=== PATIENT | female | born 1940 | race Caucasian/White ===

== ENCOUNTER → 2017-09-08 05:00 | Outpatient (REF) | payer MEDICARE, SELFPAY ==
[2017-09-08 08:27] LABS: Hematocrit 33.8 % (37-47); Hemoglobin 10.9 g/dl (12.0-15.0); Mean Corp Hgb Conc 32.2 g/gl (32-36); Mean Corpuscular Hgb 29.9 pg (27.0-32.0); Mean Corpuscular Volume 92.6 fL (81-99); Mean Platelet Vol. 10.9 fl (6.2-12.0); Platelet Count 288 K/mm3 (150-450); RBC Distribution Width CV 15.2 % (11.6-14.6); RBC Distribution Width SD 49.4 fl (35.1-43.9); Red Blood Count 3.65 M/mm3 (4.2-5.4); White Blood Count 8.4 K/mm3 (4.4-11.0)
[2017-09-08 08:28] LABS: Scan Indicated on CBC? Y/N NO
[2017-09-08 08:43] LABS: Anion Gap 9 (5-15); BUN 17 mg/dL (7-18); BUN/Creat Ratio 23.3 RATIO (10-20); Calcium,Total 8.6 mg/dL (8.5-10.1); Chloride 108 mmol/L (98-107); Creatinine, Serum 0.73 mg/dL (0.55-1.02); EST Glomerular Filtration Rate 83 mL/min (>60); Est Glom Filt Rate - Afr Amer 100 mL/min (>60); Glucose 94 mg/dL (70-110); Sodium Level 144 mmol/L (136-145)
== END ==
LOC: OLS.WCC 05:00
PROVIDERS: Visit Provider Family Medicine
DX: E78.5 Hyperlipidemia, unspecified (principal); E03.9 Hypothyroidism, unspecified
CPT/HCPCS: 36415; 80048; 85027

== ENCOUNTER → 2017-09-22 05:00 | Outpatient (REF) | payer MEDICARE, OTHER, SELFPAY ==
[2017-09-22 09:37] LABS: Hematocrit 35.7 % (37-47); Hemoglobin 11.2 g/dl (12.0-15.0); Mean Corp Hgb Conc 31.4 g/gl (32-36); Mean Corpuscular Volume 92.5 fL (81-99); Mean Platelet Vol. 10.8 fl (6.2-12.0); Platelet Count 230 K/mm3 (150-450); RBC Distribution Width CV 14.7 % (11.6-14.6); RBC Distribution Width SD 49.8 fl (35.1-43.9); Red Blood Count 3.86 M/mm3 (4.2-5.4); White Blood Count 7.7 K/mm3 (4.4-11.0)
[2017-09-22 09:38] LABS: Scan Indicated on CBC? Y/N NO
[2017-09-22 09:40] LABS: Anion Gap 7 (5-15); BUN 25 mg/dL (7-18); BUN/Creat Ratio 33.8 RATIO (10-20); Calcium,Total 8.6 mg/dL (8.5-10.1); Chloride 109 mmol/L (98-107); Creatinine, Serum 0.74 mg/dL (0.55-1.02); EST Glomerular Filtration Rate 81 mL/min (>60); Est Glom Filt Rate - Afr Amer 98 mL/min (>60); Glucose 91 mg/dL (70-110); Potassium 4.4 mmol/L (3.5-5.1); Sodium Level 142 mmol/L (136-145)
== END ==
LOC: OLS.WCC 05:00
PROVIDERS: Visit Provider Family Medicine
DX: E78.5 Hyperlipidemia, unspecified (principal); E30.9 Disorder of puberty, unspecified
CPT/HCPCS: 36415; 80048; 85027

== ENCOUNTER → 2017-09-28 05:00 | Outpatient (REF) | payer MEDICARE, SELFPAY ==
[2017-09-28 09:32] LABS: Hematocrit 34.6 % (37-47); Hemoglobin 10.7 g/dl (12.0-15.0); Mean Corp Hgb Conc 30.9 g/gl (32-36); Mean Corpuscular Hgb 28.6 pg (27.0-32.0); Mean Corpuscular Volume 92.5 fL (81-99); Mean Platelet Vol. 10.6 fl (6.2-12.0); Platelet Count 220 K/mm3 (150-450); RBC Distribution Width CV 14.5 % (11.6-14.6); RBC Distribution Width SD 49.1 fl (35.1-43.9); Red Blood Count 3.74 M/mm3 (4.2-5.4); Scan Indicated on CBC? Y/N NO; White Blood Count 7.1 K/mm3 (4.4-11.0)
[2017-09-28 09:38] LABS: Anion Gap 7 (5-15); BUN 16 mg/dL (7-18); BUN/Creat Ratio 22.1 RATIO (10-20); Calcium,Total 8.7 mg/dL (8.5-10.1); Chloride 105 mmol/L (98-107); Creatinine, Serum 0.72 mg/dL (0.55-1.02); EST Glomerular Filtration Rate 83 mL/min (>60); Est Glom Filt Rate - Afr Amer 101 mL/min (>60); Glucose 81 mg/dL (70-110); Potassium 4.2 mmol/L (3.5-5.1); Sodium Level 141 mmol/L (136-145)
== END ==
LOC: OLS.WCC 05:00
PROVIDERS: Visit Provider Family Medicine
DX: D64.9 Anemia, unspecified (principal); E03.9 Hypothyroidism, unspecified
CPT/HCPCS: 36415; 80048; 85027

== ENCOUNTER → 2017-11-01 05:00 | Outpatient (REF) | payer MEDICARE, SELFPAY ==
[2017-11-01 08:47] LABS: Hematocrit 36.8 % (37-47); Hemoglobin 11.6 g/dl (12.0-15.0); Mean Corp Hgb Conc 31.5 g/gl (32-36); Mean Corpuscular Hgb 28.4 pg (27.0-32.0); Mean Platelet Vol. 10.5 fl (6.2-12.0); Platelet Count 225 K/mm3 (150-450); RBC Distribution Width CV 14.3 % (11.6-14.6); RBC Distribution Width SD 47.2 fl (35.1-43.9); Red Blood Count 4.09 M/mm3 (4.2-5.4); White Blood Count 8.2 K/mm3 (4.4-11.0)
[2017-11-01 08:48] LABS: Anion Gap 9 (5-15); BUN 17 mg/dL (7-18); BUN/Creat Ratio 22.5 RATIO (10-20); Calcium,Total 8.5 mg/dL (8.5-10.1); Chloride 105 mmol/L (98-107); Creatinine, Serum 0.75 mg/dL (0.55-1.02); EST Glomerular Filtration Rate 80 mL/min (>60); Est Glom Filt Rate - Afr Amer 96 mL/min (>60); Glucose 97 mg/dL (74-106); Potassium 3.9 mmol/L (3.5-5.1); Sodium Level 142 mmol/L (136-145)
[2017-11-01 08:56] LABS: Scan Indicated on CBC? Y/N NO
== END ==
LOC: OLS.WCC 05:00
PROVIDERS: Visit Provider Family Medicine
DX: E78.5 Hyperlipidemia, unspecified (principal); E03.9 Hypothyroidism, unspecified; Z79.899 Other long term (current) drug therapy
CPT/HCPCS: 36415; 80048; 85027

== ENCOUNTER → 2017-11-29 04:00 | Outpatient (REF) | payer MEDICARE, SELFPAY ==
[2017-11-29 08:25] LABS: Hematocrit 38.6 % (37-47); Hemoglobin 12.1 g/dl (12.0-15.0); Mean Corp Hgb Conc 31.3 g/gl (32-36); Mean Corpuscular Hgb 27.6 pg (27.0-32.0); Mean Corpuscular Volume 87.9 fL (81-99); Mean Platelet Vol. 10.4 fl (6.2-12.0); Platelet Count 202 K/mm3 (150-450); RBC Distribution Width CV 14.6 % (11.6-14.6); RBC Distribution Width SD 47.2 fl (35.1-43.9); Red Blood Count 4.39 M/mm3 (4.2-5.4); White Blood Count 6.7 K/mm3 (4.4-11.0)
[2017-11-29 08:27] LABS: Scan Indicated on CBC? Y/N NO
[2017-11-29 08:56] LABS: Anion Gap 7 (5-15); BUN 16 mg/dL (7-18); BUN/Creat Ratio 23.6 RATIO (10-20); Calcium,Total 8.4 mg/dL (8.5-10.1); Chloride 106 mmol/L (98-107); Cholesterol 262 mg/dL (200); Creatinine, Serum 0.68 mg/dL (0.55-1.02); EST Glomerular Filtration Rate 90 mL/min (>60); Est Glom Filt Rate - Afr Amer 109 mL/min (>60); Glucose 114 mg/dL (74-106); High Density Lipoprotein 46 mg/dL; Potassium 3.9 mmol/L (3.5-5.1); Sodium Level 142 mmol/L (136-145); Thyroid Stim Hormone (TSH) 0.07 uIU/mL (0.358-3.74); Triglycerides 246 mg/dL; Very Low Density Lipoprotein 49 mg/dL (5-40)
== END ==
LOC: OLS.WCC 04:00
PROVIDERS: Visit Provider Family Medicine
DX: E78.5 Hyperlipidemia, unspecified (principal); E03.9 Hypothyroidism, unspecified; Z79.899 Other long term (current) drug therapy; Z79.01 Long term (current) use of anticoagulants
CPT/HCPCS: 36415; 80048; 80061; 84443; 85027

== ENCOUNTER → 2017-12-27 05:00 | Outpatient (REF) | payer MEDICARE, SELFPAY ==
[2017-12-27 09:54] LABS: Hematocrit 38.5 % (37-47); Hemoglobin 12.2 g/dl (12.0-15.0); Mean Corp Hgb Conc 31.7 g/gl (32-36); Mean Corpuscular Hgb 27.3 pg (27.0-32.0); Mean Corpuscular Volume 86.1 fL (81-99); Mean Platelet Vol. 10.5 fl (6.2-12.0); Platelet Count 223 K/mm3 (150-450); RBC Distribution Width CV 14.9 % (11.6-14.6); RBC Distribution Width SD 46.4 fl (35.1-43.9); Red Blood Count 4.47 M/mm3 (4.2-5.4)
[2017-12-27 10:04] LABS: Scan Indicated on CBC? Y/N NO
[2017-12-27 10:14] LABS: Anion Gap 7 (5-15); BUN 17 mg/dL (7-18); BUN/Creat Ratio 20.9 RATIO (10-20); Calcium,Total 8.5 mg/dL (8.5-10.1); Chloride 106 mmol/L (98-107); Creatinine, Serum 0.81 mg/dL (0.55-1.02); EST Glomerular Filtration Rate 73 mL/min (>60); Est Glom Filt Rate - Afr Amer 88 mL/min (>60); Glucose 89 mg/dL (74-106); Potassium 3.8 mmol/L (3.5-5.1); Sodium Level 141 mmol/L (136-145)
== END ==
LOC: OLS.WCC 05:00
PROVIDERS: Visit Provider Family Medicine
DX: E78.5 Hyperlipidemia, unspecified (principal); E03.9 Hypothyroidism, unspecified
CPT/HCPCS: 36415; 80048; 85027

== ENCOUNTER → 2018-01-24 05:00 | Outpatient (REF) | payer MEDICARE, SELFPAY ==
[2018-01-24 07:51] LABS: Prothrombin Time Fingerstick 24.7 SEC (11.9-14.4)
== END ==
LOC: OLS.WCC 05:00
PROVIDERS: Visit Provider Family Medicine
DX: E11.9 Type 2 diabetes mellitus without complications (principal); Z79.899 Other long term (current) drug therapy; Z79.01 Long term (current) use of anticoagulants
CPT/HCPCS: 36416; 85610

== ENCOUNTER → 2018-02-23 04:00 | Outpatient (REF) | payer MEDICARE, SELFPAY ==
[2018-02-23 07:16] LABS: Hematocrit 38.5 % (37-47); Hemoglobin 12.3 g/dl (12.0-15.0); Mean Corp Hgb Conc 31.9 g/gl (32-36); Mean Corpuscular Hgb 27.4 pg (27.0-32.0); Mean Corpuscular Volume 85.7 fL (81-99); Platelet Count 210 K/mm3 (150-450); RBC Distribution Width CV 16.2 % (11.6-14.6); RBC Distribution Width SD 51.3 fl (35.1-43.9); Red Blood Count 4.49 M/mm3 (4.2-5.4); White Blood Count 6.2 K/mm3 (4.4-11.0)
[2018-02-23 07:23] LABS: Scan Indicated on CBC? Y/N NO
[2018-02-23 07:32] LABS: International Normalized Ratio 2.4; Prothrombin Time (Protime)PT. 26.6 SECONDS (11.7-14.9)
[2018-02-23 07:35] LABS: Anion Gap 8 (5-15); BUN 18 mg/dL (7-18); BUN/Creat Ratio 23.7 RATIO (10-20); Chloride 109 mmol/L (98-107); Creatinine, Serum 0.76 mg/dL (0.55-1.02); EST Glomerular Filtration Rate 79 mL/min (>60); Est Glom Filt Rate - Afr Amer 95 mL/min (>60); Glucose 93 mg/dL (74-106); Potassium 3.7 mmol/L (3.5-5.1); Sodium Level 143 mmol/L (136-145)
== END ==
LOC: OLS.WCC 04:00
PROVIDERS: Visit Provider Family Medicine
DX: D64.9 Anemia, unspecified (principal); Z79.899 Other long term (current) drug therapy; Z79.01 Long term (current) use of anticoagulants; Z87.19 Personal history of other diseases of the digestive system
CPT/HCPCS: 36415; 80048; 85027; 85610

== ENCOUNTER → 2018-04-22 05:00 | Outpatient (REF) | payer MEDICARE, SELFPAY ==
[2018-04-22 07:41] LABS: Hematocrit 41.1 % (37-47); Mean Corp Hgb Conc 31.6 g/gl (32-36); Mean Corpuscular Hgb 28.4 pg (27.0-32.0); Mean Corpuscular Volume 89.7 fL (81-99); Mean Platelet Vol. 10.3 fl (6.2-12.0); Platelet Count 210 K/mm3 (150-450); RBC Distribution Width CV 15.1 % (11.6-14.6); RBC Distribution Width SD 49.6 fl (35.1-43.9); Red Blood Count 4.58 M/mm3 (4.2-5.4); White Blood Count 7.7 K/mm3 (4.4-11.0)
[2018-04-22 07:42] LABS: Scan Indicated on CBC? Y/N NO
[2018-04-22 07:45] LABS: International Normalized Ratio 1.8; Prothrombin Time (Protime)PT. 21.1 SECONDS (11.7-14.9)
[2018-04-22 08:00] LABS: Anion Gap 7 (5-15); BUN 16 mg/dL (7-18); BUN/Creat Ratio 19.5 RATIO (10-20); Calcium,Total 8.5 mg/dL (8.5-10.1); Chloride 106 mmol/L (98-107); Creatinine, Serum 0.82 mg/dL (0.55-1.02); EST Glomerular Filtration Rate 72 mL/min (>60); Est Glom Filt Rate - Afr Amer 87 mL/min (>60); Glucose 113 mg/dL (74-106); Potassium 3.7 mmol/L (3.5-5.1); Sodium Level 144 mmol/L (136-145); Thyroid Stim Hormone (TSH) 0.28 uIU/mL (0.358-3.74)
== END ==
LOC: OLS.WCC 05:00
PROVIDERS: Visit Provider Family Medicine
DX: E03.9 Hypothyroidism, unspecified (principal); Z79.899 Other long term (current) drug therapy; Z79.01 Long term (current) use of anticoagulants
CPT/HCPCS: 36415; 80048; 84443; 85027; 85610

== ENCOUNTER → 2018-05-24 05:00 | Outpatient (REF) | payer MEDICARE, SELFPAY ==
[2018-05-24 10:02] LABS: Anion Gap 9 (5-15); BUN 17 mg/dL (7-18); BUN/Creat Ratio 19.5 RATIO (10-20); Calcium,Total 8.7 mg/dL (8.5-10.1); Chloride 106 mmol/L (98-107); Creatinine, Serum 0.87 mg/dL (0.55-1.02); EST Glomerular Filtration Rate 67 mL/min (>60); Est Glom Filt Rate - Afr Amer 81 mL/min (>60); Glucose 131 mg/dL (74-106); Potassium 3.5 mmol/L (3.5-5.1); Sodium Level 143 mmol/L (136-145)
[2018-05-24 10:03] LABS: International Normalized Ratio 1.8; Prothrombin Time (Protime)PT. 21.1 SECONDS (11.7-14.9)
[2018-05-24 10:05] LABS: Hematocrit 41.2 % (37-47); Mean Corp Hgb Conc 31.6 g/gl (32-36); Mean Corpuscular Hgb 28.4 pg (27.0-32.0); Mean Corpuscular Volume 90.2 fL (81-99); Mean Platelet Vol. 10.7 fl (6.2-12.0); Platelet Count 195 K/mm3 (150-450); RBC Distribution Width CV 14.7 % (11.6-14.6); RBC Distribution Width SD 48.5 fl (35.1-43.9); Red Blood Count 4.57 M/mm3 (4.2-5.4); White Blood Count 8.3 K/mm3 (4.4-11.0)
[2018-05-24 10:07] LABS: Scan Indicated on CBC? Y/N NO
== END ==
LOC: OLS.WCC 05:00
PROVIDERS: Visit Provider Family Medicine
DX: Z79.899 Other long term (current) drug therapy (principal); Z79.01 Long term (current) use of anticoagulants
CPT/HCPCS: 36415; 80048; 85027; 85610

== ENCOUNTER → 2018-06-23 05:00 | Outpatient (REF) | payer MEDICARE, SELFPAY ==
[2018-06-23 08:52] LABS: Hemoglobin 13.5 g/dl (12.0-15.0); Mean Corp Hgb Conc 32.1 g/gl (32-36); Mean Corpuscular Hgb 28.7 pg (27.0-32.0); Mean Corpuscular Volume 89.2 fL (81-99); Platelet Count 202 K/mm3 (150-450); RBC Distribution Width CV 14.4 % (11.6-14.6); RBC Distribution Width SD 47.2 fl (35.1-43.9); Red Blood Count 4.71 M/mm3 (4.2-5.4)
[2018-06-23 08:54] LABS: Scan Indicated on CBC? Y/N NO
[2018-06-23 09:02] LABS: Prothrombin Time (Protime)PT. 22.9 SECONDS (11.7-14.9)
[2018-06-23 09:14] LABS: Anion Gap 6 (5-15); BUN 16 mg/dL (7-18); BUN/Creat Ratio 18.5 RATIO (10-20); Calcium,Total 8.7 mg/dL (8.5-10.1); Chloride 107 mmol/L (98-107); Cholesterol 317 mg/dL (200); Creatinine, Serum 0.86 mg/dL (0.55-1.02); EST Glomerular Filtration Rate 68 mL/min (>60); Est Glom Filt Rate - Afr Amer 82 mL/min (>60); Glucose 106 mg/dL (74-106); High Density Lipoprotein 41 mg/dL; Sodium Level 142 mmol/L (136-145); Thyroid Stim Hormone (TSH) 0.24 uIU/mL (0.358-3.74); Triglycerides 257 mg/dL; Very Low Density Lipoprotein 51 mg/dL (5-40)
== END ==
LOC: OLS.WCC 05:00
PROVIDERS: Visit Provider Family Medicine
DX: E78.5 Hyperlipidemia, unspecified (principal); E03.9 Hypothyroidism, unspecified; Z79.899 Other long term (current) drug therapy; Z79.01 Long term (current) use of anticoagulants
CPT/HCPCS: 36415; 80048; 80061; 84443; 85027; 85610

== ENCOUNTER → 2018-07-21 05:00 | Outpatient (REF) | payer MEDICARE, SELFPAY ==
[2018-07-21 08:46] LABS: Hemoglobin 13.1 g/dl (12.0-15.0); Mean Corp Hgb Conc 32.8 g/gl (32-36); Mean Corpuscular Hgb 29.2 pg (27.0-32.0); Mean Corpuscular Volume 89.3 fL (81-99); Mean Platelet Vol. 10.6 fl (6.2-12.0); Platelet Count 194 K/mm3 (150-450); RBC Distribution Width CV 14.5 % (11.6-14.6); RBC Distribution Width SD 47.1 fl (35.1-43.9); Red Blood Count 4.48 M/mm3 (4.2-5.4); Scan Indicated on CBC? Y/N NO; White Blood Count 6.2 K/mm3 (4.4-11.0)
[2018-07-21 08:54] LABS: Prothrombin Time (Protime)PT. 22.3 SECONDS (11.7-14.9)
[2018-07-21 08:58] LABS: Anion Gap 6 (5-15); BUN 18 mg/dL (7-18); BUN/Creat Ratio 20.2 RATIO (10-20); Calcium,Total 8.3 mg/dL (8.5-10.1); Chloride 106 mmol/L (98-107); Creatinine, Serum 0.89 mg/dL (0.55-1.02); EST Glomerular Filtration Rate 65 mL/min (>60); Est Glom Filt Rate - Afr Amer 79 mL/min (>60); Glucose 103 mg/dL (74-106); Potassium 3.5 mmol/L (3.5-5.1); Sodium Level 140 mmol/L (136-145)
== END ==
LOC: OLS.WCC 05:00
PROVIDERS: Visit Provider Family Medicine
DX: Z79.899 Other long term (current) drug therapy (principal); Z79.01 Long term (current) use of anticoagulants
CPT/HCPCS: 36415; 80048; 85027; 85610

== ENCOUNTER → 2018-08-23 04:00 | Outpatient (REF) | payer MEDICARE, SELFPAY ==
[2018-08-23 09:12] LABS: Hematocrit 40.8 % (37-47); Hemoglobin 13.1 g/dl (12.0-15.0); Mean Corp Hgb Conc 32.1 g/gl (32-36); Mean Corpuscular Volume 90.3 fL (81-99); Mean Platelet Vol. 11.3 fl (6.2-12.0); Platelet Count 203 K/mm3 (150-450); RBC Distribution Width CV 14.7 % (11.6-14.6); RBC Distribution Width SD 48.2 fl (35.1-43.9); Red Blood Count 4.52 M/mm3 (4.2-5.4); White Blood Count 6.9 K/mm3 (4.4-11.0)
[2018-08-23 09:19] LABS: Scan Indicated on CBC? Y/N NO
[2018-08-23 09:25] LABS: International Normalized Ratio 2.2; Prothrombin Time (Protime)PT. 24.2 SECONDS (11.7-14.9)
[2018-08-23 09:30] LABS: Anion Gap 8 (5-15); BUN 23 mg/dL (7-18); BUN/Creat Ratio 23.5 RATIO (10-20); Calcium,Total 8.5 mg/dL (8.5-10.1); Chloride 108 mmol/L (98-107); Creatinine, Serum 0.98 mg/dL (0.55-1.02); EST Glomerular Filtration Rate 59 mL/min (>60); Est Glom Filt Rate - Afr Amer 71 mL/min (>60); Glucose 119 mg/dL (74-106); Potassium 4.1 mmol/L (3.5-5.1); Sodium Level 144 mmol/L (136-145); Thyroid Stim Hormone (TSH) 0.09 uIU/mL (0.358-3.74)
== END ==
LOC: OLS.WCC 04:00
PROVIDERS: Visit Provider Family Medicine
DX: E03.9 Hypothyroidism, unspecified (principal); Z79.01 Long term (current) use of anticoagulants; Z79.899 Other long term (current) drug therapy
CPT/HCPCS: 36415; 80048; 84443; 85027; 85610

== ENCOUNTER → 2018-09-22 05:00 | Outpatient (REF) | payer MEDICARE, SELFPAY ==
[2018-09-22 08:46] LABS: Anion Gap 8 (5-15); BUN 21 mg/dL (7-18); BUN/Creat Ratio 25.3 RATIO (10-20); Calcium,Total 8.4 mg/dL (8.5-10.1); Chloride 109 mmol/L (98-107); Creatinine, Serum 0.83 mg/dL (0.55-1.02); EST Glomerular Filtration Rate 71 mL/min (>60); Est Glom Filt Rate - Afr Amer 86 mL/min (>60); Glucose 114 mg/dL (74-106); Potassium 3.7 mmol/L (3.5-5.1); Sodium Level 145 mmol/L (136-145)
[2018-09-22 08:47] LABS: Hematocrit 39.9 % (37-47); Hemoglobin 12.8 g/dl (12.0-15.0); Mean Corp Hgb Conc 32.1 g/gl (32-36); Mean Corpuscular Volume 90.3 fL (81-99); Mean Platelet Vol. 10.7 fl (6.2-12.0); Platelet Count 208 K/mm3 (150-450); RBC Distribution Width CV 15.1 % (11.6-14.6); RBC Distribution Width SD 49.3 fl (35.1-43.9); Red Blood Count 4.42 M/mm3 (4.2-5.4); White Blood Count 7.3 K/mm3 (4.4-11.0)
[2018-09-22 08:53] LABS: Scan Indicated on CBC? Y/N NO
[2018-09-22 09:22] LABS: International Normalized Ratio 2.2; Prothrombin Time (Protime)PT. 24.3 SECONDS (11.7-14.9)
== END ==
LOC: OLS.WCC 05:00
PROVIDERS: Visit Provider Family Medicine
DX: E87.5 Hyperkalemia (principal); E03.9 Hypothyroidism, unspecified; Z79.899 Other long term (current) drug therapy; Z79.01 Long term (current) use of anticoagulants
CPT/HCPCS: 36415; 80048; 85027; 85610

== ENCOUNTER → 2018-10-24 04:00 | Outpatient (REF) | payer MEDICARE, SELFPAY ==
[2018-10-24 09:07] LABS: Hematocrit 40.2 % (37-47); Hemoglobin 13.1 g/dl (12.0-15.0); Mean Corp Hgb Conc 32.6 g/gl (32-36); Mean Corpuscular Hgb 29.4 pg (27.0-32.0); Mean Corpuscular Volume 90.3 fL (81-99); Mean Platelet Vol. 11.1 fl (6.2-12.0); Platelet Count 202 K/mm3 (150-450); RBC Distribution Width CV 14.9 % (11.6-14.6); RBC Distribution Width SD 48.7 fl (35.1-43.9); Red Blood Count 4.45 M/mm3 (4.2-5.4); White Blood Count 6.5 K/mm3 (4.4-11.0)
[2018-10-24 09:08] LABS: Scan Indicated on CBC? Y/N NO
[2018-10-24 09:17] LABS: International Normalized Ratio 1.7; Prothrombin Time (Protime)PT. 20.3 SECONDS (11.7-14.9)
[2018-10-24 09:26] LABS: Anion Gap 7 (5-15); BUN 18 mg/dL (7-18); BUN/Creat Ratio 22.9 RATIO (10-20); Calcium,Total 8.6 mg/dL (8.5-10.1); Chloride 110 mmol/L (98-107); Creatinine, Serum 0.79 mg/dL (0.55-1.02); EST Glomerular Filtration Rate 76 mL/min (>60); Est Glom Filt Rate - Afr Amer 91 mL/min (>60); Glucose 125 mg/dL (74-106); Potassium 3.4 mmol/L (3.5-5.1); Sodium Level 142 mmol/L (136-145)
== END ==
LOC: OLS.WCC 04:00
PROVIDERS: Visit Provider Family Medicine
DX: E78.5 Hyperlipidemia, unspecified (principal); E03.9 Hypothyroidism, unspecified; Z79.01 Long term (current) use of anticoagulants; Z79.899 Other long term (current) drug therapy; Z87.19 Personal history of other diseases of the digestive system
CPT/HCPCS: 36415; 80048; 85027; 85610

== ENCOUNTER → 2018-11-21 04:00 | Outpatient (REF) | payer MEDICARE, SELFPAY ==
[2018-11-21 08:15] LABS: Hematocrit 42.9 % (37-47); Mean Corp Hgb Conc 32.6 g/gl (32-36); Mean Corpuscular Hgb 29.5 pg (27.0-32.0); Mean Corpuscular Volume 90.3 fL (81-99); Platelet Count 213 K/mm3 (150-450); RBC Distribution Width CV 14.9 % (11.6-14.6); RBC Distribution Width SD 48.3 fl (35.1-43.9); Red Blood Count 4.75 M/mm3 (4.2-5.4); White Blood Count 7.3 K/mm3 (4.4-11.0)
[2018-11-21 08:24] LABS: Anion Gap 10 (5-15); BUN 19 mg/dL (7-18); BUN/Creat Ratio 22.8 RATIO (10-20); Calcium,Total 8.5 mg/dL (8.5-10.1); Chloride 107 mmol/L (98-107); Creatinine, Serum 0.83 mg/dL (0.55-1.02); EST Glomerular Filtration Rate 71 mL/min (>60); Est Glom Filt Rate - Afr Amer 86 mL/min (>60); Glucose 103 mg/dL (74-106); Potassium 3.8 mmol/L (3.5-5.1); Sodium Level 143 mmol/L (136-145)
[2018-11-21 08:30] LABS: Prothrombin Time (Protime)PT. 22.8 SECONDS (11.7-14.9)
[2018-11-21 08:32] LABS: Scan Indicated on CBC? Y/N NO
== END ==
LOC: OLS.WCC 04:00
PROVIDERS: Visit Provider Family Medicine
DX: Z79.899 Other long term (current) drug therapy (principal); Z79.01 Long term (current) use of anticoagulants
CPT/HCPCS: 36415; 80048; 85027; 85610

== ENCOUNTER → 2018-12-19 04:00 | Outpatient (REF) | payer MEDICARE, SELFPAY ==
[2018-12-19 07:17] LABS: International Normalized Ratio 1.8; Prothrombin Time (Protime)PT. 20.5 SECONDS (11.7-14.9)
[2018-12-19 07:18] LABS: Hematocrit 43.4 % (37-47); Hemoglobin 13.7 g/dl (12.0-15.0); Mean Corp Hgb Conc 31.6 g/gl (32-36); Mean Corpuscular Hgb 28.2 pg (27.0-32.0); Mean Corpuscular Volume 89.3 fL (81-99); Mean Platelet Vol. 10.9 fl (6.2-12.0); Platelet Count 221 K/mm3 (150-450); RBC Distribution Width CV 14.7 % (11.6-14.6); RBC Distribution Width SD 47.8 fl (35.1-43.9); Red Blood Count 4.86 M/mm3 (4.2-5.4); White Blood Count 7.4 K/mm3 (4.4-11.0)
[2018-12-19 07:32] LABS: Anion Gap 6 (5-15); BUN 14 mg/dL (7-18); Calcium,Total 8.8 mg/dL (8.5-10.1); Chloride 109 mmol/L (98-107); Cholesterol 296 mg/dL (200); Creatinine, Serum 0.87 mg/dL (0.55-1.02); EST Glomerular Filtration Rate 67 mL/min (>60); Est Glom Filt Rate - Afr Amer 81 mL/min (>60); Glucose 124 mg/dL (74-106); High Density Lipoprotein 43 mg/dL; Scan Indicated on CBC? Y/N NO; Sodium Level 143 mmol/L (136-145); Thyroid Stim Hormone (TSH) 0.26 uIU/mL (0.358-3.74); Triglycerides 286 mg/dL; Very Low Density Lipoprotein 57 mg/dL (5-40)
== END ==
LOC: OLS.WCC 04:00
PROVIDERS: Visit Provider Family Medicine
DX: E03.9 Hypothyroidism, unspecified (principal); Z79.899 Other long term (current) drug therapy; Z79.01 Long term (current) use of anticoagulants
CPT/HCPCS: 36415; 80048; 80061; 84443; 85027; 85610

== ENCOUNTER → 2019-01-19 05:00 | Outpatient (REF) | payer MEDICARE, SELFPAY ==
[2019-01-19 08:05] LABS: Hematocrit 42.2 % (37-47); Hemoglobin 13.9 g/dl (12.0-15.0); Mean Corp Hgb Conc 32.9 g/gl (32-36); Mean Corpuscular Hgb 28.8 pg (27.0-32.0); Mean Corpuscular Volume 87.6 fL (81-99); Mean Platelet Vol. 10.5 fl (6.2-12.0); Platelet Count 200 K/mm3 (150-450); RBC Distribution Width CV 14.7 % (11.6-14.6); RBC Distribution Width SD 46.3 fl (35.1-43.9); Red Blood Count 4.82 M/mm3 (4.2-5.4); Scan Indicated on CBC? Y/N NO; White Blood Count 7.4 K/mm3 (4.4-11.0)
[2019-01-19 08:11] LABS: Prothrombin Time (Protime)PT. 22.5 SECONDS (11.7-14.9)
[2019-01-19 08:13] LABS: Anion Gap 5 (5-15); BUN 16 mg/dL (7-18); BUN/Creat Ratio 17.3 RATIO (10-20); Calcium,Total 8.6 mg/dL (8.5-10.1); Chloride 108 mmol/L (98-107); Creatinine, Serum 0.92 mg/dL (0.55-1.02); EST Glomerular Filtration Rate 63 mL/min (>60); Est Glom Filt Rate - Afr Amer 76 mL/min (>60); Glucose 123 mg/dL (74-106); Potassium 4.1 mmol/L (3.5-5.1); Sodium Level 142 mmol/L (136-145)
== END ==
LOC: OLS.WCC 05:00
PROVIDERS: Visit Provider Family Medicine
DX: Z79.899 Other long term (current) drug therapy (principal); Z79.01 Long term (current) use of anticoagulants
CPT/HCPCS: 36415; 80048; 85027; 85610

== ENCOUNTER → 2019-02-17 | Outpatient (REF) | payer MEDICARE, SELFPAY ==
[2019-02-17 08:11] LABS: Hematocrit 39.4 % (37-47); Hemoglobin 12.7 g/dl (12.0-15.0); Mean Corp Hgb Conc 32.2 g/gl (32-36); Mean Corpuscular Hgb 28.3 pg (27.0-32.0); Mean Corpuscular Volume 87.9 fL (81-99); Mean Platelet Vol. 10.3 fl (6.2-12.0); Platelet Count 202 K/mm3 (150-450); RBC Distribution Width CV 14.5 % (11.6-14.6); RBC Distribution Width SD 46.8 fl (35.1-43.9); Red Blood Count 4.48 M/mm3 (4.2-5.4); White Blood Count 8.4 K/mm3 (4.4-11.0)
[2019-02-17 08:15] LABS: Scan Indicated on CBC? Y/N NO
[2019-02-17 08:31] LABS: Anion Gap 5 (5-15); BUN 19 mg/dL (7-18); BUN/Creat Ratio 21.5 RATIO (10-20); Calcium,Total 8.6 mg/dL (8.5-10.1); Chloride 109 mmol/L (98-107); Creatinine, Serum 0.88 mg/dL (0.55-1.02); EST Glomerular Filtration Rate 66 mL/min (>60); Est Glom Filt Rate - Afr Amer 80 mL/min (>60); Glucose 105 mg/dL (74-106); Sodium Level 144 mmol/L (136-145)
[2019-02-17 08:33] LABS: International Normalized Ratio 1.8; Prothrombin Time (Protime)PT. 20.6 SECONDS (11.7-14.9)
== END | disposition home or self-care (01) ==
LOC: OLS.WCC 05:00
PROVIDERS: Visit Provider Family Medicine
DX: Z79.899 Other long term (current) drug therapy (principal); Z79.01 Long term (current) use of anticoagulants
CPT/HCPCS: 36415; 80048; 85027; 85610

== ENCOUNTER → 2019-03-20 | Outpatient (REF) | payer MEDICARE, SELFPAY ==
[2019-03-20 06:52] LABS: Hemoglobin 13.3 g/dl (12.0-15.0); Mean Corp Hgb Conc 32.4 g/gl (32-36); Mean Corpuscular Hgb 28.5 pg (27.0-32.0); Mean Platelet Vol. 10.3 fl (6.2-12.0); Platelet Count 187 K/mm3 (150-450); RBC Distribution Width CV 14.8 % (11.6-14.6); RBC Distribution Width SD 47.1 fl (35.1-43.9); Red Blood Count 4.66 M/mm3 (4.2-5.4); White Blood Count 6.3 K/mm3 (4.4-11.0)
[2019-03-20 06:55] LABS: International Normalized Ratio 1.8; Prothrombin Time (Protime)PT. 20.7 SECONDS (11.7-14.9)
[2019-03-20 06:56] LABS: Scan Indicated on CBC? Y/N NO
[2019-03-20 07:11] LABS: Anion Gap 7 (5-15); BUN 18 mg/dL (7-18); BUN/Creat Ratio 17.6 RATIO (10-20); Calcium,Total 8.3 mg/dL (8.5-10.1); Chloride 107 mmol/L (98-107); Creatinine, Serum 1.02 mg/dL (0.55-1.02); EST Glomerular Filtration Rate 56 mL/min (>60); Est Glom Filt Rate - Afr Amer 68 mL/min (>60); Glucose 214 mg/dL (74-106); Potassium 3.7 mmol/L (3.5-5.1); Sodium Level 140 mmol/L (136-145)
== END | disposition home or self-care (01) ==
LOC: OLS.WCC 05:00
PROVIDERS: Visit Provider Family Medicine
DX: I10 Essential (primary) hypertension (principal); Z79.01 Long term (current) use of anticoagulants; Z79.899 Other long term (current) drug therapy
CPT/HCPCS: 36415; 80048; 85027; 85610

== ENCOUNTER → 2019-04-17 | Outpatient (REF) | payer MEDICARE, SELFPAY ==
[2019-04-17 07:35] LABS: Hematocrit 38.4 % (37-47); Hemoglobin 12.3 g/dL (12.0-15.0); Mean Corpuscular Hgb 28.7 pg (27.0-32.0); Mean Corpuscular Volume 89.5 fL (81-99); Mean Platelet Vol. 11.1 fl (6.2-12.0); Platelet Count 203 K/mm3 (150-450); RBC Distribution Width CV 14.5 % (11.6-14.6); RBC Distribution Width SD 46.5 fl (35.1-43.9); Red Blood Count 4.29 M/mm3 (4.2-5.4); White Blood Count 8.3 K/mm3 (4.4-11.0)
[2019-04-17 07:52] LABS: International Normalized Ratio 1.9; Prothrombin Time (Protime)PT. 21.8 SECONDS (11.7-14.9)
[2019-04-17 07:59] LABS: Anion Gap 8 (5-15); BUN 19 mg/dL (7-18); BUN/Creat Ratio 21.9 RATIO (10-20); Calcium,Total 8.7 mg/dL (8.5-10.1); Chloride 108 mmol/L (98-107); Creatinine, Serum 0.87 mg/dL (0.55-1.02); EST Glomerular Filtration Rate 67 mL/min (>60); Est Glom Filt Rate - Afr Amer 81 mL/min (>60); Glucose 103 mg/dL (74-106); Potassium 3.7 mmol/L (3.5-5.1); Sodium Level 144 mmol/L (136-145)
== END | disposition home or self-care (01) ==
LOC: OLS.WCC 04:15
PROVIDERS: Visit Provider Family Medicine
DX: Z79.899 Other long term (current) drug therapy (principal); Z79.01 Long term (current) use of anticoagulants
CPT/HCPCS: 36415; 80048; 85027; 85610

== ENCOUNTER → 2019-05-16 05:40 | Outpatient (REF) | payer MEDICARE, SELFPAY ==
[2019-05-16 08:43] LABS: Hematocrit 40.2 % (37-47); Hemoglobin 12.8 g/dL (12.0-15.0); Mean Corp Hgb Conc 31.8 g/dL (32-36); Mean Corpuscular Hgb 28.1 pg (27.0-32.0); Mean Corpuscular Volume 88.4 fL (81-99); Platelet Count 234 K/mm3 (150-450); RBC Distribution Width CV 14.3 % (11.6-14.6); RBC Distribution Width SD 46.3 fl (35.1-43.9); Red Blood Count 4.55 M/mm3 (4.2-5.4); White Blood Count 8.6 K/mm3 (4.4-11.0)
[2019-05-16 08:51] LABS: International Normalized Ratio 1.9; Prothrombin Time (Protime)PT. 21.3 SECONDS (11.7-14.9)
[2019-05-16 08:56] LABS: Anion Gap 2 (5-15); BUN 16 mg/dL (7-18); BUN/Creat Ratio 19.4 RATIO (10-20); Calcium,Total 8.1 mg/dL (8.5-10.1); Chloride 110 mmol/L (98-107); Creatinine, Serum 0.82 mg/dL (0.55-1.02); EST Glomerular Filtration Rate 72 mL/min (>60); Est Glom Filt Rate - Afr Amer 87 mL/min (>60); Glucose 98 mg/dL (74-106); Potassium 3.7 mmol/L (3.5-5.1); Sodium Level 142 mmol/L (136-145)
== END ==
LOC: OLS.WCC 05:40
PROVIDERS: Visit Provider Family Medicine
DX: Z79.899 Other long term (current) drug therapy (principal); Z79.01 Long term (current) use of anticoagulants
CPT/HCPCS: 36415; 80048; 85027; 85610

== ENCOUNTER → 2019-06-16 05:00 | Outpatient (REF) | payer MEDICARE, SELFPAY ==
[2019-06-16 07:59] LABS: Hematocrit 39.3 % (37-47); Hemoglobin 12.4 g/dL (12.0-15.0); Mean Corp Hgb Conc 31.6 g/dL (32-36); Mean Corpuscular Hgb 27.8 pg (27.0-32.0); Mean Corpuscular Volume 88.1 fL (81-99); Mean Platelet Vol. 10.5 fl (6.2-12.0); Platelet Count 206 K/mm3 (150-450); RBC Distribution Width CV 14.6 % (11.6-14.6); RBC Distribution Width SD 47.5 fl (35.1-43.9); Red Blood Count 4.46 M/mm3 (4.2-5.4); White Blood Count 8.4 K/mm3 (4.4-11.0)
[2019-06-16 08:07] LABS: International Normalized Ratio 2.1; Prothrombin Time (Protime)PT. 23.9 SECONDS (11.7-14.9)
[2019-06-16 08:20] LABS: Anion Gap 8 (5-15); BUN 23 mg/dL (7-18); BUN/Creat Ratio 23.6 RATIO (10-20); Calcium,Total 8.9 mg/dL (8.5-10.1); Chloride 110 mmol/L (98-107); Cholesterol 176 mg/dL (200); Creatinine, Serum 0.97 mg/dL (0.55-1.02); EST Glomerular Filtration Rate 59 mL/min (>60); Est Glom Filt Rate - Afr Amer 71 mL/min (>60); Glucose 158 mg/dL (74-106); High Density Lipoprotein 43 mg/dL; Potassium 4.1 mmol/L (3.5-5.1); Sodium Level 145 mmol/L (136-145); Thyroid Stim Hormone (TSH) 0.11 uIU/mL (0.358-3.74); Triglycerides 191 mg/dL; Very Low Density Lipoprotein 38 mg/dL (5-40)
== END ==
LOC: OLS.WCC 05:00
PROVIDERS: Visit Provider Family Medicine
DX: E78.5 Hyperlipidemia, unspecified (principal); E03.9 Hypothyroidism, unspecified; R06.02 Shortness of breath; Z79.01 Long term (current) use of anticoagulants; Z79.899 Other long term (current) drug therapy
CPT/HCPCS: 36415; 80048; 80061; 84443; 85027; 85610

== ENCOUNTER → 2019-07-12 05:00 | Outpatient (REF) | payer MEDICARE, SELFPAY ==
[2019-07-12 07:54] LABS: Hematocrit 40.4 % (37-47); Hemoglobin 12.6 g/dL (12.0-15.0); Mean Corp Hgb Conc 31.2 g/dL (32-36); Mean Corpuscular Hgb 27.4 pg (27.0-32.0); Mean Corpuscular Volume 87.8 fL (81-99); Mean Platelet Vol. 10.3 fl (6.2-12.0); Platelet Count 233 K/mm3 (150-450); RBC Distribution Width CV 14.6 % (11.6-14.6); RBC Distribution Width SD 46.9 fl (35.1-43.9)
[2019-07-12 08:09] LABS: ALB/GLOB Ratio 0.8 RATIO (0.9-2.4); AST(SGOT) 10 U/L (15-37); Alanine Aminotransfer ALT/SGPT 14 U/L (13-56); Alkaline Phosphatase 60 U/L (45-117); Anion Gap 5 (5-15); BUN 18 mg/dL (7-18); BUN/Creat Ratio 20.4 RATIO (10-20); Calcium,Total 9.2 mg/dL (8.5-10.1); Chloride 110 mmol/L (98-107); Creatinine, Serum 0.88 mg/dL (0.55-1.02); EST Glomerular Filtration Rate 66 mL/min (>60); Est Glom Filt Rate - Afr Amer 80 mL/min (>60); Globulin 3.6 g/dL (2.2-4.2); Glucose 138 mg/dL (74-106); Protein, Total 6.6 g/dL (6.4-8.2); Sodium Level 143 mmol/L (136-145)
[2019-07-12 08:47] LABS: International Normalized Ratio 2.4; Prothrombin Time (Protime)PT. 25.8 SECONDS (11.7-14.9)
== END ==
LOC: OLS.WCC 05:00
PROVIDERS: Visit Provider Family Medicine
DX: D64.9 Anemia, unspecified (principal); E78.5 Hyperlipidemia, unspecified; E03.9 Hypothyroidism, unspecified; Z79.01 Long term (current) use of anticoagulants; Z79.899 Other long term (current) drug therapy
CPT/HCPCS: 36415; 80053; 85027; 85610

== ENCOUNTER → 2019-07-17 05:00 | Outpatient (REF) | payer MEDICARE, SELFPAY ==
[2019-07-17 08:34] LABS: Prothrombin Time Fingerstick 27.1 SEC (11.9-14.4)
== END ==
LOC: OLS.WCC 05:00
PROVIDERS: Visit Provider Family Medicine
DX: Z79.01 Long term (current) use of anticoagulants (principal)
CPT/HCPCS: 36416; 85610

== ENCOUNTER → 2019-07-20 05:00 | Outpatient (REF) | payer MEDICARE, SELFPAY | LOC: OLS.WCC 05:00 | PROVIDERS: Visit Provider Family Medicine | DX: Z79.01 Long term (current) use of anticoagulants (principal) | CPT/HCPCS: 36416; 85610 ==

== ENCOUNTER → 2019-07-24 09:30 | Outpatient (REF) | payer MEDICARE, SELFPAY ==
[2019-07-24 10:14] LABS: Prothrombin Time Fingerstick 28.8 SEC (11.9-14.4)
== END ==
LOC: OLS.WCC 09:30
PROVIDERS: Visit Provider Family Medicine
DX: Z79.01 Long term (current) use of anticoagulants (principal)
CPT/HCPCS: 36416; 85610

== ENCOUNTER → 2019-07-28 05:00 | Outpatient (REF) | payer MEDICARE, SELFPAY ==
[2019-07-28 08:52] LABS: Hematocrit 40.3 % (37-47); Hemoglobin 12.9 g/dL (12.0-15.0); Mean Corpuscular Hgb 27.9 pg (27.0-32.0); Mean Corpuscular Volume 87.2 fL (81-99); Mean Platelet Vol. 10.7 fl (6.2-12.0); Platelet Count 229 K/mm3 (150-450); RBC Distribution Width CV 14.7 % (11.6-14.6); RBC Distribution Width SD 46.9 fl (35.1-43.9); Red Blood Count 4.62 M/mm3 (4.2-5.4); White Blood Count 9.2 K/mm3 (4.4-11.0)
[2019-07-28 09:23] LABS: Anion Gap 6 (5-15); BUN 15 mg/dL (7-18); BUN/Creat Ratio 17.9 RATIO (10-20); Calcium,Total 8.9 mg/dL (8.5-10.1); Chloride 108 mmol/L (98-107); Creatinine, Serum 0.84 mg/dL (0.55-1.02); EST Glomerular Filtration Rate 70 mL/min (>60); Est Glom Filt Rate - Afr Amer 85 mL/min (>60); Glucose 125 mg/dL (74-106); Sodium Level 142 mmol/L (136-145)
== END ==
LOC: OLS.WCC 05:00
PROVIDERS: Visit Provider Family Medicine
DX: E78.5 Hyperlipidemia, unspecified (principal); E03.9 Hypothyroidism, unspecified; Z79.899 Other long term (current) drug therapy; Z79.01 Long term (current) use of anticoagulants
CPT/HCPCS: 36415; 80048; 84443; 85027; 85610

== ENCOUNTER → 2019-08-28 05:00 | Outpatient (REF) | payer MEDICARE, SELFPAY ==
[2019-08-28 09:21] LABS: Hematocrit 38.1 % (37-47); Mean Corp Hgb Conc 31.5 g/dL (32-36); Mean Corpuscular Hgb 27.5 pg (27.0-32.0); Mean Corpuscular Volume 87.4 fL (81-99); Mean Platelet Vol. 10.8 fl (6.2-12.0); Platelet Count 213 K/mm3 (150-450); RBC Distribution Width CV 14.7 % (11.6-14.6); RBC Distribution Width SD 47.3 fl (35.1-43.9); Red Blood Count 4.36 M/mm3 (4.2-5.4); White Blood Count 7.8 K/mm3 (4.4-11.0)
[2019-08-28 09:31] LABS: International Normalized Ratio 2.2; Prothrombin Time (Protime)PT. 24.4 SECONDS (11.7-14.9)
[2019-08-28 09:32] LABS: Anion Gap 5 (5-15); BUN 17 mg/dL (7-18); BUN/Creat Ratio 18.7 RATIO (10-20); Calcium,Total 8.6 mg/dL (8.5-10.1); Chloride 107 mmol/L (98-107); Creatinine, Serum 0.91 mg/dL (0.55-1.02); EST Glomerular Filtration Rate 64 mL/min (>60); Est Glom Filt Rate - Afr Amer 77 mL/min (>60); Glucose 108 mg/dL (74-106); Potassium 4.3 mmol/L (3.5-5.1); Sodium Level 141 mmol/L (136-145)
== END ==
LOC: OLS.WCC 05:00
PROVIDERS: Visit Provider Family Medicine
DX: Z79.899 Other long term (current) drug therapy (principal); Z79.01 Long term (current) use of anticoagulants
CPT/HCPCS: 36415; 80048; 85027; 85610

== ENCOUNTER → 2019-09-11 15:42 | Outpatient (CLI) | payer MEDICARE, SELFPAY ==
--- NOTE | 2019-09-11 15:44 | CT_ITS ---
STUDY: CT CHEST WITHOUT CONTRAST REASON FOR EXAM: Female, 79 years old. Follow-up of abnormal chest radiograph. RADIATION DOSAGE (If Supplied By Facility): CTDIvol = ( 17.19 ) mGy, DLP = ( 514.81 ) mGycm TECHNIQUE: Transaxial imaging was performed without the administration of intravenous contrast material. Multiplanar coronal and sagittal images were reformatted. Individualized dose optimization techniques were used for this CT. COMPARISON: Chest radiograph dated August 18, 2017. FINDINGS: The lungs are expanded. There is a large left upper lobe pulmonary mass measuring approximately 3.8 x 2.8 x 2.9 cm. This mass is moderately spiculated and may extend to the left lateral chest wall. A There is subtle interstitial thickening visible in the left lower lobe that may represent pulmonary fibrosis. The right lung is generally clear. There is no demonstrated pleural abnormality. Normal heart and pericardium. There are calcifications of the coronary arteries. There are multiple small lymph nodes within the mediastinum, which are normal in size and morphology. Normal hilar regions. Normal unenhanced pulmonary arteries. There is atherosclerotic calcification of the aortic arch with tortuosity and elongation of the aortic arch and descending thoracic aorta. Maximum transverse dimension of the ascending thoracic aorta measures approximately 3.8 cm. The bones appear osteopenic. There is a compression fracture of T9. There is a calcified gallstone. CT/Chest without Contrast IMPRESSION: 1. Large left upper lobe pulmonary mass likely representing a bronchogenic carcinoma. 2. Cholelithiasis. 3. Sequela of coronary artery and aortic atherosclerotic disease. Electronically Signed: Carol Fields MD at 6:34 EST , Service support ,
== END ==
PROVIDERS: Family Provider Family Medicine; PCP Family Medicine; Referring Provider Family Medicine; Visit Provider Family Medicine
DX: R91.8 Other nonspecific abnormal finding of lung field (principal)
CPT/HCPCS: 71250

== ENCOUNTER → 2019-09-28 05:00 | Outpatient (REF) | payer MEDICARE, SELFPAY ==
[2019-09-21 10:28] VITALS: BMI 35.4
[2019-09-28 06:59] LABS: Absolute Neutrophil Count 4.1 X10^3/uL (2.0-7.7); Basophil# 0.03 X10^3/uL; Basophil% 0.5 % (0-1); Eosinophil# 0.26 X10^3/uL; Eosinophils% 4.3 % (0-5); Hematocrit 38.6 % (37-47); Hemoglobin 12.1 g/dL (12.0-15.0); Lymphocyte % 21.5 % (19-41); Mean Corp Hgb Conc 31.3 g/dL (32-36); Mean Corpuscular Hgb 27.1 pg (27.0-32.0); Mean Corpuscular Volume 86.4 fL (81-99); Mean Platelet Vol. 10.2 fl (6.2-12.0); Monocyte% 6.6 % (0-10); NRBC Flagged by Analyzer 0 % (0-5); Neutrophil # 4.05 X10^3/uL (2.7-7.7); Neutrophil % 66.8 % (47-70); Platelet Count 216 K/mm3 (150-450); RBC Distribution Width CV 14.6 % (11.6-14.6); RBC Distribution Width SD 46.8 fl (35.1-43.9); Red Blood Count 4.47 M/mm3 (4.2-5.4); White Blood Count 6.1 K/mm3 (4.4-11.0)
[2019-09-28 07:06] LABS: International Normalized Ratio 1.2; Prothrombin Time (Protime)PT. 14.6 SECONDS (11.7-14.9)
[2019-09-28 07:36] LABS: Anion Gap 5 (5-15); BUN 19 mg/dL (7-18); BUN/Creat Ratio 18.1 RATIO (10-20); Calcium,Total 8.3 mg/dL (8.5-10.1); Chloride 107 mmol/L (98-107); Creatinine, Serum 1.05 mg/dL (0.55-1.02); EST Glomerular Filtration Rate 54 mL/min (>60); Est Glom Filt Rate - Afr Amer 65 mL/min (>60); Glucose 204 mg/dL (74-106); Potassium 3.3 mmol/L (3.5-5.1); Sodium Level 141 mmol/L (136-145); Thyroid Stim Hormone (TSH) 0.02 uIU/mL (0.358-3.74)
== END ==
LOC: OLS.WCC 05:00
PROVIDERS: Family Provider Family Medicine; PCP Family Medicine; Visit Provider Family Medicine
DX: E03.9 Hypothyroidism, unspecified (principal); R06.02 Shortness of breath; Z79.899 Other long term (current) drug therapy; Z79.01 Long term (current) use of anticoagulants
CPT/HCPCS: 36415; 80048; 84443; 85025; 85610

== ENCOUNTER → 2019-09-29 07:47 | Outpatient (CLI) | payer MEDICARE, SELFPAY ==
[2019-09-21 10:28] VITALS: BMI 35.4
[2019-09-29] VITALS (12 sets, daily range): BP systolic 136–199; BP diastolic 44–100; PULSE 67–84; RESP 16–20; TEMP 36.4; O2SAT 91–99; BMI 35.4
--- NOTE | 2019-09-29 | ASPIGT_PTH ---
PATIENT: AWA PALOMARES LOC: CT U#:[id number] AGE/SX: 85/F ROOM: RE09/29/[address]: Dr. Gregory Watson MD : 1940 BED: DIS: SPEC #: [id number] RECD: 09/29/19 12:36 STATUS: SANDRA REMarcus #: [id number] TA: 09/29/19 00:[address]: Gregory Watson DEPT: SURGICAL PATHOLOGY RECD BY: Gonzales Marcello Addis ENTERED: 09/29/19 12:37 SP TYPE: ASP RAD OTHR DR: Dr. Conrad Fields MD Tissues: Lung, NOS Procedures: FNA Specimen Adequacy Special Stain Group II Surgery Specimen Level IV Imprint (control) HEADER OPERATION: CT-guided left lung biopsy PRE-OP DIAGNOSIS: CATINA lung mass TISSUE SUBMITTED: Left lung biopsy 20 gauge core x3 MICROSCOPIC DIAGNOSIS Left lung mass, CT-guided core biopsy: Non-small cell carcinoma, favor squamous cell carcinoma See comment. SJ:rg 1/6/20 COMMENT The specimen is evaluated at the time of biopsy by Dr. Jane. Immediate Evaluation = Atypical cells noted suspicious for malignancy with focal necrosis. Immunohistochemistry ([id number]) supports the above diagnosis. The specimen shows only minute areas of tumor and shows lung parenchymal tissue with fibrosis and associated inflammation consistent with organizing pneumonia. Case has been reviewed in consultation with Dr. Steel who concurs with the above diagnosis. IDC:AM MICROSCOPIC DESCRIPTION Slides are reviewed. GROSS DESCRIPTION Received in fixative is one container labeled with the patient's name and designated lung biopsy. The specimen consists of multiple irregular fragments of segura soft tissue that in aggregate measure 0.5 x 0.1 x <0.1 cm. The specimen is totally submitted in one cassette. Two touch imprints are prepared at the time of core biopsy. / SJ:kanwal 09/29/19 TC:0 CPT: 34717, 81311
--- NOTE | 2019-09-29 | IMM_PTH ---
PATIENT: AWA PALOMARES LOC: CT U#:[id number] AGE/SX: 85/F ROOM: RE09/29/[address]: Dr. Gregory Watson MD : 1940 BED: DIS: SPEC #: [id number] RECD: 10/02/19 10:43 STATUS: SANDRA REQ #: [id number] TA: 09/29/19 00:[address]: Gregory Watson DEPT: IMMUNOHISTOCHEMISTRY RECD BY: Virginia Bhatt ENTERED: 10/02/19 10:45 SP TYPE: IMMUNO OTHR DR: Dr. Conrad Fields MD Tissues: Lung, NOS Procedures: CK5-6 (add) CK7 (add) CK8 (add) UT (add) TTF1 (add) P40 (add) ER (initial) PHYSICIAN & INSTITUTION [place] [id number] SPECIMEN INFORMATION: Tissue Source: Left lung, CT-guided biopsy Clinical Info: CATINA lung mass Specimen Number: [id number] CPT code: 07711, 41028 x6 METHODOLOGY: Deparaffinized sections of prefer/formalin-fixed tissue or PAP/DQ stained slides are incubated with monoclonal/polyclonal antibodies/oligonucleotide probes. Localization is made via biotin free immunoperoxidase method. Appropriate controls are performed and reacted as expected. Results on target cell population are indicated in the following table: RESULTS: ANTIBODY / CLONE RESULT ER (6F11) negative UT (1E2) negative CK7 (OV-TL12/30) positive CK8 (31kogqH01) positive, focal, weak TTF-1 (8G7G3/1) negative CK5-6 (D5 & 1684) positive P40 (BC28) positive These tests were developed and their performance characteristics determined by [facility]. They may not have been cleared or approved by the U.[place]. Food and Drug Administration. The FDA has determined that such clearance or approval is not necessary. The above immunohistochemical/dualISH markers are ordered and reviewed by the Pathologist. INTERPRETATION: Left lung, CT-guided biopsy: Non-small cell carcinoma, favor squamous cell carcinoma. SJ:kanwal 10/02/19 Case has been reviewed in consultation with Dr. Steel who concurs with the above diagnosis. IDC:BAIRON
--- NOTE | 2019-09-29 08:01 | CT_ITS ---
PROCEDURE: CT-guided left upper lobe lung biopsy under conscious sedation. CLINICAL HISTORY: Female, 79 years old. LEFT LUNG MASS BX CONSENT: The entire procedure, risks, benefits and alternatives (including doing nothing) were discussed with the patient preprocedure. Risks presented included (but were not limited to) infection/abscess, bleeding, pain, reaction to medications, potential need for rebiopsy, and collapsed lungs/pneumothorax with possible need for chest tube placement.. All patient questions were answered satisfactorily. Written consent was obtained, witnessed and placed on the patient''s chart. Time-Out Called: Yes Consent form signed: YES PT-PTT Levels Checked: Yes SEDATION: Conscious sedation. TECHNIQUE: The patient was taken into the CT scanner suite and placed in the prone headfirst position. A short time was observed. Limited and directed, noncontrast CT was performed through the upper chest, the left upper lobe large aggressive appearing mass was redemonstrated and an intended percutaneous site was identified and marked. The dorsal soft tissues were then thoroughly prepped and draped in the usual sterile manner. Local superficial anesthesia was obtained with approximately 1.0 cc of 2% lidocaine without epinephrine. A tiny dermatotomy was made. Under fluoroscopic CT guidance, during patient breath hold, the introducer was advanced through the dorsal soft tissues and parked at the margin of the large suspicious left upper lobe mass. From this positioning, 3, 20-gauge core biopsies were obtained and passed off to the pathologist in attendance. All devices were removed, the soft tissues cleansed and a sterile occlusive dressing applied. Immediate post procedure whole lung, noncontrast CT was performed through the chest. CT/Biopsy/Inj or Needle Placement IMPRESSION: Successful, fluoroscopically CT-guided, core biopsy of left upper lobe lung mass under conscious sedation. Conscious sedation agents: 0.5 mg IV Versed; 50 mcg IV fentanyl. Complication: The patient tolerated the procedure well. An approximately 15% apical left pneumothorax occurred during procedure. Postprocedure and 2 hour delayed chest imaging will be performed. Electronically Signed: Nasir Gusman MD at 11:17 EST , Service support ,
[2019-09-29 08:13] LABS: International Normalized Ratio 1.2; Partial Thromboplast Time 24.6 Seconds (24.1-36.2); Prothrombin Time (Protime)PT. 14.6 SECONDS (11.7-14.9)
[2019-09-29] MEDS: Midazolam 2 MG/2 ML Syringe IV (09:34)
[2019-09-29] MEDS: fentaNYL 100 MCG/2 ML Ampul IV (09:34)
--- NOTE | 2019-09-29 09:40 | RAD_ITS ---
STUDY: X-RAY CHEST REASON FOR EXAM: Female, 79 years old. POST LUNG BX TECHNIQUE: Frontal inspiratory and extra charge views of the chest. COMPARISON: CTs from lung biopsy earlier today. FINDINGS: Again seen is an approximately 4.1 cm inferior left upper lobe mass. The approximately 15% left apical pneumothorax identified on postbiopsy chest procedure earlier today is not definitely identified on this plain film exam. There is no shift of central cardiomediastinal structures. No pleural effusion. Normal size heart. Normal mediastinum and marcelo. Normal visualized pulmonary arteries. Normal visualized aortic arch and descending thoracic aorta. No evident acute osseous abnormality. There is no demonstrated abnormality of the visualized soft tissue structures of the upper abdomen. RAD/Chest Insp/Exp 2 View IMPRESSION: The approximately 15% left apical pneumothorax identified on postbiopsy chest procedure earlier today is not definitely identified on this plain film exam. There is no shift of central cardiomediastinal structures. Comment: Repeat chest x-ray will be obtained prior to patient released from the hospital. I have seen the patient in the department recovery area multiple times and the patient remains asymptomatic. Electronically Signed: Nasir Gusman MD at 11:39 EST , Service support ,
--- NOTE | 2019-09-29 12:10 | RAD_ITS ---
STUDY: X-RAY CHEST REASON FOR EXAM: Female, 79 years old. 2 HR POST LEFT LUNG BIOPSY TECHNIQUE: Frontal inspiratory and expiratory views of the chest COMPARISON: Earlier today at 10:12 AM. FINDINGS: There is an approximately 15-20% left apical pneumothorax. Again seen is a large mass within the inferior left upper lobe. Normal size heart. Normal mediastinum and marcelo. Normal visualized pulmonary arteries. Normal visualized aortic arch and descending thoracic aorta. No evident acute osseous abnormality. There is no demonstrated abnormality of the visualized soft tissue structures of the upper abdomen. RAD/Chest Insp/Exp 2 View IMPRESSION: Asymptomatic, left apical pneumothorax status post CT-guided left upper lobe mass core biopsy today. The patient was admitted for overnight observation. Electronically Signed: Nasir Gusman MD at 16:18 EST , Service support ,
--- NOTE | 2019-09-29 13:00 | NURSING ---
PER DR MCFARLANE, TAKE PT TO ER FOR ADMISSION FOR LT PNEUMOTHORAX. TALKING WITH DR. DOYLE RN CALLED AND SPOKE WITH DAUGHTER IN LAW ALTAGRACIA PALOMARES IN OUTPT PHARMACY, PER DAUGHTER'S REQUEST. ER CHARGE NURSE AND PHARMACEUTICAL SALES REPRESENTATIVE MADE AWARE. AWAITING ER BED.
--- NOTE | 2019-09-29 13:40 | NURSING ---
PT TO ER. VITALS OBTAINED FOR TRIAGE. REPORT TO JOSH LEWIS RN AND ABILIO WOLFE. DAUGHTER AT BEDSIDE.
--- NOTE | 2019-09-29 14:00 | NURSING ---
[facility] CALLED TO UPDATE ON PATIENT ADMISSION. ALSO REQUESTED MED LIST TO BE FAXED. SPOKE WITH ADA, NURSE.
== END ==
PROVIDERS: Nurse Practitioner Acute Care; Family Provider Family Medicine; PCP Family Medicine; Referring Provider Internal Medicine Critical Care Medicine; Visit Provider Internal Medicine Critical Care Medicine
DX: C34.12 Malignant neoplasm of upper lobe, left bronchus or lung (principal); J95.811 Postprocedural pneumothorax; R06.09 Other forms of dyspnea; I48.91 Unspecified atrial fibrillation; I50.9 Heart failure, unspecified; E66.9 Obesity, unspecified; Z68.35 Body mass index [BMI] 35.0-35.9, adult; Z79.01 Long term (current) use of anticoagulants; Z79.899 Other long term (current) drug therapy; Z87.891 Personal history of nicotine dependence
CPT/HCPCS: 32405; 77012; 36415; 71046; 85610; 85730; 88172; 88305; 88313; 99157; J7040; A4216

== ENCOUNTER 2019-09-29 13:19 | Inpatient (IN) | payer MEDICARE, SELFPAY ==
[2019-09-29 08:40] VITALS: BMI 35.4
[2019-09-29 13:21] VITALS: BP 137/71; PULSE 81; RESP 18; TEMP 36.8; O2SAT 94; BMI 35.6
[2019-09-29 13:31] VITALS: O2SAT 94
--- NOTE | 2019-09-29 14:00 | ED.VIS.GEN ---
History of Present Illness Chief Complaint: Shortness of Breath Detail of Chief Complaint: pneumothorax Informant: Patient Narrative: Patient was diagnosed with a lung mass in the left side several weeks ago and had a lung biopsy today. In interventional radiology, pneumothorax was caused by this. She denies having any shortness of breath, chest discomfort, or discomfort with deep inspiration. She denies having any new symptoms as a result. She was sent to the ER for further evaluation. She is on warfarin. She has been off of it for 1 week in preparation for this biopsy. - Past Medical History (1) PAD (peripheral artery disease) Status: Chronic Past Medical History - Allergies and Home Meds Allergies/Adverse Reactions: Allergies No Known Allergies Allergy (Verified 09/29/19 08:37) Primary Care Physician: Conrad Fields MD [Primary Care Provider] - Lives: Alone Smoking Status: Former smoker - Family History Maternal Family History: Reports: No pertinent history Review of Systems General: Denies: Chills, Fever, Sweats Eyes: Denies: Visual changes - bilaterally, Diplopia ENT: Denies: Rhinorrhea, Sore throat Cardiovascular: Denies: Chest pain, Palpitations Respiratory: Denies: Dyspnea, Orthopnea Gastrointestinal: Denies: Abdominal pain, Nausea, Vomiting, Diarrhea, Melena, Hematochezia Musculoskeletal: Denies: Neck pain, Back pain, Extremity Pain Skin: Denies: Rash, Wounds Neurological: Denies: Headache, Weakness, Numbness Hematologic: Reports: Easy bruising, Easy bleeding Physical Exam Vital Signs/Narrative: Vital Signs Temp Pulse Resp BP Pulse Ox 09/29/19 13:21 98.2 F 81 18 137/71 H 94 Inital Vital Signs reviewed: Yes General: Well nourished, Well developed, Obese, No Acute Distress Head: Normocephalic, Atraumatic Eyes: Perrl, EOMI ENT: Moist mucous membranes, No rhinorrhea Neck: Supple, Nontender, No lymphadenopathy, No JVD, - - trachea midline Cardiovascular: Regular rate, Regular rhythm, No murmurs. Negative for: Tachycardia Respiratory: No distress, CTA bilaterally, Chest nontender, Diminished - left apex Abdomen: Soft, Nontender, Nondistended, Normal bowel sounds Extremities: Nontender. Negative for: Calf Tenderness Skin: Normal color, No rash Neurological: Alert, Oriented x3, Cranial nerves II-XII grossly intact, Normal Strength, Normal Sensation Psychological: Normal affect, Normal Mood Diagnostic/Tx/Re-eval - Medical Decision Making Discussed with Dr. Gomez covering for Dr. Watson. Given the scenario and the patient is asymptomatic, he advises admission to the hospital on oxygen and no thoracostomy at this time. Discussed with the patient, she understands that this may become necessary if she gets worse. ED Disposition - Plan for ED Patient: Disposition: Acute Care Hospital [facility] Diagnosis: Iatrogenic pneumothorax, Mass of left lung Referrals: Conrad Fields MD [Primary Care Provider] -
--- NOTE | 2019-09-29 14:41 | NURSING ---
F FACILITY CALLED AGAIN FOR MED LIST TO BE FAXED. ADA, NURSE, STS MED LIST FAXED ALREADY. AWAITING ARRIVAL.
[2019-09-29 14:49] LABS: Absolute Lymphocyte Count 1.72 X10^3/uL (0.83-4.51); Absolute Neutrophil Count 5.4 X10^3/uL (2.0-7.7); Basophil# 0.03 X10^3/uL; Basophil% 0.4 % (0-1); Eosinophil# 0.29 X10^3/uL; Eosinophils% 3.5 % (0-5); Hematocrit 42.2 % (37-47); Hemoglobin 13.4 g/dL (12.0-15.0); Lymphocyte # 1.72 X10^3/ul (4.0); Lymphocyte % 20.8 % (19-41); Mean Corp Hgb Conc 31.8 g/dL (32-36); Mean Corpuscular Hgb 27.5 pg (27.0-32.0); Mean Corpuscular Volume 86.5 fL (81-99); Mean Platelet Vol. 9.5 fl (6.2-12.0); Monocyte# 0.79 X10^3/uL; Monocyte% 9.5 % (0-10); NRBC Flagged by Analyzer 0 % (0-5); Neutrophil # 5.42 X10^3/uL (2.7-7.7); Neutrophil % 65.4 % (47-70); Platelet Count 221 K/mm3 (150-450); RBC Distribution Width CV 14.3 % (11.6-14.6); RBC Distribution Width SD 45.4 fl (35.1-43.9); Red Blood Count 4.88 M/mm3 (4.2-5.4); White Blood Count 8.3 K/mm3 (4.4-11.0)
--- NOTE | 2019-09-29 14:49 | HP.PCM_ITS ---
Problem List (1) PAD (peripheral artery disease) Status: Chronic (2) Iatrogenic pneumothorax Status: Acute (3) Mass of left lung Status: Acute (4) Dyspnea Status: Acute Qualifiers: Dyspnea type: dyspnea on exertion Qualified Code(s): R06.09 - Other forms of dyspnea (5) Lung mass Status: Acute (6) History of appendectomy Status: Chronic (7) H/O biuop-rrtwg-vlmbsry bypass Status: Chronic (8) UGIB (upper gastrointestinal bleed) Status: Resolved (9) Syncope Status: Resolved History of Present Illness Date of Admission: 09/29/19 Chief Complaint: Shortness of breath following lung biopsy. The patient is a 79 year old F with a 60-year smoking history who was recently f ound to have a lung nodule and subsequently underwent CT-guided biopsy of left upper lobe lung earlier today. Patient developed shortness of breath following procedure and was found to have pneumothorax. She currently denies pain or increased shortness of breath. Patient's other past medical history includes hypothyroidism with history of Graves' disease, abdominal aortic aneurysm status post repair, hyperlipidemia, history of GI bleed. Past Medical History Past Medical History (Chronic Problems): Chronic Problems (Last Updated 09/21/19 @ 10:40 by Carole Smith) PAD (peripheral artery disease) (Chronic) History of appendectomy (Chronic) H/O fndmx-dhzcc-ugxbetw bypass (Chronic) Medical History: Medical History (Last Reviewed 09/21/19 @ 10:29 by Carole Smith) UGIB (upper gastrointestinal bleed) (Acute) K92.2 Syncope (Acute) R55 Allergies No Known Allergies Allergy (Verified 09/29/19 08:37) Home Medications: Ambulatory Orders Medication Instructions Recorded Levothyroxine [Synthroid] 137 mcg PO DAILY 09/20/13 Simvastatin [Zocor] 20 mg PO QHS 09/20/13 Calcium Carb/Vitamin D [Os-Shekhar 1 tab PO BIDCM tab 08/25/17 500MG + D] Ensure Enlive 120 ml PO 4X/DAY 08/25/17 Oxycodone [Oxyir] 5 mg PO Q4H PRN PRN #10 tab 08/25/17 Pantoprazole Sodium [Protonix] 40 mg PO BID tab 08/25/17 Sertraline HCl [Zoloft] 50 mg PO DAILY tab 08/25/17 Lactobacillus acidophilus 10 mg PO DAILY 09/19/19 acetaminophen 500 mg capsule 500 mg PO Q4H PRN 09/19/19 baclofen 10 mg tablet 10 mg PO Q8H PRN tab 09/19/19 furosemide 20 mg tablet 20 mg PO DAILY 09/19/19 loperamide 2 mg capsule 2 mg PO Q1-4H PRN 09/19/19 Warfarin [Coumadin ([facility])] 2.5 mg PO SUTUWETHSA 09/29/19 Warfarin [Coumadin ([facility])] 5 mg PO MOFR 09/29/19 Surgical History: Surgical History (Last Updated 09/21/19 @ 10:40 by Carole Smith) History of appendectomy (Acute) Z90.49 H/O lfpzt-qlmai-kdtknde bypass (Acute) Z95.828 Surgical History: appendectomy, hysterectomy, - - Aorta iliac femoral bypass, left rotator cuff surgery Psychiatric History: No pertinent psych hx [employer] 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 pertinent [employer] SYSTEMS ADMINISTRATOR history Lives: - - Assisted living facility Smoking Status: Former smoker - 60-year smoking history Alcohol: None Drugs: None - *Family History Maternal History Items: - - secondary to [place] Paternal History Items: - - Patient states I do not know anything about him Review of Systems Constitutional: Denies: Chills, Fever, Weight Change HEENT: Denies: Head Aches, Sinus Congestion, Sinus Drainage Cardiovascular: Denies: Chest Pain, Palpitations Respiratory: Reports: Shortness of Breath Gastrointestinal: Denies: Abdominal Pain, Nausea, Vomiting Genitourinary: Denies: Dysuria Musculoskeletal: Denies: Joint Pain, Joint Tenderness Skin: Denies: Rash, Wounds Neurological: Denies: Numbness, Tingling, Focal weakness Psychiatric: Denies: Anxiety, Depression, Homicidal Ideations, Suicidal Ideations Hematologic/ Lymphatic: Denies: Easy Bruising, Easy Bleeding VTE Information - Inpt Only VTE Present on Admission: No VTE Mechan Device Prophylaxis: None VTE Pharm Prophylaxis ordered?: Yes Patient Problems: Active and Suspected Problems (Last Reviewed 09/21/19 @ 10:29 by Carole Smith) Iatrogenic pneumothorax (Acute) Mass of left lung (Acute) - Physical Exam Vitals/I&O's: Vital Signs Temp Pulse Resp BP Pulse Ox 98.2 F 81 18 137/71 H 94 09/29/19 13:21 09/29/19 13:21 09/29/19 13:21 09/29/19 13:21 09/29/19 13:21 Oxygen Flow Rate (L/min) 2 Oxygen Delivery Method Nasal Cannula Weight: 211 lb 3.245 oz Body Mass Index (BMI) 35.6 General: Alert, Oriented x3, Cooperative HEENT: Atraumatic, PERRLA, EOMI, Normocephalic Neck: Supple, No JVD, Negative Carotid Bruits Lungs: Clear to auscultation, Diminished Cardiovascular: Regular rate, Regular Rhythm, Normal S1, Normal S2, No murmurs Abdomen: Bowel Sounds Present, Soft, Non Tender, Non-Distended, Obese Extremities: No clubbing, No cyanosis, No edema, Capillary Refill Less than 3 Seconds Skin: No rashes, No breakdown Musculoskeletal: No Tenderness to Palpation of Joints or Extremities Neurological: Cranial nerves II-XII grossly intact, Neuro grossly intact Psych/Mental Status: Normal Affect, Appropriate Laboratory Results 09/29/19 14:40: WBC Pending, RBC Pending, Hgb Pending, Hct Pending, MCV Pending, MCH Pending, MCHC Pending, RDW Std Deviation Pending, RDW Coeff of Heriberto Pending, Plt Count Pending, Neut % (Auto) Pending, Absolute Neuts (auto) Pending 09/29/19 14:40: Sodium Pending, Potassium Pending, Chloride Pending, Carbon Dioxide Pending, Anion Gap Pending, BUN Pending, Creatinine Pending, Est GFR (MDRD) Af Amer Pending, Est GFR (MDRD) Non-Af Pending, BUN/Creatinine Ratio Pending, Glucose Pending, Calcium Pending 09/29/19 14:40: PT Pending, INR Pending Assessment/Plan All Active Problems (Last Reviewed 09/21/19 @ 10:29 by Carole Smith) Iatrogenic pneumothorax (Acute) Mass of left lung (Acute) Dyspnea (Acute) Lung mass (Acute) Syncope (Resolved) UGIB (upper gastrointestinal bleed) (Resolved) 1. Left pneumothorax status post CT-guided biopsy-patient underwent CT-guided biopsy of left upper lobe lung mass today, pathology pending. Patient currently stable. Pulmonary medicine following- notified from ER. Repeat CXR in a.m. Continue supplemental oxygen to maintain O2 at or above 90%. 2. Recent diagnosis large left upper lobe lung mass-following with Dr. Watson. Biopsy as noted above. 3. Hypothyroidism with history of Graves' disease-continue Synthroid regimen. 4. Abdominal aortic aneurysm status post repair-on chronic anticoagulation with Coumadin, on hold secondary to biopsy. 5. Hyperlipidemia- continue statin. 6. History of GI bleed-continue PPI. 7. History of long-term tobacco use-encouraged continued cessation. DVT prophylaxis- SCDs This patient was seen by ANGELIA Bustillos under the supervision of Dr. Hall.
--- NOTE | 2019-09-29 14:55 | NURSING ---
318 WHITE IATROGENIC LEFT PNEUMOTHORAX, LUNG MASS
[2019-09-29 14:56] VITALS: BP 133/79; PULSE 75; RESP 18; O2SAT 96
[2019-09-29 15:01] LABS: International Normalized Ratio 1.1; Prothrombin Time (Protime)PT. 14.3 SECONDS (11.7-14.9)
[2019-09-29 15:04] LABS: Anion Gap 4 (5-15); BUN 15 mg/dL (7-18); BUN/Creat Ratio 16.9 RATIO (10-20); Calcium,Total 8.6 mg/dL (8.5-10.1); Chloride 111 mmol/L (98-107); Creatinine, Serum 0.89 mg/dL (0.55-1.02); EST Glomerular Filtration Rate 66 mL/min (>60); Est Glom Filt Rate - Afr Amer 79 mL/min (>60); Estimated Creatinine Clearance 45.71 ml/min; Glucose 102 mg/dL (74-106); Potassium 3.5 mmol/L (3.5-5.1); Sodium Level 143 mmol/L (136-145)
[2019-09-29 15:23] VITALS: BMI 34.9
[2019-09-29 15:28] VITALS: BMI 35.0
[2019-09-29 17:45] VITALS: O2SAT 94
[2019-09-29 19:51] VITALS: BP 129/66; PULSE 78; RESP 16; TEMP 37.1; O2SAT 97
[2019-09-29 19:57] VITALS: PULSE 76; RESP 16; O2SAT 97
[2019-09-29] MEDS: Atorvastatin Calcium 10 MG Tablet PO (23:28)
[2019-09-30] VITALS (10 sets, daily range): BP systolic 128–173; BP diastolic 47–118; PULSE 73–85; RESP 16–20; TEMP 36.6–37; O2SAT 94–99
[2019-09-30] MEDS: Levothyroxine 150 MCG Tablet PO (05:38)
--- NOTE | 2019-09-30 05:45 | RAD_ITS ---
ACR Level 3 findings have been noted. An addendum which confirms receipt of the report will follow. HISTORY: SOB, Lung Bx w/ L PTX ADDITIONAL HISTORY: None provided. COMPARISON: 09/29/2019 TECHNIQUE: Frontal and lateral chest radiographs. Number of images including paperwork: 2 FINDINGS: LUNGS AND PLEURA: Left pneumothorax is now moderate in size with air-fluid level at the right base indicating development of a small pleural effusion. Left lung mass appears grossly similar. Right lung appears clear. CARDIAC SILHOUETTE: Stable. MEDIASTINUM AND WOODY: Aortic calcification appears similar. UPPER ABDOMEN: Unremarkable. SKELETON AND SOFT TISSUES: No acute findings. OTHER DEVICES AND HARDWARE: Screw noted in the left proximal humerus. RAD/Chest PA and Lateral IMPRESSION: Increasing left pneumothorax with development of a small left pleural effusion. at 0806 Reported and signed by: Barbara Dela Cruz MD Electronically Signed: Barbara Dela Cruz MD at 8:06 EST Tel , Service support ,
--- NOTE | 2019-09-30 07:39 | PCM.CONS.PUL ---
Reason for Consult Date of Consultation: 09/30/19 Reason for Consultation: Iatrogenic pneumothorax History of Present Illness: The patient is a 79-year-old female, with a history as outlined below, who presented to the emergency department from radiology for evaluation following CT-guided lung biopsy, during which time she sustained a pneumothorax. The patient is currently followed by Dr. Watson in the pulmonary medicine clinic. She does have an extensive smoking history, which is currently in remission. The patient was previously identified as having a large left upper lobe lung mass, which required definitive diagnosis with tissue biopsy. On presentation to the emergency department, the patient was noted to be afebrile and hemodynamically stable. She was maintaining appropriate oxygen saturations on room air. CBC and chemistry profile were largely unremarkable. Coagulation profile was within normal limits. Given the small size of the patient's pneumothorax, approximately 15%, conservative management was employed overnight. She was maintained on supplemental O2 in hopes that this would aid in pneumothorax resolution. Repeat plain film chest x-ray was obtained this morning and personally reviewed. The patient's pneumothorax appears to have enlarged in size and is now moderate. Therefore, I did reach out to on-call surgery and placed a consultation for tube thoracotomy. Past Medical History Past Medical History (Chronic Problems): Chronic Problems (Last Updated 09/21/19 @ 10:40 by Carole Smith) PAD (peripheral artery disease) (Chronic) History of appendectomy (Chronic) H/O bhwgk-sqlhr-hxsndia bypass (Chronic) Medical History: Medical History (Last Reviewed 09/21/19 @ 10:29 by Carole Smith) Syncope (Resolved) R55 UGIB (upper gastrointestinal bleed) (Resolved) K92.2 Allergies No Known Allergies Allergy (Verified 09/29/19 08:37) Home Medications: Ambulatory Orders Medication Instructions Recorded Sertraline HCl [Zoloft] 50 mg PO DAILY tab 08/25/17 acetaminophen 500 mg capsule 500 mg PO DAILY 09/19/19 loperamide 2 mg capsule 2 mg PO BID 09/19/19 Atorvastatin Calcium 10 mg PO QHS 09/29/19 Furosemide [Lasix] 40 mg PO DAILY 09/29/19 Ibandronate Sodium 150 mg PO QMONTH 09/29/19 Lactobacillus Acidophilus 1 cap PO DAILY 09/29/19 [Acidophilus] Levothyroxine Sodium 150 mcg PO DAILY 01/03/20 Pantoprazole Sodium [Protonix] 40 mg PO DAILY 09/29/19 Warfarin [Coumadin ([facility])] 2.5 mg PO SUTUWETHSA 09/29/19 Warfarin [Coumadin ([facility])] 5 mg PO MOFR 09/29/19 Surgical History: Surgical History (Last Updated 09/21/19 @ 10:40 by Carole Smith) History of appendectomy (Chronic) Z90.49 H/O vcxfn-bsgbt-tsefhzv bypass (Chronic) Z95.828 Surgical History: appendectomy, hysterectomy, - - Aorta iliac femoral bypass, left rotator cuff surgery Psychiatric History: No pertinent psych hx 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 Lives: - - Assisted living facility Smoking Status: Former smoker - 60-year smoking history Tobacco Use: Cigarettes Alcohol: None Drugs: None - *Family History Maternal History Items: - - secondary to [place] Paternal History Items: - - Patient states I do not know anything about him Review of Systems Constitutional: Denies: Chills, Fever, Weight Change HEENT: Denies: Head Aches, Sinus Congestion, Sinus Drainage Cardiovascular: Denies: Chest Pain, Palpitations Respiratory: Reports: Shortness of Breath Gastrointestinal: Denies: Abdominal Pain, Nausea, Vomiting Genitourinary: Denies: Dysuria Musculoskeletal: Denies: Joint Pain, Joint Tenderness Skin: Denies: Rash, Wounds Neurological: Denies: Numbness, Tingling, Focal weakness Psychiatric: Denies: Anxiety, Depression, Homicidal Ideations, Suicidal Ideations Hematologic/ Lymphatic: Denies: Easy Bruising, Easy Bleeding Patient Problems: Active and Suspected Problems (Last Reviewed 09/21/19 @ 10:29 by Carole Smith) Iatrogenic pneumothorax (Acute) Mass of left lung (Acute) Objective: The patient's most recent lab work, culture data and imaging studies have all been personally reviewed. - Physical Exam Vitals/I&O's: Vital Signs Temp Pulse Resp BP Pulse Ox 98.1 F 75 16 143/47 H 99 09/30/19 02:00 09/30/19 02:00 09/30/19 02:12 09/30/19 02:00 09/30/19 02:12 Oxygen Flow Rate (L/min) 2 Oxygen Delivery Method Nasal Cannula Weight: 207 lb 0.225 oz Body Mass Index (BMI) 34.9 Intake and Output for Last 24 Hours 09/28/19 09/29/19 09/30/19 23:59 23:59 23:59 Output Total 350 / 350 Balance -350 / -350 General: Alert, Oriented x3, Cooperative, No apparent distress HEENT: Atraumatic, PERRLA, Normocephalic Oral: No Gingival or Mucosal Lesions/ Ulcerations Neck: Supple, No Nodes, Trachea Midline Lungs: No rhonchi, No wheeze, No rales, Diminished Cardiovascular: Regular rate, Regular Rhythm, Normal S1, Normal S2 Abdomen: Bowel Sounds Present, Soft, Non Tender, Obese Extremities: No clubbing, No cyanosis, No edema Skin: No breakdown Musculoskeletal: No Tenderness to Palpation of Joints or Extremities Lymphatic: No Cervical, Supraclavicular, or Inguinal Adenopathy Neurological: Cranial nerves II-XII grossly intact, Neuro grossly intact Psych/Mental Status: Normal Affect, Appropriate Labs (Last 48 Hours) 09/29/19 09/29/19 09/29/19 14:40 14:40 14:40 WBC 8.3 RBC 4.88 Hgb 13.4 Hct 42.2 MCV 86.5 MCH 27.5 MCHC 31.8 L RDW Std Deviation 45.4 H RDW Coeff of Heriberto 14.3 Plt Count 221 MPV 9.5 Immature Gran % (Auto) 0.400 Neut % (Auto) 65.4 Lymph % (Auto) 20.8 [place] % (Auto) 9.5 Eos % (Auto) 3.5 Baso % (Auto) 0.4 Absolute Neuts (auto) 5.4 Absolute Lymphs (auto) 1.72 Nucleated RBC % 0 PT 14.3 INR 1.1 Sodium 143 Potassium 3.5 Chloride 111 H Carbon Dioxide 28.0 Anion Gap 4 L BUN 15 Creatinine 0.89 Estim Creat Clear Calc 45.71 Est GFR (MDRD) Af Amer 79 Est GFR (MDRD) Non-Af 66 BUN/Creatinine Ratio 16.9 Glucose 102 Calcium 8.6 Clinical Impression(s) from Imaging Studies Chest X-Ray 09/30/19 05:45 IMPRESSION: Increasing left pneumothorax with development of a small left pleural effusion. at 0806 Reported and signed by: Barbara Dela Cruz MD Electronically Signed: Barbara Dela Cruz MD at 8:06 EST Tel , Service support , ADDENDUM: 09/30/19 0827 IMPRESSION: Increasing left pneumothorax with development of a small left pleural effusion. at 0806 Reported and signed by: Barbara Dela Cruz MD N.B. : César Nails;[phone], RN, confirmed on 09/30/2019 08:20:59 (ET) that the referring physician received the radiology report. Electronically Signed: Barbara Dela Cruz MD at 8:06 EST Tel , Service support , Current Medications Acetaminophen (Tylenol) 650 mg PO Q6H PRN PRN PRN Reason: Non-cardiac pain (-07/06) Al Hydroxide/Mg Hydroxide (Mylanta Ii) 15 - 30 ml PO Q4H PRN PRN PRN Reason: INDIGESTION Albuterol Sulfate (Ventolin Aerosols) 2.5 mg INHALATION Q2H PRN PRN PRN Reason: dyspnea, wheezing Atorvastatin Calcium (Lipitor) 10 mg PO QHS [facility] Last Admin: 09/29/19 23:28 Dose: 10 mg Documented by: Baclofen (Lioresal) 10 mg PO Q8H PRN PRN PRN Reason: muscle spasms Dextrose (D50w Syringe) 0 gm IV X1 PRN; Protocol PRN Reason: Hypoglycemia Furosemide (Lasix) 40 mg PO DAILY [facility] Glucagon () 1 mg IM .X1 PRN PRN Reason: Hypoglycemia Guaifenesin (Robitussin) 20 ml PO Q4H PRN PRN PRN Reason: COUGH Hydralazine HCl (Apresoline Iv) 10 mg IV Q4H PRN PRN PRN Reason: SBP > 160 Lactobacillus Acidophilus (Acidophilus) 1 tablet PO DAILY [facility] Levothyroxine Sodium (Synthroid) 150 mcg PO DAILY@0600 [facility] Last Admin: 09/30/19 05:38 Dose: 150 mcg Documented by: Loperamide HCl (Imodium) 2 mg PO Q1H PRN PRN PRN Reason: Diarrhea Magnesium Hydroxide (Milk Of Magnesia) 30 ml PO DAILY PRN PRN Reason: Constipation Melatonin (Melatonin) 3 mg PO QHS PRN PRN PRN Reason: INSOMNIA Morphine Sulfate () 1 - 2 mg IV Q4H PRN PRN PRN Reason: Pain Score 1-10/10 Ondansetron HCl (Zofran) 4 mg IV Q8H PRN PRN PRN Reason: NAUSEA/VOMITING Oxycodone HCl (Oxyir) 5 mg PO Q4H PRN PRN PRN Reason: Pain Score 6-10/10 Pantoprazole Sodium (Protonix) 40 mg PO DAILY [facility] Psyllium Hydrophilic Mucilloid (Metamucil) 1 packet PO DAILY PRN PRN PRN Reason: Constipation Senna/Docusate Sodium (Senokot-S, Priya-Colace) 2 tablet PO BID PRN PRN PRN Reason: Constipation Sertraline HCl (Zoloft) 50 mg PO DAILY [facility] Sodium Chloride () 10 - 40 ml IV UD PRN PRN Reason: SALINE FLUSH Throat Lozenges (Cepacol Sore Throat Lozenge) 1 lozenge MUCOUS MEM Q2H PRN PRN PRN Reason: Sore throat or cough Assessment/Plan All Active Problems (Last Reviewed 09/21/19 @ 10:29 by Carole Smith) Iatrogenic pneumothorax (Acute) Mass of left lung (Acute) Dyspnea (Acute) Lung mass (Acute) Syncope (Resolved) UGIB (upper gastrointestinal bleed) (Resolved) RECOMMENDATIONS: 1. Consultation placed to surgery for chest tube placement. 2. Once chest tube is placed, maintain patient on wall suction overnight. IMPRESSIONS: 1. Iatrogenic pneumothorax following CT-guided lung biopsy The patient presented to the hospital with a small iatrogenic pneumothorax following CT-guided lung biopsy. That pneumothorax unfortunately enlarged in size overnight, despite conservative management with supplemental oxygen. Therefore, consultation was placed to surgery for chest tube placement. Once placed, recommend continuing to wall suction overnight. Repeat chest imaging will be obtained in the morning. This note was generated with [employer] dictation software. It may contain incorrect words, spelling, and punctuation that were not noted in checking the note before signing. Code Visit Inpatient E&M: 83503 Init Hosp L3
[2019-09-30] MEDS: Pantoprazole Sodium 40 MG Tablet PO (08:45)
[2019-09-30] MEDS: Sertraline 50 MG Tablet PO (08:45)
[2019-09-30 08:47] LABS: Absolute Neutrophil Count 4.6 X10^3/uL (2.0-7.7); Basophil# 0.03 X10^3/uL; Basophil% 0.4 % (0-1); Eosinophil# 0.23 X10^3/uL; Eosinophils% 3.3 % (0-5); Hemoglobin 12.7 g/dL (12.0-15.0); Lymphocyte % 22.7 % (19-41); Mean Corp Hgb Conc 31.8 g/dL (32-36); Mean Corpuscular Hgb 27.5 pg (27.0-32.0); Mean Corpuscular Volume 86.8 fL (81-99); Mean Platelet Vol. 9.9 fl (6.2-12.0); Monocyte# 0.54 X10^3/uL; Monocyte% 7.7 % (0-10); NRBC Flagged by Analyzer 0 % (0-5); Neutrophil # 4.62 X10^3/uL (2.7-7.7); Neutrophil % 65.6 % (47-70); Platelet Count 215 K/mm3 (150-450); RBC Distribution Width CV 14.3 % (11.6-14.6); RBC Distribution Width SD 45.2 fl (35.1-43.9); Red Blood Count 4.61 M/mm3 (4.2-5.4)
[2019-09-30] MEDS: Furosemide 40 MG Tablet PO (08:47)
[2019-09-30 08:58] LABS: International Normalized Ratio 1.1; Prothrombin Time (Protime)PT. 14.3 SECONDS (11.7-14.9)
--- NOTE | 2019-09-30 09:06 | CON.PCM_ITS ---
Reason for Consult Date of Consultation: 09/30/19 Reason for Consultation: Left pneumothorax History of Present Illness: The patient is a 79 year old F admitted due to L PTX after L lung mass bx yesterday, today the PTX is larger. Pt states she normally has SOB with movement, currently denies as of breath at rest. Patient is currently on nasal cannula 2 L. Patient has no other complaints at this time. Past Medical History Past Medical History (Chronic Problems): Chronic Problems (Last Updated 09/21/19 @ 10:40 by Carole Smith) PAD (peripheral artery disease) (Chronic) History of appendectomy (Chronic) H/O yzzms-mdpmo-loazvyy bypass (Chronic) Medical History: Medical History (Last Reviewed 09/21/19 @ 10:29 by Carole Smith) Syncope (Resolved) R55 UGIB (upper gastrointestinal bleed) (Resolved) K92.2 Allergies No Known Allergies Allergy (Verified 09/29/19 08:37) Home Medications: Ambulatory Orders Medication Instructions Recorded Sertraline HCl [Zoloft] 50 mg PO DAILY tab 08/25/17 acetaminophen 500 mg capsule 500 mg PO DAILY 09/19/19 loperamide 2 mg capsule 2 mg PO BID 09/19/19 Atorvastatin Calcium 10 mg PO QHS 09/29/19 Furosemide [Lasix] 40 mg PO DAILY 09/29/19 Ibandronate Sodium 150 mg PO QMONTH 09/29/19 Lactobacillus Acidophilus 1 cap PO DAILY 09/29/19 [Acidophilus] Levothyroxine Sodium 150 mcg PO DAILY 09/29/19 Pantoprazole Sodium [Protonix] 40 mg PO DAILY 09/29/19 Warfarin [Coumadin] 2.5 mg PO SUTUWETHSA 09/29/19 Warfarin [Coumadin] 5 mg PO MOFR 09/29/19 Surgical History: Surgical History (Last Updated 09/21/19 @ 10:40 by Carole Smith) History of appendectomy (Chronic) Z90.49 H/O htecp-fhpfl-pwcpdlj bypass (Chronic) Z95.828 Surgical History: appendectomy, hysterectomy, - - Aorta iliac femoral bypass, left rotator cuff surgery Psychiatric History: No pertinent psych hx MANAGER RECRUITING History: No pertinent MANAGER RECRUITING history Lives: - - Assisted living facility Smoking Status: Former smoker - 60-year smoking history Tobacco Use: Cigarettes Alcohol: None Drugs: None - *Family History Maternal History Items: - - secondary to [place] Paternal History Items: - - Patient states I do not know anything about him Review of Systems Constitutional: Denies: Anorexia, Fever Eyes: Denies: Blurred vision HEENT: Reports: Difficulty Hearing. Denies: Difficulty Swallowing Respiratory: Reports: Shortness of Breath. Denies: Shortness of breath at rest Gastrointestinal: Denies: Abdominal Pain Genitourinary: Denies: Dysuria Psychiatric: Denies: Anxiety - Physical Exam Vitals/I&O's: Vital Signs Temp Pulse Resp BP Pulse Ox 97.8 F 74 20 H 140/72 H 97 09/30/19 08:39 09/30/19 08:39 09/30/19 08:39 09/30/19 08:39 09/30/19 08:39 Oxygen Flow Rate (L/min) 1.5 Oxygen Delivery Method Nasal Cannula Weight: 207 lb 0.225 oz Body Mass Index (BMI) 34.9 Intake and Output for Last 24 Hours 09/28/19 09/29/19 09/30/19 23:59 23:59 23:59 Output Total 350 / 350 Balance -350 / -350 General: Alert, Oriented x3, Cooperative, No apparent distress HEENT: Atraumatic Lungs: Diminished - Bilaterally difficult to appreciate on exam Cardiovascular: Regular rate Abdomen: Soft, Non Tender, Non-Distended Neurological: Cranial nerves II-XII grossly intact Psych/Mental Status: Normal Affect Laboratory Results 09/29/19 14:40: WBC 8.3, RBC 4.88, Hgb 13.4, Hct 42.2, MCV 86.5, MCH 27.5, MCHC 31.8 L, RDW Std Deviation 45.4 H, RDW Coeff of Heriberto 14.3, Plt Count 221, MPV 9.5, Immature Gran % (Auto) 0.400, Neut % (Auto) 65.4, Lymph % (Auto) 20.8, [place] % (Auto) 9.5, Eos % (Auto) 3.5, Baso % (Auto) 0.4, Absolute Neuts (auto) 5.4, Absolute Lymphs (auto) 1.72, Nucleated RBC % 0 09/29/19 14:40: Sodium 143, Potassium 3.5, Chloride 111 H, Carbon Dioxide 28.0, Anion Gap 4 L, BUN 15, Creatinine 0.89, Estim Creat Clear Calc 45.71, Est GFR (MDRD) Af Amer 79, Est GFR (MDRD) Non-Af 66, BUN/Creatinine Ratio 16.9, Glucose 102, Calcium 8.6 09/29/19 14:40: PT 14.3, INR 1.1 09/30/19 08:10: WBC 7.0, RBC 4.61, Hgb 12.7, Hct 40.0, MCV 86.8, MCH 27.5, MCHC 31.8 L, RDW Std Deviation 45.2 H, RDW Coeff of Heriberto 14.3, Plt Count 215, MPV 9.9, Immature Gran % (Auto) 0.300, Neut % (Auto) 65.6, Lymph % (Auto) 22.7, [place] % (Auto) 7.7, Eos % (Auto) 3.3, Baso % (Auto) 0.4, Absolute Neuts (auto) 4.6, Absolute Lymphs (auto) 1.60, Nucleated RBC % 0 09/30/19 08:10: Sodium Pending, Potassium Pending, Chloride Pending, Carbon Dioxide Pending, Anion Gap Pending, BUN Pending, Creatinine Pending, Est GFR (MDRD) Af Amer Pending, Est GFR (MDRD) Non-Af Pending, BUN/Creatinine Ratio Pending, Glucose Pending, Calcium Pending 09/30/19 08:10: PT 14.3, INR 1.1 Current Medications Acetaminophen (Tylenol) 650 mg PO Q6H PRN PRN PRN Reason: Non-cardiac pain (-07/06) Al Hydroxide/Mg Hydroxide (Mylanta Ii) 15 - 30 ml PO Q4H PRN PRN PRN Reason: INDIGESTION Albuterol Sulfate (Ventolin Aerosols) 2.5 mg INHALATION Q2H PRN PRN PRN Reason: dyspnea, wheezing Atorvastatin Calcium (Lipitor) 10 mg PO QHS [facility] Last Admin: 09/29/19 23:28 Dose: 10 mg Documented by: Baclofen (Lioresal) 10 mg PO Q8H PRN PRN PRN Reason: muscle spasms Dextrose (D50w Syringe) 0 gm IV X1 PRN; Protocol PRN Reason: Hypoglycemia Furosemide (Lasix) 40 mg PO DAILY [facility] Last Admin: 09/30/19 08:47 Dose: 40 mg Documented by: Glucagon () 1 mg IM .X1 PRN PRN Reason: Hypoglycemia Guaifenesin (Robitussin) 20 ml PO Q4H PRN PRN PRN Reason: COUGH Hydralazine HCl (Apresoline Iv) 10 mg IV Q4H PRN PRN PRN Reason: SBP > 160 Lactobacillus Acidophilus (Acidophilus) 1 tablet PO DAILY [facility] Last Admin: 09/30/19 08:45 Dose: 1 tablet Documented by: Levothyroxine Sodium (Synthroid) 150 mcg PO DAILY@0600 [facility] Last Admin: 09/30/19 05:38 Dose: 150 mcg Documented by: Loperamide HCl (Imodium) 2 mg PO Q1H PRN PRN PRN Reason: Diarrhea Magnesium Hydroxide (Milk Of Magnesia) 30 ml PO DAILY PRN PRN Reason: Constipation Melatonin (Melatonin) 3 mg PO QHS PRN PRN PRN Reason: INSOMNIA Morphine Sulfate () 1 - 2 mg IV Q4H PRN PRN PRN Reason: Pain Score 1-10/10 Ondansetron HCl (Zofran) 4 mg IV Q8H PRN PRN PRN Reason: NAUSEA/VOMITING Oxycodone HCl (Oxyir) 5 mg PO Q4H PRN PRN PRN Reason: Pain Score 6-10/10 Pantoprazole Sodium (Protonix) 40 mg PO DAILY [facility] Last Admin: 09/30/19 08:45 Dose: 40 mg Documented by: Psyllium Hydrophilic Mucilloid (Metamucil) 1 packet PO DAILY PRN PRN PRN Reason: Constipation Senna/Docusate Sodium (Senokot-S, Priya-Colace) 2 tablet PO BID PRN PRN PRN Reason: Constipation Sertraline HCl (Zoloft) 50 mg PO DAILY [facility] Last Admin: 09/30/19 08:45 Dose: 50 mg Documented by: Sodium Chloride () 10 - 40 ml IV UD PRN PRN Reason: SALINE FLUSH Throat Lozenges (Cepacol Sore Throat Lozenge) 1 lozenge MUCOUS MEM Q2H PRN PRN PRN Reason: Sore throat or cough Assessment/Plan All Active Problems (Last Reviewed 09/21/19 @ 10:29 by Carole Smith) Iatrogenic pneumothorax (Acute) Mass of left lung (Acute) Dyspnea (Acute) Lung mass (Acute) Syncope (Resolved) UGIB (upper gastrointestinal bleed) (Resolved) 79 y/o F with L PTX s/p left lung mass bx 1. Review CXR increased L PTX will plan to place a pleurvac catheter 8 Fr to suction discussed the procedure with her and her daughter in-law, Edgar. Risk includes but no limited to bleeding, infection, need for a large CT, continued air leak requiring transfer to tertiary care facility. Pt and Edgar had no further questions. Will check CXR after procedure and in AM. 2. continue to hold coumadin. Rhea Heaton M.D. Pager: [phone] [facility] [address] [place] [address], Outpatient [facility]ilion, [address] [place] [address] Office: [phone] Code Visit Inpatient E&M: 94847 Init Hosp L2
[2019-09-30 09:10] LABS: Anion Gap 4 (5-15); BUN 13 mg/dL (7-18); BUN/Creat Ratio 17.2 RATIO (10-20); Calcium,Total 8.3 mg/dL (8.5-10.1); Chloride 108 mmol/L (98-107); Creatinine, Serum 0.76 mg/dL (0.55-1.02); EST Glomerular Filtration Rate 79 mL/min (>60); Est Glom Filt Rate - Afr Amer 95 mL/min (>60); Estimated Creatinine Clearance 40.68 ml/min; Glucose 118 mg/dL (74-106); Sodium Level 141 mmol/L (136-145)
[2019-09-30] MEDS: Morphine 2 MG/ML Syringe IV (09:41)
[2019-09-30] MEDS: 0.9% Saline Lock 10 ML Syringe IV (09:41)
--- NOTE | 2019-09-30 09:46 | RAD_ITS ---
STUDY: X-RAY CHEST REASON FOR EXAM: Female, 79 years old. Chest tube placement TECHNIQUE: Frontal view of the chest COMPARISON: X-Ray Chest September 30, 2019 FINDINGS: Again seen is a left upper lung zone nodular opacity. Stable left pleural effusion is present. There has been interval placement of a left-sided chest tube with near resolution of the left pneumothorax. The right lung is clear. There is no pneumothorax. The heart is normal in size. The visualized osseous structures are within normal limits. RAD/Chest 1 View (Portable) IMPRESSION: Interval placement of left-sided chest tube with near resolution of left-sided pneumothorax. Otherwise, no significant interval changes. Electronically Signed: Ryan Leary, at 11:25 EST Tel , Service support ,
--- NOTE | 2019-09-30 09:50 | PCM.OPRPT ---
Report of Operation Date of Procedure: 09/30/19 Pre-Operative Diagnosis: Left pneumothorax status post left lung mass biopsy Post-Operative Diagnosis: Same Surgery/Procedure Performed:: 8 Indonesian left chest catheter placement Type of Anesthesia:: Local Special Medications: None Specimen's removed: None Estimated Blood Loss (mL): Minimal Description of Procedure: Informed consent was obtained. Patient was supine with her left arm elevated the inframammary crease was marked. The area was prepped draped in usual sterile fashion with chlorhexidine. Local anesthesia of 1% lidocaine total of 15 cc was used to numb the subcutaneous tissue. The needle and catheter were was introduced and placed over the rib, air was aspirated the catheter was advanced over the needle directed superiorly. Irrigant was aspirated from the catheter. The catheter was hooked up to the Pleur-evac at -20 which did have a floyd of air bubbles. Patient also had a slow leak present. Catheter was secured and sutured with 3-0 silk sutures. Patient tolerated procedure well. Will order chest x-ray. - Complications None - Admit VTE Documentation VTE Present on Admission: Yes VTE Mechan Device Prophylaxis: SCD's
--- NOTE | 2019-09-30 10:43 | PN_ITS ---
<Carole Lujan - Last Filed: 09/30/19 11:04> Patient Problems: Active and Suspected Problems (Last Reviewed 09/21/19 @ 10:29 by Carole Smith) Iatrogenic pneumothorax (Acute) Mass of left lung (Acute) Subjective: Patient seen and examined. Repeat chest x-ray this morning worsened from prior and patient underwent left chest tube placement. She denies increased shortness of breath. Reports tenderness related to insertion site. - Physical Exam Vitals/I&O's: Vital Signs Temp Pulse Resp BP Pulse Ox 97.8 F 73 18 138/62 H 96 09/30/19 08:39 09/30/19 09:56 09/30/19 09:56 09/30/19 09:56 09/30/19 09:56 Oxygen Flow Rate (L/min) 2 Oxygen Delivery Method Nasal Cannula Weight: 207 lb 0.225 oz Body Mass Index (BMI) 34.9 Intake and Output for Last 24 Hours 09/28/19 09/29/19 09/30/19 23:59 23:59 23:59 Output Total 350 / 350 Balance -350 / -350 General: Alert, Oriented x3, Cooperative HEENT: Atraumatic, PERRLA, EOMI, Normocephalic Neck: Supple, No JVD, Negative Carotid Bruits Lungs: Clear to auscultation, Diminished Cardiovascular: Regular rate, No murmurs Abdomen: Bowel Sounds Present, Soft, Non Tender, Non-Distended, Obese Extremities: No clubbing, No cyanosis, No edema, Capillary Refill Less than 3 Seconds Skin: No rashes, No breakdown Musculoskeletal: No Tenderness to Palpation of Joints or Extremities Neurological: Cranial nerves II-XII grossly intact, Neuro grossly intact Psych/Mental Status: Normal Affect, Appropriate Laboratory Results 09/29/19 14:40: WBC 8.3, RBC 4.88, Hgb 13.4, Hct 42.2, MCV 86.5, MCH 27.5, MCHC 31.8 L, RDW Std Deviation 45.4 H, RDW Coeff of Heriberto 14.3, Plt Count 221, MPV 9.5, Immature Gran % (Auto) 0.400, Neut % (Auto) 65.4, Lymph % (Auto) 20.8, [place] % (Auto) 9.5, Eos % (Auto) 3.5, Baso % (Auto) 0.4, Absolute Neuts (auto) 5.4, Absolute Lymphs (auto) 1.72, Nucleated RBC % 0 09/29/19 14:40: Sodium 143, Potassium 3.5, Chloride 111 H, Carbon Dioxide 28.0, Anion Gap 4 L, BUN 15, Creatinine 0.89, Estim Creat Clear Calc 45.71, Est GFR (MDRD) Af Amer 79, Est GFR (MDRD) Non-Af 66, BUN/Creatinine Ratio 16.9, Glucose 102, Calcium 8.6 09/29/19 14:40: PT 14.3, INR 1.1 09/30/19 08:10: WBC 7.0, RBC 4.61, Hgb 12.7, Hct 40.0, MCV 86.8, MCH 27.5, MCHC 31.8 L, RDW Std Deviation 45.2 H, RDW Coeff of Heriberto 14.3, Plt Count 215, MPV 9.9, Immature Gran % (Auto) 0.300, Neut % (Auto) 65.6, Lymph % (Auto) 22.7, [place] % (Auto) 7.7, Eos % (Auto) 3.3, Baso % (Auto) 0.4, Absolute Neuts (auto) 4.6, Absolute Lymphs (auto) 1.60, Nucleated RBC % 0 09/30/19 08:10: Sodium 141, Potassium 4.0, Chloride 108 H, Carbon Dioxide 29.0, Anion Gap 4 L, BUN 13, Creatinine 0.76, Estim Creat Clear Calc 40.68, Est GFR (MDRD) Af Amer 95, Est GFR (MDRD) Non-Af 79, BUN/Creatinine Ratio 17.2, Glucose 118 H, Calcium 8.3 L 09/30/19 08:10: PT 14.3, INR 1.1 Current Medications Acetaminophen (Tylenol) 650 mg PO Q6H PRN PRN PRN Reason: Non-cardiac pain (-07/06) Al Hydroxide/Mg Hydroxide (Mylanta Ii) 15 - 30 ml PO Q4H PRN PRN PRN Reason: INDIGESTION Albuterol Sulfate (Ventolin Aerosols) 2.5 mg INHALATION Q2H PRN PRN PRN Reason: dyspnea, wheezing Atorvastatin Calcium (Lipitor) 10 mg PO QHS [facility] Last Admin: 09/29/19 23:28 Dose: 10 mg Documented by: Baclofen (Lioresal) 10 mg PO Q8H PRN PRN PRN Reason: muscle spasms Dextrose (D50w Syringe) 0 gm IV X1 PRN; Protocol PRN Reason: Hypoglycemia Furosemide (Lasix) 40 mg PO DAILY [facility] Last Admin: 09/30/19 08:47 Dose: 40 mg Documented by: Glucagon () 1 mg IM .X1 PRN PRN Reason: Hypoglycemia Guaifenesin (Robitussin) 20 ml PO Q4H PRN PRN PRN Reason: COUGH Hydralazine HCl (Apresoline Iv) 10 mg IV Q4H PRN PRN PRN Reason: SBP > 160 Lactobacillus Acidophilus (Acidophilus) 1 tablet PO DAILY [facility] Last Admin: 09/30/19 08:45 Dose: 1 tablet Documented by: Levothyroxine Sodium (Synthroid) 150 mcg PO DAILY@0600 [facility] Last Admin: 09/30/19 05:38 Dose: 150 mcg Documented by: Loperamide HCl (Imodium) 2 mg PO Q1H PRN PRN PRN Reason: Diarrhea Magnesium Hydroxide (Milk Of Magnesia) 30 ml PO DAILY PRN PRN Reason: Constipation Melatonin (Melatonin) 3 mg PO QHS PRN PRN PRN Reason: INSOMNIA Morphine Sulfate () 1 - 2 mg IV Q4H PRN PRN PRN Reason: Pain Score 1-10/10 Last Admin: 09/30/19 09:41 Dose: 2 mg Documented by: Ondansetron HCl (Zofran) 4 mg IV Q8H PRN PRN PRN Reason: NAUSEA/VOMITING Oxycodone HCl (Oxyir) 5 mg PO Q4H PRN PRN PRN Reason: Pain Score 6-10/10 Pantoprazole Sodium (Protonix) 40 mg PO DAILY [facility] Last Admin: 09/30/19 08:45 Dose: 40 mg Documented by: Psyllium Hydrophilic Mucilloid (Metamucil) 1 packet PO DAILY PRN PRN PRN Reason: Constipation Senna/Docusate Sodium (Senokot-S, Priya-Colace) 2 tablet PO BID PRN PRN PRN Reason: Constipation Sertraline HCl (Zoloft) 50 mg PO DAILY [facility] Last Admin: 09/30/19 08:45 Dose: 50 mg Documented by: Sodium Chloride () 10 - 40 ml IV UD PRN PRN Reason: SALINE FLUSH Last Admin: 09/30/19 09:41 Dose: 10 ml Documented by: Throat Lozenges (Cepacol Sore Throat Lozenge) 1 lozenge MUCOUS MEM Q2H PRN PRN PRN Reason: Sore throat or cough Medical Necessity - Tobacco Use Smoking Status: Former smoker - 60-year smoking history Tobacco Use: Cigarettes Assessment/Plan All Active Problems (Last Reviewed 09/21/19 @ 10:29 by Carole Smith) Iatrogenic pneumothorax (Acute) Mass of left lung (Acute) Dyspnea (Acute) Lung mass (Acute) Syncope (Resolved) UGIB (upper gastrointestinal bleed) (Resolved) 1. Left pneumothorax status post CT-guided biopsy-patient underwent CT-guided biopsy of left upper lobe lung mass 09/29/18. Repeat chest x-ray this morning showed increased pneumothorax. Chest tube placed by general surgery, Dr. Heaton. Continue supplement oxygen. Continue wall suction overnight. Repeat chest x-ray in a.m. 2. Recent diagnosis large left upper lobe lung mass-following with Dr. Watson. Biopsy as noted above. 3. Hypothyroidism with history of Graves' disease-continue Synthroid regimen. 4. 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 5. Hyperlipidemia- continue statin. 6. History of GI bleed-continue PPI. 7. History of long-term tobacco use-encouraged continued cessation. DVT prophylaxis- SCDs This patient was seen by ANGELIA Bustillos under the supervision of Dr. Palomo. <Hermann Palomo - Last Filed: 09/30/19 14:58> Subjective: Seen and examined. Patient denies any chest pain, shortness of breath. She has chronic dry cough states even before the pneumothorax and biopsy. - Physical Exam Vitals/I&O's: Vital Signs Temp Pulse Resp BP Pulse Ox 97.8 F 73 18 138/62 H 96 09/30/19 08:39 09/30/19 09:56 09/30/19 09:56 09/30/19 09:56 09/30/19 09:56 Oxygen Flow Rate (L/min) 2 Oxygen Delivery Method Nasal Cannula Weight: 207 lb 0.225 oz Body Mass Index (BMI) 34.9 Intake and Output for Last 24 Hours 09/28/19 09/29/19 09/30/19 23:59 23:59 23:59 Output Total 350 / 350 Balance -350 / -350 General: Alert, Oriented x3, Cooperative HEENT: Atraumatic, PERRLA, EOMI, Normocephalic Neck: Supple, No JVD, Negative Carotid Bruits Lungs: Clear to auscultation, No rhonchi, No wheeze, No rales, Diminished Cardiovascular: Regular rate, Regular Rhythm, Normal S1, Normal S2, No murmurs Abdomen: Bowel Sounds Present, Soft, Non Tender, Non-Distended, Obese Extremities: No edema, Capillary Refill Less than 3 Seconds Skin: No rashes, No breakdown Musculoskeletal: No Tenderness to Palpation of Joints or Extremities, Arthritic Changes Neurological: Cranial nerves II-XII grossly intact, Deep Tendon Reflexes 2+/4 and Symmetrical, Neuro grossly intact Psych/Mental Status: Normal Affect, Appropriate Laboratory Results 09/29/19 14:40: Sodium 143, Potassium 3.5, Chloride 111 H, Carbon Dioxide 28.0, Anion Gap 4 L, BUN 15, Creatinine 0.89, Estim Creat Clear Calc 45.71, Est GFR (MDRD) Af Amer 79, Est GFR (MDRD) Non-Af 66, BUN/Creatinine Ratio 16.9, Glucose 102, Calcium 8.6 09/29/19 14:40: PT 14.3, INR 1.1 09/30/19 08:10: WBC 7.0, RBC 4.61, Hgb 12.7, Hct 40.0, MCV 86.8, MCH 27.5, MCHC 31.8 L, RDW Std Deviation 45.2 H, RDW Coeff of Heriberto 14.3, Plt Count 215, MPV 9.9, Immature Gran % (Auto) 0.300, Neut % (Auto) 65.6, Lymph % (Auto) 22.7, [place] % (Auto) 7.7, Eos % (Auto) 3.3, Baso % (Auto) 0.4, Absolute Neuts (auto) 4.6, Absolute Lymphs (auto) 1.60, Nucleated RBC % 0 09/30/19 08:10: Sodium 141, Potassium 4.0, Chloride 108 H, Carbon Dioxide 29.0, Anion Gap 4 L, BUN 13, Creatinine 0.76, Estim Creat Clear Calc 40.68, Est GFR (MDRD) Af Amer 95, Est GFR (MDRD) Non-Af 79, BUN/Creatinine Ratio 17.2, Glucose 118 H, Calcium 8.3 L 09/30/19 08:10: PT 14.3, INR 1.1 Current Medications Acetaminophen (Tylenol) 650 mg PO Q6H PRN PRN PRN Reason: Non-cardiac pain (-07/06) Al Hydroxide/Mg Hydroxide (Mylanta Ii) 15 - 30 ml PO Q4H PRN PRN PRN Reason: INDIGESTION Albuterol Sulfate (Ventolin Aerosols) 2.5 mg INHALATION Q2H PRN PRN PRN Reason: dyspnea, wheezing Atorvastatin Calcium (Lipitor) 10 mg PO QHS [facility] Last Admin: 09/29/19 23:28 Dose: 10 mg Documented by: Baclofen (Lioresal) 10 mg PO Q8H PRN PRN PRN Reason: muscle spasms Dextrose (D50w Syringe) 0 gm IV X1 PRN; Protocol PRN Reason: Hypoglycemia Furosemide (Lasix) 40 mg PO DAILY [facility] Last Admin: 09/30/19 08:47 Dose: 40 mg Documented by: Glucagon () 1 mg IM .X1 PRN PRN Reason: Hypoglycemia Guaifenesin (Robitussin) 20 ml PO Q4H PRN PRN PRN Reason: COUGH Hydralazine HCl (Apresoline Iv) 10 mg IV Q4H PRN PRN PRN Reason: SBP > 160 Lactobacillus Acidophilus (Acidophilus) 1 tablet PO DAILY [facility] Last Admin: 09/30/19 08:45 Dose: 1 tablet Documented by: Levothyroxine Sodium (Synthroid) 150 mcg PO DAILY@0600 [facility] Last Admin: 09/30/19 05:38 Dose: 150 mcg Documented by: Loperamide HCl (Imodium) 2 mg PO Q1H PRN PRN PRN Reason: Diarrhea Magnesium Hydroxide (Milk Of Magnesia) 30 ml PO DAILY PRN PRN Reason: Constipation Melatonin (Melatonin) 3 mg PO QHS PRN PRN PRN Reason: INSOMNIA Morphine Sulfate () 1 - 2 mg IV Q4H PRN PRN PRN Reason: Pain Score 1-10/10 Last Admin: 01/04/20 09:41 Dose: 2 mg Documented by: Ondansetron HCl (Zofran) 4 mg IV Q8H PRN PRN PRN Reason: NAUSEA/VOMITING Oxycodone HCl (Oxyir) 5 mg PO Q4H PRN PRN PRN Reason: Pain Score 6-10/10 Last Admin: 09/30/19 11:44 Dose: 5 mg Documented by: Pantoprazole Sodium (Protonix) 40 mg PO DAILY [facility] Last Admin: 09/30/19 08:45 Dose: 40 mg Documented by: Psyllium Hydrophilic Mucilloid (Metamucil) 1 packet PO DAILY PRN PRN PRN Reason: Constipation Senna/Docusate Sodium (Senokot-S, Priya-Colace) 2 tablet PO BID PRN PRN PRN Reason: Constipation Sertraline HCl (Zoloft) 50 mg PO DAILY [facility] Last Admin: 09/30/19 08:45 Dose: 50 mg Documented by: Sodium Chloride () 10 - 40 ml IV UD PRN PRN Reason: SALINE FLUSH Last Admin: 09/30/19 09:41 Dose: 10 ml Documented by: Throat Lozenges (Cepacol Sore Throat Lozenge) 1 lozenge MUCOUS MEM Q2H PRN PRN PRN Reason: Sore throat or cough Assessment/Plan This patient was seen in conjunction with Carole CORTES. I have independently interviewed and examined the patient and reviewed pertinent history, examination findings, laboratory and plan of management. I have reviewed the note and agree with the documented findings with the few additional points. In brief, patient with history of left upper lobe mass suspicious of malignancy is admitted for left pneumothorax after CT-guided biopsy on 09/29/2018. Repeat chest x-ray in the morning shows increased left pneumothorax and and then had interval placement of left-sided chest tube. Repeat chest x-ray showed resolution of left-sided pneumothorax. Left upper lobe mass suspicious of malignancy: Patient follows Dr. Watson. Rest of the comorbidities as mentioned above. Plan of care discussed with the patient and patient daughter near the bedside. I have discussed my assessment with Carole CORTES and orders have been reviewed. Clinical Impression(s) from Imaging Studies Chest X-Ray 09/30/19 05:45 IMPRESSION: Increasing left pneumothorax with development of a small left pleural effusion. Chest X-Ray 09/30/19 09:46 IMPRESSION: Interval placement of left-sided chest tube with near resolution of left-sided pneumothorax. Otherwise, no significant interval changes. Code Visit Inpatient E&M: 52304 Subs Hosp L2
[2019-09-30] MEDS: oxyCODONE 5 MG Tablet PO ×3 (11:44→23:31)
[2019-09-30] MEDS: Acetaminophen 325 MG Tablet 650 MG PO (20:30)
[2019-09-30] MEDS: Atorvastatin Calcium 10 MG Tablet PO (20:31)
[2019-10-01 02:28] VITALS: BP 141/53; PULSE 62; RESP 18; TEMP 36.6; O2SAT 94
[2019-10-01] MEDS: Levothyroxine 150 MCG Tablet PO (05:18)
[2019-10-01] MEDS: oxyCODONE 5 MG Tablet PO ×4 (05:19→17:15)
--- NOTE | 2019-10-01 06:30 | RAD_ITS ---
HISTORY: LEFT PTX, LEFT CHEST TUBE, SOB ADDITIONAL HISTORY: None provided. COMPARISON: 09/30/2018 TECHNIQUE: Frontal and lateral chest radiographs. Number of images including paperwork: 2 FINDINGS: LUNGS AND PLEURA: Left lung mass and left chest tube again seen. No significant residual pneumothorax or pleural effusion.. Minimal right basilar subsegmental atelectasis. CARDIAC SILHOUETTE: Stable. MEDIASTINUM AND WOODY: Stable. UPPER ABDOMEN: Unremarkable. SKELETON AND SOFT TISSUES: No acute findings. OTHER DEVICES AND HARDWARE: Left humeral head screw. RAD/Chest PA and Lateral IMPRESSION: No significant pneumothorax is radiographically apparent status post left chest tube placement. Left lung mass appears similar. at 0728 Reported and signed by: Barbara Dela Cruz MD Electronically Signed: Barbara Dela Cruz MD at 7:27 EST Tel , Service support ,
--- NOTE | 2019-10-01 06:49 | PCM.PN.PUL ---
Patient Problems: Active and Suspected Problems (Last Reviewed 09/21/19 @ 10:29 by Carole Smith) Iatrogenic pneumothorax (Acute) Mass of left lung (Acute) Subjective: The patient was seen and examined at the bedside this morning. Events from the last 24 hours have been reviewed. The patient is currently afebrile, hemodynamically stable and maintaining appropriate oxygen saturations on 2 L/min via nasal cannula. The patient did undergo successful placement of a chest tube yesterday due to enlarging iatrogenic pneumothorax. There was resolution of the patient's pneumothorax upon chest tube placement. The patient has been maintained on wall suction overnight. The patient is currently resting comfortably without complaints of shortness of breath. She does report some residual discomfort at the chest tube insertion site. The patient's repeat plain film chest x-ray from this morning was personally reviewed. It is of rather poor quality but does not demonstrate any evidence of discernible pneumothorax from my read. Objective: The patient's most recent lab work, culture data and imaging studies have all been personally reviewed. - Physical Exam Vitals/I&O's: Vital Signs Temp Pulse Resp BP Pulse Ox 97.8 F 62 18 141/53 H 94 10/01/19 02:28 10/01/19 02:28 10/01/19 02:28 10/01/19 02:28 10/01/19 02:28 Oxygen Flow Rate (L/min) 2 Oxygen Delivery Method Nasal Cannula Weight: 207 lb 0.225 oz Body Mass Index (BMI) 34.9 Intake and Output for Last 24 Hours 09/29/19 09/30/19 10/01/19 23:59 23:59 23:59 Intake Total 120 / 120 120 / 120 Output Total 450 / 450 100 / 100 Balance -330 / -330 General: Alert, Oriented x3, Cooperative, No apparent distress HEENT: Atraumatic, PERRLA, Normocephalic Oral: No Gingival or Mucosal Lesions/ Ulcerations Neck: Supple, No Nodes, Trachea Midline Lungs: No rhonchi, No rales, Diminished, Wheezes, - - Chest tube site is intact. There is no air leak noted. Abdomen: Bowel Sounds Present, Soft, Non Tender, Obese Extremities: No clubbing, No cyanosis, No edema Skin: No breakdown Musculoskeletal: No Muscle Wasting Lymphatic: No Cervical, Supraclavicular, or Inguinal Adenopathy Neurological: Cranial nerves II-XII grossly intact, Neuro grossly intact Psych/Mental Status: Alert and oriented to time, place, person, mood and affect Labs (Last 48 Hours) 09/29/19 09/29/19 09/29/19 14:40 14:40 14:40 WBC 8.3 RBC 4.88 Hgb 13.4 Hct 42.2 MCV 86.5 MCH 27.5 MCHC 31.8 L RDW Std Deviation 45.4 H RDW Coeff of Heriberto 14.3 Plt Count 221 MPV 9.5 Immature Gran % (Auto) 0.400 Neut % (Auto) 65.4 Lymph % (Auto) 20.8 [place] % (Auto) 9.5 Eos % (Auto) 3.5 Baso % (Auto) 0.4 Absolute Neuts (auto) 5.4 Absolute Lymphs (auto) 1.72 Nucleated RBC % 0 PT 14.3 INR 1.1 Sodium 143 Potassium 3.5 Chloride 111 H Carbon Dioxide 28.0 Anion Gap 4 L BUN 15 Creatinine 0.89 Estim Creat Clear Calc 45.71 Est GFR (MDRD) Af Amer 79 Est GFR (MDRD) Non-Af 66 BUN/Creatinine Ratio 16.9 Glucose 102 Calcium 8.6 09/30/19 09/30/19 09/30/19 08:10 08:10 08:10 WBC 7.0 RBC 4.61 Hgb 12.7 Hct 40.0 MCV 86.8 MCH 27.5 MCHC 31.8 L RDW Std Deviation 45.2 H RDW Coeff of Heriberto 14.3 Plt Count 215 MPV 9.9 Immature Gran % (Auto) 0.300 Neut % (Auto) 65.6 Lymph % (Auto) 22.7 [place] % (Auto) 7.7 Eos % (Auto) 3.3 Baso % (Auto) 0.4 Absolute Neuts (auto) 4.6 Absolute Lymphs (auto) 1.60 Nucleated RBC % 0 PT 14.3 INR 1.1 Sodium 141 Potassium 4.0 Chloride 108 H Carbon Dioxide 29.0 Anion Gap 4 L BUN 13 Creatinine 0.76 Estim Creat Clear Calc 40.68 Est GFR (MDRD) Af Amer 95 Est GFR (MDRD) Non-Af 79 BUN/Creatinine Ratio 17.2 Glucose 118 H Calcium 8.3 L Clinical Impression(s) from Imaging Studies Chest X-Ray 09/30/19 05:45 IMPRESSION: Increasing left pneumothorax with development of a small left pleural effusion. at 0806 Reported and signed by: Barbara Dela Crzu MD Electronically Signed: Barbara Dela Cruz MD at 8:06 EST Tel , Service support , ADDENDUM: 09/30/19 0827 IMPRESSION: Increasing left pneumothorax with development of a small left pleural effusion. at 0806 Reported and signed by: Barbara Dela Cruz MD N.B. : César Nails;[phone], RN, confirmed on 09/30/2019 08:20:59 (ET) that the referring physician received the radiology report. Electronically Signed: Barbara Dela Cruz MD at 8:06 EST Tel , Service support , Chest X-Ray 09/30/19 09:46 IMPRESSION: Interval placement of left-sided chest tube with near resolution of left-sided pneumothorax. Otherwise, no significant interval changes. Electronically Signed: Ryan Leary, at 11:25 EST Tel , Service support , Current Medications Acetaminophen (Tylenol) 650 mg PO Q6H PRN PRN PRN Reason: Non-cardiac pain (4-10/10) Last Admin: 09/30/19 20:30 Dose: 650 mg Documented by: Al Hydroxide/Mg Hydroxide (Mylanta Ii) 15 - 30 ml PO Q4H PRN PRN PRN Reason: INDIGESTION Albuterol Sulfate (Ventolin Aerosols) 2.5 mg INHALATION Q2H PRN PRN PRN Reason: dyspnea, wheezing Atorvastatin Calcium (Lipitor) 10 mg PO QHS [facility] Last Admin: 09/30/19 20:31 Dose: 10 mg Documented by: Baclofen (Lioresal) 10 mg PO Q8H PRN PRN PRN Reason: muscle spasms Dextrose (D50w Syringe) 0 gm IV X1 PRN; Protocol PRN Reason: Hypoglycemia Furosemide (Lasix) 40 mg PO DAILY [facility] Last Admin: 09/30/19 08:47 Dose: 40 mg Documented by: Glucagon () 1 mg IM .X1 PRN PRN Reason: Hypoglycemia Guaifenesin (Robitussin) 20 ml PO Q4H PRN PRN PRN Reason: COUGH Hydralazine HCl (Apresoline Iv) 10 mg IV Q4H PRN PRN PRN Reason: SBP > 160 Lactobacillus Acidophilus (Acidophilus) 1 tablet PO DAILY [facility] Last Admin: 09/30/19 08:45 Dose: 1 tablet Documented by: Levothyroxine Sodium (Synthroid) 150 mcg PO DAILY@0600 [facility] Last Admin: 10/01/19 05:18 Dose: 150 mcg Documented by: Loperamide HCl (Imodium) 2 mg PO Q1H PRN PRN PRN Reason: Diarrhea Magnesium Hydroxide (Milk Of Magnesia) 30 ml PO DAILY PRN PRN Reason: Constipation Melatonin (Melatonin) 3 mg PO QHS PRN PRN PRN Reason: INSOMNIA Morphine Sulfate () 1 - 2 mg IV Q4H PRN PRN PRN Reason: Pain Score 1-10/10 Last Admin: 09/30/19 09:41 Dose: 2 mg Documented by: Ondansetron HCl (Zofran) 4 mg IV Q8H PRN PRN PRN Reason: NAUSEA/VOMITING Oxycodone HCl (Oxyir) 5 mg PO Q4H PRN PRN PRN Reason: Pain Score 6-10/10 Last Admin: 10/01/19 05:19 Dose: 5 mg Documented by: Pantoprazole Sodium (Protonix) 40 mg PO DAILY [facility] Last Admin: 09/30/19 08:45 Dose: 40 mg Documented by: Psyllium Hydrophilic Mucilloid (Metamucil) 1 packet PO DAILY PRN PRN PRN Reason: Constipation Senna/Docusate Sodium (Senokot-S, Priya-Colace) 2 tablet PO BID PRN PRN PRN Reason: Constipation Sertraline HCl (Zoloft) 50 mg PO DAILY [facility] Last Admin: 09/30/19 08:45 Dose: 50 mg Documented by: Sodium Chloride () 10 - 40 ml IV UD PRN PRN Reason: SALINE FLUSH Last Admin: 09/30/19 09:41 Dose: 10 ml Documented by: Throat Lozenges (Cepacol Sore Throat Lozenge) 1 lozenge MUCOUS MEM Q2H PRN PRN PRN Reason: Sore throat or cough Medical Necessity - Tobacco Use Smoking Status: Former smoker - 60-year smoking history Tobacco Use: Cigarettes Assessment/Plan All Active Problems (Last Reviewed 09/21/19 @ 10:29 by Carole Smith) Iatrogenic pneumothorax (Acute) Mass of left lung (Acute) Dyspnea (Acute) Lung mass (Acute) Syncope (Resolved) UGIB (upper gastrointestinal bleed) (Resolved) RECOMMENDATIONS: 1. May wish to be conservative with regards to chest tube management and continue the patient on wall suction yet today. 2. Repeat x-ray tomorrow morning. 3. Continue supplemental oxygen. 4. Continue bronchodilators. 5. Encourage incentive spirometer use while in bed and mobilize patient as tolerated. 6. Outpatient pulmonary follow-up to review results of CT-guided lung biopsy. IMPRESSIONS: 1. Iatrogenic pneumothorax following CT-guided lung biopsy The patient presented to the hospital with a small iatrogenic pneumothorax following CT-guided lung biopsy. That pneumothorax unfortunately enlarged in size from the time of her admission and did require eventual chest tube placement. There appears to be resolution of the patient's pneumothorax status post chest tube insertion. I would recommend conservative management of the patient's chest tube and continue her on wall suction yet today. She can be transitioned to water seal tomorrow morning if her repeat x-ray shows continued resolution of her pneumothorax. General surgery is following as well. Continue supplemental oxygen along with bronchodilators. Outpatient follow-up in the pulmonary medicine clinic to review the results of CT-guided lung biopsy is warranted. This note was generated with [employer] dictation software. It may contain incorrect words, spelling, and punctuation that were not noted in checking the note before signing. Code Visit Inpatient E&M: 73149 Subs Hosp L3
[2019-10-01 07:43] VITALS: O2SAT 94
[2019-10-01 07:55] VITALS: BP 157/75; PULSE 67; RESP 18; TEMP 36.7; O2SAT 95
--- NOTE | 2019-10-01 07:55 | PCM.PN.SRG ---
Patient Problems: Active and Suspected Problems (Last Reviewed 09/21/19 @ 10:29 by Carole Smith) Iatrogenic pneumothorax (Acute) Mass of left lung (Acute) Subjective: Chest x-ray does not show any obvious pneumo, no airleak seen on suction. - Physical Exam Vitals/I&O's: Vital Signs Temp Pulse Resp BP Pulse Ox 97.8 F 62 18 141/53 H 94 10/01/19 02:28 10/01/19 02:28 10/01/19 02:28 10/01/19 02:28 10/01/19 07:43 Oxygen Flow Rate (L/min) 2 Oxygen Delivery Method Nasal Cannula Weight: 207 lb 0.225 oz Body Mass Index (BMI) 34.9 Intake and Output for Last 24 Hours 09/29/19 09/30/19 10/01/19 23:59 23:59 23:59 Intake Total 120 / 120 120 / 120 Output Total 450 / 450 100 / 100 Balance -330 / -330 General: Alert, Oriented x3, Cooperative, No apparent distress Skin: - - Left chest tube catheter dressed Laboratory Results 09/30/19 08:10: WBC 7.0, RBC 4.61, Hgb 12.7, Hct 40.0, MCV 86.8, MCH 27.5, MCHC 31.8 L, RDW Std Deviation 45.2 H, RDW Coeff of Heriberto 14.3, Plt Count 215, MPV 9.9, Immature Gran % (Auto) 0.300, Neut % (Auto) 65.6, Lymph % (Auto) 22.7, Baldwin % (Auto) 7.7, Eos % (Auto) 3.3, Baso % (Auto) 0.4, Absolute Neuts (auto) 4.6, Absolute Lymphs (auto) 1.60, Nucleated RBC % 0 09/30/19 08:10: Sodium 141, Potassium 4.0, Chloride 108 H, Carbon Dioxide 29.0, Anion Gap 4 L, BUN 13, Creatinine 0.76, Estim Creat Clear Calc 40.68, Est GFR (MDRD) Af Amer 95, Est GFR (MDRD) Non-Af 79, BUN/Creatinine Ratio 17.2, Glucose 118 H, Calcium 8.3 L 09/30/19 08:10: PT 14.3, INR 1.1 Current Medications Acetaminophen (Tylenol) 650 mg PO Q6H PRN PRN PRN Reason: Non-cardiac pain (4-10/10) Last Admin: 09/30/19 20:30 Dose: 650 mg Documented by: Al Hydroxide/Mg Hydroxide (Mylanta Ii) 15 - 30 ml PO Q4H PRN PRN PRN Reason: INDIGESTION Albuterol Sulfate (Ventolin Aerosols) 2.5 mg INHALATION Q2H PRN PRN PRN Reason: dyspnea, wheezing Atorvastatin Calcium (Lipitor) 10 mg PO QHS [facility] Last Admin: 09/30/19 20:31 Dose: 10 mg Documented by: Baclofen (Lioresal) 10 mg PO Q8H PRN PRN PRN Reason: muscle spasms Dextrose (D50w Syringe) 0 gm IV X1 PRN; Protocol PRN Reason: Hypoglycemia Furosemide (Lasix) 40 mg PO DAILY [facility] Last Admin: 09/30/19 08:47 Dose: 40 mg Documented by: Glucagon () 1 mg IM .X1 PRN PRN Reason: Hypoglycemia Guaifenesin (Robitussin) 20 ml PO Q4H PRN PRN PRN Reason: COUGH Hydralazine HCl (Apresoline Iv) 10 mg IV Q4H PRN PRN PRN Reason: SBP > 160 Lactobacillus Acidophilus (Acidophilus) 1 tablet PO DAILY [facility] Last Admin: 09/30/19 08:45 Dose: 1 tablet Documented by: Levothyroxine Sodium (Synthroid) 150 mcg PO DAILY@0600 [facility] Last Admin: 10/01/19 05:18 Dose: 150 mcg Documented by: Loperamide HCl (Imodium) 2 mg PO Q1H PRN PRN PRN Reason: Diarrhea Magnesium Hydroxide (Milk Of Magnesia) 30 ml PO DAILY PRN PRN Reason: Constipation Melatonin (Melatonin) 3 mg PO QHS PRN PRN PRN Reason: INSOMNIA Morphine Sulfate () 1 - 2 mg IV Q4H PRN PRN PRN Reason: Pain Score 1-10/10 Last Admin: 09/30/19 09:41 Dose: 2 mg Documented by: Ondansetron HCl (Zofran) 4 mg IV Q8H PRN PRN PRN Reason: NAUSEA/VOMITING Oxycodone HCl (Oxyir) 5 mg PO Q4H PRN PRN PRN Reason: Pain Score 6-10/10 Last Admin: 10/01/19 05:19 Dose: 5 mg Documented by: Pantoprazole Sodium (Protonix) 40 mg PO DAILY [facility] Last Admin: 09/30/19 08:45 Dose: 40 mg Documented by: Psyllium Hydrophilic Mucilloid (Metamucil) 1 packet PO DAILY PRN PRN PRN Reason: Constipation Senna/Docusate Sodium (Senokot-S, Priya-Colace) 2 tablet PO BID PRN PRN PRN Reason: Constipation Sertraline HCl (Zoloft) 50 mg PO DAILY [facility] Last Admin: 09/30/19 08:45 Dose: 50 mg Documented by: Sodium Chloride () 10 - 40 ml IV UD PRN PRN Reason: SALINE FLUSH Last Admin: 09/30/19 09:41 Dose: 10 ml Documented by: Throat Lozenges (Cepacol Sore Throat Lozenge) 1 lozenge MUCOUS MEM Q2H PRN PRN PRN Reason: Sore throat or cough Medical Necessity - Tobacco Use Smoking Status: Former smoker - 60-year smoking history Tobacco Use: Cigarettes Assessment/Plan All Active Problems (Last Reviewed 09/21/19 @ 10:29 by Carole Smith) Iatrogenic pneumothorax (Acute) Mass of left lung (Acute) Dyspnea (Acute) Lung mass (Acute) Syncope (Resolved) UGIB (upper gastrointestinal bleed) (Resolved) 79 y/o F with L PTX s/p left lung mass bx 1. Chest x-ray appears to be expanded with no pneumothorax this AM--no airleak, continue to suction--likely change to waterseal later today or tomorrow morning 2. continue to hold coumadin. Rhea Heaton M.D. Pager: [phone] [facility] [address] [place] [address], [facility], [address] [place] [address] Office: [phone]
[2019-10-01] MEDS: Pantoprazole Sodium 40 MG Tablet PO (08:00)
[2019-10-01] MEDS: Sertraline 50 MG Tablet PO (08:00)
[2019-10-01] MEDS: Furosemide 40 MG Tablet PO (08:04)
--- NOTE | 2019-10-01 09:51 | PN_ITS ---
Patient Problems: Active and Suspected Problems (Last Reviewed 09/21/19 @ 10:29 by Carole Smith) Iatrogenic pneumothorax (Acute) Mass of left lung (Acute) Subjective: Patient seen and examined. Requesting to get up to chair for breakfast. Denies shortness of breath. Denies pain. - Physical Exam Vitals/I&O's: Vital Signs Temp Pulse Resp BP Pulse Ox 98.1 F 67 18 157/75 H 95 10/01/19 07:55 10/01/19 07:55 10/01/19 07:55 10/01/19 07:55 10/01/19 07:55 Oxygen Flow Rate (L/min) 3 Oxygen Delivery Method Nasal Cannula Weight: 207 lb 0.225 oz Body Mass Index (BMI) 34.9 Intake and Output for Last 24 Hours 09/29/19 09/30/19 10/01/19 23:59 23:59 23:59 Intake Total 120 / 120 120 / 120 Output Total 450 / 450 100 / 100 Balance -330 / -330 General: Alert, Oriented x3, Cooperative HEENT: Atraumatic, PERRLA, EOMI, Normocephalic Neck: Supple, No JVD, Negative Carotid Bruits Lungs: Clear to auscultation, Normal air movement, - - Left chest tube in place Cardiovascular: Regular rate, Regular Rhythm, Normal S1, Normal S2, No murmurs Abdomen: Bowel Sounds Present, Soft, Non Tender, Non-Distended, Obese Extremities: No clubbing, No cyanosis, No edema, Capillary Refill Less than 3 Seconds Skin: No rashes, No breakdown Musculoskeletal: No Tenderness to Palpation of Joints or Extremities Neurological: Cranial nerves II-XII grossly intact, Neuro grossly intact Psych/Mental Status: Normal Affect, Appropriate Current Medications Acetaminophen (Tylenol) 650 mg PO Q6H PRN PRN PRN Reason: Non-cardiac pain (-07/06) Last Admin: 09/30/19 20:30 Dose: 650 mg Documented by: Al Hydroxide/Mg Hydroxide (Mylanta Ii) 15 - 30 ml PO Q4H PRN PRN PRN Reason: INDIGESTION Albuterol Sulfate (Ventolin Aerosols) 2.5 mg INHALATION Q2H PRN PRN PRN Reason: dyspnea, wheezing Atorvastatin Calcium (Lipitor) 10 mg PO QHS [facility] Last Admin: 09/30/19 20:31 Dose: 10 mg Documented by: Baclofen (Lioresal) 10 mg PO Q8H PRN PRN PRN Reason: muscle spasms Dextrose (D50w Syringe) 0 gm IV X1 PRN; Protocol PRN Reason: Hypoglycemia Furosemide (Lasix) 40 mg PO DAILY [facility] Last Admin: 10/01/19 08:04 Dose: 40 mg Documented by: Glucagon () 1 mg IM .X1 PRN PRN Reason: Hypoglycemia Guaifenesin (Robitussin) 20 ml PO Q4H PRN PRN PRN Reason: COUGH Hydralazine HCl (Apresoline Iv) 10 mg IV Q4H PRN PRN PRN Reason: SBP > 160 Lactobacillus Acidophilus (Acidophilus) 1 tablet PO DAILY [facility] Last Admin: 10/01/19 08:01 Dose: 1 tablet Documented by: Levothyroxine Sodium (Synthroid) 150 mcg PO DAILY@0600 [facility] Last Admin: 10/01/19 05:18 Dose: 150 mcg Documented by: Loperamide HCl (Imodium) 2 mg PO Q1H PRN PRN PRN Reason: Diarrhea Magnesium Hydroxide (Milk Of Magnesia) 30 ml PO DAILY PRN PRN Reason: Constipation Melatonin (Melatonin) 3 mg PO QHS PRN PRN PRN Reason: INSOMNIA Morphine Sulfate () 1 - 2 mg IV Q4H PRN PRN PRN Reason: Pain Score 1-10/10 Last Admin: 09/30/19 09:41 Dose: 2 mg Documented by: Ondansetron HCl (Zofran) 4 mg IV Q8H PRN PRN PRN Reason: NAUSEA/VOMITING Oxycodone HCl (Oxyir) 5 mg PO Q4H PRN PRN PRN Reason: Pain Score 6-10/10 Last Admin: 10/01/19 05:19 Dose: 5 mg Documented by: Pantoprazole Sodium (Protonix) 40 mg PO DAILY [facility] Last Admin: 10/01/19 08:00 Dose: 40 mg Documented by: Psyllium Hydrophilic Mucilloid (Metamucil) 1 packet PO DAILY PRN PRN PRN Reason: Constipation Senna/Docusate Sodium (Senokot-S, Priya-Colace) 2 tablet PO BID PRN PRN PRN Reason: Constipation Sertraline HCl (Zoloft) 50 mg PO DAILY [facility] Last Admin: 10/01/19 08:00 Dose: 50 mg Documented by: Sodium Chloride () 10 - 40 ml IV UD PRN PRN Reason: SALINE FLUSH Last Admin: 09/30/19 09:41 Dose: 10 ml Documented by: Throat Lozenges (Cepacol Sore Throat Lozenge) 1 lozenge MUCOUS MEM Q2H PRN PRN PRN Reason: Sore throat or cough Medical Necessity - Tobacco Use Smoking Status: Former smoker - 60-year smoking history Tobacco Use: Cigarettes Assessment/Plan All Active Problems (Last Reviewed 09/21/19 @ 10:29 by Carole Smith) Iatrogenic pneumothorax (Acute) Mass of left lung (Acute) Dyspnea (Acute) Lung mass (Acute) Syncope (Resolved) UGIB (upper gastrointestinal bleed) (Resolved) 1. Left pneumothorax status post CT-guided biopsy-patient underwent CT-guided biopsy of left upper lobe lung mass 09/29/19. Chest tube placed by general surgery, Dr. Heaton 09/30/19 due to pneumothorax increased in size on repeat imaging. Chest x-ray this morning shows no significant pneumothorax. Stable left chest tube placement. Plan to continue suction today and change to waterseal tomorrow morning. Pulmonary medicine and surgery following. 2. Recent diagnosis large left upper lobe lung mass-following with Dr. Watson. Biopsy as noted above. 3. Hypothyroidism with history of Graves' disease-continue Synthroid regimen. 4. 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 5. Hyperlipidemia- continue statin. 6. History of GI bleed-continue PPI. 7. History of long-term tobacco use-encouraged continued cessation. DVT prophylaxis- SCDs This patient was seen by ANGELIA Bustillos under the supervision of Dr. Argueta.
[2019-10-01 13:31] VITALS: BP 125/54; PULSE 75; RESP 20; TEMP 36.3; O2SAT 95
[2019-10-01] MEDS: Magnesium Hydroxide 30 ML UDC PO (17:15)
--- NOTE | 2019-10-01 18:36 | NURSING ---
family to desk requesting now that dressing to biopsy site stay on as place for opportunity for infection. primary RN updated.
[2019-10-01 20:26] VITALS: BP 141/62; PULSE 76; RESP 18; TEMP 37; O2SAT 94
[2019-10-01] MEDS: Atorvastatin Calcium 10 MG Tablet PO (20:42)
[2019-10-02 02:25] VITALS: BP 153/57; PULSE 71; RESP 20; TEMP 37.1; O2SAT 94
[2019-10-02] MEDS: Levothyroxine 150 MCG Tablet PO (05:50)
--- NOTE | 2019-10-02 05:55 | RAD_ITS ---
STUDY: X-RAY CHEST REASON FOR EXAM: Female, 79 years old. LT PNEUMOTHORAX TECHNIQUE: PA and lateral views of the chest. COMPARISON: Comparison is made with prior study dated October 01, 2019. FINDINGS: Small caliber left-sided chest tube is once again seen overlying the lateral midportion of the left hemithorax. Small residual left apical pneumothorax. Stable appearance of the left upper lobe lung mass. Normal size heart. Normal mediastinum and marcelo. Normal visualized pulmonary arteries. There is atherosclerotic calcification of the aortic arch with tortuosity. There is demineralization of the osseous structures. Stable left humeral head screw. There is no demonstrated abnormality of the visualized soft tissue structures of the upper abdomen. RAD/Chest PA and Lateral IMPRESSION: Small residual left apical pneumothorax. Electronically Signed: Tab Marks, at 9:00 EST , Service support ,
[2019-10-02 07:00] VITALS: O2SAT 98
--- NOTE | 2019-10-02 07:00 | CPS ---
RN called for PRN aerosol treatment, patient stated she is feeling great and does not need an aerosol at this time. Patient agreeable to call if an aerosol is needed.
[2019-10-02 07:32] VITALS: BP 150/61; PULSE 71; RESP 20; TEMP 36.6; O2SAT 97
[2019-10-02] MEDS: Furosemide 40 MG Tablet PO (07:36)
[2019-10-02] MEDS: Pantoprazole Sodium 40 MG Tablet PO (07:36)
[2019-10-02] MEDS: Sertraline 50 MG Tablet PO (07:36)
--- NOTE | 2019-10-02 08:17 | PN.SURG_ITS ---
Patient Problems: Active and Suspected Problems (Last Reviewed 09/21/19 @ 10:29 by Carole Smith) Iatrogenic pneumothorax (Acute) Mass of left lung (Acute) Subjective: Patient has no complaints still on 1 L nasal cannula, morning chest x-ray unable to see any pneumo - Physical Exam Vitals/I&O's: Vital Signs Temp Pulse Resp BP Pulse Ox 97.8 F 71 20 H 150/61 H 97 10/02/19 07:32 10/02/19 07:32 10/02/19 07:32 10/02/19 07:32 10/02/19 07:32 Oxygen Flow Rate (L/min) 2 Oxygen Delivery Method Nasal Cannula Weight: 207 lb 0.225 oz Body Mass Index (BMI) 34.9 Intake and Output for Last 24 Hours 09/30/19 10/01/19 10/02/19 23:59 23:59 23:59 Intake Total 120 / 120 520 / 520 300 / 300 Output Total 450 / 450 110 / 110 610 / 610 Balance -330 / -330 410 / 410 -310 / -310 General: Alert, Oriented x3, Cooperative, No apparent distress Lungs: Normal air movement Cardiovascular: Regular rate Current Medications Acetaminophen (Tylenol) 650 mg PO Q6H PRN PRN PRN Reason: Non-cardiac pain (-07/06) Last Admin: 09/30/19 20:30 Dose: 650 mg Documented by: Al Hydroxide/Mg Hydroxide (Mylanta Ii) 15 - 30 ml PO Q4H PRN PRN PRN Reason: INDIGESTION Albuterol Sulfate (Ventolin Aerosols) 2.5 mg INHALATION Q2H PRN PRN PRN Reason: dyspnea, wheezing Atorvastatin Calcium (Lipitor) 10 mg PO QHS [facility] Last Admin: 10/01/19 20:42 Dose: 10 mg Documented by: Baclofen (Lioresal) 10 mg PO Q8H PRN PRN PRN Reason: muscle spasms Dextrose (D50w Syringe) 0 gm IV X1 PRN; Protocol PRN Reason: Hypoglycemia Furosemide (Lasix) 40 mg PO DAILY [facility] Last Admin: 10/02/19 07:36 Dose: 40 mg Documented by: Glucagon () 1 mg IM .X1 PRN PRN Reason: Hypoglycemia Guaifenesin (Robitussin) 20 ml PO Q4H PRN PRN PRN Reason: COUGH Hydralazine HCl (Apresoline Iv) 10 mg IV Q4H PRN PRN PRN Reason: SBP > 160 Lactobacillus Acidophilus (Acidophilus) 1 tablet PO DAILY [facility] Last Admin: 10/02/19 07:35 Dose: 1 tablet Documented by: Levothyroxine Sodium (Synthroid) 150 mcg PO DAILY@0600 [facility] Last Admin: 10/02/19 05:50 Dose: 150 mcg Documented by: Loperamide HCl (Imodium) 2 mg PO Q1H PRN PRN PRN Reason: Diarrhea Magnesium Hydroxide (Milk Of Magnesia) 30 ml PO DAILY PRN PRN Reason: Constipation Last Admin: 10/01/19 17:15 Dose: 30 ml Documented by: Melatonin (Melatonin) 3 mg PO QHS PRN PRN PRN Reason: INSOMNIA Morphine Sulfate () 1 - 2 mg IV Q4H PRN PRN PRN Reason: Pain Score 1-10/10 Last Admin: 09/30/19 09:41 Dose: 2 mg Documented by: Ondansetron HCl (Zofran) 4 mg IV Q8H PRN PRN PRN Reason: NAUSEA/VOMITING Oxycodone HCl (Oxyir) 5 mg PO Q4H PRN PRN PRN Reason: Pain Score 6-10/10 Last Admin: 10/01/19 17:15 Dose: 5 mg Documented by: Pantoprazole Sodium (Protonix) 40 mg PO DAILY [facility] Last Admin: 10/02/19 07:36 Dose: 40 mg Documented by: Psyllium Hydrophilic Mucilloid (Metamucil) 1 packet PO DAILY PRN PRN PRN Reason: Constipation Senna/Docusate Sodium (Senokot-S, Priya-Colace) 2 tablet PO BID PRN PRN PRN Reason: Constipation Sertraline HCl (Zoloft) 50 mg PO DAILY [facility] Last Admin: 10/02/19 07:36 Dose: 50 mg Documented by: Sodium Chloride () 10 - 40 ml IV UD PRN PRN Reason: SALINE FLUSH Last Admin: 09/30/19 09:41 Dose: 10 ml Documented by: Throat Lozenges (Cepacol Sore Throat Lozenge) 1 lozenge MUCOUS MEM Q2H PRN PRN PRN Reason: Sore throat or cough Medical Necessity - Tobacco Use Smoking Status: Former smoker - 60-year smoking history Tobacco Use: Cigarettes Assessment/Plan All Active Problems (Last Reviewed 09/21/19 @ 10:29 by Carole Smith) Iatrogenic pneumothorax (Acute) Mass of left lung (Acute) Dyspnea (Acute) Lung mass (Acute) Syncope (Resolved) UGIB (upper gastrointestinal bleed) (Resolved) 79 y/o F with L PTX s/p left lung mass bx 1. Chest x-ray appears to be expanded with no pneumothorax this AM--no airleak, NG to waterseal plan to chest x-ray at 2 PM, if still looks good we will plan to pull the tube and recheck another chest x-ray prior to DC 2. continue to hold coumadin. Rhea Heaton M.D. Pager: [phone] [facility] [address] [place] [address], [facility], [address] [place] [address] Office: [phone]
--- NOTE | 2019-10-02 09:18 | PCM.PN.PUL ---
Patient Problems: Active and Suspected Problems (Last Reviewed 09/21/19 @ 10:29 by Carole Smith) Iatrogenic pneumothorax (Acute) Mass of left lung (Acute) Subjective: Patient states that she is doing well this morning. Patient has no complaints. Patient is hopeful to leave later today. Patient has required 2 L nasal cannula to maintain appropriate saturations. Did discuss with surgery. Patient currently is on waterseal with plans of a repeat chest x-ray after lunch. If doing well, potential discharge later today. - Physical Exam Vitals/I&O's: Vital Signs Temp Pulse Resp BP Pulse Ox 36.6 C 71 20 H 150/61 H 97 10/02/19 07:32 10/02/19 07:32 10/02/19 07:32 10/02/19 07:32 10/02/19 07:32 Oxygen Flow Rate (L/min) 2 Oxygen Delivery Method Nasal Cannula Weight: 93.9 kg Body Mass Index (BMI) 34.9 Intake and Output for Last 24 Hours 09/30/19 10/01/19 10/02/19 23:59 23:59 23:59 Intake Total 120 / 120 520 / 520 300 / 300 Output Total 450 / 450 110 / 110 610 / 610 Balance -330 / -330 410 / 410 -310 / -310 General: Alert, Oriented x3, Cooperative, No apparent distress, - - Obese. Element of proptosis noted. HEENT: Atraumatic, PERRLA, EOMI, Normocephalic, - - No scleral icterus Oral: Moist Mucosa, No Gingival or Mucosal Lesions/ Ulcerations Neck: Supple, No JVD, No Nodes, Trachea Midline Lungs: No rhonchi, No wheeze, No rales, Diminished, - - Chest tube is clean, dry and intact. No air leak is appreciated. Cardiovascular: Normal S1, Normal S2, No murmurs, Irregular Rate, No rub noted, No Gallop Abdomen: Bowel Sounds Present, Soft, Non Tender, Non-Distended, Obese Extremities: No clubbing, No cyanosis, No edema, Capillary Refill Less than 3 Seconds Skin: No rashes, No breakdown Musculoskeletal: No Tenderness to Palpation of Joints or Extremities Lymphatic: No Cervical, Supraclavicular, or Inguinal Adenopathy Neurological: Cranial nerves II-XII grossly intact, Neuro grossly intact, Motor Exam 5/5 strength throughout Psych/Mental Status: Alert and oriented to time, place, person, mood and affect Current Medications Acetaminophen (Tylenol) 650 mg PO Q6H PRN PRN PRN Reason: Non-cardiac pain (4-1010) Last Admin: 09/30/19 20:30 Dose: 650 mg Documented by: Al Hydroxide/Mg Hydroxide (Mylanta Ii) 15 - 30 ml PO Q4H PRN PRN PRN Reason: INDIGESTION Albuterol Sulfate (Ventolin Aerosols) 2.5 mg INHALATION Q2H PRN PRN PRN Reason: dyspnea, wheezing Atorvastatin Calcium (Lipitor) 10 mg PO QHS [facility] Last Admin: 10/01/19 20:42 Dose: 10 mg Documented by: Baclofen (Lioresal) 10 mg PO Q8H PRN PRN PRN Reason: muscle spasms Dextrose (D50w Syringe) 0 gm IV X1 PRN; Protocol PRN Reason: Hypoglycemia Furosemide (Lasix) 40 mg PO DAILY [facility] Last Admin: 10/02/19 07:36 Dose: 40 mg Documented by: Glucagon () 1 mg IM .X1 PRN PRN Reason: Hypoglycemia Guaifenesin (Robitussin) 20 ml PO Q4H PRN PRN PRN Reason: COUGH Hydralazine HCl (Apresoline Iv) 10 mg IV Q4H PRN PRN PRN Reason: SBP > 160 Lactobacillus Acidophilus (Acidophilus) 1 tablet PO DAILY [facility] Last Admin: 10/02/19 07:35 Dose: 1 tablet Documented by: Levothyroxine Sodium (Synthroid) 150 mcg PO DAILY@0600 [facility] Last Admin: 10/02/19 05:50 Dose: 150 mcg Documented by: Loperamide HCl (Imodium) 2 mg PO Q1H PRN PRN PRN Reason: Diarrhea Magnesium Hydroxide (Milk Of Magnesia) 30 ml PO DAILY PRN PRN Reason: Constipation Last Admin: 10/01/19 17:15 Dose: 30 ml Documented by: Melatonin (Melatonin) 3 mg PO QHS PRN PRN PRN Reason: INSOMNIA Morphine Sulfate () 1 - 2 mg IV Q4H PRN PRN PRN Reason: Pain Score 1-1010 Last Admin: 09/30/19 09:41 Dose: 2 mg Documented by: Ondansetron HCl (Zofran) 4 mg IV Q8H PRN PRN PRN Reason: NAUSEA/VOMITING Oxycodone HCl (Oxyir) 5 mg PO Q4H PRN PRN PRN Reason: Pain Score 6-10/10 Last Admin: 10/01/19 17:15 Dose: 5 mg Documented by: Pantoprazole Sodium (Protonix) 40 mg PO DAILY [facility] Last Admin: 10/02/19 07:36 Dose: 40 mg Documented by: Psyllium Hydrophilic Mucilloid (Metamucil) 1 packet PO DAILY PRN PRN PRN Reason: Constipation Senna/Docusate Sodium (Senokot-S, Priya-Colace) 2 tablet PO BID PRN PRN PRN Reason: Constipation Sertraline HCl (Zoloft) 50 mg PO DAILY [facility] Last Admin: 10/02/19 07:36 Dose: 50 mg Documented by: Sodium Chloride () 10 - 40 ml IV UD PRN PRN Reason: SALINE FLUSH Last Admin: 09/30/19 09:41 Dose: 10 ml Documented by: Throat Lozenges (Cepacol Sore Throat Lozenge) 1 lozenge MUCOUS MEM Q2H PRN PRN PRN Reason: Sore throat or cough Clinical Impression(s) from Imaging Studies Chest X-Ray 10/02/19 05:55 IMPRESSION: Small residual left apical pneumothorax. Electronically Signed: Tab Marks, at 9:00 EST , Service support , Medical Necessity - Tobacco Use Smoking Status: Former smoker - 60-year smoking history Tobacco Use: Cigarettes Assessment/Plan All Active Problems (Last Reviewed 09/21/19 @ 10:29 by Carole Smith) Iatrogenic pneumothorax (Acute) Mass of left lung (Acute) Dyspnea (Acute) Lung mass (Acute) Syncope (Resolved) UGIB (upper gastrointestinal bleed) (Resolved) RECOMMENDATIONS: 1. Await repeat chest x-[facility] on [facility] 2. Increase activity as tolerated 3. Potential walking oximetry prior to discharge 4. Continue bronchodilators. 5. Encourage incentive spirometer use while in bed and mobilize patient as tolerated. 6. Potential outpatient pulmonary follow-up to review results of CT-guided lung biopsy. IMPRESSIONS: 1. Iatrogenic pneumothorax following CT-guided lung biopsy/acute hypoxic respiratory insufficiency Patient appears to be responding to therapy appropriately. Will await repeat chest x-ray following waterseal trial. If doing well, patient may be able to be discharged later today. Patient should have a walking oximetry prior to discharge given need for supplemental oxygen this morning. Biopsy results are not currently available, so if these are not resulted prior to patient's discharge, she can follow-up as an outpatient to review the results. Code Visit Inpatient E&M: 93353 Subs Hosp L2
--- NOTE | 2019-10-02 10:09 | CASEMGMT ---
Addendum entered by Ashley Gonzalez 10/02/19 13:58: BALAJI received message from Cecy at [facility] stating ROLO reviewed clinicals and if DON had concerns with pt coming back to [facility] with chest tube and the open wound if the chest tube is pulled. BALAJI discussed with RN. RN states pt is having chest x-ray completed at 2:00pm and if that comes back ok chest tube will be discontinued. RN states the wound will be tiny and they will likely stick a bandage over the wound. RN states pt will be fine to return to [facility]. RN also states pt will not need Oxygen at discharge. BALAJI reviewed handoff, pt is contact guard assist with ambulation. [facility] and was placed on speaker phone with DON. BALAJI updated ROLO on above information. ROLO states that as long as chest tube is being taken out, pt doesn't need oxygen and is walking well pt is able to discharge back to [facility] today. ROLO states her RN on [facility] leaves at 8:30pm so she would prefer for pt to discharge before 8:30pm. BALAJI updated DON that pt states her family will be transporting her and it should be before 8:30pm. DON state understanding. Original Note: Social Work Note Pt is listed as being from [facility]. BALAJI spoke with Cecy at [facility]. Cecy states that pt is from [facility] and is able to return whenever medically cleared. Per physician pt is getting chest x-ray done at 2:00pm later today and could discharge after chest x-ray. BALAJI faxed updated clinicals to [facility]. BALAJI met with pt and introduced self and role at [facility]. Pt is alert and orientated x3. Pt confirms that she from [facility] and then plan is to return when medically cleared. Pt is currently on Oxygen, states she doesn't normally wear Oxygen and doesn't want to go with Oxygen. BALAJI informed pt that staff at [facility] will have to see if they can wean off of oxygen but if not she may have to be set up with oxygen. Pt states understanding but again states she prefers to not have oxygen. Pt states that her family will transport her back to [facility]. Plan: Return to [facility] once medically cleared, monitor for oxygen at discharge. Ashley Gonzalez TECHNICAL ACCOUNT EXECUTIVE, FISHERMAN HELPER
[2019-10-02 12:55] VITALS: BP 143/67; PULSE 77; RESP 18; TEMP 36.5; O2SAT 94
--- NOTE | 2019-10-02 13:37 | DCINST_ITS ---
- Discharge Diagnoses Current Active Problems: Current Active and Chronic Problems (Last Reviewed 09/21/19 @ 10:29 by Carole Smith) Iatrogenic pneumothorax (Acute) Mass of left lung (Acute) You will use the following diet at home:: No restrictions Discharge Activity: Return to Normal Activity Call your doctor if you observe: Shortness of breath, Dizziness, Fainting spells, Chest pain Additional Instructions: Continue to hold Coumadin at discharge until further advised to resume by pulmonary medicine at outpatient follow-up. Allergies/Adverse Reactions: Allergies No Known Allergies Allergy (Verified 09/29/19 08:37) Medications to take at Discharge Sertraline HCl [Zoloft] 50 mg PO DAILY tab 08/25/17 acetaminophen 500 mg capsule 500 mg PO DAILY 09/19/19 loperamide 2 mg capsule 2 mg PO BID 09/19/19 Atorvastatin Calcium 10 mg PO QHS 09/29/19 Furosemide [Lasix] 40 mg PO DAILY 09/29/19 Ibandronate Sodium 150 mg PO QMONTH 09/29/19 Lactobacillus Acidophilus [Acidophilus] 1 cap PO DAILY 09/29/19 Levothyroxine Sodium 150 mcg PO DAILY 09/29/19 Pantoprazole Sodium [Protonix] 40 mg PO DAILY 09/29/19 Warfarin [Coumadin] 2.5 mg PO SUTUWETHSA 09/29/19 Warfarin [Coumadin] 5 mg PO MOFR 09/29/19 Primary Care Physician: Conrad Fields MD [Primary Care Provider] - Please follow up with your Primary Care Physician in: 1 Week Test Results: Test results from this visit will be discussed in further detail at your follow- up appointment, if applicable. Please Follow Up With: Gregory Watson MD When: 3-5 Days, may see ULTRASOUND TECHNICIAN Proposed Discharge Date: 10/02/19
--- NOTE | 2019-10-02 13:40 | PCM.DC.SUM ---
<Carole Lujan - Last Filed: 10/02/19 15:51> Discharge Date and Diagnosis Date of Admission: 09/29/19 Date of Discharge: 10/02/19 - Primary Discharge Diagnosis Active and Suspected Problems (Last Reviewed 09/21/19 @ 10:29 by Carole Smith) 1. Left pneumothorax status post CT-guided biopsy 2. Recent diagnosis large left upper lobe lung mass 3. Hypothyroidism with history of Graves' disease 4. 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 Hyperlipidemia 6. History of GI bleed 7. History of long-term tobacco use - Secondary Discharge Diagnosis Chronic Problems (Last Updated 09/21/19 @ 10:40 by Carole Smith) PAD (peripheral artery disease) (Chronic) History of appendectomy (Chronic) H/O lamud-pbyag-bisodhe bypass (Chronic) Hospital Course and Treatment Imaging Results: Diagnostic Data Chest X-Ray 10/02/19 05:55 IMPRESSION: Small residual left apical pneumothorax. Electronically Signed: Tab Marks, at 9:00 EST , Service support , Dr. Heaton- General surgery Dr. Gomez/Dr. Watson- Pulmonary medicine Operations: None Procedures: - - Chest tube placement Summary of Care Provided: The patient is a 79 year old F admitted 09/29/2019 due to shortness of breath following lung biopsy. 1. Left pneumothorax status post CT-guided biopsy-patient underwent CT-guided biopsy of left upper lobe lung mass 09/29/19. Chest tube placed by general surgery, Dr. Heaton 09/30/19 due to pneumothorax increased in size on repeat imaging. Serial chest x-rays following demonstrated no further pneumothorax.chest tube removed 10/02/2019. Pulmonary medicine and surgery consulted during admission. Patient will have repeat chest x-ray 3 hours following removal of chest tube. If chest x-ray remains stable, plan to discharge home with further outpatient follow-up with PCP and pulmonary medicine. 2. Recent diagnosis large left upper lobe lung mass-following with Dr. Watson. Biopsy as noted above. 3. Hypothyroidism with history of Graves' disease-continue Synthroid regimen. 4. 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 5. Hyperlipidemia- continue statin. 6. History of GI bleed-continue PPI. 7. History of long-term tobacco use-encouraged continued cessation. General: Alert, Oriented x3, Cooperative HEENT: Atraumatic, PERRLA, EOMI, Normocephalic Neck: Supple, No JVD, Negative Carotid Bruits Lungs: Clear to auscultation, Normal air movement, - - Left chest tube in place Cardiovascular: Regular rate, Regular Rhythm, Normal S1, Normal S2, No murmurs Abdomen: Bowel Sounds Present, Soft, Non Tender, Non-Distended, Obese Extremities: No clubbing, No cyanosis, No edema, Capillary Refill Less than 3 Seconds Skin: No rashes, No breakdown Musculoskeletal: No Tenderness to Palpation of Joints or Extremities Neurological: Cranial nerves II-XII grossly intact, Neuro grossly intact Psych/Mental Status: Normal Affect, Appropriate Patient seen and examined prior to discharge. Physical assessment as noted above. Patient is stable for discharge with follow up recommendations as noted above. This patient was seen by ANGELIA Bustillos under the supervision of Dr. Claros. - Physical Exam Vitals/I&O's: Vital Signs Temp Pulse Resp BP Pulse Ox 97.8 F 71 20 H 150/61 H 97 10/02/19 07:32 10/02/19 07:32 10/02/19 07:32 10/02/19 07:32 10/02/19 07:32 Oxygen Flow Rate (L/min) 2 Oxygen Delivery Method Nasal Cannula Weight: 207 lb 0.225 oz Body Mass Index (BMI) 34.9 Intake and Output for Last 24 Hours 09/30/19 10/01/19 10/02/19 23:59 23:59 23:59 Intake Total 120 / 120 520 / 520 300 / 300 Output Total 450 / 450 110 / 110 610 / 610 Balance -330 / -330 410 / 410 -310 / -310 Current Medications Acetaminophen (Tylenol) 650 mg PO Q6H PRN PRN PRN Reason: Non-cardiac pain (4-07/06) Last Admin: 09/30/19 20:30 Dose: 650 mg Documented by: Al Hydroxide/Mg Hydroxide (Mylanta Ii) 15 - 30 ml PO Q4H PRN PRN PRN Reason: INDIGESTION Albuterol Sulfate (Ventolin Aerosols) 2.5 mg INHALATION Q2H PRN PRN PRN Reason: dyspnea, wheezing Atorvastatin Calcium (Lipitor) 10 mg PO QHS [facility] Last Admin: 10/01/19 20:42 Dose: 10 mg Documented by: Baclofen (Lioresal) 10 mg PO Q8H PRN PRN PRN Reason: muscle spasms Dextrose (D50w Syringe) 0 gm IV X1 PRN; Protocol PRN Reason: Hypoglycemia Furosemide (Lasix) 40 mg PO DAILY [facility] Last Admin: 10/02/19 07:36 Dose: 40 mg Documented by: Glucagon () 1 mg IM .X1 PRN PRN Reason: Hypoglycemia Guaifenesin (Robitussin) 20 ml PO Q4H PRN PRN PRN Reason: COUGH Hydralazine HCl (Apresoline Iv) 10 mg IV Q4H PRN PRN PRN Reason: SBP > 160 Lactobacillus Acidophilus (Acidophilus) 1 tablet PO DAILY [facility] Last Admin: 10/02/19 07:35 Dose: 1 tablet Documented by: Levothyroxine Sodium (Synthroid) 150 mcg PO DAILY@0600 [facility] Last Admin: 10/02/19 05:50 Dose: 150 mcg Documented by: Loperamide HCl (Imodium) 2 mg PO Q1H PRN PRN PRN Reason: Diarrhea Magnesium Hydroxide (Milk Of Magnesia) 30 ml PO DAILY PRN PRN Reason: Constipation Last Admin: 10/01/19 17:15 Dose: 30 ml Documented by: Melatonin (Melatonin) 3 mg PO QHS PRN PRN PRN Reason: INSOMNIA Morphine Sulfate () 1 - 2 mg IV Q4H PRN PRN PRN Reason: Pain Score 1-10/10 Last Admin: 09/30/19 09:41 Dose: 2 mg Documented by: Ondansetron HCl (Zofran) 4 mg IV Q8H PRN PRN PRN Reason: NAUSEA/VOMITING Oxycodone HCl (Oxyir) 5 mg PO Q4H PRN PRN PRN Reason: Pain Score 6-10/10 Last Admin: 10/01/19 17:15 Dose: 5 mg Documented by: Pantoprazole Sodium (Protonix) 40 mg PO DAILY [facility] Last Admin: 10/02/19 07:36 Dose: 40 mg Documented by: Psyllium Hydrophilic Mucilloid (Metamucil) 1 packet PO DAILY PRN PRN PRN Reason: Constipation Senna/Docusate Sodium (Senokot-S, Priya-Colace) 2 tablet PO BID PRN PRN PRN Reason: Constipation Sertraline HCl (Zoloft) 50 mg PO DAILY [facility] Last Admin: 10/02/19 07:36 Dose: 50 mg Documented by: Sodium Chloride () 10 - 40 ml IV UD PRN PRN Reason: SALINE FLUSH Last Admin: 09/30/19 09:41 Dose: 10 ml Documented by: Throat Lozenges (Cepacol Sore Throat Lozenge) 1 lozenge MUCOUS MEM Q2H PRN PRN PRN Reason: Sore throat or cough Discharge Diet: No Restrictions Discharge Activity: Return to Normal Activity Call your doctor if you observe: Shortness of breath, Dizziness, Fainting spells, Chest pain Home Medications: Medications to take at Discharge Sertraline HCl [Zoloft] 50 mg PO DAILY tab 08/25/17 acetaminophen 500 mg capsule 500 mg PO DAILY 09/19/19 loperamide 2 mg capsule 2 mg PO BID 09/19/19 Atorvastatin Calcium 10 mg PO QHS 09/29/19 Furosemide [Lasix] 40 mg PO DAILY 09/29/19 Ibandronate Sodium 150 mg PO QMONTH 09/29/19 Lactobacillus Acidophilus [Acidophilus] 1 cap PO DAILY 09/29/19 Levothyroxine Sodium 150 mcg PO DAILY 09/29/19 Pantoprazole Sodium [Protonix] 40 mg PO DAILY 09/29/19 Warfarin [Coumadin] 2.5 mg PO SUTUWETHSA 09/29/19 Warfarin [Coumadin] 5 mg PO MOFR 09/29/19 Primary Care Physician: Conrad Fields MD [Primary Care Provider] - Please follow up with your Primary Care Physician in: 1 Week Please Follow Up With: Gregory Watson MD When: 3-5 Days, may see SHAREBROKER Disposition: Asstd Living/Non-Skill NH Minutes spent on discharge:: 35 Patient Condition:: Stable Medical Necessity - Tobacco Use Smoking Status: Former smoker - 60-year smoking history Tobacco Use: Cigarettes Meaningful Use Info Meaningful Use Diagnoses (Choose all that apply): None applicable <Ravi Claros - Last Filed: 10/02/19 17:26> Discharge Date and Diagnosis - Secondary Discharge Diagnosis Chronic Problems (Last Updated 09/21/19 @ 10:40 by Carole Smith) PAD (peripheral artery disease) (Chronic) History of appendectomy (Chronic) H/O dpzsl-nblhe-qsdyqth bypass (Chronic) Hospital Course and Treatment Imaging Results: 10/02/19 14:00 CXR [Chest 1 View] [RAD] Routine 10/02/19 17:15 CXR [Chest PA and Lateral] [RAD] Urgent Summary of Care Provided: The patient is a 79 year old F [] - Physical Exam Vitals/I&O's: Vital Signs Temp Pulse Resp BP Pulse Ox 97.7 F L 77 18 143/67 H 94 10/02/19 12:55 10/02/19 12:55 10/02/19 12:55 10/02/19 12:55 10/02/19 15:30 Oxygen Flow Rate (L/min) 2 Oxygen Delivery Method Room Air Weight: 207 lb 0.225 oz Body Mass Index (BMI) 34.9 Intake and Output for Last 24 Hours 09/30/19 10/01/19 10/02/19 23:59 23:59 23:59 Intake Total 120 / 120 520 / 520 500 / 500 Output Total 450 / 450 110 / 110 610 / 610 Balance -330 / -330 410 / 410 -110 / -110 Current Medications Acetaminophen (Tylenol) 650 mg PO Q6H PRN PRN PRN Reason: Non-cardiac pain (4-10/10) Last Admin: 09/30/19 20:30 Dose: 650 mg Documented by: Al Hydroxide/Mg Hydroxide (Mylanta Ii) 15 - 30 ml PO Q4H PRN PRN PRN Reason: INDIGESTION Albuterol Sulfate (Ventolin Aerosols) 2.5 mg INHALATION Q2H PRN PRN PRN Reason: dyspnea, wheezing Atorvastatin Calcium (Lipitor) 10 mg PO QHS [facility] Last Admin: 10/01/19 20:42 Dose: 10 mg Documented by: Baclofen (Lioresal) 10 mg PO Q8H PRN PRN PRN Reason: muscle spasms Dextrose (D50w Syringe) 0 gm IV X1 PRN; Protocol PRN Reason: Hypoglycemia Furosemide (Lasix) 40 mg PO DAILY [facility] Last Admin: 10/02/19 07:36 Dose: 40 mg Documented by: Glucagon () 1 mg IM .X1 PRN PRN Reason: Hypoglycemia Guaifenesin (Robitussin) 20 ml PO Q4H PRN PRN PRN Reason: COUGH Hydralazine HCl (Apresoline Iv) 10 mg IV Q4H PRN PRN PRN Reason: SBP > 160 Lactobacillus Acidophilus (Acidophilus) 1 tablet PO DAILY [facility] Last Admin: 10/02/19 07:35 Dose: 1 tablet Documented by: Levothyroxine Sodium (Synthroid) 150 mcg PO DAILY@0600 [facility] Last Admin: 10/02/19 05:50 Dose: 150 mcg Documented by: Loperamide HCl (Imodium) 2 mg PO Q1H PRN PRN PRN Reason: Diarrhea Magnesium Hydroxide (Milk Of Magnesia) 30 ml PO DAILY PRN PRN Reason: Constipation Last Admin: 10/01/19 17:15 Dose: 30 ml Documented by: Melatonin (Melatonin) 3 mg PO QHS PRN PRN PRN Reason: INSOMNIA Morphine Sulfate () 1 - 2 mg IV Q4H PRN PRN PRN Reason: Pain Score 1-10/10 Last Admin: 09/30/19 09:41 Dose: 2 mg Documented by: Ondansetron HCl (Zofran) 4 mg IV Q8H PRN PRN PRN Reason: NAUSEA/VOMITING Oxycodone HCl (Oxyir) 5 mg PO Q4H PRN PRN PRN Reason: Pain Score 6-10/10 Last Admin: 10/01/19 17:15 Dose: 5 mg Documented by: Pantoprazole Sodium (Protonix) 40 mg PO DAILY [facility] Last Admin: 10/02/19 07:36 Dose: 40 mg Documented by: Psyllium Hydrophilic Mucilloid (Metamucil) 1 packet PO DAILY PRN PRN PRN Reason: Constipation Senna/Docusate Sodium (Senokot-S, Priya-Colace) 2 tablet PO BID PRN PRN PRN Reason: Constipation Sertraline HCl (Zoloft) 50 mg PO DAILY [facility] Last Admin: 10/02/19 07:36 Dose: 50 mg Documented by: Sodium Chloride () 10 - 40 ml IV UD PRN PRN Reason: SALINE FLUSH Last Admin: 09/30/19 09:41 Dose: 10 ml Documented by: Throat Lozenges (Cepacol Sore Throat Lozenge) 1 lozenge MUCOUS MEM Q2H PRN PRN PRN Reason: Sore throat or cough Code Visit Addendum 79-year-old female with a 66-acup-diqd smoking history presented to the ER after she had a CT-guided lung biopsy of her newly identified left upper lobe lung mass. She developed shortness of breath after the procedure and was found to have a pneumothorax. A chest tube was inserted. Initially the chest tube was hooked to suction and then today it was hooked to waterseal. Initial chest x-ray after she was converted to waterseal showed no residual pneumothorax, therefore the chest tube was pulled at around 2 PM and at 5 PM she had another chest x-ray which appears on my read to be grossly similar to her previous chest x-rays this morning and this afternoon. She is good for discharge pending final radiology read. She will need to follow-up with both pulmonology as well as likely oncology for pathology results. Inpatient E&M: [id number] Disch Hosp
--- NOTE | 2019-10-02 14:00 | RAD_ITS ---
STUDY: X-RAY CHEST REASON FOR EXAM: Female, 79 years old. CHEST TUBE FOLLOW UP TECHNIQUE: Single AP portable view of the chest. COMPARISON: October 02, 2019 at 6:38 AM FINDINGS: There is a persistent large mass in the left upper lobe that measures 3.4 x 3.7 cm. There is a subtle suggestion of a left apical pneumothorax unchanged since prior study. There is subtle groundglass opacity in the right greater than left lower lobe. There is no demonstrated pleural abnormality. Normal size heart. Normal mediastinum and marcelo. Normal visualized pulmonary arteries. Normal visualized aortic arch and descending thoracic aorta. Normal visualized thoracic spine. Normal visualized ribs, clavicles, and shoulders. There is no demonstrated abnormality of the visualized soft tissue structures of the upper abdomen. RAD/Chest 1 View IMPRESSION: Trace left apical pneumothorax. Persistent mass left upper lobe. Right lower lobe atelectasis. Electronically Signed: Diana Ho MD at 15:22 EST Tel , Service support ,
--- NOTE | 2019-10-02 14:18 | PCM.PN.BLA ---
Progress Note Discussed with Dr. Marks the radiologist patient may have little bit of scarring in the apical left lung. Repeat chest x-ray at 2 PM does not appear to have a pneumothorax. We will plan to remove the chest tube and redo chest x-ray in 3 hours if okay patient may be DC'd home.
--- NOTE | 2019-10-02 14:50 | CASEMGMT ---
Addendum entered by Ashley Gonzalez 10/02/19 15:15: SW updated Brittainy at [facility] that pt is having repeat chest x-ray at 5:00pm and then likely discharge after chest x-ray. Original Note: Social Work Note Pt is getting repeat chest x-ray done at 5:00pm and then will likely discharge to [facility]. SW placed green sheet on pt's chart. SW in to speak with pt. Pt confirms that she has called her family and either her son or daughter will be transporting her later today. RN updated. Plan: Return to [facility] once medically cleared Ashley Gonzalez WELT STITCH CLEANER, ANTENNA DESIGN ENGINEER
[2019-10-02 15:30] VITALS: O2SAT 94
--- NOTE | 2019-10-02 17:15 | RAD_ITS ---
STUDY: X-RAY CHEST REASON FOR EXAM: Female, 79 years old. POST CHEST TUBE REMOVAL -- LEFT SIDED APICAL PNEUMO PREVIOUSLY TECHNIQUE: PA and lateral views of the chest. COMPARISON: AP portable upright chest x-ray 1359 hours. FINDINGS: Rounded masslike density in the posterolateral upper left lung again noted. No new infiltrate. There is no demonstrated pleural abnormality. Normal size heart. Normal mediastinum and marcelo. Normal visualized pulmonary arteries. There is atherosclerotic calcification of the aortic arch. Normal visualized thoracic spine. 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 A metal screw is again seen in the left humeral head There is no demonstrated abnormality of the visualized soft tissue structures of the upper abdomen. RAD/Chest PA and Lateral IMPRESSION: Stable masslike density in the posterolateral upper left chest. No acute pulmonary infiltrate or CHF. No demonstrated pneumothorax. Electronically Signed: Dony Sharp MD at 17:42 EST , Service support ,
== END 2019-10-02 18:24 | disposition home or self-care (01) | DRG 201 ==
LOC: ED 14:24 → MS3 15:27
PROVIDERS: Admitting Provider Family Medicine; Emergency Provider Emergency Medicine; Family Provider Family Medicine; PCP Family Medicine; Referring Provider Family Medicine; Visit Provider Family Medicine
DX: J95.811 Postprocedural pneumothorax (principal); R91.8 Other nonspecific abnormal finding of lung field; E03.9 Hypothyroidism, unspecified; E78.5 Hyperlipidemia, unspecified; I73.9 Peripheral vascular disease, unspecified; Z90.49 Acquired absence of other specified parts of digestive tract; Z86.79 Personal history of other diseases of the circulatory system; Z86.39 Personal history of other endocrine, nutritional and metabolic disease; Z79.890 Hormone replacement therapy; Z79.01 Long term (current) use of anticoagulants; Z87.891 Personal history of nicotine dependence; I48.91 Unspecified atrial fibrillation; I50.9 Heart failure, unspecified; E66.9 Obesity, unspecified; Z68.35 Body mass index [BMI] 35.0-35.9, adult; Z79.899 Other long term (current) drug therapy
CPT/HCPCS: 36415; 71045; 71046; 77012; 80048; 84443; 85025; 85610; 85730; 88172; 88305; 88313; 88341; 88342; 99156; 99157; 99251; 99283; J7040; A4216; G0463

== ENCOUNTER → 2019-10-06 12:18 | Outpatient (CLI) | payer MEDICARE, SELFPAY ==
[2019-09-21 10:28] VITALS: BMI 35.4
[2019-09-29 15:23] VITALS: BMI 34.9
[2019-10-06 12:51] VITALS: PULSE 70; PULSE 74; PULSE 83; PULSE 84; PULSE 89; PULSE 91; PULSE 92; O2SAT 89; O2SAT 90; O2SAT 91; O2SAT 94
--- NOTE | 2019-10-06 12:56 | CPS ---
PATIENT AMBULATED WITH WHEELED WALKER FOR DURATION OF TESTING. SHE TOOK 1 REST BREAK AT 3MINUTE [place] FOR COMPLAINT OF FEELING TIRED, OTHERWISE ASYMPTOMATIC AND SHE CONTINUED TO WALK FOR REMAINDER OF 6MIN.
--- NOTE | 2019-10-06 16:41 | PCM.PSN.6M ---
PSN 6 Minute Walk Test - 6 Minute Walk Test 6 Minute Walk Test: 6 Minute Walk Test PSN:6-Minute Walk Test Start: 10/06/19 12:51 Freq: Status: Active Protocol: RESP.6MINW Document 10/06/19 12:51 [facility] (Rec: 10/06/19 12:58 [facility] [id number]) 6 Minute Walk Test Date Performed 10/06/19 Time Performed 12:30 Height 5 ft 4.5 in Weight: 93.894 kg Weight in Pounds 207.[address]: Gregory Watson Assistive device used: Walker Pre-test Oxygen Delivery Method Room Air Pulse Ox (%) 94 Pulse Rate (60-100 beats/min) 70 Dyspnea Wong Scale (0-10) 0 1st minute Oxygen Delivery Method Room Air Pulse Ox (%) 89 Pulse Rate (60-100 beats/min) 83 Dyspnea Wong Scale (0-10) 0 Number of Rests Taken 0 2nd minute Oxygen Delivery Method Room Air Pulse Ox (%) 89 Pulse Rate (60-100 beats/min) 84 Dyspnea Wong Scale (0-10) 0 Number of Rests Taken 0 3rd minute Oxygen Delivery Method Room Air Pulse Ox (%) 89 Pulse Rate (60-100 beats/min) 91 Dyspnea Wong Scale (0-10) 1 Number of Rests Taken 1 4th minute Oxygen Delivery Method Room Air Pulse Ox (%) 90 Pulse Rate (60-100 beats/min) 92 Dyspnea Wong Scale (0-10) 1 Number of Rests Taken 0 5th minute Oxygen Delivery Method Room Air Pulse Ox (%) 91 Pulse Rate (60-100 beats/min) 89 Dyspnea Wong Scale (0-10) 1 Number of Rests Taken 0 6th minute Oxygen Delivery Method Room Air Pulse Ox (%) 89 Pulse Rate (60-100 beats/min) 91 Dyspnea Wong Scale (0-10) 1 Number of Rests Taken 0 Post-test Oxygen Delivery Method Room Air Pulse Ox (%) 94 Pulse Rate (60-100 beats/min) 74 Dyspnea Wong Scale (0-10) 0 Full Laps Walked 6 Partial Lap, Number of Tiles Walked 42 Total Distance Walked (ft) 396 10/06/19 12:56 Cardiopulmonary Services by Claire Sheriff PATIENT AMBULATED WITH WHEELED WALKER FOR DURATION OF TESTING. SHE TOOK 1 REST BREAK AT 3MINUTE [place] FOR COMPLAINT OF FEELING TIRED, OTHERWISE ASYMPTOMATIC AND SHE CONTINUED TO WALK FOR REMAINDER OF 6MIN. Initialized on 10/06/19 12:56 - END OF NOTE - Interpretation Interpretation: The patient was able to ambulate only 396 feet over the course of 6 minutes with the assistance of a walker and one break. The patient did experience significant desaturation from a baseline of 94% to as low as 89%. No significant tachycardia was noted. These findings are consistent with a respiratory limitation exercise tolerance. - Recommendations Recommendations: No supplemental oxygen is indicated at this time. However, patient will need to be followed closely given level of desaturation.
== END ==
PROVIDERS: Family Provider Family Medicine; PCP Family Medicine; Referring Provider Internal Medicine Critical Care Medicine; Visit Provider Internal Medicine Critical Care Medicine
DX: R06.00 Dyspnea, unspecified (principal)
CPT/HCPCS: 94618

== ENCOUNTER → 2019-10-12 07:39 | Outpatient (CLI) | payer MEDICARE, SELFPAY ==
[2019-09-21 10:28] VITALS: BMI 35.4
[2019-09-29 15:23] VITALS: BMI 34.9
--- NOTE | 2019-10-13 11:01 | PFT ---
INTRODUCTION: The patient is a 79-year-old female that presents for pulmonary function studies secondary to a diagnosis of dyspnea. Respiratory therapy reports good patient effort. Bronchodilators were used during testing. INTERPRETATION: Forced expiration spirometry demonstrates the presence of a mild large airways obstructive ventilatory defect, based upon a postbronchodilator FEV1 to FVC ratio of 65%. There was no significant response to aerosolized bronchodilators. Spirograms are of fair quality and do not plateau indicating slow emptying of the lungs. Body plethysmography was performed and reveals lung volumes to be within normal limits. Diffusing capacity by single breath CO is severely reduced at 40% of predicted. IMPRESSION: Irreversible mild large airways obstructive ventilatory defect with preserved lung volumes and disproportionate reduction in diffusing capacity.
== END ==
PROVIDERS: Family Provider Family Medicine; PCP Family Medicine; Referring Provider Internal Medicine Critical Care Medicine; Visit Provider Internal Medicine Critical Care Medicine
DX: R06.00 Dyspnea, unspecified (principal)
CPT/HCPCS: 94060; 94726; 94729

== ENCOUNTER → 2019-10-19 12:58 | Outpatient (CLI) | payer MEDICARE, SELFPAY ==
[2019-10-16 10:56] VITALS: BMI 36.6
--- NOTE | 2019-10-19 12:59 | MRI_ITS ---
STUDY: MRI BRAIN WITH AND WITHOUT CONTRAST REASON FOR EXAM: Female, 79 years old. cancer staging TECHNIQUE: Standardized multiplanar fat and water weighted pulse sequences were obtained. IV 20 Dotarem was administered for the contrast portion of the examination. COMPARISON: 20 September 2013 FINDINGS: There is no acute infarct. There are no intracranial metastases. There is remote small left lentiform nucleus infarct and mild periventricular chronic ischemic white matter change. MRI/Brain W/WO Contrast IMPRESSION: 1. No intracranial metastases. 2. Remote left lentiform nucleus infarct. Electronically Signed: Alisha Mahajan, at 17:04 EST Tel , Service support ,
== END ==
PROVIDERS: PCP Family Medicine; Referring Provider Internal Medicine Hematology & Oncology; Visit Provider Internal Medicine Hematology & Oncology
DX: C34.12 Malignant neoplasm of upper lobe, left bronchus or lung (principal)
CPT/HCPCS: 70553; A9575

== ENCOUNTER → 2019-10-26 05:00 | Outpatient (REF) | payer MEDICARE, SELFPAY ==
[2019-10-16 10:56] VITALS: BMI 36.6
[2019-10-26 07:56] LABS: Hematocrit 41.1 % (37-47); Hemoglobin 12.8 g/dL (12.0-15.0); Mean Corp Hgb Conc 31.1 g/dL (32-36); Mean Corpuscular Hgb 26.7 pg (27.0-32.0); Mean Corpuscular Volume 85.6 fL (81-99); Mean Platelet Vol. 10.7 fl (6.2-12.0); Platelet Count 228 K/mm3 (150-450); RBC Distribution Width CV 14.6 % (11.6-14.6); RBC Distribution Width SD 45.6 fl (35.1-43.9); White Blood Count 9.1 K/mm3 (4.4-11.0)
[2019-10-26 08:08] LABS: International Normalized Ratio 1.5; Prothrombin Time (Protime)PT. 18.4 SECONDS (11.7-14.9)
[2019-10-26 08:20] LABS: Anion Gap 3 (5-15); BUN 18 mg/dL (7-18); BUN/Creat Ratio 19.7 RATIO (10-20); Chloride 109 mmol/L (98-107); Creatinine, Serum 0.91 mg/dL (0.55-1.02); EST Glomerular Filtration Rate 63 mL/min (>60); Est Glom Filt Rate - Afr Amer 77 mL/min (>60); Glucose 102 mg/dL (74-106); Potassium 3.8 mmol/L (3.5-5.1); Sodium Level 141 mmol/L (136-145)
== END ==
LOC: OLS.WCC 05:00
PROVIDERS: PCP Family Medicine; Visit Provider Family Medicine
DX: Z79.899 Other long term (current) drug therapy (principal); Z79.01 Long term (current) use of anticoagulants
CPT/HCPCS: 36415; 80048; 85027; 85610

== ENCOUNTER → 2019-11-03 05:00 | Outpatient (REF) | payer MEDICARE, SELFPAY ==
[2019-10-26 12:50] VITALS: BMI 36.6
[2019-11-03 08:05] LABS: Prothrombin Time Fingerstick 32.5 SEC (11.9-14.4)
== END ==
LOC: OLS.WCC 05:00
PROVIDERS: PCP Family Medicine; Visit Provider Family Medicine
DX: Z79.01 Long term (current) use of anticoagulants (principal)
CPT/HCPCS: 36416; 85610

== ENCOUNTER → 2019-11-28 05:00 | Outpatient (REF) | payer MEDICARE, SELFPAY ==
[2019-10-26 12:50] VITALS: BMI 36.6
[2019-11-28 10:06] LABS: Hematocrit 41.1 % (37-47); Hemoglobin 12.5 g/dL (12.0-15.0); Mean Corp Hgb Conc 30.4 g/dL (32-36); Mean Corpuscular Volume 85.4 fL (81-99); Platelet Count 225 K/mm3 (150-450); Red Blood Count 4.81 M/mm3 (4.2-5.4); White Blood Count 8.9 K/mm3 (4.4-11.0)
[2019-11-28 10:13] LABS: International Normalized Ratio 1.4; Prothrombin Time (Protime)PT. 17.3 SECONDS (11.7-14.9)
[2019-11-28 10:22] LABS: Anion Gap 5 (5-15); BUN 17 mg/dL (7-18); Calcium,Total 8.8 mg/dL (8.5-10.1); Chloride 107 mmol/L (98-107); Cholesterol 199 mg/dL (200); EST Glomerular Filtration Rate 57 mL/min (>60); Est Glom Filt Rate - Afr Amer 69 mL/min (>60); Glucose 105 mg/dL (74-106); High Density Lipoprotein 44 mg/dL; Potassium 4.2 mmol/L (3.5-5.1); Sodium Level 141 mmol/L (136-145); Triglycerides 193 mg/dL; Very Low Density Lipoprotein 39 mg/dL (5-40)
== END ==
LOC: OLS.WCC 05:00
PROVIDERS: PCP Family Medicine; Visit Provider Family Medicine
DX: E78.5 Hyperlipidemia, unspecified (principal); Z79.899 Other long term (current) drug therapy; Z79.01 Long term (current) use of anticoagulants
CPT/HCPCS: 36415; 80048; 80061; 85027; 85610

== ENCOUNTER → 2019-12-05 05:00 | Outpatient (REF) | payer MEDICARE, SELFPAY ==
[2019-10-26 12:50] VITALS: BMI 36.6
[2019-12-05 08:00] LABS: Prothrombin Time Fingerstick 27.3 SEC (11.9-14.4)
== END ==
LOC: OLS.WCC 05:00
PROVIDERS: PCP Family Medicine; Visit Provider Family Medicine
DX: Z79.01 Long term (current) use of anticoagulants (principal)
CPT/HCPCS: 36416; 85610

== ENCOUNTER → 2019-12-22 05:00 | Outpatient (REF) | payer MEDICARE, SELFPAY ==
[2019-10-26 12:50] VITALS: BMI 36.6
[2019-12-22 09:56] LABS: Thyroid Stim Hormone (TSH) 0.79 uIU/mL (0.358-3.74)
== END ==
LOC: OLS.WCC 05:00
PROVIDERS: PCP Family Medicine; Visit Provider Family Medicine
DX: E03.9 Hypothyroidism, unspecified (principal)
CPT/HCPCS: 36415; 84443

== ENCOUNTER → 2019-12-29 05:00 | Outpatient (REF) | payer MEDICARE, SELFPAY ==
[2019-10-26 12:50] VITALS: BMI 36.6
[2019-12-29 08:24] LABS: Hematocrit 41.1 % (37-47); Hemoglobin 12.8 g/dL (12.0-15.0); Mean Corp Hgb Conc 31.1 g/dL (32-36); Mean Corpuscular Hgb 26.8 pg (27.0-32.0); Mean Platelet Vol. 9.9 fl (6.2-12.0); Platelet Count 260 K/mm3 (150-450); RBC Distribution Width CV 15.5 % (11.6-14.6); RBC Distribution Width SD 47.8 fl (35.1-43.9); Red Blood Count 4.78 M/mm3 (4.2-5.4); White Blood Count 8.4 K/mm3 (4.4-11.0)
[2019-12-29 08:26] LABS: Prothrombin Time (Protime)PT. 31.4 SECONDS (11.7-14.9)
[2019-12-29 08:45] LABS: Anion Gap 6 (5-15); BUN 12 mg/dL (7-18); BUN/Creat Ratio 13.2 RATIO (10-20); Calcium,Total 8.9 mg/dL (8.5-10.1); Chloride 104 mmol/L (98-107); Creatinine, Serum 0.91 mg/dL (0.55-1.02); EST Glomerular Filtration Rate 64 mL/min (>60); Est Glom Filt Rate - Afr Amer 77 mL/min (>60); Glucose 123 mg/dL (74-106); Sodium Level 140 mmol/L (136-145)
== END ==
LOC: OLS.WCC 05:00
PROVIDERS: PCP Family Medicine; Visit Provider Family Medicine
DX: Z79.899 Other long term (current) drug therapy (principal); Z79.01 Long term (current) use of anticoagulants
CPT/HCPCS: 36415; 80048; 85027; 85610

== ENCOUNTER → 2020-02-07 05:00 | Outpatient (REF) | payer MEDICARE, SELFPAY ==
[2019-10-26 12:50] VITALS: BMI 36.6
[2020-02-07 08:20] LABS: Hematocrit 38.8 % (37-47); Hemoglobin 12.2 g/dL (12.0-15.0); Mean Corp Hgb Conc 31.4 g/dL (32-36); Mean Corpuscular Volume 85.8 fL (81-99); Mean Platelet Vol. 10.2 fl (6.2-12.0); Platelet Count 188 K/mm3 (150-450); RBC Distribution Width CV 16.7 % (11.6-14.6); RBC Distribution Width SD 52.1 fl (35.1-43.9); Red Blood Count 4.52 M/mm3 (4.2-5.4)
[2020-02-07 08:35] LABS: Anion Gap 4 (5-15); BUN 16 mg/dL (7-18); BUN/Creat Ratio 15.2 RATIO (10-20); Calcium,Total 8.5 mg/dL (8.5-10.1); Chloride 104 mmol/L (98-107); Creatinine, Serum 1.05 mg/dL (0.55-1.02); EST Glomerular Filtration Rate 54 mL/min (>60); Est Glom Filt Rate - Afr Amer 65 mL/min (>60); Glucose 115 mg/dL (74-106); Potassium 3.7 mmol/L (3.5-5.1); Sodium Level 138 mmol/L (136-145)
[2020-02-07 09:34] LABS: Prothrombin Time (Protime)PT. 30.8 SECONDS (11.7-14.9)
== END ==
LOC: OLS.WCC 05:00
PROVIDERS: PCP Family Medicine; Visit Provider Family Medicine
DX: Z79.899 Other long term (current) drug therapy (principal); Z79.01 Long term (current) use of anticoagulants
CPT/HCPCS: 36415; 80048; 85027; 85610

== ENCOUNTER → 2020-03-11 05:00 | Outpatient (REF) | payer MEDICARE, SELFPAY ==
[2019-10-26 12:50] VITALS: BMI 36.6
[2020-03-11 08:13] LABS: Color, Urine Yellow (Yellow); Glucose, Dipstick Normal (Normal); Ketone-Dipstick Negative (Negative); Leukocyte Esterase-Dipstick 500 /ul (Negative); Nitrite-Dipstick Positive (Negative); Occult Blood-Urine 10 /ul (Negative); Protein-Dipstick 30 mg/dl (Negative); Urine Bilirubin Dipstick Negative (Negative); Urine Clarity Sl. Cloudy (Clear); Urine Urobilinogen Normal (Normal)
[2020-03-11 08:15] LABS: Hematocrit 37.5 % (37-47); Hemoglobin 11.6 g/dL (12.0-15.0); Mean Corp Hgb Conc 30.9 g/dL (32-36); Mean Corpuscular Hgb 27.4 pg (27.0-32.0); Mean Corpuscular Volume 88.7 fL (81-99); Mean Platelet Vol. 10.9 fl (6.2-12.0); Platelet Count 231 K/mm3 (150-450); RBC Distribution Width CV 17.6 % (11.6-14.6); RBC Distribution Width SD 57.1 fl (35.1-43.9); Red Blood Count 4.23 M/mm3 (4.2-5.4); White Blood Count 7.8 K/mm3 (4.4-11.0)
[2020-03-11 08:25] LABS: Anion Gap 5 (5-15); BUN 18 mg/dL (7-18); BUN/Creat Ratio 20.2 RATIO (10-20); Calcium,Total 8.5 mg/dL (8.5-10.1); Chloride 105 mmol/L (98-107); Creatinine, Serum 0.89 mg/dL (0.55-1.02); EST Glomerular Filtration Rate 65 mL/min (>60); Est Glom Filt Rate - Afr Amer 79 mL/min (>60); Glucose 116 mg/dL (74-106); Sodium Level 139 mmol/L (136-145)
[2020-03-11 08:33] LABS: International Normalized Ratio 1.7; Prothrombin Time (Protime)PT. 19.4 SECONDS (11.7-14.9)
== END ==
LOC: OLS.WCC 05:00
PROVIDERS: PCP Family Medicine; Visit Provider Family Medicine
DX: Z79.899 Other long term (current) drug therapy (principal); Z79.01 Long term (current) use of anticoagulants; Z86.718 Personal history of other venous thrombosis and embolism
CPT/HCPCS: 36415; 80048; 81002; 85027; 85610; 87086; 87088; 87186

== ENCOUNTER → 2020-03-18 04:00 | Outpatient (REF) | payer MEDICARE, SELFPAY ==
[2019-10-26 12:50] VITALS: BMI 36.6
[2020-03-18 08:46] LABS: Prothrombin Time Fingerstick 21.1 SEC (11.9-14.4)
== END ==
LOC: OLS.WCC 04:00
PROVIDERS: PCP Family Medicine; Referring Provider Family Medicine; Visit Provider Family Medicine
DX: Z79.01 Long term (current) use of anticoagulants (principal)
CPT/HCPCS: 36416; 85610

== ENCOUNTER → 2020-04-08 05:00 | Outpatient (REF) | payer MEDICARE, SELFPAY ==
[2019-10-26 12:50] VITALS: BMI 36.6
[2020-04-08 08:11] LABS: Hematocrit 38.8 % (37-47); Hemoglobin 12.3 g/dL (12.0-15.0); Mean Corp Hgb Conc 31.7 g/dL (32-36); Mean Corpuscular Volume 88.2 fL (81-99); Mean Platelet Vol. 10.7 fl (6.2-12.0); Platelet Count 262 K/mm3 (150-450); RBC Distribution Width CV 16.4 % (11.6-14.6); RBC Distribution Width SD 53.5 fl (35.1-43.9); White Blood Count 8.4 K/mm3 (4.4-11.0)
[2020-04-08 08:17] LABS: International Normalized Ratio 1.8; Prothrombin Time (Protime)PT. 20.3 SECONDS (11.7-14.9)
[2020-04-08 08:21] LABS: Anion Gap 4 (5-15); BUN 24 mg/dL (7-18); BUN/Creat Ratio 26.5 RATIO (10-20); Calcium,Total 8.7 mg/dL (8.5-10.1); Chloride 109 mmol/L (98-107); Creatinine, Serum 0.91 mg/dL (0.55-1.02); EST Glomerular Filtration Rate 64 mL/min (>60); Est Glom Filt Rate - Afr Amer 77 mL/min (>60); Glucose 109 mg/dL (74-106); Potassium 3.7 mmol/L (3.5-5.1); Sodium Level 142 mmol/L (136-145)
== END ==
LOC: OLS.WCC 05:00
PROVIDERS: PCP Family Medicine; Visit Provider Family Medicine
DX: Z79.899 Other long term (current) drug therapy (principal); Z79.01 Long term (current) use of anticoagulants
CPT/HCPCS: 36415; 80048; 85027; 85610

== ENCOUNTER → 2020-08-19 17:54 | Outpatient (CLI) | payer MEDICARE, MEDICAID, SELFPAY ==
[2019-10-26 12:50] VITALS: BMI 36.6
--- NOTE | 2020-08-19 18:04 | US_ITS ---
HISTORY: UTIs ADDITIONAL HISTORY: None provided. COMPARISON: CTA 08/17/2017 TECHNIQUE: Ultrasound of the kidneys and bladder performed with grayscale and color Doppler imaging. FINDINGS: RIGHT KIDNEY: 11.2 x 4.8 x 5.0 cm. Parenchymal thinning noted. LEFT KIDNEY: 12.3 x 4.6 x 3.3 cm. Parenchymal thinning noted. ECHOGENICITY: Unremarkable. HYDRONEPHROSIS: None. CALCULI: Nonobstructing right renal calculi, largest measuring about 6 mm. Left renal calculi, largest approximately 13 mm in the left lower pole. RENAL LESIONS: 2 cm simple appearing right renal cyst. Left renal cyst, largest measuring 2 cm. BLADDER: Predominantly decompressed, grossly unremarkable. URETERAL JETS: Not visualized. US/Kidney and Bladder IMPRESSION: No acute renal abnormality is sonographically apparent. Nonobstructing bilateral renal calculi. Bilateral renal cysts. No follow-up warranted per consensus guidelines. at 0546 Reported and signed by: Barbara Dela Cruz MD Electronically Signed: Barbara Dela Cruz MD at 5:46 EST Tel , Service support ,
== END ==
PROVIDERS: Referring Provider Urology; Visit Provider Urology
DX: N39.0 Urinary tract infection, site not specified (principal); N28.1 Cyst of kidney, acquired; N20.0 Calculus of kidney
CPT/HCPCS: 76770

== ENCOUNTER → 2020-09-24 15:52 | Outpatient (CLI) | payer MEDICARE, MEDICAID, SELFPAY ==
[2019-10-26 12:50] VITALS: BMI 36.6
[2020-09-24 16:46] LABS: International Normalized Ratio 1.7; Prothrombin Time (Protime)PT. 19.6 SECONDS (11.7-14.9)
[2020-09-24 17:22] LABS: AST(SGOT) 10 U/L (15-37); Alanine Aminotransfer ALT/SGPT 17 U/L (13-56); Albumin, Serum 3.1 g/dL (3.2-5.0); Alkaline Phosphatase 57 U/L (45-117); Bilirubin, Direct 0.08 mg/dL (0.00-0.30); Globulin 3.6 g/dL (2.2-4.2); Protein, Total 6.7 g/dL (6.4-8.2)
== END ==
PROVIDERS: PCP Family Medicine; Visit Provider Family Medicine
DX: Z51.81 Encounter for therapeutic drug level monitoring (principal); Z79.01 Long term (current) use of anticoagulants
CPT/HCPCS: 36415; 80076; 85610

== ENCOUNTER → 2020-10-24 11:05 | Outpatient (CLI) | payer MEDICARE, MEDICAID, SELFPAY ==
[2019-10-26 12:50] VITALS: BMI 36.6
[2020-10-24 13:00] LABS: AST(SGOT) 12 U/L (15-37); Alanine Aminotransfer ALT/SGPT 15 U/L (13-56); Albumin, Serum 3.2 g/dL (3.2-5.0); Alkaline Phosphatase 53 U/L (45-117); Bilirubin, Direct 0.08 mg/dL (0.00-0.30); Globulin 3.7 g/dL (2.2-4.2); Protein, Total 6.9 g/dL (6.4-8.2)
== END ==
PROVIDERS: PCP Family Medicine; Visit Provider Family Medicine
DX: Z51.81 Encounter for therapeutic drug level monitoring (principal)
CPT/HCPCS: 36415; 80076

== ENCOUNTER → 2020-12-09 11:06 | Outpatient (CLI) | payer MEDICARE, MEDICAID, SELFPAY ==
[2019-10-26 12:50] VITALS: BMI 36.6
[2020-12-09 15:54] LABS: AST(SGOT) 11 U/L (15-37); Alanine Aminotransfer ALT/SGPT 18 U/L (13-56); Alkaline Phosphatase 50 U/L (45-117); Bilirubin, Direct 0.07 mg/dL (0.00-0.30); Globulin 3.8 g/dL (2.2-4.2); Protein, Total 6.8 g/dL (6.4-8.2); Thyroid Stim Hormone (TSH) 0.56 uIU/mL (0.358-3.74)
== END ==
PROVIDERS: PCP Family Medicine; Visit Provider Family Medicine
DX: E03.9 Hypothyroidism, unspecified (principal); Z51.81 Encounter for therapeutic drug level monitoring
CPT/HCPCS: 36415; 80076; 84443

== ENCOUNTER 2021-08-19 14:50 | Emergency (ER) | payer MEDICARE, MEDICAID, SELFPAY ==
[2021-08-19 14:51] VITALS: BP 148/67; PULSE 81; RESP 18; TEMP 36.2; O2SAT 93; BMI 32.5
[2021-08-19 14:53] VITALS: BP 148/67; PULSE 81; RESP 18; TEMP 36.2; O2SAT 93
--- NOTE | 2021-08-19 15:14 | EKG12_ITS ---
Test Reason : Blood Pressure : / mmHG Vent. Rate : 078 BPM Atrial Rate : 078 BPM P-R Int : 164 ms QRS Dur : 100 ms QT Int : 376 ms P-R-T Axes : 043 -03 176 degrees QTc Int : 428 ms Normal sinus rhythm ST & T wave abnormality, consider anterolateral ischemia Abnormal ECG When compared with ECG of 20-AUG-2017 05:38, Inverted T waves have replaced nonspecific T wave abnormality in Anterolateral leads Confirmed by MARK ALEXANDER, MATI ([id number]), editorial cartoonist AMANDO DEE ([id number]) on 08/22/2021 11:53:44 AM Referred By: ALYSE Confirmed By:MATI FLORES MD
--- NOTE | 2021-08-19 15:15 | EDS_ITS ---
HPI History of Present Illness Chief Complaint: General Illness Detail of Chief Complaint: Syncopal episode, exposure to COVID-19 Informant: patient Onset/Context/Timing Onset: Yesterday Context: Gradual Onset Timing: Continuous Quality: Weakness Location: Generalized Worsened by: Nothing Relieved by: Nothing Narrative Narrative: Patient presents with a syncopal episode that occurred last night. Patient states that she has been feeling weak. Patient states it is generalized. Patient states that she was in her bathroom last night when she passed out for a couple minutes. Patient denies any injuries. Patient denies any shortness of breath or cough. Patient states she has been exposed to someone who was recently diagnosed with COVID-19. Patient states she has been vaccinated against COVID-19. Patient states her primary care physician told her to come to the emergency department to get her oxygen checked. [facility] Medical History COPD (chronic obstructive pulmonary disease) Exophthalmos Graves disease PAD (peripheral artery disease) ROTARY CUFF SURGERY Syncope UGIB (upper gastrointestinal bleed) Home Medications sertraline 50 mg PO DAILY tab 08/25/17 [Rx Last Taken 09/28/19] acetaminophen 500 mg capsule 500 mg PO DAILY 09/19/19 [History Last Taken 09/29/19] loperamide 2 mg capsule 2 mg PO BID 09/19/19 [History Last Taken 09/29/19] Lactobacillus acidophilus 1 cap PO DAILY 09/29/19 [History Last Taken 09/29/19] atorvastatin 10 mg PO QHS 09/29/19 [History Last Taken 09/28/19] furosemide 40 mg PO DAILY 09/29/19 [History Last Taken 09/29/19] ibandronate 150 mg PO QMONTH 09/29/19 [History Last Taken Unknown] levothyroxine 150 mcg PO DAILY 09/29/19 [History Last Taken 09/29/19] pantoprazole 40 mg PO DAILY 09/29/19 [History Last Taken 09/29/19] warfarin 2.5 mg PO SUTUWETHSA 09/29/19 [History Last Taken 09/23/19] warfarin 5 mg PO MOFR 09/29/19 [History Last Taken 09/22/19] Allergy/AdvReac Type Severity Reaction Status Date / Time No Known Allergies Allergy Verified 08/19/21 14:53 Family History Other No pertinent family history Surgical History H/O [id number] bypass History of appendectomy Social History Smoking Status: Former smoker Tobacco: How many years used: 60 how long ago did patient quit smokin second hand exposure: Yes ROS ROS ED Constitutional Constitutional ED: Denies chills or fever(s) Eyes Eyes: Denies blurry vision or change in vision ENT ENT ED: Denies rhinorrhea or sore throat Cardiovascular Cardiovascular: Denies chest pain or palpitations Respiratory/Chest Respiratory/Chest: Denies cough or dyspnea Gastrointestinal Gastrointestinal: Denies nausea or vomiting Genitourinary Genitourinary ED: Denies dysuria or hematuria Musculoskeletal Musculoskeletal: Denies back pain or neck pain Integumentary Denies abscess or rash Neurologic Neurologic: Reports weakness; Denies headache(s) Allergic/Immunologic Allergic/Immunologic ED: Denies mouth swelling or urticaria EXAM Physical Exam Const Vital Signs: 08/19/21 14:51 08/19/21 14:53 08/19/21 15:46 Temperature 97.1 F L 97.1 F L 97.1 F L Temperature Source Temporal Temporal Temporal Pulse Rate 81 81 78 Pulse Rate [Lying] Pulse Rate [Sitting] Pulse Rate [Standing] Respiratory Rate 18 18 19 H Blood Pressure 148/67 H 148/67 H 146/65 H Blood Pressure [Lying] Blood Pressure [Sitting] Blood Pressure [Standing] Blood Pressure Mean 94 94 92 Blood Pressure Mean [Lying] Blood Pressure Mean [Sitting] Blood Pressure Mean [Standing] Pulse Ox 93 93 95 Oxygen Delivery Method Room Air Room Air Room Air 08/19/21 15:49 08/19/21 16:04 Temperature Temperature Source Pulse Rate 80 Pulse Rate [Lying] 77 Pulse Rate [Sitting] 81 Pulse Rate [Standing] 83 Respiratory Rate 18 Blood Pressure 146/65 H Blood Pressure [Lying] 136/56 H Blood Pressure [Sitting] 139/59 H Blood Pressure [Standing] 121/59 H Blood Pressure Mean 92 Blood Pressure Mean [Lying] 82 Blood Pressure Mean [Sitting] 85 Blood Pressure Mean [Standing] 79 Pulse Ox 95 Oxygen Delivery Method Room Air Positive well nourished and well developed General Appearance ED: well developed HEENT Reports moist mucous membranes Neck supple and no JVD Resp normal respiratory effort and clear to auscultation bilaterally Cardio regular rate and regular rhythm GI normal to inspection, nondistended, normoactive bowel sounds and non-tender Palpation: soft Neuro oriented x3, CN's II-XII intact bilaterally and no sensory deficits noted Sensorium / Orientation: alert Motor Exam: strength 5/5 throughout Psych mental status grossly normal Skin no rashes or lesions noted MDM MDM MDM Narrative Medical decision making narrative: COVID-19 rapid antigen was obtained and was positive. CBC was within normal limits. Comprehensive metabolic profile was essentially within normal limits. Lactate was normal. Portable 1 view chest x- ray was obtained. On my interpretation, lung moore are clear. There is normal cardiac silhouette. Bony thorax is normal. There is no acute process noted. Radiologist also interpreted the x-ray and agrees. Radiologist also noted a 3.4 cm masslike density in the left upper lobe which has been unchanged since 10/02/2019. EKG was obtained. On my interpretation, it showed a normal sinus rhythm with a rate of 78. WI interval, QRS interval, and QTc intervals were all normal. [place] was normal. There are nonspecific ST-T wave changes. This was unchanged compared to previous EKG dated 08/18/2017. Patient was advised of her findings. Patient was instructed to quarantine herself. Patient was instructed to monitor her oxygen level. Patient was instructed return if worsening shortness of breath. Patient was instructed to follow-up with her primary care physician in 5 to 7 days. Patient understood and was agreeable with the plan. All questions were answered. Lab Data Attestation: I reviewed the patient's lab results. Labs: Laboratory Results - last 24 hr 08/19/21 08/19/21 08/19/21 15:42 15:42 15:42 WBC 4.8 RBC 4.44 Hgb 12.4 Hct 38.6 MCV 86.9 MCH 27.9 MCHC 32.1 RDW Std Deviation 47.1 H RDW Coeff of Heriberto 14.6 Plt Count 178 MPV 9.9 Immature Gran % (Auto) 0.200 Neut % (Auto) 62.4 Lymph % (Auto) 18.3 L Garvin % (Auto) 18.7 H Eos % (Auto) 0.0 Baso % (Auto) 0.4 Absolute Neuts (auto) 3.0 Absolute Lymphs (auto) 0.87 Nucleated RBC % 0 Sodium 139 Potassium 3.4 L Chloride 108 H Carbon Dioxide 25.0 Anion Gap 6 BUN 22 H Creatinine 1.11 H Estim Creat Clear Calc 35.49 Est GFR (MDRD) Af Amer 61 Est GFR (MDRD) Non-Af 50 L BUN/Creatinine Ratio 19.8 Glucose 106 Lactic Acid 1.0 Calcium 8.8 Total Bilirubin 0.50 AST 18 ALT 15 Alkaline Phosphatase 56 Total Protein 7.1 Albumin 3.0 L Globulin 4.1 Albumin/Globulin Ratio 0.7 L Radiography Chest X-Ray - ED: 1 View, Read by ED Physician, Read by Radiologist and Normal Diagnostic Testing: Clinical Impression(s) from Imaging Studies Chest X-Ray 08/19/21 15:57 IMPRESSION: 1. No acute cardiopulmonary process. 2. 3.4 cm masslike density in the left upper lobe, stable since 10/02/2019. Electronically Signed: Maximiliano Arredondo MD at 16:30 EST Tel , Service support , EKG Initial EKG: Attestation: I personally reviewed and interpreted this EKG as follows: Interpretation: Sinus Rhythm (78) and Non-Specific ST Changes Prior EKG tracings: available for review Prior: Unchanged (08/18/2017) Discharge Plan Triage Chief Complaint: General Illness ED Provider: Ron Agosto Dx/Rx/DC Orders Clinical Impression: COVID-19 Instructions: Coronavirus Disease 2019 (COVID-19): Caring for Yourself or Others Prescriptions: No Action acetaminophen 500 mg capsule 500 mg PO DAILY RF: 0 loperamide [Anti-Diarrheal (loperamide)] 2 mg capsule 2 mg PO BID RF: 0 sertraline 50 MG tablet 50 mg PO DAILY RF: 0 warfarin 2.5 MG tablet 2.5 mg PO SUTUWETHSA RF: 0 warfarin 5 MG tablet 5 mg PO MOFR RF: 0 furosemide 40 MG tablet 40 mg PO DAILY RF: 0 atorvastatin 10 MG tablet 10 mg PO QHS RF: 0 levothyroxine 150 MCG tablet 150 mcg PO DAILY RF: 0 Lactobacillus acidophilus 1 EACH capsule 1 cap PO DAILY RF: 0 ibandronate 150 MG tablet 150 mg PO QMONTH RF: 0 pantoprazole 40 MG tablet 40 mg PO DAILY RF: 0 Primary Care Provider: Dina Armendariz Referrals: Dina Armendariz MD [Primary Care Provider] - 3-5 Days Disposition Disposition: Home, Self Care
[2021-08-19 15:46] VITALS: BP 146/65; PULSE 78; RESP 19; TEMP 36.2; O2SAT 95
[2021-08-19 15:49] VITALS: BP 146/65; PULSE 80; RESP 18; O2SAT 95
[2021-08-19 15:51] LABS: Absolute Lymphocyte Count 0.87 X10^3/uL (0.83-4.51); Basophil# 0.02 X10^3/uL; Basophil% 0.4 % (0-1); Hematocrit 38.6 % (37-47); Hemoglobin 12.4 g/dL (12.0-15.0); Lymphocyte # 0.87 X10^3/ul (0.83-4.51); Lymphocyte % 18.3 % (19-41); Mean Corp Hgb Conc 32.1 g/dL (32-36); Mean Corpuscular Hgb 27.9 pg (27.0-32.0); Mean Corpuscular Volume 86.9 fL (81-99); Mean Platelet Vol. 9.9 fl (6.2-12.0); Monocyte# 0.89 X10^3/uL; Monocyte% 18.7 % (0-10); NRBC Flagged by Analyzer 0 % (0-5); Neutrophil # 2.97 X10^3/uL (2.7-7.7); Neutrophil % 62.4 % (47-70); Platelet Count 178 K/mm3 (150-450); RBC Distribution Width CV 14.6 % (11.6-14.6); RBC Distribution Width SD 47.1 fl (35.1-43.9); Red Blood Count 4.44 M/mm3 (4.2-5.4); White Blood Count 4.8 K/mm3 (4.4-11.0)
--- NOTE | 2021-08-19 15:57 | RAD_ITS ---
INDICATION: cough EXAMINATION/TECHNIQUE: X-RAY - XR Chest 1 View COMPARISON: Chest radiograph from 10/02/2019. FINDINGS: LINES/DEVICES: None. The cardiomediastinal silhouette is within normal limits. No focal consolidations, effusions, or sizable pneumothorax. 3.4 cm masslike density in the left upper lobe, less conspicuous than previous studies, but overall grossly stable since 10/02/2019. No acute osseous findings. Bilateral glenohumeral joint and acromioclavicular joint degenerative changes. Stable partially visualized surgical screw in the left humeral head. RAD/Chest 1 View (Portable) IMPRESSION: 1. No acute cardiopulmonary process. 2. 3.4 cm masslike density in the left upper lobe, stable since 10/02/2019. Electronically Signed: Maximiliano Arredondo MD at 16:30 EST Tel , Service support ,
[2021-08-19 16:04] VITALS: BP 121/59; BP 136/56; BP 139/59; PULSE 77; PULSE 81; PULSE 83
[2021-08-19 16:06] LABS: ALB/GLOB Ratio 0.7 RATIO (0.9-2.4); AST(SGOT) 18 U/L (15-37); Alanine Aminotransfer ALT/SGPT 15 U/L (13-56); Alkaline Phosphatase 56 U/L (45-117); Anion Gap 6 (5-15); BUN 22 mg/dL (7-18); BUN/Creat Ratio 19.8 RATIO (10-20); Calcium,Total 8.8 mg/dL (8.5-10.1); Chloride 108 mmol/L (98-107); Creatinine, Serum 1.11 mg/dL (0.55-1.02); EST Glomerular Filtration Rate 50 mL/min (>60); Est Glom Filt Rate - Afr Amer 61 mL/min (>60); Estimated Creatinine Clearance 35.49 ml/min; Globulin 4.1 g/dL (2.2-4.2); Glucose 106 mg/dL (74-106); Potassium 3.4 mmol/L (3.5-5.1); Protein, Total 7.1 g/dL (6.4-8.2); Sodium Level 139 mmol/L (136-145)
[2021-08-19 17:25] VITALS: BP 123/62; PULSE 82; RESP 18; O2SAT 93
== END 2021-08-19 17:26 | disposition home or self-care (01) ==
PROVIDERS: Emergency Provider Emergency Medicine; PCP Family Medicine
DX: U07.1 COVID-19 (principal); J44.9 Chronic obstructive pulmonary disease, unspecified; I73.9 Peripheral vascular disease, unspecified; E05.00 Thyrotoxicosis with diffuse goiter without thyrotoxic crisis or storm; Z79.01 Long term (current) use of anticoagulants; Z79.899 Other long term (current) drug therapy; Z87.891 Personal history of nicotine dependence
CPT/HCPCS: 71045; 80053; 83605; 85025; 87426; 93005; 99285; A4216

== ENCOUNTER 2021-10-18 20:21 | Observation (INO) | payer MEDICARE, MEDICAID, SELFPAY ==
[2021-10-18] VITALS (9 sets, daily range): BP systolic 126–175; BP diastolic 53–80; PULSE 75–83; RESP 15–20; TEMP 36.2–36.6; O2SAT 92–99; BMI 32.7
--- NOTE | 2021-10-18 20:51 | CT_ITS ---
STUDY: CTA HEAD AND NECK WITH CONTRAST REASON FOR EXAM: Female, 81 years old. Neuro deficit, acute, stroke suspected RADIATION DOSAGE (If Supplied By Facility): CTDIvol = ( 17.95 ) mGy, DLP = ( 684.86 ) mGycm TECHNIQUE: CT angiography was performed with a multi-detector CT scanner. Data acquisition was obtained from the skull base through the vertex following intravenous administration of IV 100mL Isovue-[id number]. MIP images were reconstructed from the axial data set. Post-processing of the angiographic images was performed, with multiplanar reformation and 3D reconstruction. Degree of stenosis (when present) measured utilizing NASCET criteria. Individualized dose optimization techniques were used for this CT. COMPARISON: No relevant priors. FINDINGS: Normal bilateral petrous carotid arteries. Normal right cavernous carotid artery with a normal supraclinoid bifurcation. Normal left cavernous carotid artery with a normal supraclinoid bifurcation. Normal right A1 segments of the anterior cerebral artery. Normal left A1 segments of the anterior cerebral artery. Normal intact anterior communicating artery (ACOM). Normal bilateral A2 segments of the anterior cerebral arteries. Normal right M1 and M2 segments of the middle cerebral arteries, with a normal M1 bifurcation. Normal left M1 and M2 segments of the middle cerebral arteries, with a normal M1 bifurcation. Normal right posterior communicating artery (PCOM). Normal left posterior communicating artery (PCOM). Normal bilateral vertebral arteries. Normal basilar artery with a normal basilar bifurcation. The visualized bilateral superior cerebellar (SCA) arteries are normal. Normal bilateral P1, P2 and visualized P3 segments of the posterior cerebral arteries. There is no demonstrated aneurysm of the [place]. There is no demonstrated abnormality of the visualized brain. AORTIC ARCH: There is atherosclerotic calcific plaque formation of the aortic arch and great vessels arising from the aortic arch, without a hemodynamically significant stenosis. There is a bovine origin of the great vessels with a common origin of the brachiocephalic and left common carotid artery. Normal origin of the left subclavian artery. Atherosclerosis of the origins of the brachiocephalic, left common carotid, and left subclavian arteries but no hemodynamically significant stenosis. RIGHT CAROTID ARTERIES: There is atherosclerotic plaque formation of the common carotid artery, but without a hemodynamically significant stenosis (measures approximately 45%). There is mild atherosclerotic plaque formation with minimal narrowing of the right carotid bulb. There is mild atherosclerotic plaque formation of the origin of the right internal carotid artery with 20% stenosis. There is atherosclerotic tortuous elongation of the cervical portion of the right internal carotid artery. Normal origin of the right external carotid artery (ECA). LEFT CAROTID ARTERIES: There is tortuosity atherosclerotic plaque formation of the common carotid artery, but without a hemodynamically significant stenosis. There is mild atherosclerotic plaque formation with minimal narrowing of the left carotid bulb. There is moderate atherosclerotic plaque formation of the origin of the left internal carotid artery with an estimated stenosis of 55-60% stenosis. There is atherosclerotic tortuous elongation of the cervical portion of the left internal carotid artery. Normal origin of the left external carotid artery (ECA). VERTEBRAL ARTERIES: There is enhancement within the bilateral vertebral arteries with a small left vertebral artery, and a dominant right vertebral artery. CT/STROKE CTA Head AND Neck W/Con IMPRESSION: 1. No intracranial aneurysm or large vessel occlusion. 2. Left worse than right carotid atherosclerosis. Moderate stenosis of the proximal left ICA. 3. Consolidation of the left upper lobe correlates to masslike opacity evident on chest x-ray. Only partially visualized on this exam. N.B. : The above Results were Read Back by Zachary Gonzalez MD (Brooks) to Ryan Darden and understanding confirmed on 10/18/2021 21:36:26 (ET). Electronically Signed: Zachary Gonzalez MD (Brooks) at 21:40 EST , Service support ,
--- NOTE | 2021-10-18 20:51 | CT_ITS ---
STUDY: CT HEAD STROKE PROTOCOL W/O CONTRAST INJECTION REASON FOR EXAM: Female, 81 years old. Neuro deficit, acute, stroke suspected RADIATION DOSAGE (If Supplied By Facility): CTDIvol = ( 44.99 ) mGy, DLP = ( 796.11 ) mGycm TECHNIQUE: Transaxial CT imaging of the brain was performed without administration of intravenous contrast material. Individualized dose optimization techniques were used for this CT. COMPARISON: No relevant priors. FINDINGS: Normal soft tissue structures. Normal calvarium. There is mild cerebral atrophy with widening of the extra-axial spaces and ventricular dilatation. There are areas of decreased attenuation within the white matter tracts of the supratentorial brain, consistent with microvascular disease changes. 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 Normal brainstem. Low density in the superior left cerebellar hemisphere on image 14 of series 2 measures 8 x 15 mm compatible lacunar infarction, favoring subacute or chronic. There is no intracranial hemorrhage. There are no findings of an acute ischemic infarction. Normal visualized paranasal sinuses. ASPECT score: 10 CT/STROKE Brain/Head without Cont IMPRESSION: No acute intracranial hemorrhage or mass effect. N.B. : The above Results were Read Back by Zachary Gonzalez MD (Brooks) to Ryan Darden and understanding confirmed on 10/18/2021 21:24:02 (ET). Electronically Signed: Zachary Gonzalez MD (Brooks) at 21:25 EST , Service support ,
--- NOTE | 2021-10-18 20:51 | EKG12_ITS ---
Test Reason : NEURO Blood Pressure : / mmHG Vent. Rate : 082 BPM Atrial Rate : 082 BPM P-R Int : 170 ms QRS Dur : 098 ms QT Int : 394 ms P-R-T Axes : 045 -12 259 degrees QTc Int : 460 ms Sinus rhythm with occasional Premature ventricular complexes and Fusion complexes Low voltage QRS ST & T wave abnormality, consider lateral ischemia Abnormal ECG Confirmed by MARK ALEXANDER, MATI ([id number]), food expeditor AMANDO DEE ([id number]) on 10/20/2021 9:38:26 AM Referred By: LO Confirmed By:MATI FLORES MD
--- NOTE | 2021-10-18 20:52 | EDS_ITS ---
HPI History of Present Illness Chief Complaint: Neuro S/Sx Informant: patient and family Onset/Context/Timing Onset: Yesterday Context: Sudden Onset Timing: Continuous Quality and Location: Positive for Expressive Aphasia Current Severity: Mild Maximum Severity: Mild Associated Symptoms Associated Symptoms: Negative for Headache, Nausea, Vomiting and Chest Pain Narrative Narrative: 81-year-old female history of lung cancer for which she underwent radiation therapy but no chemo or surgery. She is also a history of prior DVT and symptoms of abdominal vascular surgery. She is currently on Coumadin. Family and patient states she has had dysarthria since around 06/05/1930 last night. No falls or head trauma. No arm or leg weakness or numbness. No prior history of stroke or mini stroke. She denies any recent illness. Prior similar symptoms: No Recent Illness/Hospitalization: No PFSH PFS Medical History COPD (chronic obstructive pulmonary disease) Exophthalmos Graves disease PAD (peripheral artery disease) ROTARY CUFF SURGERY Syncope UGIB (upper gastrointestinal bleed) Home Medications acetaminophen 500 mg capsule 500 mg PO DAILY PRN 09/19/19 [History Last Taken 09/29/19] loperamide 2 mg capsule 2 mg PO QODAY 09/19/19 [History Last Taken 09/29/19] Lactobacillus acidophilus 1 cap PO DAILY 09/29/19 [History Last Taken 09/29/19] atorvastatin 10 mg PO QHS 09/29/19 [History Last Taken 09/28/19] ibandronate 150 mg PO QMONTH 09/29/19 [History Last Taken Unknown] levothyroxine 100 mcg PO DAILY 09/29/19 [History Last Taken 09/29/19] pantoprazole 40 mg PO DAILY 09/29/19 [History Last Taken 09/29/19] warfarin 2 mg PO SUTUTHSA 09/29/19 [History Last Taken 09/23/19] warfarin 5 mg PO MOWEFR 09/29/19 [History Last Taken 09/22/19] cholecalciferol (vitamin D3) [Vitamin D3] 50 mcg PO DAILY 10/18/21 [History Last Taken Unknown] gabapentin 100 mg PO DAILY PRN 10/18/21 [History Last Taken Unknown] mirabegron [Myrbetriq] 50 mg PO DAILY 10/18/21 [History Last Taken Unknown] Allergy/AdvReac Type Severity Reaction Status Date / Time No Known Allergies Allergy Verified 10/18/21 20:28 Family History Other No pertinent family history Surgical History H/O eytmf-[id number] bypass History of appendectomy Social History Smoking Status: Former smoker Tobacco: How many years used: 60 how long ago did patient quit smokin second hand exposure: Yes ROS ROS ED ROS Narrative Denies recent illness. Review of Systems ROS Unobtainable: Denies due to encephalopathy Constitutional Constitutional ED: Denies fever(s) Eyes Eyes: Denies change in vision ENT ENT ED: Denies ear pain Cardiovascular Cardiovascular: Denies chest pain Respiratory/Chest Respiratory/Chest: Denies dyspnea Gastrointestinal Gastrointestinal: Denies abdominal pain, nausea or vomiting Genitourinary Genitourinary ED: Denies dysuria Musculoskeletal Musculoskeletal: Denies myalgias Integumentary Denies rash Neurologic Neurologic: Reports headache(s); Denies paresthesias or weakness Psychiatric Psychiatric: Denies depression Endocrine Endocrinology: Denies polyuria Hematologic/Lymphatic Hematologic/Lymphatic: Denies easy bruising Allergic/Immunologic Allergic/Immunologic ED: Denies urticaria EXAM Physical Exam Narrative Exam Narrative: 81-year-old female no acute distress vital signs stable afebrile. Pulse ox 90% room air no hypoxia. HEENT exam pupils are reactive lungs rations are intact. No facial droop. Tongue midline. Neck nontender. Lungs clear to auscultation. Heart regular rhythm rate about 80 no murmur. Chest wall nontender. Abdomen soft nontender. Normal bowel sounds no p eritoneal signs. Moving all 4 extremities. Normal motor strength and sensation. Bilateral 5/5 waiter strength. Dorsi plantar flexion intact. Neurologically she is awake and alert. Currently she has very audible speech is easy to understand. She has a very mild expressive aphasia. When looking at pictures she cannot find the words to describe what she is saying. Her words are easily understood. There is no facial droop. She has equal symmetrical waiter strength. No drift. Normal motor strength in the lower extremities and no drift. Normal sensation. Currently her NIH score is 1. Const Vital Signs: 10/18/21 20:22 10/18/21 20:51 10/18/21 21:21 Temperature 97.8 F Temperature Source Temporal Pulse Rate 83 80 81 Respiratory Rate 20 H 16 20 H Blood Pressure 175/65 H 160/54 H 158/61 H Blood Pressure Mean 101 89 93 Pulse Ox 99 99 94 Oxygen Delivery Method Room Air Room Air Room Air 10/18/21 21:30 10/18/21 22:00 10/18/21 22:30 Temperature 97.2 F L Temperature Source Temporal Pulse Rate 78 75 78 Respiratory Rate 20 H 16 18 Blood Pressure 137/67 H 157/80 H 143/53 H Blood Pressure Mean 90 105 83 Pulse Ox 92 97 96 Oxygen Delivery Method Room Air Room Air Room Air 10/18/21 23:00 Temperature Temperature Source Pulse Rate 76 Respiratory Rate 15 Blood Pressure 126/79 H Blood Pressure Mean 94 Pulse Ox 97 Oxygen Delivery Method Room Air Positive well nourished, well developed and obese; Negative for cachectic, contractures or unkempt General Appearance ED: well developed and NAD; Negative for unkempt, cachectic or contractures Nutritional Appearance: obese; Negative for cachectic HEENT Reports moist mucous membranes atraumatic; Negative for trauma Eyes PERRL and EOMs intact bilaterally General Eye ED: Negative for pale conjunctiva or scleral icterus Neck no lymphadenopathy, supple and no JVD General: Negative for tenderness Chest Wall inspection of chest normal and palpation of chest normal Resp normal respiratory effort and clear to auscultation bilaterally Auscultation: Negative for rales, rhonchi or wheezes Cardio no murmurs Rate: regular rate; Negative for bradycardia or tachycardic Rhythm: regular rhythm; Negative for abnormal rhythm Heart Sounds: S1 normal and S2 normal GI normal to inspection, nondistended, normoactive bowel sounds, soft to palpation, non-tender, non-distended and no masses Inspection: Negative for abdominal distention Auscultation: normoactive bowel sounds Palpation: Negative for tender, guarding or rebound tenderness present Back/Spine no CVA tenderness General Back: Negative for CVA tenderness Cervical Spine: Negative for cervical spine tenderness Extremity normal to inspection General Extremety ED: Negative for deformity or tenderness General Extremity: Negative for deformity Neuro oriented x3 Neuro Narrative: NIH score 1. Speech appears normal. Daughter at bedside thinks her speech is back to baseline. She does have very mild expressive aphasia. Sensorium / Orientation: alert, oriented to person, oriented to place and oriented to time; Negative for orientation impaired, confused, lethargic or stuporous Speech: speech normal Motor Exam: strength 5/5 throughout Psych mental status grossly normal Appearance: Negative for unkempt Mood & Affect: Negative for depressed or tearful Skin no wounds General Skin Exam: Negative for jaundice Lesions: no lesions Rashes: no rashes and No rashes noted STROKE Vital Signs/Narrative: Vital Signs Temp Pulse Resp BP Pulse Ox 10/18/21 23:00 76 15 126/79 H 97 10/18/21 22:30 97.2 F L 78 18 143/53 H 96 10/18/21 22:00 75 16 157/80 H 97 10/18/21 21:30 78 20 H 137/67 H 92 10/18/21 21:21 81 20 H 158/61 H 94 10/18/21 20:51 80 16 160/54 H 99 10/18/21 20:22 97.8 F 83 20 H 175/65 H 99 Inital Vital Signs reviewed: Yes MDM MDM MDM Narrative Medical decision making narrative: 81-year-old female with dysphasi her history that started around 9:30 p.m. last night. No prior stroke or mini stroke history. Labs and CAT scans will be obtained. Currently her NIH score is 1. Repeat exam at 11:30 PM patient is doing well. She has no motor deficits. No sensory deficits. She still has an expressive aphasia and NIH score remains around 1. She will be admitted for further evaluation and work-up. I will speak to the [facility] stroke neurologist. CAT scan did reveal chronic ath erosclerosis of her carotids but it was less than 60%. Lab Data Attestation: I reviewed the patient's lab results. Lab results narrative: CBC unremarkable. White count is 7. H&H of 13 and 41. PT and INR are 25 and 2.4. She is on Coumadin. Her PTT is 32. Electrolytes unremarkable gap of 5. BUN 22 creatinine 1.1. Glucose 145. Troponin 3. Labs: Laboratory Results - last 24 hr 10/18/21 10/18/21 10/18/21 20:35 20:35 20:35 WBC 7.6 RBC 4.65 Hgb 13.1 Hct 41.8 MCV 89.9 MCH 28.2 MCHC 31.3 L RDW Std Deviation 50.4 H RDW Coeff of Heriberto 15.2 H Plt Count 242 MPV 10.1 Immature Gran % (Auto) 0.400 Neut % (Auto) 61.4 Lymph % (Auto) 26.6 [place] % (Auto) 8.3 Eos % (Auto) 2.8 Baso % (Auto) 0.5 Absolute Neuts (auto) 4.7 Absolute Lymphs (auto) 2.02 Nucleated RBC % 0 PT 25.4 H INR 2.4 APTT 32.1 Sodium 139 Potassium 3.6 Chloride 107 Carbon Dioxide 27.0 Anion Gap 5 BUN 22 H Creatinine 1.14 H Estim Creat Clear Calc 34.55 Est GFR (MDRD) Af Amer 59 L Est GFR (MDRD) Non-Af 49 L BUN/Creatinine Ratio 19.3 Glucose 145 H Calcium 9.0 Troponin I High Sens > 3 Radiography Diagnostic Testing: Clinical Impression(s) from Imaging Studies Brain CT 10/18/21 20:51 IMPRESSION: No acute intracranial hemorrhage or mass effect. N.B. : The above Results were Read Back by Zachary Gonzalez MD (Brooks) to Ryan Darden and understanding confirmed on 10/18/2021 21:24:02 (ET). Electronically Signed: Zachary Gonzalez MD (Brooks) at 21:25 EST , Service support , Head/Neck CTA 10/18/21 20:51 IMPRESSION: 1. No intracranial aneurysm or large vessel occlusion. 2. Left worse than right carotid atherosclerosis. Moderate stenosis of the proximal left ICA. 3. Consolidation of the left upper lobe correlates to masslike opacity evident on chest x-ray. Only partially visualized on this exam. N.B. : The above Results were Read Back by Zachary Gonzalez MD (Brooks) to Ryan Darden and understanding confirmed on 10/18/2021 21:36:26 (ET). Electronically Signed: Zachary Gonzalez MD (Brooks) at 21:40 EST , Service support , ADDENDUM: 10/18/212146 IMPRESSION: 1. No intracranial aneurysm or large vessel occlusion. 2. Left worse than right carotid atherosclerosis. Moderate stenosis of the proximal left ICA. 3. Consolidation of the left upper lobe correlates to masslike opacity evident on chest x-ray. Only partially visualized on this exam. N.B. : The above Results were Read Back by Zachary Gonzalez MD (Brooks) to Ryan Darden and understanding confirmed on 10/18/2021 21:36:26 (ET). Electronically Signed: Zachary Gonzalez MD (Brooks) at 21:40 EST , Service support , Chest X-Ray 10/18/21 21:15 IMPRESSION: 1. No acute cardiopulmonary process. 2. Stable upper lobe nodules, larger on the left than the right. Electronically Signed: Zachary Gonzalez MD (Brooks) at 21:29 EST , Service support , Rhythm Strip Rhythm Strip: Sinus Rhythm Rate: 82 Ectopy: PVC(s) EKG Initial EKG: Attestation: I personally reviewed and interpreted this EKG as follows: Interpretation: Sinus Rhythm and No Acute Injury Pattern Comments: Sinus rhythm rate of 82 no acute signs of UT or ischemia. Occasional PVCs. Prior EKG tracings: not available for review Stroke Documentation Questions Stroke Team Activated: No Reviewed Inclusion/Exclusion criteria: Yes Was Patient considered for Endovascular Intervention?: No IV Alteplase (t-PA) Administered: No No contraindications for IV Alteplase (t-PA) administration.: Yes (Patient is on Coumadin.) Alteplase (t-PA) risks, benefits, alternative discussed: No Not given: Patient refusal: No Discharge Plan Dx/Rx/DC Orders Clinical Impression: Acute stroke due to ischemia, Bilateral carotid artery disease, History of lung cancer, Anticoagulated on Coumadin Disposition Disposition: Acute Care [facility]
[2021-10-18 21:02] LABS: Glucose 145 mg/dL (74-106)
[2021-10-18 21:03] LABS: Anion Gap 5 (5-15); BUN 22 mg/dL (7-18); BUN/Creat Ratio 19.3 RATIO (10-20); Chloride 107 mmol/L (98-107); Creatinine, Serum 1.14 mg/dL (0.55-1.02); EST Glomerular Filtration Rate 49 mL/min (>60); Est Glom Filt Rate - Afr Amer 59 mL/min (>60); Estimated Creatinine Clearance 34.55 ml/min; Potassium 3.6 mmol/L (3.5-5.1); Sodium Level 139 mmol/L (136-145); Troponin-I HS > 3 pg/mL (3.0-54.0)
[2021-10-18 21:06] LABS: Absolute Lymphocyte Count 2.02 X10^3/uL (0.83-4.51); Absolute Neutrophil Count 4.7 X10^3/uL (2.0-7.7); Basophil# 0.04 X10^3/uL; Basophil% 0.5 % (0-1); Eosinophil# 0.21 X10^3/uL; Eosinophils% 2.8 % (0-5); Hematocrit 41.8 % (37-47); Hemoglobin 13.1 g/dL (12.0-15.0); Lymphocyte # 2.02 X10^3/ul (0.83-4.51); Lymphocyte % 26.6 % (19-41); Mean Corp Hgb Conc 31.3 g/dL (32-36); Mean Corpuscular Hgb 28.2 pg (27.0-32.0); Mean Corpuscular Volume 89.9 fL (81-99); Mean Platelet Vol. 10.1 fl (6.2-12.0); Monocyte# 0.63 X10^3/uL; Monocyte% 8.3 % (0-10); NRBC Flagged by Analyzer 0 % (0-5); Neutrophil # 4.65 X10^3/uL (2.7-7.7); Neutrophil % 61.4 % (47-70); Platelet Count 242 K/mm3 (150-450); RBC Distribution Width CV 15.2 % (11.6-14.6); RBC Distribution Width SD 50.4 fl (35.1-43.9); Red Blood Count 4.65 M/mm3 (4.2-5.4); White Blood Count 7.6 K/mm3 (4.4-11.0)
[2021-10-18 21:14] LABS: International Normalized Ratio 2.4; Prothrombin Time (Protime)PT. 25.4 SECONDS (11.7-14.9)
[2021-10-18 21:15] LABS: Partial Thromboplast Time 32.1 Seconds (24.1-36.2)
--- NOTE | 2021-10-18 21:15 | RAD_ITS ---
STUDY: X-RAY CHEST REASON FOR EXAM: Female, 81 years old. Neuro deficit, acute, stroke suspected TECHNIQUE: AP COMPARISON: 08/19/2021 FINDINGS: EKG leads project over the chest. 3.4 cm localized opacity of the left upper lobe is not substantially changed since the prior study. Small nodule in the right upper lobe measuring 6 mm is stable. There is no demonstrated pleural abnormality. Normal size heart. Normal mediastinum and marcelo. Normal visualized pulmonary arteries. There is atherosclerotic calcification of the aortic arch with tortuosity. There is demineralization of the osseous structures. Operative changes of the left humeral head. Old left rib fractures. There is no demonstrated abnormality of the visualized soft tissue structures of the upper abdomen. RAD/Chest 1 View IMPRESSION: 1. No acute cardiopulmonary process. 2. Stable upper lobe nodules, larger on the left than the right. Electronically Signed: Zachary Gonzalez MD (Brooks) at 21:29 EST , Service support ,
--- NOTE | 2021-10-18 23:54 | ED.RN ---
spoke with [facility] line for description of symptoms and pt history. Neurologist now talking with ED physician.
[2021-10-19] VITALS (15 sets, daily range): BP systolic 120–161; BP diastolic 58–90; PULSE 72–87; RESP 15–17; TEMP 36.5–36.9; O2SAT 94–98; BMI 30.2
--- NOTE | 2021-10-19 00:07 | HP.PCM.HOS_ITS ---
HPI - General General Date of Admission: 10/19/21 HPI Narrative AWA PALOMARES, is a 81 F with a significant history of Graves' disease; DVT on Coumadin and aortic bypass surgery; who presents to the emergency department with difficulty finding her words. Her symptoms occurred close to 24 hours before presentation. Her symptoms has been persistent. She denies any other symptoms. [facility] Medical History COPD (chronic obstructive pulmonary disease) Exophthalmos Graves disease PAD (peripheral artery disease) ROTARY CUFF SURGERY Syncope UGIB (upper gastrointestinal bleed) Home Medications acetaminophen 500 mg capsule 500 mg PO DAILY PRN 09/19/19 [History Last Taken 09/29/19] loperamide 2 mg capsule 2 mg PO QODAY 09/19/19 [History Last Taken 09/29/19] Lactobacillus acidophilus 1 cap PO DAILY 09/29/19 [History Last Taken 09/29/19] atorvastatin 10 mg PO QHS 09/29/19 [History Last Taken 09/28/19] ibandronate 150 mg PO QMONTH 09/29/19 [History Last Taken Unknown] levothyroxine 100 mcg PO DAILY 09/29/19 [History Last Taken 09/29/19] pantoprazole 40 mg PO DAILY 09/29/19 [History Last Taken 09/29/19] warfarin 2 mg PO SUTUTHSA 09/29/19 [History Last Taken 09/23/19] warfarin 5 mg PO MOWEFR 09/29/19 [History Last Taken 09/22/19] cholecalciferol (vitamin D3) [Vitamin D3] 50 mcg PO DAILY 10/18/21 [History Last Taken Unknown] gabapentin 100 mg PO DAILY PRN 10/18/21 [History Last Taken Unknown] mirabegron [Myrbetriq] 50 mg PO DAILY 10/18/21 [History Last Taken Unknown] Allergy/AdvReac Type Severity Reaction Status Date / Time No Known Allergies Allergy Verified 10/18/21 20:28 Family History Other No pertinent family history other (Denies knowledge of maternal medication history. Does not know his paternal side of the family.) Surgical History H/O ioweq-[id number]-[id number] bypass History of appendectomy Social History Smoking Status: Former smoker Tobacco: How many years used: 60 how long ago did patient quit smokin second hand exposure: Yes ROS ROS Narrative Constitutional: Denies fever, chills, fatigue, anorexia and change in weight Eyes: Denies blurry vision, change in eye color, change in vision, discharge from eye(s), double vision, erythema, eye pain, loss of vision or other HEENT: Denies abnormal hearing, dysphagia, ear pain, epistaxis, headache(s), hearing loss, nasal congestion, nasal discharge, post nasal drip, sinus pressure, sore throat or other Cardiovascular: Denies chest pain or palpitations. Denies dyspnea on exertion, orthopnea and paroxysmal nocturnal dyspnea Respiratory/Chest: Denies cough, excessive phlegm production, shortness of breath with exertion and wheezing Gastrointestinal: Denies abdominal pain, coffee ground emesis, constipation, diarrhea, dyspepsia, hematemesis, hematochezia, loose stools, melena, nausea, vo miting or other Genitourinary: Denies burning urination, difficulty urinating, dysuria, hematuria, nocturia, urinary frequency, urinary hesitancy, urinary incontinence, urinary urgency or other Musculoskeletal: Denies arthralgias, back pain, joint pain, joint stiffness, joint swelling, myalgias, neck pain or other Neurologic: Patient with abnormal speech. Denies abnormal gait, confusion, disequilibrium, dizziness, focal weakness, headache(s), numbness, paresthesias, seizure-like activity, seizures, syncope, tingling, tremor(s) or other Psychiatric: Denies anxiety, depression, homicidal ideation, suicidal ideation or other Endocrinology: Denies change in body appearance, cold intolerance, excessive sweating, heat intolerance, polydipsia, polyuria or other Hematologic/Lymphatic: Denies anemia, easy bleeding, easy bruising, lymphadenopathy or other Integumentary: Denies rashes Allergic/Immunologic: Denies rhinitis, hives, eczema, asthma or other Vital Signs Vital Signs Vital Signs: 10/18/21 20:22 10/18/21 20:51 10/18/21 21:21 Temperature 97.8 F Temperature Source Temporal Pulse Rate 83 80 81 Respiratory Rate 20 H 16 20 H Blood Pressure 175/65 H 160/54 H 158/61 H Blood Pressure Mean 101 89 93 Pulse Ox 99 99 94 Oxygen Delivery Method Room Air Room Air Room Air 10/18/21 21:30 10/18/21 22:00 10/18/21 22:30 Temperature 97.2 F L Temperature Source Temporal Pulse Rate 78 75 78 Respiratory Rate 20 H 16 18 Blood Pressure 137/67 H 157/80 H 143/53 H Blood Pressure Mean 90 105 83 Pulse Ox 92 97 96 Oxygen Delivery Method Room Air Room Air Room Air 10/18/21 23:00 10/18/21 23:30 10/18/21 23:51 Temperature 97.2 F L Temperature Source Temporal Pulse Rate 76 76 76 Respiratory Rate 15 17 17 Blood Pressure 126/79 H 142/77 H 142/77 H Blood Pressure Mean 94 98 98 Pulse Ox 97 98 98 Oxygen Delivery Method Room Air Room Air Room Air Weight Weight: 86.5 kg Body Mass Index (BMI) 32.7 Physical Exam Narrative Physical exam: General: Well-nourished, well-developed. Head: Normocephalic, atraumatic, no tenderness Eyes: Bulging bilateral eyes. PERRLA, EOMI ENT, no trauma, moist mucous membranes, no rhinorrhea Neck: Nontender, full range of motion, no spinal tenderness, deformities, step- off CVS: Regular rate and rhythm. S1-S2 present. No murmur, gallop or rub. Respiratory : clear to auscultation bilaterally, chest wall nontender, no wheezing Abdomen: Soft, nontender, nondistended, normal bowel sounds, no masses : Deferred Back: Nontender, no CVA tenderness, no midline spinal tenderness, deformities, step-offs Extremities: Nontender full range of motion, no trauma Skin: Normal color, no trauma, abrasions Neuro: Mildly aphasic. Alert, oriented, cranial nerves II through XII grossly intact except with aphasia. No dysmetria with [id number] test and [id number]-[id number] test. Deep tendon reflex not hyperreflexia throughout Psychiatry: Normal mood. Normal affect. Not depressed. Not anxious. Results Lab / Micro Data Result Diagrams: 10/18/21 20:35 10/18/21 20:35 Labs: Laboratory Results - last 24 hr 10/18/21 20:35: WBC 7.6, RBC 4.65, Hgb 13.1, Hct 41.8, MCV 89.9, MCH 28.2, MCHC 31.3 L, RDW Std Deviation 50.4 H, RDW Coeff of Heriberto 15.2 H, Plt Count 242, MPV 10.1, Immature Gran % (Auto) 0.400, Neut % (Auto) 61.4, Lymph % (Auto) 26.6, [place] % (Auto) 8.3, Eos % (Auto) 2.8, Baso % (Auto) 0.5, Absolute Neuts (auto) 4.7, Absolute Lymphs (auto) 2.02, Nucleated RBC % 0 10/18/21 20:35: PT 25.4 H, INR 2.4, APTT 32.1 10/18/21 20:35: Sodium 139, Potassium 3.6, Chloride 107, Carbon Dioxide 27.0, Anion Gap 5, BUN 22 H, Creatinine 1.14 H, Estim Creat Clear Calc 34.55, Est GFR (MDRD) Af Amer 59 L, Est GFR (MDRD) Non-Af 49 L, BUN/Creatinine Ratio 19.3, Gluc ose 145 H, Calcium 9.0, Troponin I High Sens > 3 Rhythm Strip Rhythm Strip: Sinus Rhythm Rate: 82 Ectopy: PVC(s) Radiology Impression Brain CT 10/18/21 20:51 IMPRESSION: No acute intracranial hemorrhage or mass effect. N.B. : The above Results were Read Back by Zachary Gonzalez MD (Brooks) to Ryan Darden and understanding confirmed on 10/18/2021 21:24:02 (ET). Electronically Signed: Zachary Gonzalez MD (Brooks) at 21:25 EST , Service support , Head/Neck CTA 10/18/21 20:51 IMPRESSION: 1. No intracranial aneurysm or large vessel occlusion. 2. Left worse than right carotid atherosclerosis. Moderate stenosis of the proximal left ICA. 3. Consolidation of the left upper lobe correlates to masslike opacity evident on chest x-ray. Only partially visualized on this exam. N.B. : The above Results were Read Back by Zachary Gonzalez MD (Brooks) to Ryan Darden and understanding confirmed on 10/18/2021 21:36:26 (ET). Electronically Signed: Zachary Gonzalez MD (Brooks) at 21:40 EST , Service support , ADDENDUM: 10/18/217 IMPRESSION: 1. No intracranial aneurysm or large vessel occlusion. 2. Left worse than right carotid atherosclerosis. Moderate stenosis of the proximal left ICA. 3. Consolidation of the left upper lobe correlates to masslike opacity evident on chest x-ray. Only partially visualized on this exam. N.B. : The above Results were Read Back by Zachary Gonzalez MD (Brooks) to Ryan Darden and understanding confirmed on 10/18/2021 21:36:26 (ET). Electronically Signed: Zachary Gonzalez MD (Brooks) at 21:40 EST , Service support , Chest X-Ray 10/18/21 21:15 IMPRESSION: 1. No acute cardiopulmonary process. 2. Stable upper lobe nodules, larger on the left than the right. Electronically Signed: Zachary Gonzalez MD (Brooks) at 21:29 EST , Service support , Assessment & Plan Assessment/Plan (1) Stroke-like symptoms: PLAN: Strokelike symptom Serial NINDS NIH Scale ordered Head CTA time interpretation showed no acute bleed or acute stroke. I agree radiology interpretation. Also per radiologist there is a subacute or chronic infarction. Head and neck CTA with 55 to 60% stenosis of the left internal carotid artery. Review of BMP did not show hypoglycemia. Lipid profile and A1c ordered. Physical therapy, occupational therapy and speech therapy to work with patient. N.p.o. until bedside swallow eval. Discussed with Dr. Stephen vascular surgeon who recommended aspirin and Plavix; and possible follow up in the office. From review of meds patient is already on Coumadin. We will continue Coumadin and will order Plavix. Also Emergency Department doctor discussed the case with stroke tele-neurologist who felt it was okay keeping patient at the hospital. Patient is on only Lipitor 10 mg nightly. Liver biochemistry on 08/19/2021 was normal. We will check a lipid panel. Consider further discussion with patient on increasing Lipitor based upon lipid panel and past use of statins. Permissive hypertension: Control blood pressure with labetalol for systolic blood pressure of more than 220 or diastolic blood pressure of more than 120. MRI of head ordered. Echocardiogram ordered. History of DVT INR is therapeutic at 2.4. Continue Coumadin. Trend PT/INR CKD stage IIIb Stable. Trend BMP DVT prophylaxis: On Coumadin and INR is therapeutic. Coumadin continued. Charges/Coding Visit Charges OBSV E&M: 44997 Initial observation care L2
--- NOTE | 2021-10-19 00:52 | ECHOD_ITS ---
Reason For Study: TIA/CVA Procedure This was a 2D Doppler, Color Flow transthoracic echocardiogram. Exam performed portable in patient room. Left Ventricle Normal LV size. Mild segmental systolic dysfunction (see wall motion). The estimated ejection fraction is 55 %. Stage 1 diastolic dysfunction. Mid-Inferior: Hypokinetic. Infero-Basal: Akinetic. Basal inferoseptal: Hypokinetic. Posterior-Basal: Hypokinetic. The rest of the wall segments are normal. Right Ventricle Normal RV size. Normal systolic function. Atria Normal left atrium. Normal right atrium. Bubble contrast study negative for right to left interatrial shunt. Mitral Valve Normal mitral valve. Tricuspid Valve Normal tricuspid valve. Aortic Valve Trisinus/trileaflet aortic valve. Mild focal aortic valve calcification. Pulmonic Valve Normal pulmonic valve. Great Vessels Normal aortic root. The pulmonary artery is normal size. Normal inferior vena cava. Pericardium/Pleural No pericardial effusion. Medication Performed a rapid injection of agitated mix of 9 cc saline and 1cc air to assess for atrial septal defect. MMode/2D Measurements & Calculations LVIDd: 5.3 cm IVSd: 1.3 cm Ao root diam: 3.3 cm LVIDs: 4.0 cm LVPWd: 0.92 cm RVDd: 2.9 cm FS: 24.2 % LAV(MOD-sp4): 42.2 ml LA A4 area: 16.1 cm2 LA dimension(2D): 3.7 cm RA A4 area: 14.0 cm2 Doppler Measurements & Calculations MV E max james: 55.6 cm/sec Lat Peak E' James: 5.4 cm/sec Med Peak E' James: 4.7 cm/sec MV A max james: 106.1 cm/sec E/E' lat: 10.2 E/E' med: 11.8 MV E/A: 0.52 Ao V2 max: 120.4 cm/sec LV V1 max: 92.3 cm/sec Ao max P.8 mmHg LV V1 max P.4 mmHg ECHO/Echo Complete Interpretation Summary Normal LV size. Mild segmental systolic dysfunction (see wall motion). The estimated ejection fraction is 55 %. Bubble contrast study negative for right to left interatrial shunt. Stage 1 diastolic dysfunction. Ordering Physician: Paul Tamez Referring Physician: PINO LOYOLA Performed By: Paty Gonzales, JOHANNACS, RVT
--- NOTE | 2021-10-19 01:04 | PCS.PANDOC ---
PANDEMIC DOCUMENTATION INITIATED: Date: 05/12/2021 Time: 190
[2021-10-19] MEDS: Clopidogrel Bisulfate 75 MG Tablet PO ×2 (02:35→10:21)
[2021-10-19] MEDS: Levothyroxine 100 MCG Tablet PO (06:25)
[2021-10-19 07:11] LABS: Absolute Lymphocyte Count 1.53 X10^3/uL (0.83-4.51); Absolute Neutrophil Count 4.1 X10^3/uL (2.0-7.7); Basophil# 0.04 X10^3/uL; Basophil% 0.6 % (0-1); Eosinophil# 0.16 X10^3/uL; Eosinophils% 2.5 % (0-5); Hematocrit 37.3 % (37-47); Lymphocyte # 1.53 X10^3/ul (0.83-4.51); Lymphocyte % 23.6 % (19-41); Mean Corp Hgb Conc 32.2 g/dL (32-36); Mean Corpuscular Hgb 28.4 pg (27.0-32.0); Mean Corpuscular Volume 88.2 fL (81-99); Mean Platelet Vol. 10.2 fl (6.2-12.0); Monocyte# 0.58 X10^3/uL; NRBC Flagged by Analyzer 0 % (0-5); Neutrophil # 4.14 X10^3/uL (2.7-7.7); Platelet Count 213 K/mm3 (150-450); RBC Distribution Width CV 15.2 % (11.6-14.6); RBC Distribution Width SD 49.4 fl (35.1-43.9); Red Blood Count 4.23 M/mm3 (4.2-5.4); White Blood Count 6.5 K/mm3 (4.4-11.0)
[2021-10-19 07:40] LABS: Anion Gap 8 (5-15); BUN 18 mg/dL (7-18); BUN/Creat Ratio 21.2 RATIO (10-20); Chloride 109 mmol/L (98-107); Cholesterol 185 mg/dL (200); Creatinine, Serum 0.85 mg/dL (0.55-1.02); EST Glomerular Filtration Rate 69 mL/min (>60); Est Glom Filt Rate - Afr Amer 83 mL/min (>60); Estimated Creatinine Clearance 46.34 ml/min; Glucose 91 mg/dL (74-106); High Density Lipoprotein 46 mg/dL; Potassium 3.6 mmol/L (3.5-5.1); Sodium Level 140 mmol/L (136-145); Triglycerides 148 mg/dL; Very Low Density Lipoprotein 30 mg/dL (5-40)
[2021-10-19 08:10] LABS: International Normalized Ratio 2.5; Prothrombin Time (Protime)PT. 25.9 SECONDS (11.7-14.9)
[2021-10-19 09:40] LABS: Hemoglobin A1c 6.2 % (3.8-5.6)
[2021-10-19] MEDS: Cholecalciferol (VIT D3) 25 MCG TABLET (1,000 UNITS) 50 MCG PO (10:21)
[2021-10-19] MEDS: Pantoprazole Sodium 40 MG Tablet PO (10:22)
[2021-10-19] MEDS: Mirabegron 50 MG TAB.ER.24H PO (10:22)
--- NOTE | 2021-10-19 12:10 | PCM.PN.HOSP ---
Documented by User: Conrad FRANKLIN 10/19/21 12:28 Subjective Subjective Patient is a 81-year-old female comfortably lying in bed, alert and orient x3. Patient still reports ongoing dysarthria, denies any other focal neurological deficits. Denies development of any new symptoms overnight. Does not appear in acute distress. Objective Data Objective Data Vital Signs: Vital Signs Temp Pulse Resp BP Pulse Ox 98.2 F 72 15 145/58 H 94 10/19/21 10:00 10/19/21 11:03 10/19/21 10:00 10/19/21 10:00 10/19/21 10:00 Oxygen Delivery Method Room Air Weight: 175 lb 14.862 oz Body Mass Index (BMI) 30.2 Intake & Output: Intake and Output for Last 24 Hours 10/17/21 10/18/21 10/19/21 23:59 23:59 23:59 Intake Total 480 / 480 Balance 480 / 480 Lab / Micro Data Result Diagrams: 10/19/21 05:00 10/19/21 05:00 Labs: Laboratory Results - last 24 hr 10/18/21 20:35: WBC 7.6, RBC 4.65, Hgb 13.1, Hct 41.8, MCV 89.9, MCH 28.2, MCHC 31.3 L, RDW Std Deviation 50.4 H, RDW Coeff of Heriberto 15.2 H, Plt Count 242, MPV 10.1, Immature Gran % (Auto) 0.400, Neut % (Auto) 61.4, Lymph % (Auto) 26.6, [place] % (Auto) 8.3, Eos % (Auto) 2.8, Baso % (Auto) 0.5, Absolute Neuts (auto) 4.7, Absolute Lymphs (auto) 2.02, Nucleated RBC % 0 10/18/21 20:35: PT 25.4 H, INR 2.4, APTT 32.1 10/18/21 20:35: Sodium 139, Potassium 3.6, Chloride 107, Carbon Dioxide 27.0, Anion Gap 5, BUN 22 H, Creatinine 1.14 H, Estim Creat Clear Calc 34.55, Est GFR (MDRD) Af Amer 59 L, Est GFR (MDRD) Non-Af 49 L, BUN/Creatinine Ratio 19.3, Glucose 145 H, Calcium 9.0, Troponin I High Sens > 3 10/19/21 05:00: WBC 6.5, RBC 4.23, Hgb 12.0, Hct 37.3, MCV 88.2, MCH 28.4, MCHC 32.2, RDW Std Deviation 49.4 H, RDW Coeff of Heriberto 15.2 H, Plt Count 213, MPV 10.2, Immature Gran % (Auto) 0.300, Neut % (Auto) 64.0, Lymph % (Auto) 23.6, [place] % (Auto) 9.0, Eos % (Auto) 2.5, Baso % (Auto) 0.6, Absolute Neuts (auto) 4.1, Absolute Lymphs (auto) 1.53, Nucleated RBC % 0 10/19/21 05:00: PT 25.9 H, INR 2.5 10/19/21 05:00: Sodium 140, Potassium 3.6, Chloride 109 H, Carbon Dioxide 23.0, Anion Gap 8, BUN 18, Creatinine 0.85, Estim Creat Clear Calc 46.34, Est GFR (MDRD) Af Amer 83, Est GFR (MDRD) Non-Af 69, BUN/Creatinine Ratio 21.2 H, Glucose 91, Calcium 9.0, Triglycerides 148, Cholesterol 185, LDL Cholesterol 109, VLDL Cholesterol 30, HDL Cholesterol 46 10/19/21 05:00: Hemoglobin A1c 6.2 H Radiography Diagnostic Testing: Radiology Impression Brain CT 10/18/21 20:51 IMPRESSION: No acute intracranial hemorrhage or mass effect. N.B. : The above Results were Read Back by Zachary Gonzalez MD (Brooks) to Ryan Darden and understanding confirmed on 10/18/2021 21:24:02 (ET). Electronically Signed: Zachary Gonzalez MD (Brooks) at 21:25 EST , Service support , Head/Neck CTA 10/18/21 20:51 IMPRESSION: 1. No intracranial aneurysm or large vessel occlusion. 2. Left worse than right carotid atherosclerosis. Moderate stenosis of the proximal left ICA. 3. Consolidation of the left upper lobe correlates to masslike opacity evident on chest x-ray. Only partially visualized on this exam. N.B. : The above Results were Read Back by Zachary Gonzalez MD (Brooks) to Ryan Darden and understanding confirmed on 10/18/2021 21:36:26 (ET). Electronically Signed: Zachary Gonzalez MD (Brooks) at 21:40 EST , Service support , ADDENDUM: 10/18/217 IMPRESSION: 1. No intracranial aneurysm or large vessel occlusion. 2. Left worse than right carotid atherosclerosis. Moderate stenosis of the proximal left ICA. 3. Consolidation of the left upper lobe correlates to masslike opacity evident on chest x-ray. Only partially visualized on this exam. N.B. : The above Results were Read Back by Zachary Gonzalez MD (Brooks) to Ryan Darden and understanding confirmed on 10/18/2021 21:36:26 (ET). Electronically Signed: Zachary Gonzalez MD (Brooks) at 21:40 EST , Service support , Chest X-Ray 10/18/21 21:15 IMPRESSION: 1. No acute cardiopulmonary process. 2. Stable upper lobe nodules, larger on the left than the right. Electronically Signed: Zachary Gonzalez MD (Brooks) at 21:29 EST , Service support , Rhythm Strip Rhythm Strip: Sinus Rhythm Rate: 82 Ectopy: PVC(s) Physical Exam Const alert, oriented x3 and no apparent distress HEENT head/scalp atraumatic Head and Scalp: normocephalic Eyes Eyes Narrative: Exophthalmos present bilaterally. Neck no lymphadenopathy, supple and no JVD Resp normal respiratory effort, no retractions, no use of accessory muscles and clear to auscultation bilaterally Cardio regular rate, regular rhythm and no JVD GI normal to inspection, nondistended, normoactive bowel sounds, soft to palpation and non-tender Extremity normal to inspection, full ROM and no clubbing, cyanosis or edema Skin no rashes or lesions noted, no wounds and skin turgor normal Neuro CN's II-XII intact bilaterally Psych affect normal Assessment & Plan Assessment/Plan (1) Stroke-like symptoms: (2) Dysarthria: PLAN: Day 0 Discharge planning: To be determined. 1) strokelike symptoms/dysarthria Patient still reports ongoing dysarthria, but does not demonstrate or complain of any other focal neurological deficits. Brain CT does not demonstrate any acute intracranial hemorrhage or mass-effect. CTA of the head/neck demonstrates no intracranial aneurysm or large vessel occlusion, although there is 55 to 60% stenosis in the left ICA, as well as 45% stenosis in the right ICA. Lipid panel within normal limits. Surgical intervention not indicated. Currently awaiting brain MRI and echocardiogram results which will be obtained on 10/20. We will obtain SOC consult pending MRI. Continue statin and Plavix. 2) history of DVT Patient is anticoagulated on warfarin, INR therapeutic at 2.1. We will continue to monitor. 3) GERD Continue PPI. DVT prophylaxis - chronically anticoagulated on warfarin. Patient seen by Conrad Carter PA-C, under the supervision of Dr Mora. Time spent on patient care: 9 minutes.. Documented by User: Dr. Ron Mora, 10/19/21 12:35 Subjective Subjective Still with dysarthria, slightly better. No unilateral weakness. Objective Data Lab / Micro Data Result Diagrams: 10/19/21 05:00 10/19/21 05:00 Physical Exam Const alert and no apparent distress Constitutional Narrative: word finding difficulty. Resp normal respiratory effort, no retractions, no use of accessory muscles and clear to auscultation bilaterally Cardio regular rate, regular rhythm, S1 normal heart sound and S2 normal heart sound GI normal to inspection, nondistended, normoactive bowel sounds, soft to palpation, non-tender and non-distended Assessment & Plan Assessment/Plan (1) CVA (cerebral vascular accident): PLAN: Patient seen and examined independently. Data and vitals reviewed. I agree with the above note by the physician assistant professor of radiology. 1. Suspected stroke Patient with expressive aphasia MRI to be performed on the 24th Follow-up echo Therapy evaluations pending Charges/Coding Procedures Hospitalists Procedures: Other Procedure - See Report (non billable rounding.)
[2021-10-19] MEDS: Atorvastatin Calcium 10 MG Tablet PO (20:27)
[2021-10-20] VITALS (7 sets, daily range): BP systolic 120–135; BP diastolic 51–80; PULSE 74–80; RESP 12–18; TEMP 36.4–36.9; O2SAT 94–98
[2021-10-20] MEDS: Levothyroxine 100 MCG Tablet PO (05:59)
[2021-10-20 06:30] LABS: International Normalized Ratio 2.4; Prothrombin Time (Protime)PT. 25.2 SECONDS (11.7-14.9)
--- NOTE | 2021-10-20 09:00 | MRI_ITS ---
ACR Level 3 findings have been noted. An addendum which confirms receipt of the report will follow. HISTORY: CVA. TECHNIQUE: Multiplanar and multisequence MR images of the brain were obtained without gadolinium. # of images incl. paperwork: [id number]. COMPARISON: CT 10/18/2021. FINDINGS: BRAIN PARENCHYMA: Small zone of restricted diffusion in the left cerebellum, corresponding to the CT finding. Mild zones of restricted diffusion in the left posterior parietal lobe and insular cortex. Mild chronic left periventricular and basal ganglia infarcts. Moderate T2 FLAIR hyperintense signal in the bilateral cerebral white matter. INTRACRANIAL HEMORRHAGE: No acute intracranial hemorrhage. CSF SPACES: Mild generalized volume loss with a partially empty sella configuration also noted. No midline shift or other significant mass effect. No extra-axial fluid collection. VASCULAR SYSTEM: Major intracranial flow-voids maintained. ORBITS: Bilateral lens resections. PARANASAL SINUSES AND MASTOID AIR CELLS: No significant air-fluid levels. MRI/Brain without Contrast IMPRESSION: Acute left posterior parietal, left insular cortex, and left cerebellar infarcts. Chronic small vessel ischemic gliosis. at 1010 Reported and signed by: Paige Phillips MD Electronically Signed: Paige Phillips MD at 10:09 EST Tel , Service support ,
[2021-10-20] MEDS: Loperamide 2 MG Capsule PO (10:41)
[2021-10-20] MEDS: Pantoprazole Sodium 40 MG Tablet PO (10:41)
[2021-10-20] MEDS: Mirabegron 50 MG TAB.ER.24H PO (10:41)
[2021-10-20] MEDS: Cholecalciferol (VIT D3) 25 MCG TABLET (1,000 UNITS) 50 MCG PO (10:41)
[2021-10-20] MEDS: Clopidogrel Bisulfate 75 MG Tablet PO (10:41)
--- NOTE | 2021-10-20 10:51 | CDU_ITS ---
Reason For Study: CVA Rt. Velocities/BP Lt. Velocities/BP Prox CCA 124/19 cm/sec. Prox CCA 84/14 cm/sec. Mid CCA 97/7 cm/sec. Mid CCA 89/15 cm/sec. Dist CCA 78/13 cm/sec. Dist CCA 131/19 cm/sec. Prox ICA 91/16 cm/sec. Prox ICA 99/17 cm/sec. Mid ICA 95/14 cm/sec. Mid ICA 81/20 cm/sec. Dist ICA 81/20 cm/sec. Dist ICA 94/24 cm/sec. Rt. ICA/CCA = 1.0. Lt. ICA/CCA = 1.1. Prox ECA 100/8 cm/sec. Prox ECA 103 cm/sec. Rt. Vert. 67/13 cm/sec. Lt. Vert. 14/3 cm/sec. Right Extracranial There is heterogeneous, irregular atherosclerotic plaque noted in the right common carotid artery. The right common carotid artery is tortuous. There is heterogeneous, irregular atherosclerotic plaque noted in the right internal carotid artery. There is heterogeneous, irregular atherosclerotic plaque noted in the right external carotid artery. Antegrade flow is noted in the right vertebral artery. Left Extracranial There is heterogeneous, irregular atherosclerotic plaque noted in the left common carotid artery. There is heterogeneous, irregular atherosclerotic plaque noted in the left internal carotid artery. There is heterogeneous, irregular atherosclerotic plaque noted in the left external carotid artery. Antegrade flow is noted in the left vertebral artery. Procedure Carotid Duplex 11849. This is a Carotid Duplex examination using B-mode, color flow and specral Doppler. Exam performed portable in patient room. VL/Carotid Duplex Ultrasound Interpretation Summary Irregular calcific plaque distal right common carotid and proximal right internal medicine nurse al and external carotid arteries Less than 50% stenosis right internal carotid artery Less than 50% stenosis right external carotid artery Irregular calcific plaque at the proximal left internal and external carotid ar teries Less than 50% stenosis left internal carotid artery Less than 50% stenosis left external carotid artery Patent and antegrade vertebral arteries bilaterally with diminished flow on the left Ordering Physician: Nicole Hall Referring Physician: Dina Armednariz Performed By: Rosmery Beasley, ALFREDO, RVT
--- NOTE | 2021-10-20 11:04 | TELEMED_ITS ---
[facility] Telemed has confirmed receipt of a request for visit. This document confirms receipt of the order initiating the consult. To find the results of the consultation, please view the patient's reports for the scanned Telemed Consult.
--- NOTE | 2021-10-20 11:17 | PCM.DC ---
Discharge Instructions Diet Discharge Diet: No restrictions Activity Discharge Activity: Return to Normal Activity Weight Bearing Status: Weight bearing as tolerated Dressing / Incision Call your doctor if you observe: Fever of 101 or Higher, Numbness or Tingling, Shortness of breath, Dizziness, Chest pain, Increased palpitations (irregular heartbeat) and Calf discomfort Follow Up Care Please Follow Up With: Primary care provider When: Within the next two weeks. Test Results: Test results from this visit will be discussed in further detail at your follow-up appointment, if applicable. Discharge Plan Admission Admit Date/Time: 10/18/21 23:57 Primary Reason for Your Visit: Stroke like symptoms Attending Provider: Nicole Hall Primary Care Provider: Dina Armendariz Instructions Additional Instructions / Restrictions: * Hold coumadin, resume in 3 days pending decision from your primary care provider. * Obtain PT/INR in 3 days, before resuming coumadin. * obtain Brain CT in 3 days to assess for Hemorrhage before resuming Coumadin. Discharge Orders/Prescriptions Prescriptions: New atorvastatin 40 mg Tablet 80 mg PO QHS Qty: 30 RF: 0 aspirin 81 mg tablet,chewable 81 mg PO DAILY Qty: 30 RF: 0 Continued acetaminophen 500 mg capsule 500 mg PO DAILY PRN (Reason: Pain) RF: 0 loperamide [Anti-Diarrheal (loperamide)] 2 mg capsule 2 mg PO QODAY RF: 0 levothyroxine 150 MCG tablet 100 mcg PO DAILY RF: 0 Lactobacillus acidophilus 1 EACH capsule 1 cap PO DAILY RF: 0 ibandronate 150 MG tablet 150 mg PO QMONTH RF: 0 pantoprazole 40 MG tablet 40 mg PO DAILY RF: 0 gabapentin 100 mg Tablet 100 mg PO DAILY PRN (Reason: Pain) RF: 0 cholecalciferol (vitamin D3) [Vitamin D3] 50 mcg (2,000 unit) Capsule 50 mcg PO DAILY RF: 0 Myrbetriq 50 mg Tablet Extended Release 24 Hr 50 mg PO DAILY RF: 0 Held warfarin 2.5 MG tablet 2 mg PO SUTUTHSA RF: 0 Hold Instructions: Resume on 10/24/21. warfarin 5 MG tablet 5 mg PO MOWEFR RF: 0 Hold Instructions: Resume on 10/24/21. Discontinued atorvastatin 10 MG tablet 10 mg PO QHS RF: 0 Other Ambulatory Orders: Brain/Head without Contrast (Routine) Timeframe: 3 Days Facility: [facility] - Location: [facility] Ordered By: Conrad FRANKLIN Prothrombin Time w/INR (Routine) Timeframe: 3 Days Facility: [facility] - Location: Laboratory Ordered By: Conrad FRANKLIN Referrals / Follow Up: Dina Armendariz MD [Primary Care Provider] - Within 2 Weeks Disposition Disposition (needs filled in before D/C Order can be placed): Home, Self Care
--- NOTE | 2021-10-20 12:31 | CASEMGMT ---
This RN CM to room with URIBE form, explanation done-pt voices understanding, and signs URIBE form at this time. Original to chart and copy to pt. Pt is interested in OP speech therapy at discharge and script faxed to [facility] per pt request and copy to pt. Pt voices no further questions/concerns/needs. SStaten ABILIO CM
--- NOTE | 2021-10-20 15:36 | CASEMGMT ---
SW completed a PHQ 9 with patient as she had a Stroke. Patient scored a 0 which indicates no depression. Patient declined need for counseling resources. Marissa REDDY
--- NOTE | 2021-10-20 15:45 | PCM.DC.SUM ---
Documented by User: Conrad FRANKLIN 10/20/21 15:56 Providers Date of Admission: 10/18/21 Primary Care Physician: Dr. Dina Armendariz MD Reason For Visit: STROKE LIKE SYMPTOMS Diagnosis Discharge Diagnosis (1) CVA (cerebral vascular accident): Status: Acute Code(s): I63.9 - Cerebral infarction, unspecified Medications at Discharge Home Medications acetaminophen 500 mg capsule 500 mg PO DAILY PRN 09/19/19 loperamide 2 mg capsule 2 mg PO QODAY 09/19/19 Lactobacillus acidophilus 1 cap PO DAILY 09/29/19 ibandronate 150 mg PO QMONTH 09/29/19 levothyroxine 100 mcg PO DAILY 09/29/19 pantoprazole 40 mg PO DAILY 09/29/19 warfarin 2 mg PO SUTUTHSA 09/29/19 warfarin 5 mg PO MOWEFR 09/29/19 Myrbetriq 50 mg PO DAILY 10/18/21 cholecalciferol (vitamin D3) [Vitamin D3] 50 mcg PO DAILY 10/18/21 gabapentin 100 mg PO DAILY PRN 10/18/21 aspirin 81 mg PO DAILY #30 tab 10/20/21 atorvastatin 80 mg PO QHS #30 tab 10/20/21 Hospital Course Procedures 2-D Echocardiogram and Transthoracic echo Summary of Care Provided Minutes Spent on Discharge: 20 Hospital Course: Patient is a 81-year-old female who was admitted to the hospital on 10/19/2021 for dysarthria and strokelike symptoms. Brain MRI demonstrated acute left posterior parietal, left insular cortex and left cerebellar infarcts. Echocardiogram obtained and demonstrated normal LV size, mild systolic dysfunction, an EF of 55%, negative bubble study and stage I diastolic dysfunction. Carotid duplex ultrasound was obtained and demonstrated less than 50% stenosis of the right and left internal and external carotid arteries. SOC consult obtained hold Coumadin for 3 days after admission, recheck brain CT for hemorrhage,, recheck PT/INR, initiate aspirin and statin, obtain speech therapy and follow-up with neurology upon discharge. Attempted to coordinate with patient's PCP, currently awaiting callback. Will attempt to reach out to provider in a.m. if do not hear from back from today. Referral was put in for patient to follow-up with neurology at earliest possible appointment. Patient is to follow-up with primary care provider within the next 3 days to schedule renewal of her Coumadin. Coumadin held for 3 days, all other medications were continued. Patient seen by Conrad Carter PA-C, under the supervision of Dr Hall. Physical Exam Narrative Patient is a 81-year-old female comfortably resting in bed, alert and orient x3. Patient still has mild dysarthria, but this is improved from admission. Denies development of any new focal neurological deficits. Does not appear in acute distress. Const alert, oriented x3 and no apparent distress HEENT normocephalic, head/scalp atraumatic and hearing grossly normal bilaterally Eyes PERRL, EOMs intact bilaterally and conjunctivae normal Neck no lymphadenopathy, supple and no JVD Resp normal respiratory effort, no retractions and no use of accessory muscles Cardio regular rate, regular rhythm, no murmurs and no JVD GI normal to inspection, nondistended, normoactive bowel sounds and non-tender Extremity normal to inspection, full ROM and no clubbing, cyanosis or edema Skin no rashes or lesions noted, no wounds and skin turgor normal Neuro CN's II-XII intact bilaterally Psych affect normal Weight / BMI Weight Weight: 175 lb 14.862 oz Body Mass Index (BMI) 30.2 ABG / Lab / Microbiology Data Result Diagrams: 10/19/21 05:00 10/19/21 05:00 Laboratory: Laboratory Results - last 24 hr 10/20/21 04:51: PT 25.2 H, INR 2.4 Radiography Diagnostic Testing: Radiology Impression Echocardiogram 10/19/21 00:52 Interpretation Summary Normal LV size. Mild segmental systolic dysfunction (see wall motion). The estimated ejection fraction is 55 %. Bubble contrast study negative for right to left interatrial shunt. Stage 1 diastolic dysfunction. Ordering Physician: Paul Tamez Referring Physician: DINA ARMENDARIZ Performed By: Paty Gonzales, ALFREDO, RVT Brain MRI 10/20/21 09:00 IMPRESSION: Acute left posterior parietal, left insular cortex, and left cerebellar infarcts. Chronic small vessel ischemic gliosis. at 1010 Reported and signed by: Paige Phillips MD Electronically Signed: Paige Phillips MD at 10:09 EST Tel , Service support , ADDENDUM: 10/20/21 1021 IMPRESSION: Acute left posterior parietal, left insular cortex, and left cerebellar infarcts. Chronic small vessel ischemic gliosis. at 1010 Reported and signed by: Paige Phillips MD N.B. : Anival Montoya RN, confirmed on 10/20/2021 10:14:34 (ET) that the healthcare facility has received the radiology report. Electronically Signed: Paige Phillips MD at 10:09 EST Tel , Service support , Carotid Duplex 10/20/21 10:51 Interpretation Summary Irregular calcific plaque distal right common carotid and proximal right internal and external carotid arteries Less than 50% stenosis right internal carotid artery Less than 50% stenosis right external carotid artery Irregular calcific plaque at the proximal left internal and external carotid arteries Less than 50% stenosis left internal carotid artery Less than 50% stenosis left external carotid artery Patent and antegrade vertebral arteries bilaterally with diminished flow on the left Ordering Physician: Nicole Hall Referring Physician: Dina Armendariz Performed By: Rosmery Beasley RDCS, RVT D/C Instructions Discharge Diet: No restrictions Weight Bearing Status: Weight bearing as tolerated Call your doctor if you observe: Fever of 101 or Higher, Numbness or Tingling, Shortness of breath, Dizziness, Chest pain, Increased palpitations (irregular heartbeat) and Calf discomfort Please Follow Up With: Primary care provider When: Within the next two weeks. Meaningful Use Info Meaningful Use Diagnoses (Choose all that apply): Ischemic CVA CVA Therapy Assessed for PT,OT and/or ST?: Yes Ischemic Stroke Antithrombotic order at d/c?: Yes Dx of Atrial fib/flutter?: No Statins at discharge?: Yes Primary Dx Acute Ischemic CVA?: Yes IV tPA ordered during stay?: No Reason IV t-PA not ordered: Treatment not Indicated Discharge Plan Admission Admit Date/Time: 10/18/21 23:57 Primary Reason for Your Visit: Stroke like symptoms Attending Provider: Nicole Hall Primary Care Provider: Dina Armendariz Instructions Additional Instructions / Restrictions: * Hold coumadin, resume in 3 days pending decision from your primary care provider. * Obtain PT/INR in 3 days, before resuming coumadin. * obtain Brain CT in 3 days to assess for Hemorrhage before resuming Coumadin. Discharge Orders/Prescriptions Prescriptions: New atorvastatin 40 mg Tablet 80 mg PO QHS Qty: 30 RF: 0 aspirin 81 mg tablet,chewable 81 mg PO DAILY Qty: 30 RF: 0 Continued acetaminophen 500 mg capsule 500 mg PO DAILY PRN (Reason: Pain) RF: 0 loperamide [Anti-Diarrheal (loperamide)] 2 mg capsule 2 mg PO QODAY RF: 0 levothyroxine 150 MCG tablet 100 mcg PO DAILY RF: 0 Lactobacillus acidophilus 1 EACH capsule 1 cap PO DAILY RF: 0 ibandronate 150 MG tablet 150 mg PO QMONTH RF: 0 pantoprazole 40 MG tablet 40 mg PO DAILY RF: 0 gabapentin 100 mg Tablet 100 mg PO DAILY PRN (Reason: Pain) RF: 0 cholecalciferol (vitamin D3) [Vitamin D3] 50 mcg (2,000 unit) Capsule 50 mcg PO DAILY RF: 0 Myrbetriq 50 mg Tablet Extended Release 24 Hr 50 mg PO DAILY RF: 0 Held warfarin 2.5 MG tablet 2 mg PO SUTUTHSA RF: 0 Hold Instructions: Resume on 10/24/21. warfarin 5 MG tablet 5 mg PO MOWEFR RF: 0 Hold Instructions: Resume on 10/24/21. Discontinued atorvastatin 10 MG tablet 10 mg PO QHS RF: 0 Other Ambulatory Orders: Brain/Head without Contrast (Routine) Timeframe: 3 Days Facility: [facility] - Location: [facility] Ordered By: Conrad FRANKLIN Prothrombin Time w/INR (Routine) Timeframe: 3 Days Facility: [facility] - Location: Laboratory Ordered By: Conrad FRANKLIN Referrals / Follow Up: Dina Armendariz MD [Primary Care Provider] - See Referral Note (Follow up with your primary care physician in 3 days to assess whether you can resume your Coumadin. ) Kulwinder Rizo MD [STAFF PHYSICIAN] - See Referral Note (Follow-up for your carotid stenosis at earliest possible appointment.) Nilson Roman MD [NON-STAFF] - See Referral Note (Follow up with Dr. Roman or first available provider in practice as soon as possible. ) Disposition Disposition (needs filled in before D/C Order can be placed): Home, Self Care Documented by User: Dr. Nicole Hall MD 10/20/21 18:16 Providers Date of Admission: 10/18/21 Reason For Visit: STROKE LIKE SYMPTOMS Medications at Discharge Home Medications acetaminophen 500 mg capsule 500 mg PO DAILY PRN 09/19/19 loperamide 2 mg capsule 2 mg PO QODAY 09/19/19 Lactobacillus acidophilus 1 cap PO DAILY 09/29/19 ibandronate 150 mg PO QMONTH 09/29/19 levothyroxine 100 mcg PO DAILY 09/29/19 pantoprazole 40 mg PO DAILY 09/29/19 warfarin 2 mg PO SUTUTHSA 09/29/19 warfarin 5 mg PO MOWEFR 09/29/19 Myrbetriq 50 mg PO DAILY 10/18/21 cholecalciferol (vitamin D3) [Vitamin D3] 50 mcg PO DAILY 10/18/21 gabapentin 100 mg PO DAILY PRN 10/18/21 aspirin 81 mg PO DAILY #30 tab 10/20/21 atorvastatin 80 mg PO QHS #30 tab 10/20/21 ABG / Lab / Microbiology Data Result Diagrams: 10/19/21 05:00 10/19/21 05:00 Discharge Plan Admission Admit Date/Time: 10/18/21 23:57 Primary Reason for Your Visit: Stroke like symptoms Attending Provider: Nicole Hall Primary Care Provider: Dina Armendariz Instructions Additional Instructions / Restrictions: * Hold coumadin, resume in 3 days pending decision from your primary care provider. * Obtain PT/INR in 3 days, before resuming coumadin. * obtain Brain CT in 3 days to assess for Hemorrhage before resuming Coumadin. Discharge Orders/Prescriptions Prescriptions: New atorvastatin 40 mg Tablet 80 mg PO QHS Qty: 30 RF: 0 aspirin 81 mg tablet,chewable 81 mg PO DAILY Qty: 30 RF: 0 Continued acetaminophen 500 mg capsule 500 mg PO DAILY PRN (Reason: Pain) RF: 0 loperamide [Anti-Diarrheal (loperamide)] 2 mg capsule 2 mg PO QODAY RF: 0 levothyroxine 150 MCG tablet 100 mcg PO DAILY RF: 0 Lactobacillus acidophilus 1 EACH capsule 1 cap PO DAILY RF: 0 ibandronate 150 MG tablet 150 mg PO QMONTH RF: 0 pantoprazole 40 MG tablet 40 mg PO DAILY RF: 0 gabapentin 100 mg Tablet 100 mg PO DAILY PRN (Reason: Pain) RF: 0 cholecalciferol (vitamin D3) [Vitamin D3] 50 mcg (2,000 unit) Capsule 50 mcg PO DAILY RF: 0 Myrbetriq 50 mg Tablet Extended Release 24 Hr 50 mg PO DAILY RF: 0 Held warfarin 2.5 MG tablet 2 mg PO SUTUTH RF: 0 Hold Instructions: Resume on 10/24/21. warfarin 5 MG tablet 5 mg PO MOWEFR RF: 0 Hold Instructions: Resume on 10/24/21. Discontinued atorvastatin 10 MG tablet 10 mg PO QHS RF: 0 Other Ambulatory Orders: Brain/Head without Contrast (Routine) Timeframe: 3 Days Facility: [facility] - Location: [facility] Ordered By: Conrad FRANKLIN Prothrombin Time w/INR (Routine) Timeframe: 3 Days Facility: [facility] - Location: Laboratory Ordered By: Conrad FRANKLIN Referrals / Follow Up: Dina Armendariz MD [Primary Care Provider] - See Referral Note (Follow up with your primary care physician in 3 days to assess whether you can resume your Coumadin. ) Kulwinder Rizo MD [STAFF PHYSICIAN] - See Referral Note (Follow-up for your carotid stenosis at earliest possible appointment.) Nilson Roman MD [NON-STAFF] - See Referral Note (Follow up with Dr. Roman or first available provider in practice as soon as possible. ) Disposition Disposition (needs filled in before D/C Order can be placed): Home, Self Care
[2021-10-21 07:25] LABS: Bedside Glucose 126 mg/dL (70-110)
== END 2021-10-20 11:17 | disposition home or self-care (01) ==
LOC: ED 23:38 → PCU 10-19 01:00
PROVIDERS: Admitting Provider Hospitalist; Emergency Provider Emergency Medicine; PCP Family Medicine; Visit Provider Family Medicine
DX: I63.233 Cerebral infarction due to unspecified occlusion or stenosis of bilateral carotid arteries (principal); J44.9 Chronic obstructive pulmonary disease, unspecified; I73.9 Peripheral vascular disease, unspecified; N18.32 Chronic kidney disease, stage 3b; K21.9 Gastro-esophageal reflux disease without esophagitis; R47.1 Dysarthria and anarthria; R47.01 Aphasia; E03.9 Hypothyroidism, unspecified; Z79.83 Long term (current) use of bisphosphonates; Z87.891 Personal history of nicotine dependence; Z79.890 Hormone replacement therapy; Z79.899 Other long term (current) drug therapy; Z79.01 Long term (current) use of anticoagulants; R29.701 NIHSS score 1; Z86.718 Personal history of other venous thrombosis and embolism; E05.00 Thyrotoxicosis with diffuse goiter without thyrotoxic crisis or storm; R94.31 Abnormal electrocardiogram [ECG] [EKG]
CPT/HCPCS: 36415; 70450; 70496; 70498; 70551; 71045; 80048; 80061; 82962; 83036; 84484; 85025; 85610; 85730; 92507; 92610; 93005; 93306; 93880; 94762; 97162; 97166; 99218; 99285; Q9967; A4216; G0378

== ENCOUNTER 2021-10-24 06:40 | Outpatient (CLI) | payer MEDICARE, MEDICAID, SELFPAY ==
--- NOTE | 2021-10-24 06:43 | CT_ITS ---
STUDY: CT BRAIN WITHOUT CONTRAST REASON FOR EXAM: Female, 81 years old. Assess for hemorrhagic conversion RADIATION DOSAGE (If Supplied By Facility): CTDIvol = ( 44.99 ) mGy, DLP = ( 779.24 ) mGycm TECHNIQUE: Transaxial CT imaging of the brain was performed without administration of intravenous contrast material. Individualized dose optimization techniques were used for this CT. COMPARISON: Comparison is made with prior examination dated 10/18/2021. FINDINGS: Normal soft tissue structures. Normal calvarium. There is mild cerebral atrophy with widening of the extra-axial spaces and ventricular dilatation. There are areas of decreased attenuation within the white matter tracts of the supratentorial brain, consistent with microvascular disease changes. Lacunar infarct is seen in the left basal ganglia. This is unchanged. Normal brainstem. Stable focal area of decreased attenuation in the left cerebellar hemisphere. There is no intracranial hemorrhage. There are no findings of an acute ischemic infarction. Normal visualized paranasal sinuses. CT/Brain/Head without Contrast IMPRESSION: Chronic involutional changes of the brain. Stable examination. No acute abnormality is seen. Electronically Signed: Tab Marks MD at 9:07 EST ,
== END 2021-10-24 23:59 | disposition short-term general hospital (02) ==
PROVIDERS: PCP Family Medicine; Referring Provider Physician Assistant; Visit Provider Physician Assistant
DX: I63.9 Cerebral infarction, unspecified (principal)
CPT/HCPCS: 70450

== ENCOUNTER → 2022-03-11 | Outpatient (CLI) | payer MEDICARE, MEDICAID, SELFPAY | END | disposition home or self-care (01) | PROVIDERS: PCP Family Medicine | DX: C34.80 Malignant neoplasm of overlapping sites of unspecified bronchus and lung (principal); C34.12 Malignant neoplasm of upper lobe, left bronchus or lung | CPT/HCPCS: 78815; A9595 ==

== ENCOUNTER → 2022-06-11 | Outpatient (CLI) | payer MEDICARE, MEDICAID, SELFPAY ==
[2022-06-11 16:21] LABS: Absolute Lymphocyte Count 1.61 X10^3/uL (0.83-4.51); Basophil# 0.04 X10^3/uL; Basophil% 0.5 % (0-1); Eosinophil# 0.22 X10^3/uL; Eosinophils% 2.9 % (0-5); Hemoglobin 12.9 g/dL (12.0-15.0); Lymphocyte # 1.61 X10^3/ul (0.83-4.51); Lymphocyte % 21.2 % (19-41); Mean Corp Hgb Conc 31.5 g/dL (32-36); Mean Corpuscular Hgb 27.6 pg (27.0-32.0); Mean Corpuscular Volume 87.8 fL (81-99); Mean Platelet Vol. 10.1 fl (6.2-12.0); Monocyte% 9.2 % (0-10); NRBC Flagged by Analyzer 0 % (0-5); Neutrophil # 5.01 X10^3/uL (2.7-7.7); Neutrophil % 65.9 % (47-70); Platelet Count 283 K/mm3 (150-450); RBC Distribution Width CV 15.4 % (11.6-14.6); RBC Distribution Width SD 49.7 fl (35.1-43.9); Red Blood Count 4.67 M/mm3 (4.2-5.4); White Blood Count 7.6 K/mm3 (4.4-11.0)
[2022-06-11 16:29] LABS: International Normalized Ratio 3.1; Prothrombin Time (Protime)PT. 31.3 SECONDS (11.7-14.9)
[2022-06-11 16:51] LABS: ALB/GLOB Ratio 0.9 RATIO (0.9-2.4); AST(SGOT) 17 U/L (15-37); Alanine Aminotransfer ALT/SGPT 17 U/L (13-56); Albumin, Serum 3.4 g/dL (3.2-5.0); Alkaline Phosphatase 60 U/L (45-117); Anion Gap 10 (5-15); BUN 19 mg/dL (7-18); BUN/Creat Ratio 15.4 RATIO (10-20); Calcium,Total 9.2 mg/dL (8.5-10.1); Chloride 106 mmol/L (98-107); Creatinine, Serum 1.23 mg/dL (0.55-1.02); EST Glomerular Filtration Rate 45 mL/min (>60); Est Glom Filt Rate - Afr Amer 54 mL/min (>60); Globulin 3.8 g/dL (2.2-4.2); Glucose 115 mg/dL (74-106); Potassium 3.8 mmol/L (3.5-5.1); Protein, Total 7.2 g/dL (6.4-8.2); Sodium Level 143 mmol/L (136-145); Thyroid Stim Hormone (TSH) 1.02 uIU/mL (0.358-3.74)
== END | disposition home or self-care (01) ==
LOC: LAB 15:25
PROVIDERS: PCP Family Medicine; Referring Provider Family Medicine; Visit Provider Family Medicine
DX: E03.9 Hypothyroidism, unspecified (principal); I82.409 Acute embolism and thrombosis of unspecified deep veins of unspecified lower extremity; Z79.01 Long term (current) use of anticoagulants
CPT/HCPCS: 36415; 80053; 84443; 85025; 85610

== ENCOUNTER → 2022-11-05 | Outpatient (CLI) | payer MEDICARE, MEDICAID, SELFPAY ==
--- NOTE | 2022-11-05 10:39 | CDU_ITS ---
Reason For Study: Carotid Stenosis Rt. Velocities/BP Lt. Velocities/BP Prox CCA 128.8/18.9 cm/sec. Prox CCA 72.1/12.7 cm/sec. Mid CCA 97.1/8.0 cm/sec. Mid CCA 73.2/14.9 cm/sec. Dist CCA 86.1/10.2 cm/sec. Dist CCA 106.3/20.4 cm/sec. Prox ICA 61.9/8.0 cm/sec. Prox ICA 72.0/16.7 cm/sec. Mid ICA 71.8/13.5 cm/sec. Mid ICA 50.6/11.9 cm/sec. Dist ICA 66.3/17.9 cm/sec. Dist ICA 52.4/15.7 cm/sec. Rt. ICA/CCA = 0.7. Lt. ICA/CCA = 0.9. Prox ECA 57.9/8.8 cm/sec. Prox ECA 86.4/11.7 cm/sec. Rt. Vert. 46.8/11.7 cm/sec. Lt. Vert. 23.2/4.3 cm/sec. Right Extracranial There is heterogeneous, irregular atherosclerotic plaque noted in the right common carotid artery. There is heterogeneous, irregular atherosclerotic plaque noted in the right internal carotid artery. The atherosclerotic plaque causes acoustic shadowing. There is heterogeneous, irregular atherosclerotic plaque noted in the right external carotid artery. Antegrade flow is noted in the right vertebral artery. Left Extracranial There is heterogeneous, irregular atherosclerotic plaque noted in the left common carotid artery. There is heterogeneous, irregular atherosclerotic plaque noted in the left internal carotid artery. The atherosclerotic plaque causes acoustic shadowing. There is heterogeneous, irregular atherosclerotic plaque noted in the left external carotid artery. Antegrade flow is noted in the left vertebral artery. Procedure Carotid Duplex [id number]. This is a Carotid Duplex examination using B-mode, color flow and specral Doppler. The exam was diagnostic. The study was technically difficult. Exam performed in department. VL/Carotid Duplex Ultrasound Interpretation Summary Irregular plaque at the proximal right internal carotid artery with calcific sh adowing and less than 50% stenosis Less than 50% stenosis right external carotid artery Significant calcific plaque with shadowing at the proximal left internal caroti d artery with velocities consistent with less than 50% stenosis Less than 50% stenosis left external carotid artery Patent antegrade vertebral arteries bilaterally Ordering Physician: Kulwinder Rizo Referring Physician: Kulwinder Rizo Performed By: Joe Montoya RVT
== END | disposition home or self-care (01) ==
LOC: CVS 10:35
PROVIDERS: PCP Family Medicine; Referring Provider Surgery; Visit Provider Surgery
DX: R47.1 Dysarthria and anarthria (principal); I77.9 Disorder of arteries and arterioles, unspecified
CPT/HCPCS: 93880

== ENCOUNTER 2022-11-10 15:39 | Inpatient (IN) | payer MEDICARE, MEDICAID, SELFPAY ==
[2022-11-10 15:44] VITALS: BP 149/82; PULSE 92; RESP 18; TEMP 36.7; O2SAT 94
--- NOTE | 2022-11-10 15:59 | CT_ITS ---
We are attempting to reach an attending provider to discuss findings. An addendum with communication details will be sent when the communication is complete. EXAM: CT HEAD WITHOUT INTRAVENOUS CONTRAST CLINICAL INDICATION: Neuro deficit, acute, stroke suspected TECHNIQUE: Multiple axial images were obtained of the head without intravenous contrast. This CT exam was performed using one or more of the following dose reduction techniques: automated exposure control, adjustment of the mA and/or kV according to patient size, and/or use of iterative reconstruction technique. This report was created using [employer] report [employer] technology. COMPARISON: 10/24/2021 FINDINGS: BRAIN AND EXTRA-AXIAL SPACES: There is a stable remote infarct in the left cerebellum. There is a lacunar infarct in left basal ganglia. There is enlargement of the ventricular system and cortical sulci. There is hypoattenuation in the periventricular white matter. There is mild encephalomalacia in the left parietal lobe. No intra- or extra-axial hemorrhage. No intracranial mass or mass effect. Basal cisterns are patent. BONES/JOINTS: Unremarkable. No discrete lytic or blastic abnormalities. SINUSES: There is mucosal thickening in the right maxillary sinus. MASTOID AIR CELLS: Unremarkable. Clear. ORBITS: Visualized globes, extraocular muscles, optic nerves and retrobulbar fat appear unremarkable. CT/STROKE Brain/Head without Cont IMPRESSION: 1. No acute intracranial abnormality. 2. Stable underlying senescent change with small vessel ischemia. There are remote appearing infarcts in the left cerebellum and left parietal lobe. 3. Aspects score 10. Electronically Signed: J Luis Lebron MD at 17:01 EST ,
--- NOTE | 2022-11-10 15:59 | EKG12_ITS ---
Test Reason : NEURO SYM Blood Pressure : / mmHG Vent. Rate : 094 BPM Atrial Rate : 094 BPM P-R Int : 144 ms QRS Dur : 088 ms QT Int : 390 ms P-R-T Axes : 027 -20 092 degrees QTc Int : 487 ms Normal sinus rhythm Inferior infarct , age undetermined , cannot be excluded Abnormal ECG Confirmed by NEGRITO ALEXANDER, SARAY ([id number]), continuity editor AMANDO DEE ([id number]) on 11/11/2022 1:48:02 PM Referred By: Confirmed By:SARAY MAHAN MD
--- NOTE | 2022-11-10 16:05 | EX.ED.DYSGE1 ---
HPI History of Present Illness Chief Complaint: Neuro S/Sx Informant: patient and family Narrative Narrative: Patient presents from assisted living, son is currently present. Patient reports right after lunch increasing generalized weakness reported more on the right side. She and legs with a cane or walker as needed. History of a stroke last year affecting her speech. She is on warfarin unclear for what reason. Per son has had increasing difficulties with her speech over the last 3 to 6 months more so over the last 3 months that she is unable to get her words out clearly. Reports she understands however cannot get it out. Reported this past had carotid ultrasound that was negative. Denies any headache or visual changes denies cough denies recent vomiting or diarrhea denies any urinary symptoms. Reported that patient pulled the call light in her room nursing alerted son who is currently here. After initiation of work-up, review of records apparently had history of DVT on warfarin. In September 2021 had change in speech she was therapeutic on her warfarin when she had findings of a stroke on MRI. Prior similar symptoms: Yes PFSH PFSH Medical History Acute stroke due to ischemia Bilateral carotid artery disease Chronic embolism and thrombosis of unspecified deep veins of right lower extremity COPD (chronic obstructive pulmonary disease) CVA (cerebral vascular accident) Exophthalmos Graves disease History of lung cancer Hyperlipemia Hypothyroid PAD (peripheral artery disease) Prediabetes ROTARY CUFF SURGERY Syncope UGIB (upper gastrointestinal bleed) Home Medications ibandronate 150 mg tablet 150 mg PO QMONTH BONES 09/29/19 [History Last Taken 11/01/22] pantoprazole 40 mg tablet,delayed release 40 mg PO DAILY gerd 09/29/19 [History Last Taken 11/09/22] cholecalciferol (vitamin D3) 50 mcg (2,000 unit) capsule (Vitamin D3) 50 mcg PO DAILY SUPPLEMENT 10/18/21 [History Last Taken 11/09/22] mirabegron 50 mg tablet,extended release 24 hr (Myrbetriq) 50 mg PO DAILY BLADDER 10/18/21 [History Last Taken 11/09/22] acetaminophen 500 mg tablet 1,000 mg PO Q6H PRN Pain 11/10/22 [History Last Taken Unknown] atorvastatin 80 mg tablet 80 mg PO QHS CHOLESTEROL 11/10/22 [History Last Taken 11/09/22] levothyroxine 100 mcg tablet 100 mcg PO DAILY THYROID 11/10/22 [History Last Taken 11/09/22] loperamide 2 mg tablet (Anti-Diarrheal (loperamide)) 2 mg PO DAILY PRN Loose Stool 11/10/22 [History Last Taken Unknown] paroxetine HCl 10 mg tablet 10 mg PO DAILY DEPRESSION 11/10/22 [History Last Taken 11/09/22] warfarin 5 mg tablet 5 mg PO DAILY BLOOD THINNER 11/10/22 [History Last Taken 11/09/22] Allergy/AdvReac Type Severity Reaction Status Date / Time No Known Allergies Allergy Verified 11/06/21 08:21 Family History Other No pertinent family history Surgical History H/O jxynp-mbqwl-fenegam bypass History of appendectomy Social History Smoking Status: Former smoker Tobacco: How many years used: 60 how long ago did patient quit smokin second hand exposure: Yes ROS ROS ED Constitutional Constitutional ED: Denies chills, fever(s) or sweats Eyes Eyes: Denies change in vision ENT ENT ED: Denies dysphagia or sore throat Cardiovascular Cardiovascular: Denies chest pain, leg edema, palpitations or racing heartbeat Respiratory/Chest Respiratory/Chest: Denies cough, dyspnea or dyspnea on exertion Gastrointestinal Gastrointestinal: Denies abdominal pain, diarrhea, nausea or vomiting Genitourinary Genitourinary ED: Denies dysuria, hematuria or urinary frequency Musculoskeletal Musculoskeletal: Denies back pain, extremity pain or neck pain Integumentary Denies rash or wounds Neurologic Neurologic: Reports weakness; Denies headache(s) or paresthesias EXAM Physical Exam Const Vital Signs: 11/10/22 15:44 11/10/22 15:44 11/10/22 16:20 Temperature 98.1 F Temperature Source Oral Pulse Rate 92 Respiratory Rate 18 Blood Pressure 149/82 H Blood Pressure Mean 104 Pulse Ox 94 95 Oxygen Delivery Method Room Air Room Air Room Air Positive well nourished and well developed General Appearance ED: well developed and NAD HEENT Reports moist mucous membranes normocephalic and atraumatic Eyes PERRL, EOMs intact bilaterally and conjunctivae normal General Eye ED: Yes normal appearance of both eyes Neck no lymphadenopathy and supple General: Negative for tenderness Chest Wall Chest: Negative for tenderness Resp normal respiratory effort and normal air movement Effort and Inspection: symmetric chest movement; Negative for respiratory distress Cardio regular rate, regular rhythm and no murmurs Peripheral Pulses: pulses 2+ throughout GI normal to inspection, nondistended, normoactive bowel sounds and non-tender Palpation: Negative for guarding or rebound tenderness present Back/Spine no CVA tenderness and no thoracic nor lumbar tenderness Extremity normal to inspection General Extremety ED: Negative for edema or tenderness General Extremity: Negative for edema Neuro CN's II-XII intact bilaterally and no sensory deficits noted Neuro Narrative: NIH of 2 initially stating it was January before October, also having dysphasia with trouble trying to get the words out which progressed over the last 3 months per son. Reported the year was 1982.Strength evaluation upper and lower extremities at the elbows and hands were normal and symmetric. Hip flexors plantar and dorsiflexors equal and symmetric 5 out of 5. Normal upper and lower cerebellar testing. Sensorium / Orientation: awake and alert Motor Exam: strength 5/5 throughout Skin no rashes or lesions noted and no wounds NIHSS NIHSS Initial: 1a Level of Consciousness: 0 1b LOC Questions (Score 2 if aphasic/stupor): 1 1c LOC Commands (Only score 1st attempt): 0 2 Best Gaze (If aphasic, use reflexive mvmts.): 0 3 Visual: 0 4 Facial Palsy: 0 5 Motor Arm Right (UN = amputation/fusion): 0 5 Motor Arm Left: 0 6 Motor Leg Right: 0 6 Motor Leg Left: 0 7 Limb ataxia (Only + if out of proportion): 0 8 Sensory (Aphasia/stupor=0 or 1, coma=2): 0 9 Best Language: 1 10 Dysarthria (mute, coma=2, intubated=UN): 0 11 Extinction and Inattention (only scored if +): 0 Total Score: 2 MDM MDM MDM Narrative Medical decision making narrative: Interventions / MDM: Differential diagnosis: CVA, infections, electrolyte abnormalities Diagnosis considered but do not suspect: N/A My EKG interpretation: Sinus rate of 94, no ST changes T wave inversions on the lateral leads. Imaging independently reviewed and interpreted by myself: CT brain no acute process, discussed with radiologist remote infarcts noted. Chest x-ray 1 no acute cyst. External documents reviewed: Records from September 2021 from previous stroke. Test considered but not ordered:N/A ED course: Patient currently NIH of 2 reporting off on the month initially and had dysphasia. These are new symptoms over worse over last 3 months with speech. Symptoms over 24 hours therefore not a tPA candidate. Bat B stroke was initiated CT head chronic findings. EKG sinus rhythm. INR 2.0. Concerns patient did have a stroke last year with weakness urine pain noting some bacteria, however she denies any is thumbs. Urine culture sent. Clinically stable I spoke with hospitalist Dr. Navarro for admission to PCU. Re-evaluation: stable Disposition discussed with patient/family/significant other: Patient and family Case discussed with consulting clinician: Hospitalist Lab Data Attestation: I reviewed the patient's lab results. Labs: Laboratory Results - last 24 hr 11/10/22 11/10/22 11/10/22 16:20 16:20 16:20 WBC 10.2 RBC 4.73 Hgb 12.3 Hct 40.1 MCV 84.8 MCH 26.0 L MCHC 30.7 L RDW Std Deviation 49.5 H RDW Coeff of Heriberto 15.9 H Plt Count 289 MPV 10.2 Immature Gran % (Auto) 0.300 Neut % (Auto) 73.4 H Lymph % (Auto) 16.0 L Alexander % (Auto) 7.1 Eos % (Auto) 2.7 Baso % (Auto) 0.5 Absolute Neuts (auto) 7.5 Absolute Lymphs (auto) 1.64 Nucleated RBC % 0 PT 22.5 H INR 2.0 APTT 32.0 Sodium 146 H Potassium 3.7 Chloride 112 H Carbon Dioxide 26.0 Anion Gap 8 BUN 16 Creatinine 1.03 H Estim Creat Clear Calc 39.20 Est GFR (MDRD) Af Amer 66 Est GFR (MDRD) Non-Af 55 L BUN/Creatinine Ratio 15.5 Glucose 131 H Hemoglobin A1c Calcium 9.6 Troponin I High Sens < 3 L Urine Color Urine Clarity Urine pH Ur Specific Hardin Urine Protein Urine Glucose (UA) Urine Ketones Urine Occult Blood Urine Nitrite Urine Bilirubin Urine Urobilinogen Ur Leukocyte Esterase Urine RBC Urine WBC Ur Squamous Epith Cells Urine Bacteria Urine Mucus 11/10/22 11/10/22 16:20 16:20 WBC RBC Hgb Hct MCV MCH MCHC RDW Std Deviation RDW Coeff of Heriberto Plt Count MPV Immature Gran % (Auto) Neut % (Auto) Lymph % (Auto) Alexander % (Auto) Eos % (Auto) Baso % (Auto) Absolute Neuts (auto) Absolute Lymphs (auto) Nucleated RBC % PT INR APTT Sodium Potassium Chloride Carbon Dioxide Anion Gap BUN Creatinine Estim Creat Clear Calc Est GFR (MDRD) Af Amer Est GFR (MDRD) Non-Af BUN/Creatinine Ratio Glucose Hemoglobin A1c 6.0 H Calcium Troponin I High Sens Urine Color Yellow Urine Clarity Clear Urine pH 7.0 Ur Specific Hardin 1.005 Urine Protein Negative Urine Glucose (UA) Normal Urine Ketones Negative Urine Occult Blood 10 H Urine Nitrite Negative Urine Bilirubin Negative Urine Urobilinogen Normal Ur Leukocyte Esterase 500 H Urine RBC 0 SEEN Urine WBC 5-10 SEEN Ur Squamous Epith Cells 0-5 SEEN Urine Bacteria 0 SEEN Urine Mucus 0 SEEN Radiography Diagnostic Testing: Clinical Impression(s) from Imaging Studies Brain CT 11/10/22 15:59 IMPRESSION: 1. No acute intracranial abnormality. 2. Stable underlying senescent change with small vessel ischemia. There are remote appearing infarcts in the left cerebellum and left parietal lobe. 3. Aspects score 10. Electronically Signed: J Lusi Lebron MD at 17:01 EST , ADDENDUM: 11/10/22 1710 IMPRESSION: 1. No acute intracranial abnormality. 2. Stable underlying senescent change with small vessel ischemia. There are remote appearing infarcts in the left cerebellum and left parietal lobe. 3. Aspects score 10. N.B. : The above Results were Read Back by J Luis Lebron MD to Anthony Galicia MD, and understanding confirmed on 11/10/2022 17:03:28 (ET). Electronically Signed: J Luis Lebron MD at 17:01 EST , Chest X-Ray 11/10/22 16:40 IMPRESSION: No radiographic evidence of acute cardiopulmonary disease. Electronically Signed: J Luis Lebron MD at 16:56 EST , Discharge Plan Dx/Rx/DC Orders Clinical Impression: Stroke-like symptoms, Dysphasia, Weakness Disposition Disposition: Acute Care Hospital [facility] Discharge Date/Time: 11/10/22 19:15
[2022-11-10 16:20] VITALS: O2SAT 95
[2022-11-10 16:35] LABS: Bacteria 0 SEEN /hpf (None Seen); Mucous, Urine 0 SEEN /hpf (<or=2+); Red Blood Cells-Urine 0 SEEN /hpf (0-5)
--- NOTE | 2022-11-10 16:40 | RAD_ITS ---
EXAM: XR CHEST, 1 VIEW CLINICAL INDICATION: Neuro deficit, acute, stroke suspected TECHNIQUE: Frontal view of the chest. This report was created using [employer] report generation technology. COMPARISON: 10/18/2021 FINDINGS: LUNGS AND PLEURAL SPACES: Unremarkable. No consolidation or edema. No pneumothorax. No effusion. HEART: Unremarkable. Cardiac silhouette not enlarged. MEDIASTINUM: Central airways and mediastinal contour are unremarkable. BONES/JOINTS: Unremarkable. SOFT TISSUES: Unremarkable. RAD/Chest 1 View IMPRESSION: No radiographic evidence of acute cardiopulmonary disease. Electronically Signed: J Luis Lebron MD at 16:56 EST ,
[2022-11-10 16:54] LABS: Absolute Lymphocyte Count 1.64 X10^3/uL (0.83-4.51); Absolute Neutrophil Count 7.5 X10^3/uL (2.0-7.7); Basophil# 0.05 X10^3/uL; Basophil% 0.5 % (0-1); Eosinophil# 0.28 X10^3/uL; Eosinophils% 2.7 % (0-5); Hematocrit 40.1 % (37-47); Hemoglobin 12.3 g/dL (12.0-15.0); Lymphocyte # 1.64 X10^3/ul (0.83-4.51); Mean Corp Hgb Conc 30.7 g/dL (32-36); Mean Corpuscular Volume 84.8 fL (81-99); Mean Platelet Vol. 10.2 fl (6.2-12.0); Monocyte# 0.73 X10^3/uL; Monocyte% 7.1 % (0-10); NRBC Flagged by Analyzer 0 % (0-5); Neutrophil # 7.49 X10^3/uL (2.7-7.7); Neutrophil % 73.4 % (47-70); Platelet Count 289 K/mm3 (150-450); RBC Distribution Width CV 15.9 % (11.6-14.6); RBC Distribution Width SD 49.5 fl (35.1-43.9); Red Blood Count 4.73 M/mm3 (4.2-5.4); White Blood Count 10.2 K/mm3 (4.4-11.0)
[2022-11-10 16:57] LABS: Color, Urine Yellow (Yellow); Glucose, Dipstick Normal (Normal); Ketone-Dipstick Negative (Negative); Leukocyte Esterase-Dipstick 500 /ul (Negative); Nitrite-Dipstick Negative (Negative); Occult Blood-Urine 10 /ul (Negative); Protein-Dipstick Negative (Negative); Specific Gravity, Urine 1.005 (1.002-1.030); Urine Bilirubin Dipstick Negative (Negative); Urine Clarity Clear (Clear); Urine Urobilinogen Normal (Normal)
[2022-11-10 17:09] LABS: Anion Gap 8 (5-15); BUN 16 mg/dL (7-18); BUN/Creat Ratio 15.5 RATIO (10-20); Calcium,Total 9.6 mg/dL (8.5-10.1); Chloride 112 mmol/L (98-107); Creatinine, Serum 1.03 mg/dL (0.55-1.02); EST Glomerular Filtration Rate 55 mL/min (>60); Est Glom Filt Rate - Afr Amer 66 mL/min (>60); Glucose 131 mg/dL (74-106); Potassium 3.7 mmol/L (3.5-5.1); Sodium Level 146 mmol/L (136-145); Troponin-I HS < 3 pg/mL (3.0-54.0)
[2022-11-10 17:14] LABS: Squamous Epithelial Cells - UA 0-5 SEEN /hpf (5-10); White Blood Cells 5-10 SEEN /hpf (0-5)
--- NOTE | 2022-11-10 17:53 | HP.PCM.HOS_ITS ---
HPI - General General Date of Admission: 11/10/22 Date of Service: 11/10/22 Chief Complaint: Generalized weakness, right-sided weakness, worsening/speech -1 day HPI Narrative AWA PALOMARES, is a 82 F who presents with the above. Patient has past medical history of CVA in the left posterior parietal, left insular cortex, left cerebellar infarct, bilateral carotid atherosclerosis, PAD with history of aortoiliac femoral bypass, hypothyroidism, GERD who comes in with generalized weakness, more on the right side and worsening slurred speech. Patient lives in an assisted living facility and had lunch today. After lunch, she realized that she was generally weak and went to her room. She noticed that her right side was weak and called for help. The facility nurse noted stable vitals but significant right-sided weakness. Patient's son was called and he got there, he noticed that her mom had worsening speech difficulty. He wanted to bring her to the hospital in his truck but she was significantly weak and had trouble climbing into his truck which was new for him. The EMS was called and patient was transported here. In the emergency room, patient did appear to have difficulty in saying the month of the year and have trouble getting words out. Patient recently had repeat carotid ultrasound done by Dr. Rizo and had plaques bilaterally was said to be less than 50% stenosed. Her symptoms appear to have resolved at the time of being seen. Patient stated that her speech impairment comes and goes. Vitals in the ED showed blood pressure 149/82, heart rate 92, respiratory 18, temperature 98.1 F, oxygen sat was 94% on room air. WBC 10.2, hemoglobin 12.3, platelets 289, INR 2.0, sodium 146, potassium 3.7, chloride 112, bicarbonate 26, BUN 16, creatinine 1.03. Brain CT showed no acute intracranial abnormality. Chest x-ray was also unremarkable for acute cardiopulmonary process. [facility] Medical History Acute stroke due to ischemia Bilateral carotid artery disease Chronic embolism and thrombosis of unspecified deep veins of right lower extremity COPD (chronic obstructive pulmonary disease) CVA (cerebral vascular accident) Exophthalmos Graves disease History of lung cancer Hyperlipemia Hypothyroid PAD (peripheral artery disease) Prediabetes ROTARY CUFF SURGERY Syncope UGIB (upper gastrointestinal bleed) Home Medications ibandronate 150 mg tablet 150 mg PO QMONTH BONES 09/29/19 [History Last Taken 11/01/22] pantoprazole 40 mg tablet,delayed release 40 mg PO DAILY gerd 09/29/19 [History Last Taken 11/09/22] cholecalciferol (vitamin D3) 50 mcg (2,000 unit) capsule (Vitamin D3) 50 mcg PO DAILY SUPPLEMENT 10/18/21 [History Last Taken 11/09/22] mirabegron 50 mg tablet,extended release 24 hr (Myrbetriq) 50 mg PO DAILY BLADDER 10/18/21 [History Last Taken 11/09/22] acetaminophen 500 mg tablet 1,000 mg PO Q6H PRN Pain 11/10/22 [History Last Taken Unknown] atorvastatin 80 mg tablet 80 mg PO QHS CHOLESTEROL 11/10/22 [History Last Taken 11/09/22] levothyroxine 100 mcg tablet 100 mcg PO DAILY THYROID 11/10/22 [History Last Taken 11/09/22] loperamide 2 mg tablet (Anti-Diarrheal (loperamide)) 2 mg PO DAILY PRN Loose Stool 11/10/22 [History Last Taken Unknown] paroxetine HCl 10 mg tablet 10 mg PO DAILY DEPRESSION 11/10/22 [History Last Taken 11/09/22] warfarin 5 mg tablet 5 mg PO DAILY BLOOD THINNER 11/10/22 [History Last Taken 11/09/22] Allergy/AdvReac Type Severity Reaction Status Date / Time No Known Allergies Allergy Verified 11/06/21 08:21 Family History Other No pertinent family history Surgical History H/O wvjgx-qjgzx-svxecew bypass History of appendectomy Social History Smoking Status: Former smoker Tobacco: How many years used: 60 how long ago did patient quit smokin second hand exposure: Yes ROS ROS Narrative Constitutional: Denies: Anorexia, Chills, Fever, Night Sweats, Weight Change Eyes: Denies: Blurred vision, Cataracts, Conjunctivae Inflammation, Pain, Redness, Vision Change HEENT: Denies: Difficulty Hearing, Difficulty Swallowing, Head Aches, Hearing Changes, Sinus Congestion, Sinus Drainage Cardiovascular: Denies: Chest Pain, Orthopnea, Palpitations Respiratory: Denies: Cough, Shortness of breath at rest, Sputum production Gastrointestinal: Denies: Abdominal Pain, Nausea, Vomiting Genitourinary: Denies: Dysuria Musculoskeletal: Denies: Joint Pain, Joint stiffness, Joint swelling, Joint Tenderness Skin: Denies: Rash, Wounds Neurological: See HPI Vital Signs Vital Signs Vital Signs: 11/10/22 15:44 11/10/22 15:44 11/10/22 16:20 Temperature 98.1 F Temperature Source Oral Pulse Rate 92 Respiratory Rate 18 Blood Pressure 149/82 H Blood Pressure Mean 104 Pulse Ox 94 95 Oxygen Delivery Method Room Air Room Air Room Air Weight Weight: 81.9 kg Body Mass Index (BMI) 30.0 Physical Exam Narrative Physical exam: General: Alert, Oriented x3, Cooperative, hard of hearing HEENT: Atraumatic, exophthalmos, thyroid eye disease Oral: Moist Mucosa Neck: Supple Lungs: Diminished to auscultation Cardiovascular: HS I+II, regular, no murmurs Abdomen: Bowel Sounds Present, Soft, Non Tender Extremities: No edema Skin: No rashes, No breakdown Neurological: Grossly intact Psych/Mental Status: Appropriate Results Lab / Micro Data Result Diagrams: 11/10/22 16:20 11/10/22 16:20 Labs: Laboratory Results - last 24 hr 11/10/22 16:20: WBC 10.2, RBC 4.73, Hgb 12.3, Hct 40.1, MCV 84.8, MCH 26.0 L, MCHC 30.7 L, RDW Std Deviation 49.5 H, RDW Coeff of Heriberto 15.9 H, Plt Count 289, MPV 10.2, Immature Gran % (Auto) 0.300, Neut % (Auto) 73.4 H, Lymph % (Auto) 16.0 L, Alger % (Auto) 7.1, Eos % (Auto) 2.7, Baso % (Auto) 0.5, Absolute Neuts (auto) 7.5, Absolute Lymphs (auto) 1.64, Nucleated RBC % 0 11/10/22 16:20: Sodium 146 H, Potassium 3.7, Chloride 112 H, Carbon Dioxide 26.0, Anion Gap 8, BUN 16, Creatinine 1.03 H, Estim Creat Clear Calc 39.20, Est GFR (MDRD) Af Amer 66, Est GFR (MDRD) Non-Af 55 L, BUN/Creatinine Ratio 15.5, Glucose 131 H, Calcium 9.6, Troponin I High Sens < 3 L 11/10/22 16:20: Urine Color Yellow, Urine Clarity Clear, Urine pH 7.0, Ur Specific Addison 1.005, Urine Protein Negative, Urine Glucose (UA) Normal, Urine Ketones Negative, Urine Occult Blood 10 H, Urine Nitrite Negative, Urine Bilirubin Negative, Urine Urobilinogen Normal, Ur Leukocyte Esterase 500 H, Urine RBC 0 SEEN, Urine WBC 5-10 SEEN, Ur Squamous Epith Cells 0-5 SEEN, Urine Bacteria 0 SEEN, Urine Mucus 0 SEEN Radiology Impression Brain CT 11/10/22 15:59 IMPRESSION: 1. No acute intracranial abnormality. 2. Stable underlying senescent change with small vessel ischemia. There are remote appearing infarcts in the left cerebellum and left parietal lobe. 3. Aspects score 10. Electronically Signed: J Luis Lebron MD at 17:01 EST , ADDENDUM: 11/10/22 1710 IMPRESSION: 1. No acute intracranial abnormality. 2. Stable underlying senescent change with small vessel ischemia. There are remote appearing infarcts in the left cerebellum and left parietal lobe. 3. Aspects score 10. N.B. : The above Results were Read Back by J Luis Lebron MD to Anthony Galicia MD, and understanding confirmed on 11/10/2022 17:03:28 (ET). Electronically Signed: J Luis Lebron MD at 17:01 EST , Chest X-Ray 11/10/22 16:40 IMPRESSION: No radiographic evidence of acute cardiopulmonary disease. Electronically Signed: J Luis Lebron MD at 16:56 EST , Assessment & Plan Assessment/Plan (1) TIA (transient ischemic attack): PLAN: Plan 1. Acute onset of right-sided weakness in a patient with history of embolic strokes, PAD Likely secondary to TIA; symptoms appear to have resolved at time of being seen Admitting NIHSS score was 2, not a TPA candidate Admit to PCU, monitor on telemetry, MRI of the brain, Recent carotid ultrasound showed less than 50% plaque bilaterally Lipid profile in am, HbA1c PT/OT/ST to evaluate and treat Continue on statin, add aspirin 81 mg p.o. daily 2. PAD status post oftvz-[id number]-fxdzwqf bypass/CAD/history of DVT on Coumadin/hyperlipidemia INR was 2.0, Continue on Coumadin,statin, Trend INR 3. Hypothyroidism, continue on synthroid 4. Depression, on Paxil 5. DVT prophylaxis?INR is therapeutic at 2.0 I discussed and explained in details the various types of CODE STATUS-full code, DNR CCA, DNR CC. Patient chose to be full code and wants aggressive care in the event of a cardiopulmonary arrest. Time spent discussing CODE STATUS 16 minutes Charges/Coding Addendum Addendum: Total time spent: 75 minutes of which more > 50% was spent in reviewing patient's chart, laboratory investigations, imaging, discussing with emergency physician, taking history and physical examining patient and going over plan of care with patient and son at the bedside. Visit Charges Inpatient E&M: 18101 Init Hosp L3 Procedures Hospitalists Procedures: 94459 Advncd Care Plan 30 Min
[2022-11-10 18:06] VITALS: BP 180/75; PULSE 84; RESP 18; TEMP 36.7; O2SAT 94
--- NOTE | 2022-11-10 18:11 | NURSING ---
PCU OBS NUAMAH WEAKNESS, DYSARTHRIA
[2022-11-10 19:06] LABS: Prothrombin Time (Protime)PT. 22.5 SECONDS (11.7-14.9)
[2022-11-10 19:13] VITALS: BP 147/71; PULSE 79; RESP 14; O2SAT 94
[2022-11-10 19:50] VITALS: BMI 29.3
--- NOTE | 2022-11-10 19:56 | ECHOD_ITS ---
Reason For Study: TIA/CVA Procedure This was a 2D Doppler, Color Flow transthoracic echocardiogram. Exam performed portable in patient room. Left Ventricle Normal LV size. Left ventricular systolic function is normal. Mild segmental systolic dysfunction (see wall motion). The estimated ejection fraction is 55 %. Stage 1 diastolic dysfunction. Posterior-Basal: Hypokinetic. Infero-Basal: Hypokinetic. Mid-Lateral : Hypokinetic. Right Ventricle Normal RV size. Normal systolic function. Atria Normal left atrium. Normal right atrium. Mitral Valve Normal mitral valve. Tricuspid Valve Normal tricuspid valve. Aortic Valve Trisinus/trileaflet aortic valve. Mild focal aortic valve calcification. Pulmonic Valve Normal pulmonic valve. Great Vessels Normal aortic root. The pulmonary artery is normal size. Normal inferior vena cava. Pericardium/Pleural No pericardial effusion. MMode/2D Measurements & Calculations LVIDd: 5.2 cm IVSd: 1.1 cm Ao root diam: 3.1 cm LVIDs: 3.8 cm LVPWd: 1.0 cm RVDd: 3.0 cm FS: 25.9 % LAV(MOD-bp): 34.0 ml LVAd ap4: 24.3 cm2 SV(MOD-sp4): 36.6 ml LAV(MOD-bp) Indexed: 18.6 ml/m2 LVLd ap4: 7.0 cm LAV(MOD-sp2): 33.6 ml EDV(MOD-sp4): 68.8 ml LAV(MOD-sp4): 31.4 ml EDV(sp4-el): 71.5 ml LVAs ap4: 15.3 cm2 LVLs ap4: 6.2 cm ESV(MOD-sp4): 32.3 ml ESV(sp4-el): 32.0 ml EF(MOD-sp4): 53.1 % EF(sp4-el): 55.2 % SV(sp4-el): 39.5 ml LA A4 area: 14.7 cm2 LA dimension(2D): 3.1 cm RA A4 area: 13.3 cm2 Time Measurements MV dec time: 0.28 sec Doppler Measurements & Calculations MV E max james: 50.7 cm/sec Lat Peak E' James: 6.7 cm/sec Med Peak E' James: 4.2 cm/sec MV A max james: 100.4 cm/sec E/E' lat: 7.6 E/E' med: 12.0 MV E/A: 0.50 Ao V2 max: 111.6 cm/sec LV V1 max: 71.8 cm/sec PA V2 max: 73.3 cm/sec Ao max P.0 mmHg LV V1 max P.1 mmHg ECHO/Echo Complete Interpretation Summary Normal LV size. Left ventricular systolic function is normal. Mild segmental systolic dysfunction (see wall motion). The estimated ejection fraction is 55 %. Stage 1 diastolic dysfunction. Ordering Physician: Nidia Navarro Referring Physician: VIRGINIA MCDONNELL Performed By: Carole Solorzano RDCS
[2022-11-10 20:05] VITALS: BP 188/75; PULSE 78; RESP 18; TEMP 36.6; O2SAT 96
[2022-11-10 20:12] VITALS: O2SAT 94
[2022-11-10] MEDS: Atorvastatin Calcium 80 MG Tablet PO (22:29)
[2022-11-10] MEDS: Aspirin 81 MG TAB.CHEW PO (22:30)
[2022-11-11] VITALS (9 sets, daily range): BP systolic 120–153; BP diastolic 67–84; PULSE 72–81; RESP 14–18; TEMP 36.5–37.2; O2SAT 93–99; BMI 29.3
[2022-11-11] MEDS: Levothyroxine 100 MCG Tablet PO (05:30)
[2022-11-11 05:36] LABS: Absolute Lymphocyte Count 2.01 X10^3/uL (0.83-4.51); Absolute Neutrophil Count 4.7 X10^3/uL (2.0-7.7); Basophil# 0.06 X10^3/uL; Basophil% 0.8 % (0-1); Eosinophil# 0.28 X10^3/uL; Eosinophils% 3.6 % (0-5); Hematocrit 35.5 % (37-47); Lymphocyte # 2.01 X10^3/ul (0.83-4.51); Lymphocyte % 25.6 % (19-41); Mean Corpuscular Hgb 26.3 pg (27.0-32.0); Mean Corpuscular Volume 84.7 fL (81-99); Mean Platelet Vol. 9.7 fl (6.2-12.0); Monocyte# 0.73 X10^3/uL; Monocyte% 9.3 % (0-10); NRBC Flagged by Analyzer 0 % (0-5); Neutrophil # 4.74 X10^3/uL (2.7-7.7); Neutrophil % 60.3 % (47-70); Platelet Count 240 K/mm3 (150-450); RBC Distribution Width SD 49.8 fl (35.1-43.9); Red Blood Count 4.19 M/mm3 (4.2-5.4); White Blood Count 7.9 K/mm3 (4.4-11.0)
[2022-11-11 06:12] LABS: ALB/GLOB Ratio 0.8 RATIO (0.9-2.4); AST(SGOT) 10 U/L (15-37); Alanine Aminotransfer ALT/SGPT 13 U/L (13-56); Albumin, Serum 2.7 g/dL (3.2-5.0); Alkaline Phosphatase 50 U/L (45-117); Anion Gap 6 (5-15); BUN 16 mg/dL (7-18); BUN/Creat Ratio 18.4 RATIO (10-20); Calcium,Total 8.7 mg/dL (8.5-10.1); Chloride 111 mmol/L (98-107); Cholesterol 154 mg/dL (200); Creatinine, Serum 0.87 mg/dL (0.55-1.02); EST Glomerular Filtration Rate 67 mL/min (>60); Est Glom Filt Rate - Afr Amer 81 mL/min (>60); Estimated Creatinine Clearance 44.54 ml/min; Globulin 3.4 g/dL (2.2-4.2); Glucose 118 mg/dL (74-106); High Density Lipoprotein 61 mg/dL; Potassium 3.5 mmol/L (3.5-5.1); Protein, Total 6.1 g/dL (6.4-8.2); Sodium Level 144 mmol/L (136-145); Triglycerides 130 mg/dL; Very Low Density Lipoprotein 26 mg/dL (5-40)
[2022-11-11 06:42] LABS: International Normalized Ratio 2.1; Prothrombin Time (Protime)PT. 23.4 SECONDS (11.7-14.9)
[2022-11-11] MEDS: Cholecalciferol (VIT D3) 25 MCG TABLET (1,000 UNITS) 50 MCG PO (08:41)
[2022-11-11] MEDS: Aspirin 81 MG TAB.CHEW PO (08:41)
[2022-11-11] MEDS: PARoxetine 10 MG Tablet PO (08:41)
[2022-11-11] MEDS: Pantoprazole Sodium 40 MG Tablet PO (08:41)
--- NOTE | 2022-11-11 09:00 | MRI_ITS ---
STUDY: MRI BRAIN WITHOUT CONTRAST REASON FOR EXAM: Female, 82 years old. NEURO DEFICIT, ACUTE STROKE SUSPECTED TECHNIQUE: Standardized multiplanar fat and water weighted pulse sequences were obtained. COMPARISON: MRI of the brain dated October 20, 2021. Head CT dated October 24, 2021 FINDINGS: The patient has developed new small acute infarcts in the mid to posterior and medial aspect of the left temporal lobe and in the medial and posterior aspect of the left occipital lobe. These infarcts are consistent with a left RUBBER STAMPS AND DIES SUPERVISOR territorial process. The previously seen acute infarcts of the left parietal and cerebellar lobes have resolved since the previous study of October 20, 2021. There is mild cerebral atrophy with widening of the extra-axial spaces and ventricular dilatation. There are multiple white matter hyperintensities, distributed throughout the deep white matter tracts of the cerebral hemispheres, consistent with moderate chronic white matter ischemic changes. There is no evidence for recent intracranial ischemia or other cause of cytotoxic edema on diffusion weighted imaging (DWI). Parenchymal loss and gliotic signal of the left parietal lobe is consistent with an old infarct. Normal bilateral basal ganglia. Normal thalami. There is no extra-axial fluid accumulation. Normal flow voids within the major intracranial circulation suggesting patency by spin echo criteria. Normal sella turcica, pituitary gland, infundibular stalk, optic chiasm and hypothalamus. Normal tectal plate and pineal gland. Normal midbrain, kyle and medulla. Normal cerebellum. Normal basal cisterns. Normal bilateral temporal bones. Normal bilateral internal auditory canals. No demonstrated orbital abnormality, within the constraints of a routine brain study. Normal visualized paranasal sinuses. Normal calvarium and skull base. Normal visualized soft tissue structures. Normal visualized upper cervical spine. MRI/Brain without Contrast IMPRESSION: Multiple small acute infarcts of the left temporal and occipital lobes. 1. The patient has developed new small acute infarcts in the mid to posterior and medial aspect of the left temporal lobe and in the medial and posterior aspect of the left occipital lobe. These infarcts are consistent with a left RUBBER STAMPS AND DIES SUPERVISOR territorial process. 2. The previously seen acute infarcts of the left parietal and cerebellar lobes have resolved since the previous study of October 20, 2021. N.B. : The above Results were Read Back by Wayne Biggs MD to Erika Basilio RN, and understanding confirmed on 11/11/2022 10:41:23 (ET). Electronically Signed: Wayne Biggs MD at 10:38 EST ,
--- NOTE | 2022-11-11 11:43 | CASEMGMT ---
Patient has a Healthcare Power of Blocker And Polisher on file at [facility]. Patient's son Juancho is her Healthcare Power of Blocker And Polisher. Patient does not have a Healthcare Living Will. Marissa REDDY
--- NOTE | 2022-11-11 13:59 | CASEMGMT ---
Physician said he spoke with patient and her son. The plan was for patient to go from [facility] and go to [facility] the first of November. Patient is now requiring skilled level of care before she can go to [place]. BALAJI met with patient and her son, Juancho. Introduced self and role at [facility]. Juancho confirmed that was the plan. BALAJI explained to Juancho that patient can go to [facility] and get her skilled care in their retirement and then transition to [facility] or she can get her skilled care at [facility] and then go to [facility]. Juancho was worried about patient losing her assisted living room at [facility]. BALAJI let him know SW can check with Joe at [facility] on this. Juancho then said he would like patient to go to [facility] for skilled. BALAJI sent referral to [facility] via [facility]. BALAJI called Joe at [facility]. He said he spoke with patient's son Juancho and he told him that unless patient will be in the retirement for 30 days there should be no problem holding patient's AL room. Joe said he also told Juancho that patient could get her skilled care there at [facility]. BALAJI then called Juancho and made sure he was aware of [facility] holding patient's room. BALAJI then wanted to confirm he would like skilled at [facility]. Juancho then said it would probably make more sense to do skilled at [facility]. BALAJI then sent referral to [facility] via [facility]. Juancho then called BALAJI back and asked if this could be put on hold for the moment. He needs to check with his sister to see what she feels would be best. Juancho said he would like SW know in the morning. BALAJI then notified both [facility] and [facility] to go ahead and review referral, but hold off on starting pre-cert. Marissa Ag [employer]ICER
--- NOTE | 2022-11-11 14:54 | CT_ITS ---
We are attempting to reach an attending provider to discuss findings. An addendum with communication details will be sent when the communication is complete. STUDY: CTA HEAD AND NECK WITH CONTRAST REASON FOR EXAM: Female, 82 years old. left sided stroke RADIATION DOSAGE (If Supplied By Facility): CTDIvol = ( 21.40 ) mGy, DLP = ( 681.83 ) mGycm TECHNIQUE: CT angiography was performed with a multi-detector CT scanner. Data acquisition was obtained from the skull base through the vertex following intravenous administration of IV 100mL Isovue-370. MIP images were reconstructed from the axial data set. Post-processing of the angiographic images was performed, with multiplanar reformation and 3D reconstruction. Individualized dose optimization techniques were used for this CT. COMPARISON: No relevant priors. FINDINGS: Normal bilateral petrous carotid arteries. Normal right cavernous carotid artery with a normal supraclinoid bifurcation. Normal left cavernous carotid artery with a normal supraclinoid bifurcation. Normal right A1 segments of the anterior cerebral artery. Normal left A1 segments of the anterior cerebral artery. Anterior communicating artery not visualized consistent variant. Normal bilateral A2 segments of the anterior cerebral arteries. Normal right M1 and M2 segments of the middle cerebral arteries, with a normal M1 bifurcation. Normal left M1 and M2 segments of the middle cerebral arteries, with a normal M1 bifurcation. Normal bilateral posterior communicating arteries. Right vertebral dominant and normal caliber. Left vertebral is hypoplastic. Normal basilar artery with a normal basilar bifurcation. The visualized bilateral superior cerebellar (SCA) arteries are normal. There is focal segmental narrowing of the posterior cerebral arteries bilaterally. There is no demonstrated aneurysm of the re[place] of [place].. AORTIC ARCH: Normal visualized aortic arch. Normal origins of the brachiocephalic, left common carotid, and left subclavian arteries. RIGHT CAROTID ARTERIES: Minor multifocal calcific plaquing of the right common carotid artery (CCA). Minor calcific plaquing of the right common carotid bulb. Minor calcific plaquing of the origin of the right internal carotid (ICA) artery without a hemodynamically significant stenosis. Normal visualized cervical portion of the right internal carotid artery. Normal origin of the right external carotid artery (ECA). LEFT CAROTID ARTERIES: Minor multifocal calcific plaquing of the left common carotid artery (CCA). Moderate calcific plaquing of the left common carotid bulb. Moderate calcific plaquing of the origin of the left internal carotid (ICA) artery without a hemodynamically significant stenosis. Normal visualized cervical portion of the left internal carotid artery. Normal origin of the left external carotid artery (ECA). VERTEBRAL ARTERIES: Normal right vertebral. Hypoplastic left vertebral which may be normal variant. CT/CTA Head AND Neck W/ Contrast IMPRESSION: Atherosclerotic changes within the brain with most severe involvement of the bilateral posterior cerebral arteries Mild atherosclerotic disease in the right common and internal carotid with moderate disease on the left. No evidence for hemodynamically significant stenosis utilizing NASCET criteria Electronically Signed: Ryan Kilpatrick MD at 16:28 EST ,
--- NOTE | 2022-11-11 15:28 | CASEMGMT ---
BALAJI received a call from patient's son Juancho. Juancho said the physician mentioned Inpatient Rehab at the hospital. Juancho asked if this was an option. BALAJI let him know SW could check to see if they feels she is appropriate. BALAJI let Juancho know patient would do 3 hours of therapy, but it would be broken up throughout the day. Juancho said that would be their first choice. BALAJI then explained if Rehab cannot take her then long-term would be the next step. Juancho asked if BALAJI recommends facilities and BALAJI told him no. BALAJI did explain the list we provide has Medicare star ratings for each of the facilities. He said that would be appreciated. Juancho is going to talk with his sister and get back to BALAJI tomorrow. BALAJI called Arlette on referral line and left her a voicemail with referral. Marissa REDDY
--- NOTE | 2022-11-11 18:40 | PN.HOSP_ITS ---
Reason for Visit Reason for Visit: Diagnoses Transient cerebral ischemic attack, unspecified (11/11/22) Subjective Subjective Patient was seen and examined today, she continues to have expressive aphasia, I talked to her son who is in the room at the time my examination today, MRI revealed that she had 2 small strokes in the parietal and occipital areas. CTA of the head and neck was carried out today and did not reveal any critical occlusive disease. Patient was seen by PT and OT, the plan is for the patient to possibly go to the rehab unit for inpatient rehab services. For now, I feel it is best to keep the patient on a baby aspirin along with her Coumadin. It is unclear whether of these 2 small strokes were embolic in nature or vaso- occlusive in nature. Objective Data Objective Data Vital Signs: Vital Signs Temp Pulse Resp BP Pulse Ox O2 Del Method 98.2 F 74 16 145/68 H 97 Room Air 11/11/22 18:12 11/11/22 18:12 11/11/22 18:12 11/11/22 18:12 11/11/22 18:12 11/11/22 18:12 Oxygen Delivery Method Room Air Weight: 77.8 kg Body Mass Index (BMI) 29.3 Intake & Output: Intake and Output for Last 24 Hours 11/09/22 11/10/22 11/11/22 23:59 23:59 23:59 Intake Total 840 / 840 Balance 840 / 840 Lab / Micro Data Result Diagrams: 11/11/22 05:24 11/11/22 05:24 Labs: Laboratory Results - last 24 hr 11/10/22 16:20: PT 22.5 H, INR 2.0, APTT 32.0 11/10/22 16:20: Hemoglobin A1c 6.0 H 11/11/22 05:24: WBC 7.9, RBC 4.19 L, Hgb 11.0 L, Hct 35.5 L, MCV 84.7, MCH 26.3 L, MCHC 31.0 L, RDW Std Deviation 49.8 H, RDW Coeff of Heriberto 16.0 H, Plt Count 240, MPV 9.7, Immature Gran % (Auto) 0.400, Neut % (Auto) 60.3, Lymph % (Auto) 25.6, Villalba % (Auto) 9.3, Eos % (Auto) 3.6, Baso % (Auto) 0.8, Absolute Neuts (auto) 4.7, Absolute Lymphs (auto) 2.01, Nucleated RBC % 0 11/11/22 05:24: Sodium 144, Potassium 3.5, Chloride 111 H, Carbon Dioxide 27.0, Anion Gap 6, BUN 16, Creatinine 0.87, Estim Creat Clear Calc 44.54, Est GFR (MDRD) Af Amer 81, Est GFR (MDRD) Non-Af 67, BUN/Creatinine Ratio 18.4, Glucose 118 H, Calcium 8.7, Total Bilirubin 0.50, AST 10 L, ALT 13, Alkaline Phosphatase 50, Total Protein 6.1 L, Albumin 2.7 L, Globulin 3.4, Albumin/Globulin Ratio 0.8 L, Triglycerides 130, Cholesterol 154, LDL Cholesterol 67, VLDL Cholesterol 26, HDL Cholesterol 61 11/11/22 05:24: PT 23.4 H, INR 2.1 Micro: Microbiology 11/10/22 16:20 Urine, Clean Catch Urine Culture - Preliminary Presumptive E. coli Radiography Diagnostic Testing: Radiology Impression Echocardiogram 11/10/22 19:56 Interpretation Summary Normal LV size. Left ventricular systolic function is normal. Mild segmental systolic dysfunction (see wall motion). The estimated ejection fraction is 55 %. Stage 1 diastolic dysfunction. Ordering Physician: Nidia Navarro Referring Physician: VIRGINIA MCDONNELL Performed By: Carole Solorzano RDCS Brain MRI 11/11/22 09:00 IMPRESSION: Multiple small acute infarcts of the left temporal and occipital lobes. 1. The patient has developed new small acute infarcts in the mid to posterior and medial aspect of the left temporal lobe and in the medial and posterior aspect of the left occipital lobe. These infarcts are consistent with a left OPTIMIZATION ANALYST territorial process. 2. The previously seen acute infarcts of the left parietal and cerebellar lobes have resolved since the previous study of October 20, 2021. N.B. : The above Results were Read Back by Wayne Biggs MD to Erika Basilio RN, and understanding confirmed on 11/11/2022 10:41:23 (ET). Electronically Signed: Wayne Biggs MD at 10:38 EST , Head/Neck CTA 11/11/22 14:54 IMPRESSION: Atherosclerotic changes within the brain with most severe involvement of the bilateral posterior cerebral arteries Mild atherosclerotic disease in the right common and internal carotid with moderate disease on the left. No evidence for hemodynamically significant stenosis utilizing NASCET criteria Electronically Signed: Ryan Kilpatrick MD at 16:28 EST , ADDENDUM: 11/11/22 1641 IMPRESSION: Atherosclerotic changes within the brain with most severe involvement of the bilateral posterior cerebral arteries Mild atherosclerotic disease in the right common and internal carotid with moderate disease on the left. No evidence for hemodynamically significant stenosis utilizing NASCET criteria N.B. : The above Results were Read Back by Ryan Kilpatrick MD to Anival Montoya RN, and understanding confirmed on 11/11/2022 16:34:28 (ET). Electronically Signed: Ryan Kilpatrick MD at 16:28 EST , Physical Exam Narrative Patient has severe hearing loss Const alert Constitutional Narrative: Patient has difficulty communicating due to her expressive aphasia and her hearing loss General Appearance: cooperative, well kempt and well developed Orientation / Consciousness: awake HEENT normocephalic and moist oral mucous membranes Head and Scalp: normocephalic Eyes PERRL, EOMs intact bilaterally and conjunctivae normal Neck supple, no JVD and thyroid normal General: trachea midline Resp normal respiratory effort, no retractions, no use of accessory muscles and clear to auscultation bilaterally Auscultation: Negative for rales, rhonchi or wheezes Cardio regular rate, regular rhythm, S1 normal heart sound, S2 normal heart sound, no murmurs, no rub and no gallops GI normal to inspection, nondistended, normoactive bowel sounds, soft to palpation, non-tender and non-distended Extremity no clubbing, cyanosis or edema Skin no rashes or lesions noted General Skin Exam: no breakdown Neuro CN's II-XII intact bilaterally and no sensory deficits noted Neuro Narrative: Patient has expressive aphasia and severe hearing loss Sensorium / Orientation: awake and alert Psych Psych Narrative: Patient is alert, she does not appear agitated, she is difficult to communicate with due to severe hearing loss and expressive aphasia Assessment & Plan Assessment/Plan (1) CVA (cerebral vascular accident): PLAN: Plan 1. 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
[2022-11-11] MEDS: Atorvastatin Calcium 80 MG Tablet PO (20:46)
[2022-11-12] VITALS (13 sets, daily range): BP systolic 126–222; BP diastolic 54–177; PULSE 68–105; RESP 14–16; TEMP 36.3–37.2; O2SAT 93–97; BMI 29.3
[2022-11-12] MEDS: Acetaminophen 500 MG Tablet 1000 MG PO (00:14)
[2022-11-12] MEDS: Levothyroxine 100 MCG Tablet PO (06:07)
[2022-11-12 08:13] LABS: International Normalized Ratio 2.4; Prothrombin Time (Protime)PT. 26.1 SECONDS (11.7-14.9)
[2022-11-12] MEDS: Pantoprazole Sodium 40 MG Tablet PO (09:58)
[2022-11-12] MEDS: PARoxetine 10 MG Tablet PO (09:58)
[2022-11-12] MEDS: Cholecalciferol (VIT D3) 25 MCG TABLET (1,000 UNITS) 50 MCG PO (09:58)
[2022-11-12] MEDS: Aspirin 81 MG TAB.CHEW PO (09:59)
--- NOTE | 2022-11-12 11:30 | CASEMGMT ---
Addendum entered by Marissa Ag 11/12/22 11:54: BALAJI received a return call from Juancho and he said Inpatient Rehab at [facility] would be great for patient. BALAJI notified Srikanth Pugh via voice mail and Isabella, [facility] via [facility], and Joe at [facility] via phone. Plan: Acute Inpatient Rehab Unit pending pre-cert. Marissa REDDY Original Note: Inpatient Rehab has accepted patient. Pre-cert will be started. BALAJI called patient's son, Juancho and left him a voice mail letting him know this information. BALAJI asked for a return call to confirm this plan is okay so SW can notify Srikanth Pugh and [facility]. Marissa REDDY
--- NOTE | 2022-11-12 16:09 | CT_ITS ---
EXAM: CT HEAD WITHOUT INTRAVENOUS CONTRAST CLINICAL INDICATION: mental status change, stroke TECHNIQUE: Multiple axial images were obtained of the head without intravenous contrast. This CT exam was performed using one or more of the following dose reduction techniques: automated exposure control, adjustment of the mA and/or kV according to patient size, and/or use of iterative reconstruction technique. This report was created using [employer] report generation technology. COMPARISON: CT Head dated 11/10/2022 FINDINGS: BRAIN AND EXTRA-AXIAL SPACES: Interval loss of the normal castro-white matter density differentiation within the left occipital and possibly left temporal lobes suggestive of acute ischemic change. Old left basal ganglion lacunar infarct again noted as well as chronic left parietal cortical infarct. Chronic small left cerebellar cortical infarct again noted Areas of diminished white matter density noted within both cerebral hemispheres suggestive of chronic microvascular change. Prominence of the cortical sulci and ventricles related to volume loss change. No intra- or extra-axial hemorrhage. No intracranial mass or mass effect. Basal cisterns are patent. BONES/JOINTS: No suspicious lytic or blastic abnormality. SINUSES: Secretions again noted within the paranasal sinuses. MASTOID AIR CELLS: Normal. Clear. ORBITS: Visualized globes, extraocular muscles, optic nerves and retrobulbar fat appear unremarkable. CT/Brain/Head without Contrast IMPRESSION: 1. Acute/subacute left occipital and possible left temporal lobe cortical infarcts. 2. Chronic microvascular changes. Electronically Signed: He Mae MD at 16:42 EST ,
--- NOTE | 2022-11-12 18:55 | PN.HOSP_ITS ---
Reason for Visit Reason for Visit: Diagnoses Transient cerebral ischemic attack, unspecified (11/11/22) Cerebral infarction, unspecified (11/11/22) Subjective Subjective Patient was seen and examined today, we are currently awaiting pre-CERT for the patient to go to the rehab unit at [facility]. Patient is less alert today than yesterday, she does not answer any questions to this examiner, I decided to repeat the patient's head CT to rule out any evidence of an acute bleed-there is no evidence of acute bleed, her 2 stroke areas did show up on CT today. Patient will be continued to be monitored Objective Data Objective Data Vital Signs: Vital Signs Temp Pulse Resp BP Pulse Ox O2 Del Method 97.4 F L 93 16 177/90 H 94 Room Air 11/12/22 16:01 11/12/22 16:01 11/12/22 16:01 11/12/22 16:01 11/12/22 16:01 11/12/22 16:01 Oxygen Delivery Method Room Air Weight: 78.7 kg Body Mass Index (BMI) 29.3 Intake & Output: Intake and Output for Last 24 Hours 11/10/22 11/11/22 11/12/22 23:59 23:59 23:59 Intake Total 840 / 1240 720 / 720 Balance 840 / 1240 720 / 720 Lab / Micro Data Result Diagrams: 11/11/22 05:24 11/11/22 05:24 Labs: Laboratory Results - last 24 hr 11/12/22 06:07: PT 26.1 H, INR 2.4 Micro: Microbiology 11/10/22 16:20 Urine, Clean Catch Urine Culture - Final Presumptive E. coli Radiography Diagnostic Testing: Radiology Impression Brain CT 11/12/22 16:09 IMPRESSION: 1. Acute/subacute left occipital and possible left temporal lobe cortical infarcts. 2. Chronic microvascular changes. Electronically Signed: He Mae MD at 16:42 EST , Physical Exam Const Constitutional Narrative: Patient is somnolent, she is nonverbal to verbal stimuli. Patient does respond to painful stimuli HEENT normocephalic, head/scalp atraumatic and moist oral mucous membranes Eyes PERRL, EOMs intact bilaterally and conjunctivae normal Neck supple, no JVD and thyroid normal General: trachea midline Resp normal respiratory effort, no retractions, no use of accessory muscles and clear to auscultation bilaterally Auscultation: Negative for rales, rhonchi or wheezes Cardio regular rate, regular rhythm, S1 normal heart sound, S2 normal heart sound, no murmurs, no rub and no gallops GI normal to inspection, nondistended, normoactive bowel sounds, soft to palpation, non-tender and non-distended Extremity no clubbing, cyanosis or edema Skin no rashes or lesions noted General Skin Exam: no breakdown Neuro CN's II-XII intact bilaterally Neuro Narrative: Patient is nonverbal, she responds to painful stimuli Psych Psych Narrative: Patient is nonverbal, she responds to painful stimuli Assessment & Plan Assessment/Plan (1) CVA (cerebral vascular accident): PLAN: Plan Plan 1.? Acute CVA-in the left temporal lobe and in the medial and posterior aspect of the left occipital lobe-secondary to left MANAGER MARKETING COMMUNICATION territorial occlusion-continue baby aspirin, statin, and her warfarin for now, patient's INR remains therapeutic, PT and OT will continue to see the patient as well as speech therapy. 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
--- NOTE | 2022-11-12 19:20 | NURSING ---
Pt is alert at this time. Sat patient upright 90 degrees to have take a drink of water. Pt did not cough with the first sip but coughed with the second. Made pt NPO pending speech reevaluation in am.
--- NOTE | 2022-11-12 19:33 | NURSING ---
Messaged Dr Cardoso regarding concerns about patients right sided increased weakness notably different than previous day. Awaiting response
--- NOTE | 2022-11-12 19:35 | NURSING ---
Dr Cardoso returned call states she will meet me in the room to assess the patient.
--- NOTE | 2022-11-12 19:40 | NURSING ---
Blood sugar obtained result 117. Dr Cardoso is at bedside assessing patient and discussing family concerns. Order for SOC consult placed.
[2022-11-12] MEDS: hydrALAZINE 20 MG/ML Vial 5 MG IV (19:50)
--- NOTE | 2022-11-12 20:00 | PN.HOSP_ITS ---
Hospitalist Note Received message regarding change in neurological status. Arrived at bedside and teleneurology consult ordered stat. She was evaluated and taken for CTA. Spoke with neurologist who reported M1 occlusion and recommended transfer for possible intervention and further management. Called [facility] and patient was accepted for transfer. Unfortunately was notified that helicopter is unable to fly due to weather and ground transport was not available until after 4:30 in the morning which given acute occlusion was not optimal. Explored multiple avenues, attempted to contact [facility] and left message with no return call, eventually contacted [facility] and patient was accepted there in the ICU in hopes that possible earlier transport would be available. Spoke with family multiple times throughout the evening and answered questions to the best of my ability. Patient had not been transferred to the ICU as it was not anticipated that they would be able to delay in transport, she was vitally stable and maintaining her airway as well, continue to work on transport and ultimately was picked up for transport at 3:30 AM and sent to [facility].
--- NOTE | 2022-11-12 20:14 | NURSING ---
SOC consult suggested CTA perfusion study. Dr Cardoso is aware. CT department states Perfusion Study not available here. Informed physician states to do the cta that is available instead for now.
--- NOTE | 2022-11-12 20:14 | CT_ITS ---
INDICATION: worsening rt side weakness EXAMINATION: CTA HEAD - CTA Head and Neck W/ Contrast Injection (and W/O Contrast Images if performed) TECHNIQUE: [place]/head CT angiogram protocol was performed following IV contrast. 3D reconstructions were reviewed. A radiation dose optimization technique was used for this scan. Additional CTA examination of the cervical vasculature obtained with standard protocol including axial postcontrast imaging and three-dimensional planar reconstructions. IV Contrast dosage and agent: 100 mL Isovue-370 Radiation Dose (provided by facility) CTDIvol (27.0 ) mGy, DLP ( 1539.49) mGy-cm COMPARISON: None. FINDINGS: CTA [place]: PETROUS AND CAVERNOUS CAROTID ARTERIES: Moderate calcifications involving the cavernous carotid vessels without stenosis or occlusion. SUPRACLINOID CAROTID ARTERIES: Normal appearance the supraclinoid carotid vessels bilaterally, the visualized ophthalmic arteries have normal appearance. ANTERIOR CEREBRAL AND A- COMM: Normal appearance the proximal and distal segments of the anterior cerebral circulation bilaterally. MIDDLE CEREBRAL ARTERIES: RIGHT MCA: There is normal contrast opacification of patency of the M1 through distal cortical branches of the RIGHT MCA without stenosis or occlusion. LEFT MCA: There is normal patency the proximal LEFT M1, however there is a mid to distal LEFT M1 occlusion. There is collateral reconstitution of M2 and M3 branches. INTRACRANIAL VERTEBRAL ARTERIES AND BASILAR ARTERY: Normal appearance of the intracranial course of the vertebral arteries bilaterally, normal appearance of basilar artery to the level of the bifurcation. There is a dominant RIGHT vertebral artery. POSTERIOR CEREBRAL ARTERIES: Normal appearance proximal distal segments of posterior cerebral circulation bilaterally. There is origin the LEFT posterior cerebral artery. DURAL SINUSES: Normal, no filling defects noted CT HEAD: The cerebral parenchyma, ventricular system and gyral pattern have figuration however interval development of a large area of diminished density and loss of castro-white differentiation in the LEFT temporal lobe, parietal lobe consistent with a developing LEFT MCA infarct. No hemorrhage noted. No midline shift. 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 CTA Neck: TECHNIQUE: CTA examination of the neck obtained with standard protocol including axial postcontrast imaging with additional planar and three-dimensional reconstructions. Aortic arch: [Normal appearance of the aortic arch and origin the great vessels.] Scattered vascular calcifications are present. There is circumferential soft tissue thickening at the origin the LEFT clavian artery without sheryl hematoma dynamically significant stenosis. There is bovine origin of the carotid vessels. Right carotid system: There is normal appearance RIGHT common carotid, RIGHT internal carotid arteries, and the bifurcation. Normal appearance of the external carotid circulation on the RIGHT. RIGHT carotid vessels are tortuous with scattered calcifications without areas of focal stenosis. Normal patency to level skull based Left carotid system: Extensive calcification at the LEFT carotid bulb and distal common carotid artery, findings are consistent with a mild (less than 50% stenosis. There has been negligible change. Vertebral arteries: There is a dominant patent RIGHT vertebral artery. No focal stenosis noted. Proximal LEFT vertebral artery is not opacified, small caliber faintly opacified mid to distal V2 and V3 segments LEFT vertebral artery are noted likely representing collateral reconstitution secondary to proximal occlusion. Findings are stable. Airway and soft tissues of the neck: There is normal appearance of the musculofascial planes of suprahyoid and infrahyoid neck. Normal appearance of the visualized airway. Normal appearance the visualized thyroid without masses or nodules noted. Cervical spine: Normal appearance of bony elements of the cervical spine. No focal stenosis or occlusion involving the cervical spinal canal. There is an abnormal appearance of the T4 vertebral body which is sclerotic and moderately diminished vertebral body height. This is of on certain etiology, however infiltrating metastatic processes are consideration. Upper chest: Area of airspace consolidation in the LEFT upper lobe. Healed or healing LEFT upper rib fractures are also noted. CT/CTA Head AND Neck W/ Contrast IMPRESSION: 1. CTA examination of the [place] documenting mid to distal LEFT M1 occlusion with collateral reconstitution of distal MCA branches. 2. Noncontrast CT examination also demonstrates interval development of loss of castro-white differentiation throughout the LEFT MCA territory consistent with acute LEFT MCA nonhemorrhagic stroke involving the LEFT temporal and parietal lobes.. 3. No other focal stenosis occlusion or evidence of LVO involving the intracranial circulation 4. Incidental note of bovine origin of the carotid vessels. 5. Bilateral carotid calcifications greater on LEFT than RIGHT, there is a mild (less than 50%) narrowing on the LEFT. No hemodynamically significant stenosis involving the cervical carotid system. 6. Dominant RIGHT vertebral artery and small caliber LEFT vertebral artery, which appears to be occluded proximally with muscular reconstitution of the mid V2 and V3 segments. 7. Incidental note of dense airspace consolidation involving a portion LEFT upper lobe. 8. Healing LEFT upper rib fractures are noted. 9. Sclerotic appearance of the T4 vertebral body, incompletely evaluated on current exam, however suspicious of a destructive/sclerotic or metastatic process. No canal stenosis. Acute stroke NSC (nonstandard communication) notification was initiated at 8:59 PM VRT MECHANIC N.B. : The above Results were Read Back by Sumit Canchola MD to Melonie Cardoso MD, and understanding confirmed on 11/12/2022 22:09:53 (ET). Electronically Signed: Sumit Canchola MD at 22:10 EST ,
--- NOTE | 2022-11-12 20:20 | NURSING ---
Pt was escorted to CT by staff in bed.
[2022-11-12 21:11] LABS: Bedside Glucose 117 mg/dL (74-106)
--- NOTE | 2022-11-12 22:01 | NURSING ---
Radiology called wanting to discuss cta results with dr tinajero. Dr Tinajero was notified and was given phone call from radiology as she had just returned to the floor.
--- NOTE | 2022-11-12 22:15 | NURSING ---
Dr Cardoso was in talking with the patient's family discussing planned transfer to [facility] for services unable to obtain here
--- NOTE | 2022-11-12 23:13 | NURSING ---
Addendum entered by Joy Negro 11/12/22 23:25: Consent to transfer was obtained from pt's son. This RN spoke with [facility], who stated that they would not be able to pick pt up for transport until 7am. Dr Cardoso was present and notified. [facility] called this RN, inquiring an ETA on pt pickup and was updated on [facility] projected ETA, and was informed that nursing assembly stock supervisor Dennise was also informed of ETA and was attempting to reach assembly stock supervisor at [facility]. [facility] transfer center stated that they would be able to send [facility] if that was desired and this RN stated that it was. This RN was informed that a return phonecall would be received from [facility]. This RN received return call from [facility], who stated that they would not be able to fly due to weather and that their ground MICU would not be able to transport until 4:30-5am. This RN updated nursing assembly stock supervisor on [facility] ETA and suggestion was received to call [facility]. This RN spoke with [facility], who said they would call this RN back. Call back was received from [facility], stating that they were unable to fly due to weather, and that they had spoken with a couple of private carriers, who were also not going to fly due to weather. When this RN inquired about ground transportation through them, this RN was told that they were booked up and unable to transport the patient. This RN updated nursing assembly stock supervisor and suggestion was made to call [facility]. [facility] was called by this RN and they were not able to transport pt until sometime tomorrow. [facility] transportation was also contacted and stated that they were also booked and unable to transport patient. Nursing assembly stock supervisor Dennise was updated. Transportation was confirmed through [facility] MIC[facility] for 4:30 to 5am. Pt family was updated per primary RN Mindi. Dr Cardoso also updated. Time spent arranging transport by this RN was from 22:20 to 23:45. Reinier Original Note: This RN updated of intent to transfer pt out to [facility] for possible surgical intervention
--- NOTE | 2022-11-12 23:45 | NURSING ---
Updated family on time of transport. We were initially told there was a possibility of helicopter transport however none are currently flying due to the weather. Transport is currently set up for 0430 through the MICU from [facility]. The patients family was upset regarding the time frame. States they would like to transport her there themselves if that is an option. Cautioned patients family against doing so due to the long transport time and risk of deterioration enroute. Called Nursing clerical supervisor to see if any earlier time would be able to be obtained Phyllis KNOX states she has talked with the ER and area ambulance services unfortunately no earlier times are available.
[2022-11-13] MEDS: 0.9% Saline Lock 10 ML Syringe IV (00:15)
[2022-11-13] MEDS: 0.9% Normal Saline 1,000 ML 75 ML IV (00:16)
--- NOTE | 2022-11-13 00:36 | NURSING ---
Update POC received from Dr Cardoso that pt has been accepted at [facility] and that pt will be transferred to either [facility] or [facility], depending on soonest available transport. This RN spoke with [facility], who was updated on change in hospital. This RN was told by dispatch that transport to [place] would not change ETA as pt was stable and they had other pt's that needed to be transported first. This RN also spoke with [facility], who stated that transporting to [facility] would not change ETA and that everyone was on a flight hold and they would not be able to fly to [place]. Update sent to Dr. Cardoso. Iman KNOX
[2022-11-13 01:48] VITALS: BP 169/84; PULSE 98; RESP 16; TEMP 37; O2SAT 91
--- NOTE | 2022-11-13 01:51 | NURSING ---
This RN received call from [facility] who gave updated ETA of 03:30 for transporting pt to [facility]. Update sent to Dr. Cardoso. Iman KNOX
--- NOTE | 2022-11-13 02:01 | NURSING ---
NIH assessment limited due to profound aphasia and hearing impairment. Pt is able to move left arm and leg without difficulty. rt leg pt is able to move a small amount on the bed and the pt responds to touch of that extremity. The Rt arm remains flaccid. She has a facial droop. She is favoring the left side visually. Unchanged from assessment with SOC physician earlier tonight.
--- NOTE | 2022-11-13 02:46 | NURSING ---
Dr Cardoso notified of NIH assessment results and limitations of assessment. States is comparable to the NIH observed by the SOC physician-their result was 17. Continue to await transfer last updated eta was [id number].
[2022-11-13 03:00] VITALS: PULSE 88
--- NOTE | 2022-11-13 03:51 | NURSING ---
[facility] arrived at 0340 to transfer pt. Report was given by primary RN to paul. Pt son Juancho was updated on arrival of transportation to [facility]. This RN spoke with call center at [facility] and cancelled transfer there, per Dr. Cardoso verbal order. [facility] main campus call center updated of pt departure. Pt transported out at 0350. Iman KNOX
--- NOTE | 2022-11-13 03:52 | NURSING ---
Report given to transport personnel from [facility] at this time. Answered all questions regarding patient status. Last set vitals reviewed. Hearing aides put in ears for transport d/t assessment needs. Belongs sent with transport staff
--- NOTE | 2022-11-13 07:53 | PCM.DC.SUM ---
Providers Date of Admission: 11/11/22 Date of Discharge: 11/13/22 Primary Care Physician: Dr. Abena Rm MD Reason For Visit: TIA/CVA Diagnosis Discharge Diagnosis (1) CVA (cerebral vascular accident): Status: Acute Code(s): I63.9 - Cerebral infarction, unspecified Plan #Acute cerebrovascular event Initially had several small strokes seen on MRI on 11/11 and had been stable the morning of 11/12 and was able to take a.m. meds Worsened in the afternoon and had CT of the head which did not show acute changes however she worsened further and teleneurology contacted and they recommended CTA which did show M1 occlusion she was transferred to [facility] #History of DVT Is on Coumadin once therapeutic at 2.4 on 11/12 #Hypothyroidism Synthroid #Severe hearing loss Complicates care, hearing aids sent to [facility] Medications at Discharge Home Medications ibandronate 150 mg tablet 150 mg PO QMONTH BONES 09/29/19 pantoprazole 40 mg tablet,delayed release 40 mg PO DAILY gerd 09/29/19 cholecalciferol (vitamin D3) 50 mcg (2,000 unit) capsule (Vitamin D3) 50 mcg PO DAILY SUPPLEMENT 10/18/21 mirabegron 50 mg tablet,extended release 24 hr (Myrbetriq) 50 mg PO DAILY BLADDER 10/18/21 acetaminophen 500 mg tablet 1,000 mg PO Q6H PRN Pain 11/10/22 atorvastatin 80 mg tablet 80 mg PO QHS CHOLESTEROL 11/10/22 levothyroxine 100 mcg tablet 100 mcg PO DAILY THYROID 11/10/22 loperamide 2 mg tablet (Anti-Diarrheal (loperamide)) 2 mg PO DAILY PRN Loose Stool 11/10/22 paroxetine HCl 10 mg tablet 10 mg PO DAILY DEPRESSION 11/10/22 warfarin 5 mg tablet 5 mg PO DAILY BLOOD THINNER 11/10/22 Hospital Course Procedures - (MRI, echo, cta) Summary of Care Provided Minutes Spent on Discharge: 45 Hospital Course: 82F hx of mild COPD, DVT on coumadin, CVA with left posterior parietal, left insular cortex, left cerebral infarct, PAD with aortoiliac femoral bypass, hypothyroidism, who presented 11/10 with generalized weakness, right sided weakness, worsening/speech for 1 day. She had been noticed to have increasing right-sided weakness and slurred speech at her assisted living facility. She had eaten lunch and after that she went to her room when she was feeling generally weak but then noticed her right side was preferentially weak and called for help. She then developed speech difficulty and was brought to the hospital. She was evaluated emergency department and her symptoms reportedly had resolved at the time of being seen and based on documentation she had noted that her speech impairment comes and goes. CT in the emergency department showed no acute abnormality with stable underlying changes consistent with small vessel ischemia and remote infarcts. Did have a repeat carotid ultrasound done by Dr. Rizo recently that reported less than 50% stenosis. NIH score was 2 and she is not a tPA candidate. She was admitted and MRI of the brain and CTA head and neck ordered. She is continued on aspirin and statin as well as Coumadin. Echocardiogram also ordered and demonstrated EF of 55% with stage I diastolic dysfunction and mild segmental systolic dysfunction. CTA on 11/11 demonstrated atherosclerotic changes within the brain with the most severe involvement of bilateral posterior cerebral arteries and no evidence of hemodynamically significant stenosis. MRI on 11/11 demonstrated new small acute infarcts in the mid to posterior and medial aspects of the left temporal lobe and in the medial and posterior aspects of the left occipital lobe and the infarcts were consistent with a left NETWORKING ADMINISTRATOR territory process. The next morning she is able to take her medicines at breakfast and then in the afternoon she became more tired and was having more difficulty with her right side but per documentation been waxing and waning. She was evaluated by daytime team and CT of the head obtained which demonstrated acute/subacute left occipital and possible left temporal lobe cortical infarcts and chronic microvascular changes. Upon shift change night hospitalist called to reevaluate because of right hemineglect. Evaluated patient at bedside initially did not have hearing aids in and these were placed and stat consult for teleneurology made. Patient INR 2.4 with recent strokes, not candidate for tenecteplase. I was in the room during evaluation by neurology and discussed at bedside, plan to repeat CTA given the level of change in what appeared to be an extended territory. CTA noted mid to distal left M1 occlusion with collateral reconstitution of distal MCA branches. Contacted [facility] stroke line and discussed case with stroke team there and patient was accepted for transfer. Difficulty obtaining transfer due to ground transport availability and whether precluding air transport. Multiple companies contacted, ultimately after and [facility] contacted to assess for acceptance as hospitals closer in the event transportation be available earlier. They accepted to their ICU. Transport still not available. After exploring multiple avenues ground transport was obtained at 3:30 AM to [facility]. Physical Exam Narrative General: Would wake up and look around room and would squeeze hand on left side but was not verbally answering questions HEENT: Atraumatic, normocephalic Eyes: Anicteric, normal conjunctiva, extraocular movements grossly intact, pupils equal Neck: Supple Respiratory: Clear to auscultation bilaterally, normal respiratory effort Cardiovascular: Regular rate and rhythm GI: Soft, nontender, nondistended Extremities: No edema Musculoskeletal: Difficulty assessing strength due to difficulty cooperating with exam, was not moving right upper extremity Neuro: No obvious facial asymmetry, would move left upper extremity and squeeze hand and moved left lower extremity without significant difficulty but right lower extremity primarily would pull up with toes flexed and was not moving right upper extremity, had not been looking to the right but this is difficult to assess if it was due to being unable to or if difficulty following commands Skin: No rashes appreciated Psych: Attempted to be cooperative Weight / BMI Weight Weight: 78.7 kg Body Mass Index (BMI) 29.3 ABG / Lab / Microbiology Data Result Diagrams: 11/11/22 05:24 11/11/22 05:24 Laboratory: Laboratory Results - last 24 hr 11/12/22 06:07: PT 26.1 H, INR 2.4 11/12/22 19:40: POC Glucose 117 H Microbiology: Microbiology 11/10/22 16:20 Urine, Clean Catch Urine Culture - Final Presumptive E. coli Radiography Diagnostic Testing: Radiology Impression Brain CT 11/12/22 16:09 IMPRESSION: 1. Acute/subacute left occipital and possible left temporal lobe cortical infarcts. 2. Chronic microvascular changes. Electronically Signed: He Mae MD at 16:42 EST , Head/Neck CTA 11/12/22 20:14 IMPRESSION: 1. CTA examination of the [place] documenting mid to distal LEFT M1 occlusion with collateral reconstitution of distal MCA branches. 2. Noncontrast CT examination also demonstrates interval development of loss of castro-white differentiation throughout the LEFT MCA territory consistent with acute LEFT MCA nonhemorrhagic stroke involving the LEFT temporal and parietal lobes.. 3. No other focal stenosis occlusion or evidence of LVO involving the intracranial circulation 4. Incidental note of bovine origin of the carotid vessels. 5. Bilateral carotid calcifications greater on LEFT than RIGHT, there is a mild (less than 50%) narrowing on the LEFT. No hemodynamically significant stenosis involving the cervical carotid system. 6. Dominant RIGHT vertebral artery and small caliber LEFT vertebral artery, which appears to be occluded proximally with muscular reconstitution of the mid V2 and V3 segments. 7. Incidental note of dense airspace consolidation involving a portion LEFT upper lobe. 8. Healing LEFT upper rib fractures are noted. 9. Sclerotic appearance of the T4 vertebral body, incompletely evaluated on current exam, however suspicious of a destructive/sclerotic or metastatic process. No canal stenosis. Acute stroke NSC (nonstandard communication) notification was initiated at 8:59 PM [employer]LECT[employer]ICIAN FRONT N.B. : The above Results were Read Back by Sumit Canchola MD to Melonie Cardoso MD, and understanding confirmed on 11/12/2022 22:09:53 (ET). Electronically Signed: Sumit Canchola MD at 22:10 EST , ADDENDUM: 11/12/22 0162 IMPRESSION: 1. CTA examination of the [place] documenting mid to distal LEFT M1 occlusion with collateral reconstitution of distal MCA branches. 2. Noncontrast CT examination also demonstrates interval development of loss of castro-white differentiation throughout the LEFT MCA territory consistent with acute LEFT MCA nonhemorrhagic stroke involving the LEFT temporal and parietal lobes.. 3. No other focal stenosis occlusion or evidence of LVO involving the intracranial circulation 4. Incidental note of bovine origin of the carotid vessels. 5. Bilateral carotid calcifications greater on LEFT than RIGHT, there is a mild (less than 50%) narrowing on the LEFT. No hemodynamically significant stenosis involving the cervical carotid system. 6. Dominant RIGHT vertebral artery and small caliber LEFT vertebral artery, which appears to be occluded proximally with muscular reconstitution of the mid V2 and V3 segments. 7. Incidental note of dense airspace consolidation involving a portion LEFT upper lobe. 8. Healing LEFT upper rib fractures are noted. 9. Sclerotic appearance of the T4 vertebral body, incompletely evaluated on current exam, however suspicious of a destructive/sclerotic or metastatic process. No canal stenosis. Acute stroke NSC (nonstandard communication) notification was initiated at 8:59 PM [employer]LECT[employer]IC[employer] FRONT N.B. : The above Results were Read Back by Sumit Canchola MD to Melonie Cardoso MD, and understanding confirmed on 11/12/2022 22:09:53 (ET). Electronically Signed: Sumit Canchola MD at 22:10 EST , Meaningful Use Info Meaningful Use Diagnoses (Choose all that apply): Ischemic CVA CVA Therapy Assessed for PT,OT and/or ST?: Yes Ischemic Stroke Antithrombotic order at d/c?: Yes Dx of Atrial fib/flutter?: No Statins at discharge?: Yes Primary Dx Acute Ischemic CVA?: Yes IV tPA ordered during stay?: No Reason IV t-PA not ordered: Medical Contraindication Discharge Plan Admission Admit Date/Time: 11/11/22 13:26 Attending Provider: Fredy Brown Primary Care Provider: Abena Rm Consulting Providers: Nidia Navarro Discharge Orders/Prescriptions Prescriptions: No Action ibandronate 150 MG tablet 150 mg PO QMONTH pantoprazole 40 MG tablet 40 mg PO DAILY cholecalciferol (vitamin D3) [Vitamin D3] 50 mcg (2,000 unit) Capsule 50 mcg PO DAILY Myrbetriq 50 mg Tablet Extended Release 24 Hr 50 mg PO DAILY atorvastatin 80 mg tablet 80 mg PO QHS paroxetine HCl 10 mg tablet 10 mg PO DAILY loperamide [Anti-Diarrheal (loperamide)] 2 mg tablet 2 mg PO DAILY PRN (Reason: Loose Stool) acetaminophen 500 mg Tablet 1,000 mg PO Q6H PRN (Reason: Pain) levothyroxine 100 mcg tablet 100 mcg PO DAILY Label Comments: Take 1 tab by mouth onceRdailyI warfarin 5 mg tablet 5 mg PO DAILY Referrals / Follow Up: Abena Rm MD [Primary Care Provider] - Disposition Disposition (needs filled in before D/C Order can be placed): Acute Care Hospital Charges/Coding Visit Charges Inpatient E&M: 22290 Disch Hosp >30min
== END 2022-11-13 03:50 | disposition short-term general hospital (02) | DRG 65 ==
LOC: ED 18:04 → PCU 18:27
PROVIDERS: Admitting Provider Internal Medicine; Emergency Provider Emergency Medicine; Visit Provider Internal Medicine
DX: I63.412 Cerebral infarction due to embolism of left middle cerebral artery (principal); G81.91 Hemiplegia, unspecified affecting right dominant side; J44.9 Chronic obstructive pulmonary disease, unspecified; R47.01 Aphasia; E03.9 Hypothyroidism, unspecified; E78.5 Hyperlipidemia, unspecified; I25.10 Atherosclerotic heart disease of native coronary artery without angina pectoris; R47.02 Dysphasia; R47.81 Slurred speech; R29.702 NIHSS score 2; R53.1 Weakness; R29.717 NIHSS score 17; H91.93 Unspecified hearing loss, bilateral; F32.A Depression, unspecified; T45.515A Adverse effect of anticoagulants, initial encounter; Z79.01 Long term (current) use of anticoagulants; Z79.82 Long term (current) use of aspirin; Z79.899 Other long term (current) drug therapy; Z86.718 Personal history of other venous thrombosis and embolism; Z86.73 Personal history of transient ischemic attack (TIA), and cerebral infarction without residual deficits; Z87.891 Personal history of nicotine dependence
CPT/HCPCS: 36415; 70450; 70496; 70498; 70551; 71045; 80048; 80053; 80061; 81001; 82962; 83036; 84484; 85025; 85610; 85730; 87086; 87088; 87186; 92507; 92523; 93005; 93306; 94762; 97110; 97162; 97166; 97530; 97802; 99285; J7030; Q9967; A4216

== ENCOUNTER 2022-12-17 22:30 | Inpatient (IN) | payer MEDICARE, MEDICAID, SELFPAY ==
[2022-12-17 22:32] VITALS: BP 128/53; PULSE 78; RESP 16; TEMP 36.8; O2SAT 98; BMI 31.0
--- NOTE | 2022-12-17 22:49 | EX.ED.DYSGE1 ---
HPI History of Present Illness Chief Complaint: Wound Check Detail of Chief Complaint: PEG tube pulled out Informant: EMS and SNF Onset/Context/Timing Onset: Today Narrative Narrative: Patient presents from [facility] secondary to her PEG tube getting pulled out. Patient had a stroke in October. She had a PEG tube placed on November 19 at [facility]. The PEG got pulled out tonight. [facility] Medical History Acute stroke due to ischemia Bilateral carotid artery disease Chronic embolism and thrombosis of unspecified deep veins of right lower extremity COPD (chronic obstructive pulmonary disease) CVA (cerebral vascular accident) Exophthalmos Graves disease History of lung cancer Hyperlipemia Hypothyroid PAD (peripheral artery disease) Prediabetes ROTARY CUFF SURGERY Syncope UGIB (upper gastrointestinal bleed) Home Medications ibandronate 150 mg tablet 150 mg PO QMONTH BONES 09/29/19 [History Last Taken 11/01/22] pantoprazole 40 mg tablet,delayed release 40 mg PO DAILY gerd 09/29/19 [History Last Taken 11/09/22] cholecalciferol (vitamin D3) 50 mcg (2,000 unit) capsule (Vitamin D3) 50 mcg PO DAILY SUPPLEMENT 10/18/21 [History Last Taken 11/09/22] mirabegron 50 mg tablet,extended release 24 hr (Myrbetriq) 50 mg PO DAILY BLADDER 10/18/21 [History Last Taken 11/09/22] acetaminophen 500 mg tablet 1,000 mg PO Q6H PRN Pain 11/10/22 [History Last Taken Unknown] atorvastatin 80 mg tablet 80 mg PO QHS CHOLESTEROL 11/10/22 [History Last Taken 11/09/22] levothyroxine 100 mcg tablet 100 mcg PO DAILY THYROID 11/10/22 [History Last Taken 11/09/22] loperamide 2 mg tablet (Anti-Diarrheal (loperamide)) 2 mg PO DAILY PRN Loose Stool 11/10/22 [History Last Taken Unknown] paroxetine HCl 10 mg tablet 10 mg PO DAILY DEPRESSION 11/10/22 [History Last Taken 11/09/22] warfarin 5 mg tablet 5 mg PO DAILY BLOOD THINNER 11/10/22 [History Last Taken 11/09/22] Allergy/AdvReac Type Severity Reaction Status Date / Time No Known Allergies Allergy Verified 12/17/22 22:35 Family History Other No pertinent family history Surgical History H/O [id number] bypass History of appendectomy Social History Smoking Status: Former smoker Tobacco: How many years used: 60 how long ago did patient quit smokin second hand exposure: Yes ROS ROS ED Review of Systems ROS Unobtainable: due to mental condition EXAM Physical Exam Narrative Exam Narrative: Patient resting comfortably. No acute distress. Const Vital Signs: 12/17/22 22:32 Temperature 98.3 F Temperature Source Temporal Pulse Rate 78 Respiratory Rate 16 Blood Pressure 128/53 H Blood Pressure Mean 78 Pulse Ox 98 Oxygen Delivery Method Room Air Positive well nourished and well developed General Appearance ED: well developed HEENT Reports moist mucous membranes Chest Wall inspection of chest normal and palpation of chest normal Resp normal respiratory effort and clear to auscultation bilaterally Cardio regular rate and regular rhythm GI non-tender Auscultation: hypoactive bowel sounds Extremity normal to inspection Skin no rashes or lesions noted MDM MDM MDM Narrative Medical decision making narrative: With the PEG tube site only being established 4 weeks ago, I did speak Dr. Gonzalez. He stated that we could try to insert a 20 K[place]ili PEG tube. If we are able to get in get a contrast study to ensure we are in good position. If there is any resistance have medicine admit the patient he will replace the PEG tube tomorrow morning. At bedside site was cleansed. PEG tube does not advance through the tissues easily. Given that the tract is only 4 weeks old and the patient is on blood thinners I do not want to cause additional trauma. I will speak with hospitalist regarding observation and plan for PEG tube replacement tomorrow. Discharge Plan Triage Chief Complaint: Wound Check ED Provider: Nuris Rae Dx/Rx/DC Orders Clinical Impression: PEG tube malfunction Prescriptions: No Action ibandronate 150 MG tablet 150 mg PO QMONTH pantoprazole 40 MG tablet 40 mg PO DAILY cholecalciferol (vitamin D3) [Vitamin D3] 50 mcg (2,000 unit) Capsule 50 mcg PO DAILY Myrbetriq 50 mg Tablet Extended Release 24 Hr 50 mg PO DAILY atorvastatin 80 mg tablet 80 mg PO QHS paroxetine HCl 10 mg tablet 10 mg PO DAILY loperamide [Anti-Diarrheal (loperamide)] 2 mg tablet 2 mg PO DAILY PRN (Reason: Loose Stool) acetaminophen 500 mg Tablet 1,000 mg PO Q6H PRN (Reason: Pain) levothyroxine 100 mcg tablet 100 mcg PO DAILY Label Comments: Take 1 tab by mouth onceRdailyI warfarin 5 mg tablet 5 mg PO DAILY Primary Care Provider: Benjamin Lind Referrals: Benjamin Lind MD [Primary Care Provider] - Disposition Disposition: Acute Care Hospital [facility]
[2022-12-17 22:59] VITALS: BP 138/44; PULSE 74; RESP 16; O2SAT 96
--- NOTE | 2022-12-17 23:28 | ED.RN ---
[facility] updated on pt being admitted.
[2022-12-17 23:32] VITALS: BP 153/51; PULSE 70; RESP 16; TEMP 36.3; O2SAT 95
[2022-12-17 23:33] LABS: Absolute Lymphocyte Count 1.49 X10^3/uL (0.83-4.51); Basophil# 0.06 X10^3/uL; Basophil% 0.7 % (0-1); Eosinophil# 0.26 X10^3/uL; Hematocrit 30.9 % (37-47); Hemoglobin 9.4 g/dL (12.0-15.0); Lymphocyte # 1.49 X10^3/ul (0.83-4.51); Lymphocyte % 17.1 % (19-41); Mean Corp Hgb Conc 30.4 g/dL (32-36); Mean Corpuscular Hgb 26.6 pg (27.0-32.0); Mean Corpuscular Volume 87.3 fL (81-99); Monocyte# 0.89 X10^3/uL; Monocyte% 10.2 % (0-10); NRBC Flagged by Analyzer 0 % (0-5); Neutrophil # 6.01 X10^3/uL (2.7-7.7); Neutrophil % 68.8 % (47-70); Platelet Count 309 K/mm3 (150-450); RBC Distribution Width CV 17.6 % (11.6-14.6); RBC Distribution Width SD 55.5 fl (35.1-43.9); Red Blood Count 3.54 M/mm3 (4.2-5.4); White Blood Count 8.7 K/mm3 (4.4-11.0)
[2022-12-17 23:39] LABS: International Normalized Ratio 1.2
[2022-12-17 23:40] LABS: Partial Thromboplast Time 27.8 Seconds (24.1-36.2)
[2022-12-17 23:51] LABS: ALB/GLOB Ratio 0.7 RATIO (0.9-2.4); AST(SGOT) 24 U/L (15-37); Alanine Aminotransfer ALT/SGPT 23 U/L (13-56); Albumin, Serum 2.7 g/dL (3.2-5.0); Alkaline Phosphatase 46 U/L (45-117); Anion Gap 4 (5-15); BUN 41 mg/dL (7-18); BUN/Creat Ratio 58.4 RATIO (10-20); Calcium,Total 9.2 mg/dL (8.5-10.1); Chloride 109 mmol/L (98-107); EST Glomerular Filtration Rate 85 mL/min (>60); Est Glom Filt Rate - Afr Amer 103 mL/min (>60); Estimated Creatinine Clearance 38.75 ml/min; Globulin 3.7 g/dL (2.2-4.2); Glucose 123 mg/dL (74-106); Potassium 4.5 mmol/L (3.5-5.1); Protein, Total 6.4 g/dL (6.4-8.2); Sodium Level 141 mmol/L (136-145)
--- NOTE | 2022-12-17 23:52 | HP.PCM_ITS ---
HPI - General General Date of Admission: 12/17/22 Date of Service: 12/17/22 Chief Complaint: PEG tube accidentally pulled out, recent procedure. HPI Narrative The patient is an 82 y/o F w/ PMHx: Former tobacco use, Hx Lung CA non-small cell left upper lobe, Anxiety and Depression, Prediabetes, Obesity, COPD, Hx DVT, PAD s/p aortoiliac femoral bypass, HTN, HLD, Hypothyroidism with history of Graves' disease, recent admission 11/11/22-11/13/22 secondary to Acute CVA with right-sided weakness and altered speech with low NIH score considered not a tPA candidate, admitted, MRI of the brain with new small acute infarct in mid to posterior medial aspect of the left temporal lobe and in the medial and posterior aspects of the left occipital lobe consistent with left [employer] territory process unfortunately acutely worsening with onset of right hemineglect with repeat CTA with mid to distal left M1 occlusion with collateral reconstitution distal MCA branches with acute stroke alert with [facility] acceptance and transfer of patient to their intensive care unit at that time eventually discharged to SNF s/p PEG tube placement who now re-presents to the [facility] ED on 12/17/22 with history of unfortunately having her PEG tube accidentally pulled out on evening of day of presentation with placement on 11/19/2022 at [facility] prompting transition to the ED for evaluation and replacement. Work-up in the ED included T98.3, heart rate 78, BP 128/53, respiratory rate 16, 98% on room air. ED did discuss case with surgery on-call as patient had recent PEG tube placed 11/19 at [facility] with recommendation for attempt of a 20 Syriac PEG tube placement with contrast 30 to assure position good however upon ED attempt there was notable resistance therefore surgery recommended admission with planned replacement of PEG tube in AM. [facility] Medical History (Updated 12/17/22 @ 23:[address] Nicole Hall MD) Bilateral carotid artery disease Chronic embolism and thrombosis of unspecified deep veins of right lower extremity COPD (chronic obstructive pulmonary disease) CVA (cerebral vascular accident) Exophthalmos Graves disease History of lung cancer Hyperlipemia Hypothyroid PAD (peripheral artery disease) Prediabetes Syncope UGIB (upper gastrointestinal bleed) Home Medications acetaminophen 500 mg tablet 1,000 mg feeding tube Q6H PRN Pain 11/10/22 [History Last Taken Unknown] atorvastatin 80 mg tablet 80 mg feeding tube QHS CHOLESTEROL 11/10/22 [History Last Taken 11/09/22] levothyroxine 100 mcg tablet 100 mcg feeding tube DAILY THYROID 11/10/22 [History Last Taken 11/09/22] apixaban 2.5 mg tablet (Eliquis) 2.5 mg feeding tube BID 12/17/22 [History Last Taken Unknown] aspirin 81 mg capsule 81 mg feeding tube DAILY 12/17/22 [History Last Taken Unknown] carvedilol 6.25 mg tablet 6.25 mg feeding tube BID 12/17/22 [History Last Taken Unknown] esomeprazole magnesium 40 mg granules delayed release for susp (Nexium Packet) 40 mg feeding tube DAILY 12/17/22 [History Last Taken Unknown] lactose-reduced food with fiber 0.06 gram-1.5 kcal/mL oral liquid (Jevity 1.5 Shekhar) 240 ml feeding tube 5X/DAY 12/17/22 [History Last Taken Unknown] nystatin 100,000 unit/mL oral suspension 100,000 unit feeding tube 4X/DAY 12/17/22 [History Last Taken Unknown] paroxetine HCl 10 mg/5 mL oral suspension 20 mg feeding tube DAILY 12/17/22 [History Last Taken Unknown] polyethylene glycol 3350 17 gram/dose oral powder (Miralax) 17 g feeding tube DAILY PRN PRN Constipation 12/17/22 [History Last Taken Unknown] Allergy/AdvReac Type Severity Reaction Status Date / Time No Known Allergies Allergy Verified 12/17/22 22:35 Family History (Updated 12/17/22 @ 23:[address] Nicole Hall MD) Mother Heart disease CAD (coronary artery disease) Myocardial infarction Hypertension Family History other other (Patient without knowledge of her paternal family history.) Surgical History (Updated 12/17/22 @ 23:[address] Nicole Hall MD) H/O mslsy-vennv-sbkqlyv bypass History of appendectomy History of shoulder surgery S/P percutaneous endoscopic gastrostomy (PEG) tube placement Social History (Updated 12/17/22 @ 23:[address] Nicole Hall MD) housing: detention Smoking Status: Former smoker Tobacco: How many years used: 60 how long ago did patient quit smokin second hand exposure: Yes alcohol intake: never substance use type: does not use ROS Review of Systems ROS Unobtainable: other Details: Unable to give ROS secondary to deficits associated w/ recent CVA. Vital Signs Vital Signs Vital Signs: 12/17/22 22:32 12/17/22 22:59 Temperature 98.3 F Temperature Source Temporal Pulse Rate 78 74 Respiratory Rate 16 16 Blood Pressure 128/53 H 138/44 H Blood Pressure Mean 78 75 Pulse Ox 98 96 Oxygen Delivery Method Room Air Room Air Weight Weight: 180 lb 15.992 oz Body Mass Index (BMI) 31.0 Physical Exam Narrative Physical Examination: General: Awakens to stimuli, intermittently alert, following back asleep easily, unable to answer questions but family notes she has been minimally verbal since her stroke, laying in the ED bed, no acute distress. Skin: Normal color, normal turgor, no icterus, no cyanosis except for abdomen with recent PEG tube insertion site well-appearing. HEENT: AT/NC, exophthalmos with underlying history of Graves' disease with left eye mild lateral deviation which is chronic, pupils appear round and equal, mildly dry MM, no carotid bruits or JVD noted. Lungs: Diminished, greater bases, no evidence of any distress no rales, ronchi or wheezing. Heart: Currently regular rate and rhythm; no gallop, rub audible. Abdomen: Soft, NTTP, obese, ND, mildly hyperactive BS, no obvious evidence of HSM, PEG tube insertion site well-appearing. Extremities: No cyanosis, clubbing, or edema. Neurological: Awakens to stimuli, intermittently alert, following back asleep easily, unable to answer questions but family notes she has been minimally verbal since her stroke, cognitive function significantly paired with recent stroke, currently based, cranial nerves difficult to assess given fatigue and CVA but appear intact although patient does have chronic hearing issues worse on the right, right-sided hemiplegia associate with recent stroke. Psychiatric: Affect appears fatigued, no acute evidence of depressive or anxiety feelings. Results Lab / Micro Data Result Diagrams: 12/17/22 23:20 12/17/22 23:30 Assessment & Plan Assessment/Plan (1) PEG tube malfunction: PLAN: Plan The patient is an 82 y/o F w/ PMHx: Former tobacco use, Hx Lung CA non-small cell left upper lobe, Anxiety and Depression, Prediabetes, Obesity, COPD, Hx DVT, PAD s/p aortoiliac femoral bypass, HTN, HLD, Hypothyroidism with history of Graves' disease, recent admission 11/11/22-11/13/22 secondary to Acute CVA with right-sided weakness and altered speech with low NIH score considered not a tPA candidate transferred eventually to [facility] secondary to worsened status w/ repeat CTA with occlusion eventually discharged to SNF s/p PEG tube placement who now re-presents to the [facility] ED on 12/17/22 with history of unfortunately having her PEG tube accidentally pulled out on evening of day of presentation with placement on 11/19/2022 at [facility] prompting transition to the ED for evaluation and replacement. #1. Accidental PEG tube malfunction, pulled out: We will admit to medical surgical floor, will hold all PEG tube medications as PEG tube accidentally was pulled out and given that it is only 4 weeks since procedure insertion unable to be reinserted easily in the ED, will transition medications as able to per rectum and IV, will continue consultation with general surgery Dr. Pasha cheng planned replacement in AM. #2. Recent acute CVA with associated right hemiplegia, neglect and altered speech: MRI of the brain with new small acute infarct in mid to posterior medial aspect of the left temporal lobe and in the medial and posterior aspects of the left occipital lobe consistent with left [employer] territory process unfortunately acutely worsening with onset of right hemineglect with repeat CTA with mid to distal left M1 occlusion with collateral reconstitution distal MCA branches with acute stroke alert with [facility] acceptance and transfer of patient to their intensive care unit at that time eventual discharged to SNF s/p PEG tube placement. Maintain on fall and aspiration precautions, PT/OT/ST/case management consultation for discharge planning. Holding all medications per PEG tube with temporary transition to per rectal aspirin as well as Lovenox therapeutic regimen until able to resume PEG tube medications. We will have as needed IV hypertensive medication and temporarily holding statin. #3. History DVT: Given current presentation with PEG tube out we will temporari ly transition from Eliquis to therapeutic Lovenox with restart of PEG tube regimen once replaced. #4. Chronic COPD: Not on any chronic oxygen or inhalers, PRN albuterol, HOB, IS parameters. #5. Hypertension: Temporarily holding Coreg, maintain on as needed IV hydralazine until PEG tube replaced. #6. Hyperlipidemia: Temporarily holding statin therapy, add back once PEG tube replaced. #7. Anxiety and depression: Holding paroxetine given PEG tube out, add back once appropriate. #8. Hypothyroidism with history of Graves' disease: Holding levothyroxine given PEG tube out, add back once appropriate. #9. Obesity: Weight loss and lifestyle changes encouraged. #10. Chart reported history of prediabetes: Patient n.p.o. with PEG tube usage, currently holding tube feeds given PEG tube erroneously pulled out, will maintain on every 6 hours Accu-Cheks with insulin sliding scale to be cautious. #11. History non-small cell lung cancer: Patient with history of left upper lobe non-small cell lung cancer, initially had followed with [facility] eventually transition to [facility] given extensive underlying history and comorbidities, from report potentially in remission, encourage continued outpatient follow-up as previously arranged. #12. PAD: Status post previous aortoiliac femoral bypass, holding ASA per PEG, transition to rectal aspirin temporarily, holding Eliquis with transition temporarily to therapeutic Lovenox, holding hypertensive regimen as noted with resumption once appropriate, holding statin therapy as noted with resumption once appropriate. #13. Former tobacco use: Encourage continued tobacco cessation. #14. GERD: We will transition to IV PPI in interim. #15. DVT prophylaxis: As noted without PEG holding Eliquis, transition in the interim to therapeutic Lovenox. #16. CODE STATUS: Full Code per facility paperwork. Admission Evaluation Time spent evaluating chart, patient history, patient evaluation, care planning and discussion with specialists: 55 minutes. Charges/Coding Visit Charges Inpatient E&M: 60474 Init Hosp L2
[2022-12-18 00:33] VITALS: BP 138/52; PULSE 70; RESP 16; O2SAT 98
[2022-12-18 00:51] VITALS: BMI 28.6
[2022-12-18] MEDS: 0.9% Normal Saline 1,000 ML 100 ML IV ×3 (01:56→20:24)
[2022-12-18 01:59] VITALS: BP 139/62; PULSE 70; RESP 18; TEMP 36.8; O2SAT 96
[2022-12-18] MEDS: NYSTATIN 500,000 UNIT/5 ML UDC 500000 UNIT PO ×4 (02:59→17:24)
--- NOTE | 2022-12-18 05:55 | EKG12_ITS ---
Test Reason : PRE-OP Blood Pressure : / mmHG Vent. Rate : 070 BPM Atrial Rate : 227 BPM P-R Int : 000 ms QRS Dur : 076 ms QT Int : 374 ms P-R-T Axes : 000 008 243 degrees QTc Int : 403 ms Normal sinus rhythm Nonspecific ST and T wave abnormality Abnormal ECG Confirmed by MARK ALEXANDER, MATI ([id number]), news videotape editor AMANDO DEE ([id number]) on 12/22/2022 9:01:22 AM Referred By: RACH Confirmed By:MATI FLORES MD
[2022-12-18 06:17] LABS: Absolute Lymphocyte Count 1.64 X10^3/uL (0.83-4.51); Absolute Neutrophil Count 5.9 X10^3/uL (2.0-7.7); Basophil# 0.06 X10^3/uL; Basophil% 0.7 % (0-1); Eosinophil# 0.28 X10^3/uL; Eosinophils% 3.2 % (0-5); Hematocrit 29.9 % (37-47); Lymphocyte # 1.64 X10^3/ul (0.83-4.51); Lymphocyte % 18.9 % (19-41); Mean Corp Hgb Conc 30.1 g/dL (32-36); Mean Corpuscular Hgb 26.5 pg (27.0-32.0); Mean Corpuscular Volume 87.9 fL (81-99); Mean Platelet Vol. 11.1 fl (6.2-12.0); Monocyte# 0.72 X10^3/uL; Monocyte% 8.3 % (0-10); NRBC Flagged by Analyzer 0 % (0-5); Neutrophil # 5.94 X10^3/uL (2.7-7.7); Neutrophil % 68.3 % (47-70); Platelet Count 302 K/mm3 (150-450); RBC Distribution Width CV 17.4 % (11.6-14.6); RBC Distribution Width SD 55.9 fl (35.1-43.9); White Blood Count 8.7 K/mm3 (4.4-11.0)
[2022-12-18 06:43] LABS: International Normalized Ratio 1.2; Prothrombin Time (Protime)PT. 14.7 SECONDS (11.7-14.9)
[2022-12-18 06:44] LABS: ALB/GLOB Ratio 0.7 RATIO (0.9-2.4); AST(SGOT) 20 U/L (15-37); Alanine Aminotransfer ALT/SGPT 21 U/L (13-56); Albumin, Serum 2.5 g/dL (3.2-5.0); Alkaline Phosphatase 43 U/L (45-117); Anion Gap 5 (5-15); BUN 33 mg/dL (7-18); BUN/Creat Ratio 44.8 RATIO (10-20); Calcium,Total 8.5 mg/dL (8.5-10.1); Chloride 109 mmol/L (98-107); Creatinine, Serum 0.74 mg/dL (0.55-1.02); EST Glomerular Filtration Rate 81 mL/min (>60); Est Glom Filt Rate - Afr Amer 98 mL/min (>60); Estimated Creatinine Clearance 38.75 ml/min; Globulin 3.5 g/dL (2.2-4.2); Glucose 118 mg/dL (74-106); Partial Thromboplast Time 28.9 Seconds (24.1-36.2); Potassium 4.3 mmol/L (3.5-5.1); Sodium Level 142 mmol/L (136-145)
[2022-12-18 07:05] LABS: Bedside Glucose 119 mg/dL (74-106)
[2022-12-18] MEDS: Enoxaparin 80 MG/0.8 ML Syringe SC ×2 (09:58→17:24)
[2022-12-18] MEDS: Aspirin 300 MG Suppository RC (09:58)
[2022-12-18] MEDS: Menthol/Lanolin/Calamine/Znox 113 GM Tube 1 APPLIC TOPICAL ×4 (09:59→20:24)
[2022-12-18 10:00] VITALS: BP 154/65; PULSE 67; RESP 15; TEMP 36.6; O2SAT 98
--- NOTE | 2022-12-18 10:55 | NURSING ---
SPOKE W/SON CHRISTIE TO UPDATE HIM ON DELAYED SURGERY UNTIL WEDNESDAY D/T ANTICOAGULANTS AND ORDER FOR NG TUBE FOR NUTRITION. SON VOICED THAT HE IS VERY UPSET W/DELAY OF SURGERY AND GENERAL CARE OF HIS MOTHER (REFERRING BACK TO WHEN SHE HAD HER CVA). SON ALSO UPSET THAT HE WAS JUST BEING NOTIFIED OF ALL THIS AT 1045. I EXPLAINED THAT THE LATE CALL WAS BECAUSE OF ME, PT WAS SLEEPING WHEN I FIRST ROUNDED AND I WANTED TO ASSESS HER BEFORE CALLING FOR AN UPDATE. SON REPLIED THAT SLEEP IS BASICALLY ALL THE PT DOES NOW AFTER HER CVA AND SITTING HERE AT THE HOSPITAL FOR 14HOURS BEFORE BEING TRANSFERRED. SON WOULD LIKE TO SPEAK W/. DR MONTILLA WAS NOTIFIED OF THIS.
--- NOTE | 2022-12-18 11:35 | CON.PCM.SX_ITS ---
Assessment & Plan Assessment/Plan (1) PEG tube malfunction: PLAN: Patient has dysphagia after a CVA. She had a PEG tube placed 1 month ago at an outside hospital. She was in the rehab facility and her PEG tube was dislodged. It was unable to be replaced in the emergency room. I recommend EGD with placement of new PEG tube. Patient is currently on Eliquis so I recommend this be done on Wednesday. Patient may have NG tube placed for enteral feedings until then and be made n.p.o. at midnight on Wednesday and hold the Lovenox on Wednesday morning. I discussed EGD with new PEG tube placement with the patient's son Juancho. Patient's son is in agreement and consented for the procedure. I discussed the risks of bleeding, infection, injury to underlying organs such as the stomach or colon. Patient understood all the risks and the questions were answered. Carlos Gonazlez MD Pager: [phone] [address] [place] [address], [address] [place] [address] Office: HPI Consult Data Date of Consult: 12/18/22 HPI Narrative HPI Narrative: AWA PALOMARES, is a 82 F who presents after feeding tube dislodgment. Patient had her PEG tube which was placed 1 month ago accidentally dislodged. It was unable to be replaced by the emergency room physician. [facility], [facility] Medical History Bilateral carotid artery disease Chronic embolism and thrombosis of unspecified deep veins of right lower extremity COPD (chronic obstructive pulmonary disease) CVA (cerebral vascular accident) Exophthalmos Graves disease History of lung cancer Hyperlipemia Hypothyroid PAD (peripheral artery disease) Prediabetes Syncope UGIB (upper gastrointestinal bleed) Home Medications acetaminophen 500 mg tablet 1,000 mg feeding tube Q6H PRN Pain 11/10/22 [History Last Taken Unknown] atorvastatin 80 mg tablet 80 mg feeding tube QHS CHOLESTEROL 11/10/22 [History Last Taken 11/09/22] levothyroxine 100 mcg tablet 100 mcg feeding tube DAILY THYROID 11/10/22 [History Last Taken 11/09/22] apixaban 2.5 mg tablet (Eliquis) 2.5 mg feeding tube BID 12/17/22 [History Last Taken Unknown] aspirin 81 mg capsule 81 mg feeding tube DAILY 12/17/22 [History Last Taken Unknown] carvedilol 6.25 mg tablet 6.25 mg feeding tube BID 12/17/22 [History Last Taken Unknown] esomeprazole magnesium 40 mg granules delayed release for susp (Nexium Packet) 40 mg feeding tube DAILY 12/17/22 [History Last Taken Unknown] lactose-reduced food with fiber 0.06 gram-1.5 kcal/mL oral liquid (Jevity 1.5 Shekhar) 240 ml feeding tube 5X/DAY 12/17/22 [History Last Taken Unknown] nystatin 100,000 unit/mL oral suspension 100,000 unit feeding tube 4X/DAY 12/17/22 [History Last Taken Unknown] paroxetine HCl 10 mg/5 mL oral suspension 20 mg feeding tube DAILY 12/17/22 [History Last Taken Unknown] polyethylene glycol 3350 17 gram/dose oral powder (Miralax) 17 g feeding tube DAILY PRN PRN Constipation 12/17/22 [History Last Taken Unknown] Allergy/AdvReac Type Severity Reaction Status Date / Time No Known Allergies Allergy Verified 12/17/22 22:35 Family History (Updated 12/17/22 @ 23:[address] Nicole Hall MD) Mother Heart disease CAD (coronary artery disease) Myocardial infarction Hypertension Family History other Surgical History H/O coxtw-icrly-cwewvof bypass History of appendectomy History of shoulder surgery S/P percutaneous endoscopic gastrostomy (PEG) tube placement Social History (Updated 12/17/22 @ 23:[address] Nicole Hall MD) housing: [facility] Smoking Status: Former smoker Tobacco: How many years used: 60 how long ago did patient quit smokin second hand exposure: Yes alcohol intake: never substance use type: does not use ROS Review of Systems ROS Unobtainable: due to mental status Constitutional Constitutional: Denies anorexia, chills or fatigue Physical Exam Const General Appearance: cooperative HEENT normocephalic Chest inspection of chest normal Resp normal respiratory effort Cardio Rate: regular rate Rhythm: regular rhythm GI soft to palpation Palpation: Negative for tender Lab / Micro Data Result Diagrams: 12/18/22 05:40 12/18/22 05:40 Labs: Laboratory Results - last 24 hr 12/17/22 23:20: WBC 8.7, RBC 3.54 L, Hgb 9.4 L, Hct 30.9 L, MCV 87.3, MCH 26.6 L , MCHC 30.4 L, RDW Std Deviation 55.5 H, RDW Coeff of Heriberto 17.6 H, Plt Count 309, MPV 11.0, Immature Gran % (Auto) 0.200, Neut % (Auto) 68.8, Lymph % (Auto) 17.1 L, Otero % (Auto) 10.2 H, Eos % (Auto) 3.0, Baso % (Auto) 0.7, Absolute Neuts (auto) 6.0, Absolute Lymphs (auto) 1.49, Nucleated RBC % 0 12/17/22 23:20: PT 15.0 H, INR 1.2, APTT 27.8 12/17/22 23:20: Sodium Cancelled, Potassium Cancelled, Chloride Cancelled, Carbon Dioxide Cancelled, Anion Gap Cancelled, BUN Cancelled, Creatinine Cancelled, Estim Creat Clear Calc Cancelled, Est GFR (MDRD) Af Amer Cancelled, Est GFR (MDRD) Non-Af Cancelled, BUN/Creatinine Ratio Cancelled, Glucose Cancelled, Calcium Cancelled 12/17/22 23:30: Sodium 141, Potassium 4.5, Chloride 109 H, Carbon Dioxide 28.0, Anion Gap 4 L, BUN 41 H, Creatinine 0.70, Estim Creat Clear Calc 38.75, Est GFR (MDRD) Af Amer 103, Est GFR (MDRD) Non-Af 85, BUN/Creatinine Ratio 58.4 H, Glucose 123 H, Calcium 9.2, Total Bilirubin 0.30, AST 24, ALT 23, Alkaline Phosphatase 46, Total Protein 6.4, Albumin 2.7 L, Globulin 3.7, Albumin/Globulin Ratio 0.7 L 12/18/22 05:40: WBC 8.7, RBC 3.40 L, Hgb 9.0 L, Hct 29.9 L, MCV 87.9, MCH 26.5 L , MCHC 30.1 L, RDW Std Deviation 55.9 H, RDW Coeff of Heriberto 17.4 H, Plt Count 302, MPV 11.1, Immature Gran % (Auto) 0.600, Neut % (Auto) 68.3, Lymph % (Auto) 18.9 L, Otero % (Auto) 8.3, Eos % (Auto) 3.2, Baso % (Auto) 0.7, Absolute Neuts (auto) 5.9, Absolute Lymphs (auto) 1.64, Nucleated RBC % 0 12/18/22 05:40: PT 14.7, INR 1.2, APTT 28.9 12/18/22 05:40: Sodium 142, Potassium 4.3, Chloride 109 H, Carbon Dioxide 28.0, Anion Gap 5, BUN 33 H, Creatinine 0.74, Estim Creat Clear Calc 38.75, Est GFR (MDRD) Af Amer 98, Est GFR (MDRD) Non-Af 81, BUN/Creatinine Ratio 44.8 H, Glucose 118 H, Calcium 8.5, Total Bilirubin 0.40, AST 20, ALT 21, Alkaline Phosphatase 43 L, Total Protein 6.0 L, Albumin 2.5 L, Globulin 3.5, Albumin/Globulin Ratio 0.7 L 12/18/22 06:43: POC Glucose 119 H
--- NOTE | 2022-12-18 12:08 | RAD_ITS ---
STUDY: X-RAY - ABDOMEN/PELVIS REASON FOR EXAM: Female, 82 years old. TUBE FEED PLACEMENT TECHNIQUE: Single AP view of the abdomen / pelvis. COMPARISON: None. FINDINGS: The tip of the feeding tube is just distal to the gastroesophageal junction. RAD/Abdomen Single View (Portable) IMPRESSION: The tip of the feeding tube is just distal to the gastroesophageal junction. Electronically Signed: Tab Marks MD at 12:38 EDT ,
--- NOTE | 2022-12-18 12:17 | NURSING ---
FEEDING TUBE PLACED BY DR MONTILLA AND RADIOLOGY HERE TO OBTAIN XRAY TO VERIFY PLACEMENT. THIS NURSE JUST SPOKE TO SON, CHRISTIE, AND GAVE UPDATE. CHRISTIE ALSO APOLOGETIC FOR GETTING UPSET WHEN WE SPOKE EARLIER
[2022-12-18 13:05] LABS: Bedside Glucose 111 mg/dL (74-106)
--- NOTE | 2022-12-18 14:42 | PN_ITS ---
Subjective Subjective Patient seen and examined. She was admitted to be managed for PEG tube malfunction. Her PEG tube fell out. Unable to do review of systems due to expressive aphasia. She has remained hemodynamically stable. General surgery on board. Objective Data Objective Data Vital Signs: Vital Signs Temp Pulse Resp BP Pulse Ox O2 Del Method 97.8 F 67 15 154/65 H 98 Room Air 12/18/22 10:00 12/18/22 10:00 12/18/22 10:00 12/18/22 10:00 12/18/22 10:00 12/18/22 10:15 Oxygen Delivery Method Room Air Weight: 166 lb 14.415 oz Body Mass Index (BMI) 28.6 Intake & Output: Intake and Output for Last 24 Hours 12/16/22 12/17/22 12/18/22 23:59 23:59 23:59 Intake Total 1200.00 / 1200.00 Balance 1200.00 / 1200.00 Lab / Micro Data Result Diagrams: 12/18/22 05:40 12/18/22 05:40 Labs: Laboratory Results - last 24 hr 12/17/22 23:20: WBC 8.7, RBC 3.54 L, Hgb 9.4 L, Hct 30.9 L, MCV 87.3, MCH 26.6 L , MCHC 30.4 L, RDW Std Deviation 55.5 H, RDW Coeff of Heriberto 17.6 H, Plt Count 309, MPV 11.0, Immature Gran % (Auto) 0.200, Neut % (Auto) 68.8, Lymph % (Auto) 17.1 L, [place] % (Auto) 10.2 H, Eos % (Auto) 3.0, Baso % (Auto) 0.7, Absolute Neuts (auto) 6.0, Absolute Lymphs (auto) 1.49, Nucleated RBC % 0 12/17/22 23:20: PT 15.0 H, INR 1.2, APTT 27.8 12/17/22 23:20: Sodium Cancelled, Potassium Cancelled, Chloride Cancelled, Carbon Dioxide Cancelled, Anion Gap Cancelled, BUN Cancelled, Creatinine Cancelled, Estim Creat Clear Calc Cancelled, Est GFR (MDRD) Af Amer Cancelled, Est GFR (MDRD) Non-Af Cancelled, BUN/Creatinine Ratio Cancelled, Glucose Cancelled, Calcium Cancelled 12/17/22 23:30: Sodium 141, Potassium 4.5, Chloride 109 H, Carbon Dioxide 28.0, Anion Gap 4 L, BUN 41 H, Creatinine 0.70, Estim Creat Clear Calc 38.75, Est GFR (MDRD) Af Amer 103, Est GFR (MDRD) Non-Af 85, BUN/Creatinine Ratio 58.4 H, Glucose 123 H, Calcium 9.2, Total Bilirubin 0.30, AST 24, ALT 23, Alkaline Phosphatase 46, Total Protein 6.4, Albumin 2.7 L, Globulin 3.7, Albumin/Globulin Ratio 0.7 L 12/18/22 05:40: WBC 8.7, RBC 3.40 L, Hgb 9.0 L, Hct 29.9 L, MCV 87.9, MCH 26.5 L , MCHC 30.1 L, RDW Std Deviation 55.9 H, RDW Coeff of Heriberto 17.4 H, Plt Count 302, MPV 11.1, Immature Gran % (Auto) 0.600, Neut % (Auto) 68.3, Lymph % (Auto) 18.9 L, [place] % (Auto) 8.3, Eos % (Auto) 3.2, Baso % (Auto) 0.7, Absolute Neuts (auto) 5.9, Absolute Lymphs (auto) 1.64, Nucleated RBC % 0 12/18/22 05:40: PT 14.7, INR 1.2, APTT 28.9 12/18/22 05:40: Sodium 142, Potassium 4.3, Chloride 109 H, Carbon Dioxide 28.0, Anion Gap 5, BUN 33 H, Creatinine 0.74, Estim Creat Clear Calc 38.75, Est GFR (MDRD) Af Amer 98, Est GFR (MDRD) Non-Af 81, BUN/Creatinine Ratio 44.8 H, Glucose 118 H, Calcium 8.5, Total Bilirubin 0.40, AST 20, ALT 21, Alkaline Phosphatase 43 L, Total Protein 6.0 L, Albumin 2.5 L, Globulin 3.5, Albumin/Globulin Ratio 0.7 L 12/18/22 06:43: POC Glucose 119 H 12/18/22 12:46: POC Glucose 111 H Radiography Diagnostic Testing: Radiology Impression KUB X-Ray 12/18/22 12:08 IMPRESSION: The tip of the feeding tube is just distal to the gastroesophageal junction. Electronically Signed: Tab Marks MD at 12:38 EDT , Physical Exam Const alert and no apparent distress Constitutional Narrative: expressive aphasia. HEENT normocephalic and head/scalp atraumatic Neck no lymphadenopathy and supple Lymph Lymphatic: no lymphadenopathy noted Resp normal respiratory effort, normal air movement and clear to auscultation bilaterally Cardio regular rate, regular rhythm, S1 normal heart sound, S2 normal heart sound and no murmurs GI normal to inspection, nondistended, normoactive bowel sounds and soft to palpation GI Narrative: intact dressing over PEG tube site. Extremity normal capillary refill and no clubbing, cyanosis or edema Neuro no focal motor deficits Neuro Narrative: expressive aphasia Psych thought process normal Appearance: appropriate Assessment & Plan Assessment/Plan (1) PEG tube malfunction: PLAN: Plan #Malfunctioning PEG tube * PEG tube accidentally fell out * was placed in [facility] * general surgery on board * per general sugjason, PEG tube to be replaced on Wednesday as patient was on eliquis up till yesterday * Dobhoff feeding tube inserted today for patient to be commenced on tube feeds- Jevity, per dietitian. * #History of CVA with expressive aphasia * also has hemiplegia. Was diagnosed in October 2022 * PT.OT on board. Fall precautions. * aspiration precautions * on aspiriin. statin held as she is NPO * #History of DVT: Eliquis held and patient now on therapeutic Lovenox. Hold Lovenox the night of 12/20/2022 for PEG tube insertion on Wednesday. #COPD: Not in exacerbation. On breathing treatment with bronchodilators. #Hypertension: Coreg on hold as patient is NPO. IV hydralazine as needed #Hyperlipidemia: On statin which was held as patient is n.p.o. Anxiety and depression: Paroxetine also as patient is n.p.o. #Hypothyroidism with Graves' disease: synthroid held as patient is npo. Will resume as Dobhoff inserted. * #History of non-small cell lung cancer: Follows up at [facility]. In remission #Peripheral artery disease: S/p aortoiliac femoral bypass. Now on rectal aspirin. Eliquis on hold and now on therapeutic Lovenox. #DVT prophylaxis: Currently on therapeutic Lovenox Charges/Coding Visit Charges Inpatient E&M: 25984 Subs Hosp L2
[2022-12-18 14:56] VITALS: O2SAT 98
[2022-12-18 15:00] VITALS: BP 130/51; PULSE 68; RESP 16; TEMP 36.6; O2SAT 94
--- NOTE | 2022-12-18 15:10 | RAD_ITS ---
STUDY: X-RAY - ABDOMEN/PELVIS REASON FOR EXAM: Female, 82 years old. Advanced feeding tube TECHNIQUE: Single AP view of the abdomen / pelvis. COMPARISON: Comparison is made with prior study done earlier in the day. FINDINGS: The tip of the feeding tube is in the distal portion of the stomach. RAD/Abdomen Single View (Portable) IMPRESSION: The tip of the feeding tube is in the distal portion of the stomach. Electronically Signed: Tab Marks MD at 15:29 EDT ,
[2022-12-18] MEDS: Jevity 1.5. 1,000 ML Bottle 240 ML GT (17:25)
[2022-12-18 18:05] LABS: Bedside Glucose 116 mg/dL (74-106)
--- NOTE | 2022-12-18 18:19 | CASEMGMT ---
Social Work Pt is admitted from [facility]. BALAJI attempted to meet with pt who is sleeping soundly. Phone call to son/HCPOA Juancho Humphries who confirms pt was at [facility] skilled and plan is to return. BALAJI spoke with Francia at [facility] who states she will confirm with team plan to take pt back. Pt will need precert to return. This has not been started as pt will be having surgery on Wednesday. SW to follow for discharge planning. Plan: [facility], pending precert LYNETTE Rodriguez
[2022-12-18 20:34] VITALS: BP 146/64; PULSE 61; RESP 18; TEMP 36.4; O2SAT 96
[2022-12-19 00:41] LABS: Bedside Glucose 126 mg/dL (74-106)
[2022-12-19 02:19] VITALS: BP 154/76; PULSE 76; RESP 18; TEMP 36.7; O2SAT 96
[2022-12-19 06:00] VITALS: BMI 28.7
[2022-12-19] MEDS: Enoxaparin 80 MG/0.8 ML Syringe SC ×2 (06:06→18:01)
[2022-12-19] MEDS: 0.9% Normal Saline 1,000 ML 100 ML IV ×2 (06:06→16:02)
[2022-12-19 06:20] LABS: Absolute Lymphocyte Count 1.37 X10^3/uL (0.83-4.51); Absolute Neutrophil Count 5.4 X10^3/uL (2.0-7.7); Basophil# 0.04 X10^3/uL; Basophil% 0.5 % (0-1); Eosinophil# 0.21 X10^3/uL; Eosinophils% 2.8 % (0-5); Hematocrit 29.9 % (37-47); Hemoglobin 9.1 g/dL (12.0-15.0); Lymphocyte # 1.37 X10^3/ul (0.83-4.51); Lymphocyte % 18.1 % (19-41); Mean Corp Hgb Conc 30.4 g/dL (32-36); Mean Corpuscular Hgb 26.8 pg (27.0-32.0); Mean Corpuscular Volume 88.2 fL (81-99); Mean Platelet Vol. 10.3 fl (6.2-12.0); Monocyte# 0.53 X10^3/uL; NRBC Flagged by Analyzer 0 % (0-5); Neutrophil # 5.43 X10^3/uL (2.7-7.7); Neutrophil % 71.5 % (47-70); Platelet Count 289 K/mm3 (150-450); RBC Distribution Width CV 17.7 % (11.6-14.6); RBC Distribution Width SD 56.2 fl (35.1-43.9); Red Blood Count 3.39 M/mm3 (4.2-5.4); White Blood Count 7.6 K/mm3 (4.4-11.0)
[2022-12-19 06:31] LABS: Bedside Glucose 102 mg/dL (74-106)
[2022-12-19 06:54] LABS: Anion Gap 2 (5-15); BUN 22 mg/dL (7-18); BUN/Creat Ratio 33.8 RATIO (10-20); Calcium,Total 8.4 mg/dL (8.5-10.1); Chloride 114 mmol/L (98-107); Creatinine, Serum 0.65 mg/dL (0.55-1.02); EST Glomerular Filtration Rate 93 mL/min (>60); Est Glom Filt Rate - Afr Amer 113 mL/min (>60); Estimated Creatinine Clearance 38.75 ml/min; Glucose 111 mg/dL (74-106); Potassium 4.1 mmol/L (3.5-5.1); Sodium Level 141 mmol/L (136-145)
[2022-12-19 07:18] VITALS: O2SAT 95
[2022-12-19 08:12] VITALS: BP 148/76; PULSE 70; RESP 18; TEMP 37.1; O2SAT 97
[2022-12-19] MEDS: Aspirin 300 MG Suppository RC (08:28)
[2022-12-19] MEDS: Menthol/Lanolin/Calamine/Znox 113 GM Tube 1 APPLIC TOPICAL ×3 (08:29→20:34)
[2022-12-19] MEDS: NYSTATIN 500,000 UNIT/5 ML UDC 500000 UNIT PO ×4 (09:44→20:34)
[2022-12-19 11:55] LABS: Bedside Glucose 94 mg/dL (74-106)
--- NOTE | 2022-12-19 12:31 | PN_ITS ---
Subjective Subjective Patient seen and examined. She was comfortably lying in bed. Unable to do review of systems as she has expressive aphasia. She has remained hemodynamically stable. Objective Data Objective Data Vital Signs: Vital Signs Temp Pulse Resp BP Pulse Ox O2 Del Method 98.7 F 70 18 148/76 H 97 Room Air 12/19/22 08:12 12/19/22 08:12 12/19/22 08:12 12/19/22 08:12 12/19/22 08:12 12/19/22 08:12 Oxygen Delivery Method Room Air Weight: 168 lb 3.403 oz Body Mass Index (BMI) 28.7 Intake & Output: Intake and Output for Last 24 Hours 12/17/22 12/18/22 12/19/22 23:59 23:59 23:59 Intake Total 2271.66 / 2271.66 1283.34 / 1283.34 Output Total 450 / 800 1525 / 1525 Balance 1821.66 / 1471.66 -241.66 / -241.66 Lab / Micro Data Result Diagrams: 12/19/22 06:06 12/19/22 06:02 Labs: Laboratory Results - last 24 hr 12/18/22 12:46: POC Glucose 111 H 12/18/22 17:37: POC Glucose 116 H 12/19/22 00:14: POC Glucose 126 H 12/19/22 06:02: Sodium 141, Potassium 4.1, Chloride 114 H, Carbon Dioxide 25.0, Anion Gap 2 L, BUN 22 H, Creatinine 0.65, Estim Creat Clear Calc 38.75, Est GFR (MDRD) Af Amer 113, Est GFR (MDRD) Non-Af 93, BUN/Creatinine Ratio 33.8 H, Glucose 111 H, Calcium 8.4 L 12/19/22 06:06: WBC 7.6, RBC 3.39 L, Hgb 9.1 L, Hct 29.9 L, MCV 88.2, MCH 26.8 L , MCHC 30.4 L, RDW Std Deviation 56.2 H, RDW Coeff of Heriberto 17.7 H, Plt Count 289, MPV 10.3, Immature Gran % (Auto) 0.100, Neut % (Auto) 71.5 H, Lymph % (Auto) 18.1 L, [place] % (Auto) 7.0, Eos % (Auto) 2.8, Baso % (Auto) 0.5, Absolute Neuts (auto) 5.4, Absolute Lymphs (auto) 1.37, Nucleated RBC % 0 12/19/22 06:08: POC Glucose 102 12/19/22 11:11: POC Glucose 94 Radiography Diagnostic Testing: Radiology Impression KUB X-Ray 12/18/22 12:08 IMPRESSION: The tip of the feeding tube is just distal to the gastroesophageal junction. Electronically Signed: Tab Marks MD at 12:38 EDT , KUB X-Ray 12/18/22 15:10 IMPRESSION: The tip of the feeding tube is in the distal portion of the stomach. Electronically Signed: Tab Marks MD at 15:29 EDT , Physical Exam Const alert and no apparent distress Constitutional Narrative: expressive aphasia. General Appearance: cooperative HEENT normocephalic and head/scalp atraumatic Eyes PERRL and EOMs intact bilaterally Eyes Narrative: exophthalmos Neck no lymphadenopathy and supple Lymph Lymphatic: no lymphadenopathy noted Resp normal respiratory effort, normal air movement and clear to auscultation bilaterally Cardio regular rate, regular rhythm, S1 normal heart sound, S2 normal heart sound and no murmurs GI normal to inspection, nondistended, normoactive bowel sounds and soft to palpation GI Narrative: intact dressing over PEG tube site. Extremity normal capillary refill and no clubbing, cyanosis or edema Skin General Skin Exam: no breakdown Neuro no focal motor deficits Neuro Narrative: expressive aphasia Psych thought process normal Appearance: appropriate Assessment & Plan Assessment/Plan (1) PEG tube malfunction: PLAN: Plan #Malfunctioning PEG tube * PEG tube accidentally fell out * was placed in [facility] * general surgery on board * per general sugjason, PEG tube to be replaced on Wednesday as patient was on eliquis up till yesterday * Dobhoff feeding tube inserted yesterday. for patient to be commenced on tube feeds- Jevity, per dietitian. * Dobhoff not functioning properly since inserted yesterday; general surgery to evaluate today * #History of CVA with expressive aphasia * also has hemiplegia. Was diagnosed in October 2022 * PT.OT on board. Fall precautions. * aspiration precautions * on aspiriin. statin held as she is NPO * #History of DVT: Eliquis held and patient now on therapeutic Lovenox. Hold Lovenox the night of 12/20/2022 for PEG tube insertion on Wednesday. #COPD: Not in exacerbation. On breathing treatment with bronchodilators. #Hypertension: Coreg on hold as patient is NPO. IV hydralazine as needed #Hyperlipidemia: On statin which was held as patient is n.p.o. Anxiety and depression: Paroxetine also as patient is n.p.o. #Hypothyroidism with Graves' disease: synthroid held as patient is npo. Will resume as Dobhoff inserted. * #History of non-small cell lung cancer: Follows up at [facility]. In remission #Peripheral artery disease: S/p aortoiliac femoral bypass. Now on rectal aspiri n. Eliquis on hold and now on therapeutic Lovenox. #DVT prophylaxis: Currently on therapeutic Lovenox Charges/Coding Visit Charges Inpatient E&M: 97650 Subs Hosp L2
[2022-12-19 14:30] VITALS: BP 163/61; PULSE 73; RESP 18; TEMP 36.8; O2SAT 93
[2022-12-19 16:25] LABS: Bedside Glucose 97 mg/dL (74-106)
[2022-12-19 20:30] VITALS: BP 154/62; PULSE 65; RESP 18; TEMP 36.7; O2SAT 95
[2022-12-19 23:36] LABS: Bedside Glucose 93 mg/dL (74-106)
[2022-12-20] MEDS: 0.9% Normal Saline 1,000 ML 100 ML IV (00:21)
[2022-12-20 02:30] VITALS: BP 153/60; PULSE 72; RESP 18; TEMP 37; O2SAT 95
[2022-12-20 03:49] VITALS: BMI 28.6
--- NOTE | 2022-12-20 05:10 | PCM.HOSP.N ---
Hospitalist Note Staff reporting maroon-colored stools. Will obtain guaiac to be certain; ever, hemoglobin has been trending downward since 11/10/2022. Hemoglobin at that time was 12.3 and most recently 12/19/2022 hemoglobin 9.1 with repeat hemoglobin pending this AM. Patient is on chronic anticoagulant therapy usually Eliquis for DVT/PE history which is recently been transition to therapeutic Lovenox given PEG tube had been accidentally pulled out.
[2022-12-20 06:05] LABS: Bedside Glucose 96 mg/dL (74-106)
[2022-12-20 06:08] LABS: Absolute Lymphocyte Count 1.19 X10^3/uL (0.83-4.51); Absolute Neutrophil Count 4.6 X10^3/uL (2.0-7.7); Basophil# 0.05 X10^3/uL; Basophil% 0.8 % (0-1); Eosinophil# 0.19 X10^3/uL; Eosinophils% 2.9 % (0-5); Hematocrit 27.5 % (37-47); Hemoglobin 8.4 g/dL (12.0-15.0); Lymphocyte # 1.19 X10^3/ul (0.83-4.51); Lymphocyte % 18.3 % (19-41); Mean Corp Hgb Conc 30.5 g/dL (32-36); Mean Corpuscular Hgb 26.8 pg (27.0-32.0); Mean Corpuscular Volume 87.6 fL (81-99); Mean Platelet Vol. 10.7 fl (6.2-12.0); Monocyte# 0.47 X10^3/uL; Monocyte% 7.2 % (0-10); NRBC Flagged by Analyzer 0 % (0-5); Neutrophil # 4.59 X10^3/uL (2.7-7.7); Neutrophil % 70.6 % (47-70); Platelet Count 287 K/mm3 (150-450); RBC Distribution Width CV 17.4 % (11.6-14.6); RBC Distribution Width SD 54.8 fl (35.1-43.9); Red Blood Count 3.14 M/mm3 (4.2-5.4); White Blood Count 6.5 K/mm3 (4.4-11.0)
[2022-12-20 06:48] LABS: Anion Gap 3 (5-15); BUN 21 mg/dL (7-18); BUN/Creat Ratio 33.7 RATIO (10-20); Calcium,Total 8.1 mg/dL (8.5-10.1); Chloride 116 mmol/L (98-107); Creatinine, Serum 0.62 mg/dL (0.55-1.02); EST Glomerular Filtration Rate 98 mL/min (>60); Est Glom Filt Rate - Afr Amer 118 mL/min (>60); Estimated Creatinine Clearance 38.75 ml/min; Glucose 107 mg/dL (74-106); Potassium 3.9 mmol/L (3.5-5.1); Sodium Level 143 mmol/L (136-145)
--- NOTE | 2022-12-20 07:40 | PCM.PN.HOSP ---
Reason for Visit Reason for Visit: Diagnoses Gastrostomy malfunction (12/18/22) Subjective Subjective Resting comfortably in bed, not verbally responding but follows commands Objective Data Objective Data Vital Signs: Vital Signs Temp Pulse Resp BP Pulse Ox O2 Del Method 98.6 F 72 18 153/60 H 95 Room Air 12/20/22 02:30 12/20/22 02:30 12/20/22 02:30 12/20/22 02:30 12/20/22 02:30 12/20/22 02:30 Oxygen Delivery Method Room Air Weight: 76.1 kg Body Mass Index (BMI) 28.6 Intake & Output: Intake and Output for Last 24 Hours 12/18/22 12/19/22 12/20/22 23:59 23:59 23:59 Intake Total 2271.66 / 2271.66 1986.67 / 1985.67 831.67 / 831.67 Output Total 450 / 800 2325 / 2325 500 / 500 Balance 1821.66 / 1471.66 -338.33 / -338.33 331.67 / 331.67 Lab / Micro Data Result Diagrams: 12/20/22 05:25 12/20/22 05:25 Labs: Laboratory Results - last 24 hr 12/19/22 11:11: POC Glucose 94 12/19/22 16:00: POC Glucose 97 12/19/22 23:13: POC Glucose 93 12/20/22 05:25: WBC 6.5, RBC 3.14 L, Hgb 8.4 L, Hct 27.5 L, MCV 87.6, MCH 26.8 L, MCHC 30.5 L, RDW Std Deviation 54.8 H, RDW Coeff of Heriberto 17.4 H, Plt Count 287, MPV 10.7, Immature Gran % (Auto) 0.200, Neut % (Auto) 70.6 H, Lymph % (Auto) 18.3 L, [place] % (Auto) 7.2, Eos % (Auto) 2.9, Baso % (Auto) 0.8, Absolute Neuts (auto) 4.6, Absolute Lymphs (auto) 1.19, Nucleated RBC % 0 12/20/22 05:25: Sodium 143, Potassium 3.9, Chloride 116 H, Carbon Dioxide 24.0, Anion Gap 3 L, BUN 21 H, Creatinine 0.62, Estim Creat Clear Calc 38.75, Est GFR (MDRD) Af Amer 118, Est GFR (MDRD) Non-Af 98, BUN/Creatinine Ratio 33.7 H, Glucose 107 H, Calcium 8.1 L 12/20/22 05:43: POC Glucose 96 Micro: Microbiology 12/20/22 05:05 Stool Stool Occult Blood (LACY) - Final Occult Blood Positive Physical Exam Narrative General: Alert, no acute distress, not answering orientation questions HEENT: Atraumatic, eyes protuberant Eyes: Anicteric Neck: Supple Respiratory: Clear to auscultation bilaterally, normal respiratory effort Cardiovascular: Regular rate and rhythm GI: Soft, nontender, nondistended Extremities: No edema Musculoskeletal: Moves left side extremities, not right-sided Neuro: Follows commands with left side, does not move right-sided extremities Skin: No rashes appreciated Psych: Cooperative Assessment & Plan Assessment/Plan (1) PEG tube malfunction: (2) CVA (cerebral vascular accident): (3) H/O [id number] bypass: PLAN: Plan #PEG tube malfunction -Had Dobbhoff placed on presentation but this has been nonfunctional -This is to be discontinued and NG attempted to be placed -Discussed with surgery and if NG tube placement successful can be on tube feeds until midnight and then n.p.o. for PEG placement tomorrow #Acute on chronic anemia -Hemoglobin 8.4 today down from 11 in October, has been on Eliquis chronically and was transition to Lovenox in preparation for feeding tube -Fecal occult positive -Held blood thinners this a.m. and consulted GI -Continue IV PPI #CVA Oct 2022 -rectal asa given inability to use peg or Dobbhoff, held this a.m. due to maroon-colored stools and concern for bleed -Resume statin therapy once able to use NG or PEG #hx VTE -Takes Eliquis chronically, was transition to Lovenox -Lovenox held with maroon-colored stool and positive FOBT #hx hypothyroidism w/ hx of grave's dz -Resume levothyroxine once PEG tube placed #hx PAD s/p aortoiliac femoral bypass -Rectal aspirin, restart statin as soon as possible #History of COPD Gold stage I, mild -Not in exacerbation #Hx Lung CA non-small cell left upper lobe -Patient with history of left upper lobe non-small cell lung cancer, initially had followed with [facility]ology eventually transition to [facility] given extensive underlying history and comorbidities, from report potentially in remission, encourage continued outpatient follow-up as previously arranged #DVT ppx: SCDs Melonie Cardoso MD Time spent in the patient's overall evaluation,decision-making process, review of diagnostic data, adjustment of management, discussion with other providers, nursing nursing and ancillary staff involved in patient's care documentation, 60 Minutes Charges/Coding Visit Charges Inpatient E&M: 11029 Subs Hosp L2
[2022-12-20 08:34] VITALS: O2SAT 95
[2022-12-20 08:38] VITALS: BP 168/64; PULSE 75; RESP 18; TEMP 36.8; O2SAT 97
[2022-12-20] MEDS: Aspirin 300 MG Suppository RC (08:43)
[2022-12-20] MEDS: Menthol/Lanolin/Calamine/Znox 113 GM Tube 1 APPLIC TOPICAL ×2 (08:44→13:59)
[2022-12-20] MEDS: NYSTATIN 500,000 UNIT/5 ML UDC 500000 UNIT PO ×4 (08:45→23:52)
[2022-12-20 11:50] LABS: Bedside Glucose 99 mg/dL (74-106)
--- NOTE | 2022-12-20 13:35 | NURSING ---
Weighted feeding tube removed from left nares without difficulty, tube intact, weighted end intact, noticable crimp in tubing at end where tubing meets weight. Patient tolerated well.
[2022-12-20 13:52] VITALS: BP 151/62; PULSE 73; RESP 18; TEMP 36.9; O2SAT 94
--- NOTE | 2022-12-20 14:24 | RAD_ITS ---
INDICATION: NGT placement EXAMINATION/TECHNIQUE: X-RAY - XR Abdomen 1 View COMPARISON: 12/18/2022 FINDINGS: Nasogastric tube extends below the diaphragm. BOWEL GAS PATTERN: Non-obstructive. No bowel or stomach distention. FREE AIR: Not assessed on a single supine view. ORGANOMEGALY: Not seen. CALCIFICATIONS: No abnormal calcifications observed. LOWER CHEST: No acute pathology. BONES AND SOFT TISSUES: No acute pathology. RAD/Abdomen Single View IMPRESSION: Nasogastric tube extends below the diaphragm projecting the cardiothymic the stomach. Advancing tube is advised if clinically warranted. Electronically Signed: Fredy May MD, FLORESITA at 15:43 EDT ,
--- NOTE | 2022-12-20 16:22 | NURSING ---
spoke with son Juancho on telephone. updated on pt POC
[2022-12-20 16:31] LABS: Bedside Glucose 89 mg/dL (74-106)
[2022-12-20] MEDS: 0.9% Normal Saline 1,000 ML 75 ML IV (16:50)
[2022-12-20] MEDS: Dextrose 50%-Water 25 GM/50 ML DISP.SYRIN IV (16:51)
[2022-12-20 21:00] VITALS: BP 137/69; PULSE 72; RESP 18; TEMP 36.9; O2SAT 94
[2022-12-21] VITALS (13 sets, daily range): BP systolic 83–151; BP diastolic 54–93; PULSE 70–87; RESP 16–18; TEMP 36.4–37.2; O2SAT 94–100; BMI 28.6; BMI 28.8
[2022-12-21] MEDS: Menthol/Lanolin/Calamine/Znox 113 GM Tube 1 APPLIC TOPICAL ×5 (00:03→21:13)
[2022-12-21 00:36] LABS: Bedside Glucose 90 mg/dL (74-106)
[2022-12-21] MEDS: 0.9% Normal Saline 1,000 ML 75 ML IV (06:01)
[2022-12-21 07:07] LABS: Absolute Neutrophil Count 5.2 X10^3/uL (2.0-7.7); Basophil# 0.03 X10^3/uL; Basophil% 0.4 % (0-1); Eosinophil# 0.19 X10^3/uL; Eosinophils% 2.6 % (0-5); Hematocrit 27.5 % (37-47); Hemoglobin 8.2 g/dL (12.0-15.0); Mean Corp Hgb Conc 29.8 g/dL (32-36); Mean Corpuscular Hgb 26.3 pg (27.0-32.0); Mean Corpuscular Volume 88.1 fL (81-99); Mean Platelet Vol. 10.6 fl (6.2-12.0); Monocyte# 0.48 X10^3/uL; Monocyte% 6.6 % (0-10); NRBC Flagged by Analyzer 0 % (0-5); Neutrophil # 5.21 X10^3/uL (2.7-7.7); Platelet Count 304 K/mm3 (150-450); RBC Distribution Width CV 17.4 % (11.6-14.6); RBC Distribution Width SD 56.5 fl (35.1-43.9); Red Blood Count 3.12 M/mm3 (4.2-5.4); White Blood Count 7.2 K/mm3 (4.4-11.0)
[2022-12-21 07:20] LABS: Bedside Glucose 95 mg/dL (74-106)
[2022-12-21 07:31] LABS: Anion Gap 2 (5-15); BUN 21 mg/dL (7-18); BUN/Creat Ratio 33.6 RATIO (10-20); Calcium,Total 8.3 mg/dL (8.5-10.1); Chloride 115 mmol/L (98-107); Creatinine, Serum 0.62 mg/dL (0.55-1.02); EST Glomerular Filtration Rate 97 mL/min (>60); Est Glom Filt Rate - Afr Amer 118 mL/min (>60); Estimated Creatinine Clearance 38.75 ml/min; Glucose 99 mg/dL (74-106); Potassium 3.7 mmol/L (3.5-5.1); Sodium Level 142 mmol/L (136-145)
[2022-12-21] MEDS: Lactated Ringers 1,000 ML 15 ML IV ×2 (09:18→23:17)
--- NOTE | 2022-12-21 10:37 | PN.HOSP_ITS ---
Reason for Visit Reason for Visit: Diagnoses Cerebral infarction, unspecified (12/18/22) Gastrostomy malfunction (12/18/22) Presence of other vascular implants and grafts (12/18/22) Subjective Subjective Resting comfortably in bed, for PEG tube replacement today Objective Data Objective Data Vital Signs: Vital Signs Temp Pulse Resp BP Pulse Ox O2 Del Method 98.2 F 81 16 151/57 H 95 Room Air 12/21/22 08:32 12/21/22 08:32 12/21/22 08:32 12/21/22 08:32 12/21/22 08:32 12/21/22 08:32 Oxygen Delivery Method Room Air Weight: 76.2 kg Body Mass Index (BMI) 28.8 Intake & Output: Intake and Output for Last 24 Hours 12/19/22 12/20/22 12/21/22 23:59 23:59 23:59 Intake Total 1985.67 / 1985.67 2395.59 / 2395.59 750 / 750 Output Total 2325 / 2325 2675 / 2675 400 / 400 Balance -338.33 / -338.33 -279.41 / -279.41 350 / 350 Lab / Micro Data Result Diagrams: 12/21/22 06:10 12/21/22 06:10 Labs: Laboratory Results - last 24 hr 12/20/22 11:31: POC Glucose 99 12/20/22 16:04: POC Glucose 89 12/21/22 00:11: POC Glucose 90 12/21/22 06:03: POC Glucose 95 12/21/22 06:10: WBC 7.2, RBC 3.12 L, Hgb 8.2 L, Hct 27.5 L, MCV 88.1, MCH 26.3 L , MCHC 29.8 L, RDW Std Deviation 56.5 H, RDW Coeff of Heriberto 17.4 H, Plt Count 304, MPV 10.6, Immature Gran % (Auto) 0.400, Neut % (Auto) 72.0 H, Lymph % (Auto) 18.0 L, [place] % (Auto) 6.6, Eos % (Auto) 2.6, Baso % (Auto) 0.4, Absolute Neuts (auto) 5.2, Absolute Lymphs (auto) 1.30, Nucleated RBC % 0 12/21/22 06:10: Sodium 142, Potassium 3.7, Chloride 115 H, Carbon Dioxide 25.0, Anion Gap 2 L, BUN 21 H, Creatinine 0.62, Estim Creat Clear Calc 38.75, Est GFR (MDRD) Af Amer 118, Est GFR (MDRD) Non-Af 97, BUN/Creatinine Ratio 33.6 H, Glucose 99, Calcium 8.3 L Micro: Microbiology 12/20/22 05:05 Stool Stool Occult Blood (LACY) - Final Occult Blood Positive Radiography Diagnostic Testing: Radiology Impression KUB X-Ray 12/20/22 14:24 IMPRESSION: Nasogastric tube extends below the diaphragm projecting the cardiothymic the stomach. Advancing tube is advised if clinically warranted. Electronically Signed: Fredy May MD, FLORESITA at 15:43 EDT , Physical Exam Narrative General: Resting comfortably HEENT: Atraumatic Eyes: Spontaneous eye movements Neck: Supple Respiratory: normal respiratory effort Cardiovascular: no edema appreciated GI: nondistended Extremities: Moving all extremities Neuro: Has right-sided hemiparesis Psych: Pleasant Assessment & Plan Assessment/Plan (1) PEG tube malfunction: (2) CVA (cerebral vascular accident): (3) H/O [id number] bypass: PLAN: Plan #PEG tube malfunction -Had Dobbhoff placed on presentation but this has been nonfunctional -This is to be discontinued and NG attempted to be placed -Discussed with surgery and if NG tube placement successful can be on tube feeds until midnight and then n.p.o. for PEG placement tomorrow -12/21: Had EGD and PEG tube replaced 12/21/[address] Gonzalez[address] Okay for meds and small water flushes and tube feeds can start tomorrow #Acute on chronic anemia -Hemoglobin 8.4 today down from 11 in October, has been on Eliquis chronically and was transition to Lovenox in preparation for feeding tube -Fecal occult positive -Held blood thinners this a.m. and consulted GI -Continue IV PPI ?12/21/: EGD done at time of PEG placement demonstrated no bleeding. Discussed with surgery and GI. Patient will bowel prep tomorrow and have colonoscopy the following day #CVA Oct 2022 -rectal asa given inability to use peg or Dobbhoff, held this a.m. due to maroon-colored stools and concern for bleed -Resume statin therapy once able to use NG or PEG -12/21: Discussed with GI, can give aspirin dose today given her recent stroke, with Lovenox still on hold #hx VTE -Takes Eliquis chronically, was transition to Lovenox -Lovenox held with maroon-colored stool and positive FOBT #hx hypothyroidism w/ hx of grave's dz -Resume levothyroxine once PEG tube placed #hx PAD s/p aortoiliac femoral bypass -Rectal aspirin, restart statin as soon as possible #History of COPD Gold stage I, mild -Not in exacerbation #Hx Lung CA non-small cell left upper lobe -Patient with history of left upper lobe non-small cell lung cancer, initially had followed with [facility] oncology eventually transition to [facility] given extensive underlying history and comorbidities, from report potentially in remission, encourage continued outpatient follow-up as previously arranged #DVT ppx: SCDs Melonie Cardoso MD Time spent in the patient's overall evaluation,decision-making process, review of diagnostic data, adjustment of management, discussion with other providers, nursing nursing and ancillary staff involved in patient's care documentation, 30 Minutes Charges/Coding Visit Charges Inpatient E&M: 06346 Subs Hosp L2
--- NOTE | 2022-12-21 10:43 | OP.EGD_ITS ---
Patient Name: Yvonne Humphries Procedure Date: 12/21/2022 7:37 AM Date of : 1940 Age: 82 Procedure: Upper GI endoscopy Indications: Dysphagia Providers: Carlos Gonzalez MD Medicines: Monitored Anesthesia Care Complications: No immediate complications. Estimated blood loss: Minimal. Procedure: Pre-Anesthesia Assessment: - Prior to the procedure, a History and Physical was performed, and patient medications and allergies were reviewed. The patient's tolerance of previous anesthesia was also reviewed. The risks and benefits of the procedure and the sedation options and risks were discussed with the patient. All questions were answered, and informed consent was obtained. Prior Anticoagulants: The patient has taken Eliquis (apixaban), last dose was 4 days prior to procedure. After reviewing the risks and benefits, the patient was deemed in satisfactory condition to undergo the procedure. After obtaining informed consent, the endoscope was passed under direct vision. Throughout the procedure, the patient's blood pressure, pulse, and oxygen saturations were monitored continuously. The Endoscope was introduced through the mouth, and advanced to the third part of duodenum. The upper GI endoscopy was accomplished without difficulty. The patient tolerated the procedure well. Scope In: 10:21:44 AM Scope Out: 10:31:22 AM Total Procedure Duration Time 0 hours 9 minutes 38 seconds Findings: The esophagus was normal. The stomach was normal. The examined duodenum was normal. The patient was placed in the supine position for PEG placement. The stomach was insufflated to appose gastric and abdominal holcomb. A site was located in the body of the stomach with excellent transillumination and manual external pressure for placement. The abdominal wall was marked and prepped in a sterile manner. The area was anesthetized with 5 mL of 0.5% lidocaine. The trocar needle was introduced through the abdominal wall and into the stomach under direct endoscopic view. A snare was introduced through the endoscope and opened in the gastric lumen. The guide wire was passed through the trocar and into the open snare. The snare was closed around the guide wire. The endoscope and snare were removed, pulling the wire out through the mouth. A skin incision was made at the site of needle insertion. The externally removable 20 Fr EndoVive Safety gastrostomy tube was lubricated. The G-tube was tied to the guide wire and pulled through the mouth and into the stomach. The trocar needle was removed, and the gastrostomy tube was pulled out from the stomach through the skin. The external bumper was attached to the gastrostomy tube, and the tube was cut to remove the guide wire. The final position of the gastrostomy tube was confirmed by relook endoscopy, and skin marking noted to be 5 cm at the external bumper. The final tension and compression of the abdominal wall by the PEG tube and external bumper were checked and revealed that the bumper was loose and lightly touching the skin and that the PEG balloon was loose and lightly touching the stomach. The feeding tube was capped, and the tube site cleaned and dressed. Impression: - Normal esophagus. - Normal stomach. - Normal examined duodenum. - An externally removable PEG placement was successfully completed. - No specimens collected. Recommendation: - [facility]. - NPO. - Continue present medications. - Resume Eliquis (apixaban) at prior dose in 2 days. Procedure Code(s): --- Professional --- 31436, Esophagogastroduodenoscopy, flexible, transoral; with directed placement of percutaneous gastrostomy tube Diagnosis Code(s): --- Professional --- R13.10, Dysphagia, unspecified CPT copyright 2017 [employer]. All rights reserved. The codes documented in this report are preliminary and upon payroll clerk review may be revised to meet current compliance requirements. Carlos Gonzalez MD 12/21/2022 10:43:09 AM This report has been signed electronically. Number of Addenda: 0 Note Initiated On: 12/21/2022 7:37 AM
--- NOTE | 2022-12-21 10:44 | OP.CCLET_ITS ---
12/21/2022 Benjamin Lind MD [address] [place] [address] [place] [address] Re : Upper GI endoscopy procedure for Yvonne Humphries Dear Dr. Lind This procedure was performed on Wednesday, December 21, 2022. My impressions and recommendations are as follows: Impressions : - Normal esophagus. - Normal stomach. - Normal examined duodenum. - An externally removable PEG placement was successfully completed. - No specimens collected. Recommendations : - [facility]. - NPO. - Continue present medications. - Resume Eliquis (apixaban) at prior dose in 2 days. My findings are described in the full procedure note, which is enclosed. If I can be of further assistance, please feel free to contact me at Doctor phone number(s): , Work: . Sincerely, Carlos Gonzalez MD 12/21/2022 10:43:09 AM This report has been signed electronically.
[2022-12-21] MEDS: NYSTATIN 500,000 UNIT/5 ML UDC 500000 UNIT PO ×4 (12:26→21:16)
[2022-12-21] MEDS: Aspirin 81 MG TAB.CHEW NG ×2 (13:42→13:43)
[2022-12-21 14:16] LABS: Bedside Glucose 90 mg/dL (74-106)
[2022-12-21 18:40] LABS: Bedside Glucose 93 mg/dL (74-106)
--- NOTE | 2022-12-21 20:51 | CON.PCM.GI_ITS ---
HPI Consult Data Date of Consult: 12/21/22 HPI Narrative Reason for Consultation: Anemia HPI Narrative: AWA PALOMARES, is a 82 F who presents with altered mental status. She has a Hx Lung CA non-small cell left upper lobe, Anxiety and Depression, Prediabetes, Obesity, COPD, Hx DVT, PAD s/p aortoiliac femoral bypass, HTN, HLD, Hypothyroid ism with history of Graves' disease, recent admission 11/11/22-11/13/22 secondary to Acute CVA with right-sided weakness and altered speech with low NIH score considered not a tPA candidate, admitted, MRI of the brain with new small acute infarct. She underewent a peg tube placement today. I was consulted due to a decreasing hemoglobin. Her ASA and Lovenox has been held for PEG placement today. There was sign of GI bleeding on the upper endoscopy. [facility] Medical History (Updated 12/20/22 @ 13:[address] Melonie Cardoso MD) Bilateral carotid artery disease Chronic embolism and thrombosis of unspecified deep veins of right lower extremity COPD (chronic obstructive pulmonary disease) CVA (cerebral vascular accident) Exophthalmos Graves disease History of lung cancer Hyperlipemia Hypothyroid PAD (peripheral artery disease) Prediabetes Syncope UGIB (upper gastrointestinal bleed) Home Medications acetaminophen 500 mg tablet 1,000 mg feeding tube Q6H PRN Pain 11/10/22 [History Last Taken Unknown] atorvastatin 80 mg tablet 80 mg feeding tube QHS CHOLESTEROL 11/10/22 [History Last Taken 11/09/22] levothyroxine 100 mcg tablet 100 mcg feeding tube DAILY THYROID 11/10/22 [History Last Taken 11/09/22] apixaban 2.5 mg tablet (Eliquis) 2.5 mg feeding tube BID 12/17/22 [History Last Taken Unknown] aspirin 81 mg capsule 81 mg feeding tube DAILY 12/17/22 [History Last Taken Unknown] carvedilol 6.25 mg tablet 6.25 mg feeding tube BID 12/17/22 [History Last Taken Unknown] esomeprazole magnesium 40 mg granules delayed release for susp (Nexium Packet) 40 mg feeding tube DAILY 12/17/22 [History Last Taken Unknown] lactose-reduced food with fiber 0.06 gram-1.5 kcal/mL oral liquid (Jevity 1.5 Shekhar) 240 ml feeding tube 5X/DAY 12/17/22 [History Last Taken Unknown] nystatin 100,000 unit/mL oral suspension 100,000 unit feeding tube 4X/DAY 12/17/22 [History Last Taken Unknown] paroxetine HCl 10 mg/5 mL oral suspension 20 mg feeding tube DAILY 12/17/22 [History Last Taken Unknown] polyethylene glycol 3350 17 gram/dose oral powder (Miralax) 17 g feeding tube DAILY PRN PRN Constipation 12/17/22 [History Last Taken Unknown] Allergy/AdvReac Type Severity Reaction Status Date / Time No Known Allergies Allergy Verified 12/17/22 22:35 Family History (Updated 12/17/22 @ 23:[address] Nicole Hall MD) Mother Heart disease CAD (coronary artery disease) Myocardial infarction Hypertension Family History other Surgical History H/O jeapb-ppphh-yfxscwj bypass History of appendectomy History of shoulder surgery S/P percutaneous endoscopic gastrostomy (PEG) tube placement Social History (Updated 12/17/22 @ 23:[address] Nicole Hall MD) housing: group home Smoking Status: Former smoker Tobacco: How many years used: 60 how long ago did patient quit smokin second hand exposure: Yes alcohol intake: never substance use type: does not use ROS Review of Systems ROS Unobtainable: due to mental status Constitutional Constitutional: Denies anorexia, chills or fatigue Physical Exam Narrative General: Resting comfortably HEENT: Atraumatic Eyes: Spontaneous eye movements Neck: Supple Respiratory: normal respiratory effort Cardiovascular: no edema appreciated GI: nondistended Extremities: Moving all extremities Neuro: Has right-sided hemiparesis Psych: Pleasant Lab / Micro Data Result Diagrams: 12/21/22 06:10 12/21/22 06:10 Labs: Laboratory Results - last 24 hr 12/21/22 00:11: POC Glucose 90 12/21/22 06:03: POC Glucose 95 12/21/22 06:10: WBC 7.2, RBC 3.12 L, Hgb 8.2 L, Hct 27.5 L, MCV 88.1, MCH 26.3 L , MCHC 29.8 L, RDW Std Deviation 56.5 H, RDW Coeff of Heriberto 17.4 H, Plt Count 304, MPV 10.6, Immature Gran % (Auto) 0.400, Neut % (Auto) 72.0 H, Lymph % (Auto) 18.0 L, [place] % (Auto) 6.6, Eos % (Auto) 2.6, Baso % (Auto) 0.4, Absolute Neuts (auto) 5.2, Absolute Lymphs (auto) 1.30, Nucleated RBC % 0 12/21/22 06:10: Sodium 142, Potassium 3.7, Chloride 115 H, Carbon Dioxide 25.0, Anion Gap 2 L, BUN 21 H, Creatinine 0.62, Estim Creat Clear Calc 38.75, Est GFR (MDRD) Af Amer 118, Est GFR (MDRD) Non-Af 97, BUN/Creatinine Ratio 33.6 H, Glucose 99, Calcium 8.3 L 12/21/22 12:20: POC Glucose 90 12/21/22 17:43: POC Glucose 93 Assessment & Plan Assessment/Plan (1) PEG tube malfunction: PLAN: Plan #Malfunctioning PEG tube * PEG tube accidentally fell out * was replaced today * general surgery on board * per general jacki, PEG tube to be replaced on Wednesday as patient was on eliquis up till yesterday * Dobhoff feeding tube inserted yesterday. for patient to be commenced on tube feeds- Jevity, per dietitian. * Dobhoff not functioning properly since inserted yesterday; general surgery to evaluate today * #History of CVA with expressive aphasia * also has hemiplegia. Was diagnosed in October 2022 #History of DVT: Eliquis held and Lovenox held. #Anemia- Plan for colonoscopy on 12/23 Charges/Coding Visit Charges Inpatient E&M: 86571 Init Hosp L3
[2022-12-21 23:51] LABS: Bedside Glucose 95 mg/dL (74-106)
[2022-12-22 05:17] VITALS: BP 135/65; PULSE 73; RESP 17; TEMP 36.6; O2SAT 93
[2022-12-22 06:00] VITALS: BMI 28.5
[2022-12-22 06:50] LABS: Bedside Glucose 99 mg/dL (74-106)
[2022-12-22 07:26] LABS: Absolute Lymphocyte Count 1.17 X10^3/uL (0.83-4.51); Absolute Neutrophil Count 4.9 X10^3/uL (2.0-7.7); Basophil# 0.04 X10^3/uL; Basophil% 0.6 % (0-1); Eosinophil# 0.19 X10^3/uL; Eosinophils% 2.8 % (0-5); Hematocrit 27.8 % (37-47); Hemoglobin 8.6 g/dL (12.0-15.0); Lymphocyte # 1.17 X10^3/ul (0.83-4.51); Lymphocyte % 17.4 % (19-41); Mean Corp Hgb Conc 30.9 g/dL (32-36); Mean Corpuscular Volume 87.1 fL (81-99); Mean Platelet Vol. 10.4 fl (6.2-12.0); Monocyte# 0.43 X10^3/uL; Monocyte% 6.4 % (0-10); NRBC Flagged by Analyzer 0 % (0-5); Neutrophil # 4.88 X10^3/uL (2.7-7.7); Neutrophil % 72.5 % (47-70); Platelet Count 296 K/mm3 (150-450); RBC Distribution Width CV 17.3 % (11.6-14.6); RBC Distribution Width SD 55.2 fl (35.1-43.9); Red Blood Count 3.19 M/mm3 (4.2-5.4); White Blood Count 6.7 K/mm3 (4.4-11.0)
[2022-12-22 08:00] LABS: Anion Gap 3 (5-15); BUN 16 mg/dL (7-18); BUN/Creat Ratio 27.6 RATIO (10-20); Calcium,Total 8.1 mg/dL (8.5-10.1); Chloride 114 mmol/L (98-107); Creatinine, Serum 0.58 mg/dL (0.55-1.02); EST Glomerular Filtration Rate 106 mL/min (>60); Est Glom Filt Rate - Afr Amer 129 mL/min (>60); Estimated Creatinine Clearance 38.75 ml/min; Glucose 98 mg/dL (74-106); Potassium 3.8 mmol/L (3.5-5.1); Sodium Level 141 mmol/L (136-145)
[2022-12-22 08:30] VITALS: BP 174/75; PULSE 65; RESP 18; TEMP 37.1; O2SAT 98
--- NOTE | 2022-12-22 08:43 | PCM.PN.HOSP ---
Reason for Visit Reason for Visit: Diagnoses Cerebral infarction, unspecified (12/18/22) Gastrostomy malfunction (12/18/22) Presence of other vascular implants and grafts (12/18/22) Subjective Subjective Resting comfortably in bed, in process of being cleaned up Objective Data Objective Data Vital Signs: Vital Signs Temp Pulse Resp BP Pulse Ox O2 Del Method O2 Flow Rate 98.7 F 65 18 174/75 H 98 Room Air 6 12/22/22 08:30 12/22/22 08:30 12/22/22 08:30 12/22/22 08:30 12/22/22 08:30 12/22/22 08:30 12/21/22 10:37 Oxygen Flow Rate (L/min) 6 Oxygen Delivery Method Room Air Weight: 75.7 kg Body Mass Index (BMI) 28.5 Intake & Output: Intake and Output for Last 24 Hours 12/20/22 12/21/22 12/22/22 23:59 23:59 23:59 Intake Total 2395.59 / 2395.59 1470 / 1470 Output Total 2675 / 2675 1750 / 1750 350 / 350 Balance -279.41 / -279.41 -280 / -280 -350 / -350 Lab / Micro Data Result Diagrams: 12/22/22 06:14 12/22/22 06:14 Labs: Laboratory Results - last 24 hr 12/21/22 12:20: POC Glucose 90 12/21/22 17:43: POC Glucose 93 12/21/22 23:25: POC Glucose 95 12/22/22 05:11: POC Glucose 99 12/22/22 06:14: WBC 6.7, RBC 3.19 L, Hgb 8.6 L, Hct 27.8 L, MCV 87.1, MCH 27.0, MCHC 30.9 L, RDW Std Deviation 55.2 H, RDW Coeff of Heriberto 17.3 H, Plt Count 296, MPV 10.4, Immature Gran % (Auto) 0.300, Neut % (Auto) 72.5 H, Lymph % (Auto) 17.4 L, [place] % (Auto) 6.4, Eos % (Auto) 2.8, Baso % (Auto) 0.6, Absolute Neuts (auto) 4.9, Absolute Lymphs (auto) 1.17, Nucleated RBC % 0 12/22/22 06:14: Sodium 141, Potassium 3.8, Chloride 114 H, Carbon Dioxide 24.0, Anion Gap 3 L, BUN 16, Creatinine 0.58, Estim Creat Clear Calc 38.75, Est GFR (MDRD) Af Amer 129, Est GFR (MDRD) Non-Af 106, BUN/Creatinine Ratio 27.6 H, Glucose 98, Calcium 8.1 L Micro: Microbiology 12/20/22 05:05 Stool Stool Occult Blood (LACY) - Final Occult Blood Positive Physical Exam Narrative General: Resting comfortably HEENT: Atraumatic Eyes: Spontaneous eye movements Neck: Supple Respiratory: normal respiratory effort Cardiovascular: no edema appreciated GI: nondistended Extremities: Moving all extremities Neuro: Has right-sided hemiparesis Psych: Pleasant Assessment & Plan Assessment/Plan (1) PEG tube malfunction: (2) CVA (cerebral vascular accident): (3) H/O tptvn-[id number]-wujtgab bypass: PLAN: Plan #Acute on chronic anemia -Hemoglobin 8.4 today down from 11 in October, has been on Eliquis chronically and was transition to Lovenox in preparation for feeding tube -Fecal occult positive -Held blood thinners this a.m. and consulted GI -Continue IV PPI ?12/21/: EGD done at time of PEG placement demonstrated no bleeding. Discussed with surgery and GI. Patient will bowel prep tomorrow and have colonoscopy the following day -12/22: For colon prep today and colonoscopy tomorrow. Lovenox still held #PEG tube malfunction -Had Dobbhoff placed on presentation but this has been nonfunctional -This is to be discontinued and NG attempted to be placed -Discussed with surgery and if NG tube placement successful can be on tube feeds until midnight and then n.p.o. for PEG placement tomorrow -12/21: Had EGD and PEG tube replaced 12/21/[address] Gonzalez. Okay for meds and small water flushes and tube feeds can start tomorrow -12/22: Tube feeds initiated today, will hold at midnight. #CVA Oct 2022 -rectal asa given inability to use peg or Dobbhoff, held this a.m. due to maroon-colored stools and concern for bleed -Resume statin therapy once able to use NG or PEG -12/21: Discussed with GI, can give aspirin dose today given her recent stroke, with Lovenox still on hold #hx VTE -Takes Eliquis chronically, was transition to Lovenox -Lovenox held with maroon-colored stool and positive FOBT #hx hypothyroidism w/ hx of grave's dz -Resume levothyroxine once PEG tube placed #hx PAD s/p aortoiliac femoral bypass -Rectal aspirin, restart statin as soon as possible #History of COPD Gold stage I, mild -Not in exacerbation #Hx Lung CA non-small cell left upper lobe -Patient with history of left upper lobe non-small cell lung cancer, initially had followed with [facility] oncology eventually transition to [facility] given extensive underlying history and comorbidities, from report potentially in remission, encourage continued outpatient follow-up as previously arranged #DVT ppx: SCDs Melonie Cardoso MD Time spent in the patient's overall evaluation,decision-making process, review of diagnostic data, adjustment of management, discussion with other providers, nursing nursing and ancillary staff involved in patient's care documentation, 30 Minutes Charges/Coding Visit Charges Inpatient E&M: 89555 Subs Hosp L2
[2022-12-22 09:06] VITALS: BP 146/69; PULSE 76; RESP 16; TEMP 36.9; O2SAT 100
[2022-12-22] MEDS: NYSTATIN 500,000 UNIT/5 ML UDC 500000 UNIT PO ×4 (10:19→22:32)
[2022-12-22] MEDS: Levothyroxine 100 MCG Tablet GT (10:19)
[2022-12-22] MEDS: Paroxetine 20 MG Tablet GT (10:19)
[2022-12-22] MEDS: Aspirin 81 MG TAB.CHEW GT (10:19)
[2022-12-22] MEDS: Menthol/Lanolin/Calamine/Znox 113 GM Tube 1 APPLIC TOPICAL ×4 (10:26→22:21)
[2022-12-22] MEDS: 0.9% Saline Lock 10 ML Syringe IV ×2 (10:31→22:29)
[2022-12-22 11:46] LABS: Bedside Glucose 86 mg/dL (74-106)
--- NOTE | 2022-12-22 13:09 | ST.MBS ---
Modified Barium Swallow - Patient Information Study Date: 12/22/22 Study Time: 12:30 Direct Billable Minutes: 107 Total Minutes procedure & reportin Diagnosis: CVA (I63.9) Referring Physician: Melonie Cardoso Reason for Referral: Objectively assess swallow function, assess risk for aspiration, and determine recommendations for least restrictive diet textures and compensatory strategies to improve safety of swallow. Medical History: The patient is an 82-year-old female with a history of tobacco use, Hx Lung CA non-small cell left upper lobe, Anxiety and Depression, Prediabetes, Obesity, COPD, Hx DVT, PAD s/p aortoiliac femoral bypass, HTN, HLD, Hypothyroidism with history of Graves' disease, recent admission 11/11/22-11/13/22 secondary to Acute CVA with right-sided weakness and altered speech with low NIH score considered not a tPA candidate, admitted, MRI of the brain with new small acute infarct in mid to posterior medial aspect of the left temporal lobe and in the medial and posterior aspects of the left occipital lobe consistent with left COMMUNICATIONS ATTENDANT territory process unfortunately acutely worsening with onset of right hemineglect with repeat CTA with mid to distal left M1 occlusion with collateral reconstitution distal MCA branches with acute stroke alert with [facility] acceptance and transfer of patient to their ICU at that time eventually discharged to SNF s/p PEG tube placement. Patient presented to the [facility] ED on 12/17/22 with her PEG tube accidentally pulled out on evening of day of presentation. PEG was initially placed on 11/19/2022 at [facility]. Patient briefly had dobhoff tube placed temporarily. Patient had second PEG tube placement on 12/21/22. Patient referred to speech due to a CVA work-up. Per son and LEARNING AND DEVELOPMENT ASSOCIATE, Yuki, from SNF, the patient has been strict NPO since initial placement of PEG tube. LEARNING AND DEVELOPMENT ASSOCIATE completed trials of thin and purees at bedside today with coughing episode X1 with liquids. She was recommended MBSS to consider patient for diet advancement. Pt's son agreeable to study. Of note, patient is very LITTLE TRAVERSE and does not have hearing aids present for evaluation. Current Diet Ordered: NPO w/ PEG Dentition: Edentulous Mental Status: Impaired - Hx of aphasia and very LITTLE TRAVERSE Respiratory Status: Oxygenating on Room Air - Penetration-Aspiration Scale Penetration-Aspiration Scale: OBJECTIVE ASSESSMENT OF SWALLOW FUNCTION (QUANTITATIVE ? PER TRIAL): PENETRATION / ASPIRATION SCALE (WALLIS): 1 = does not enter airway 2 = enters airway/above vocal folds/ejected 3 = enters airway/above vocal folds/not ejected 4 = enters airway/contacts vocal folds/ejected 5 = enters airway/contacts vocal folds/not ejected 6 = enters airway/below vocal folds/ejected 7 = enters airway/below vocal folds/not ejected despite effort 8 = enters airway/below vocal folds/no effort VIDEOFLOROSCOPIC SCALE SCORE (WALLIS): Grade I = aspiration of material that has penetrated into the laryngeal vestibule, intact cough reflex Grade II = aspiration < 10 % of the bolus, intact cough reflex Grade III = aspiration of < 10 % of the bolus, reduced cough reflex or aspiration of > 10 % of the bolus, intact cough reflex Grade IV = aspiration of > 10 % of the bolus, reduced cough reflex - Penetration-Aspiration Scale Score Thin Liquid via teaspoon Result: 2= enter airway/above vocal folds/ejected Thin Liquid via small single sip from cup Result: 1= does not enter airway [place] Thick Liquid via small single sip from cup Result: 1= does not enter airway Pudding via teaspoon with esophageal screen Result: 1= does not enter airway 1/4 Cookie with barium pudding coating Result: 1= does not enter airway - Swallow of barium pudding coating scored. Minimal mastication with whole piece of cookie - cookie was manually removed by LEARNING AND DEVELOPMENT ASSOCIATE student. Thin Liquid via single sip from straw Comment: Unable to score - poor oral awareness of straw. Patient chewing on straw rather than taking a sip. Thin Liquid via small single sip from cup Trial 2 Result: 2= enter airway/above vocal folds/ejected - Oral Phase Labial Seal: Escape beyond interlabial space; no extension beyond liberty border Tongue Control During Bolus Hold: Posterior escape of less than half of bolus Bolus Preparation/Mastication: Minimal chewing/mashing with majority of bolus unchewed Bolus Transport/Lingual Motion: Slowed tongue motion Oral Residue: Minimal to no clearance - cookie manually removed from oral cavity by LEARNING AND DEVELOPMENT ASSOCIATE student - Pharyngeal Phase Initiation of Pharyngeal Swallow: Bolus head in pyriforms Soft Palate Elevation: No bolus between soft palate and pharyngeal wall Laryngeal Elevation: Partial superior movement thyroid cart/partial apprx aryt-epig petiole Anterior Hyoid Excursion: Partial anterior movement Epiglottic Movement: Complete inversion Laryngeal Vestibule Closure at Height of Swallow: Incomplete; narrow column of air/contrast in laryngeal vestibule Pharyngeal Stripping Wave: Present - complete Pharyngoesophageal Segment Opening: Complete distension and complete duration; no obstruction of flow Tongue Base Retraction: Trace column of contrast between tongue base & post. pharyngeal wall Pharyngeal Residue: Trace residue within or on pharyngeal structures - Esophageal Phase Esophageal Clearance: Esophageal retention - minimal retention of pudding in upper esophagus - Diagnosis/Impression Diagnosis: Mild-moderate oropharyngeal phase dysphagia (R13.12) Impression: The oral phase is primarily marked by... -Decreased bolus control with frequent loss of various consistencies to the patient's FOM and premature posterior loss of certain thin liquid trials to the pyriforms prior to swallow onset. -Slowed tongue motion for A-P transport. -Minimal mastication efforts. LEARNING AND DEVELOPMENT ASSOCIATE student manually cleared un-chewed cookie bolus from the patient's FOM. The pharyngeal phase is primarily marked by... -Mildly delayed swallow onset with thin liquids. -Mildly decreased airway closure during the swallow due to decreased laryngeal elevation and anterior hyoid excursion; however, full epiglottic inversion. -No aspiration observed during the study. Laryngeal penetration of thin liquids via cup and tsp that fully ejected during the swallow. - Recommendations Diet: NPO Comment: Okay for ice chips after oral care and supervised IF FULLY ALERT. Will recommend skilled meal analysis of puree textures / thin liquids (no straws, sips one at a time) with speech therapy ONLY to consider patient for diet advancement. Recommend Repeat Modified Barium Swallow: TBD Need for Skilled Speech Therapy Services: Yes Comment: Will recommend continued dysphagia therapy. Recommend family bring in hearing aids to attempt oral motor and oropharyngeal exercises. Consider lingual resistance exercises, lingual coordination exercises, and CTAR if the patient is able to follow commands. Patient is very LITTLE TRAVERSE and requires max visual cues and repetition to follow simple commands. Of note, pt also has history of aphasia from hx of CVAs. Patient's son, Juancho, is planning to bring her hearing aids in to the hospital tonight. Will recommend skilled meal analysis of puree textures / thin liquids (no straws, sips one at a time) with speech therapy ONLY to consider patient for diet advancement. Education Completed: 1. Described result of evaluation., 4. Family/caregivers understand evaluation & agree w/ goals & tx plan. - LEARNING AND DEVELOPMENT ASSOCIATE called son, Juancho, and reviewed results of MBSS. Education well received., 7. Pt requires further education on strategies & risks., 8. Family/caregivers require further education on strategies & risks. - Status Active ST Patient: Active - Contact Information [facility] Speech Therapy:: Vanessa Sun M.A. [facility]-LEARNING AND DEVELOPMENT ASSOCIATE Speech-Language Pathologist [facility] [address] [place] [address] [email or web address] [phone] 12/22/22 13:29
[2022-12-22] MEDS: Jevity 1.5. 1,000 ML Bottle 240 ML GT ×2 (14:31→17:29)
[2022-12-22 15:50] VITALS: BP 120/64; PULSE 70; RESP 16; TEMP 36.7; O2SAT 96
--- NOTE | 2022-12-22 16:50 | PN_ITS ---
Subjective Subjective No significant events overnight or today. Patient underwent PEG tube placement yesterday. Objective Data Objective Data Vital Signs: Vital Signs Temp Pulse Resp BP Pulse Ox O2 Del Method O2 Flow Rate 98.0 F 70 16 120/64 96 Room Air 6 12/22/22 15:50 12/22/22 15:50 12/22/22 15:50 12/22/22 15:50 12/22/22 15:50 12/22/22 15:50 12/21/22 10:37 Oxygen Flow Rate (L/min) 6 Oxygen Delivery Method Room Air Weight: 166 lb 14.239 oz Body Mass Index (BMI) 28.5 Intake & Output: Intake and Output for Last 24 Hours 12/20/22 12/21/22 12/22/22 23:59 23:59 23:59 Intake Total 2395.59 / 2395.59 1470 / 1470 510 / 510 Output Total 2675 / 2675 1750 / 1750 800 / 800 Balance -279.41 / -279.41 -280 / -280 -290 / -290 Lab / Micro Data Result Diagrams: 12/22/22 06:14 12/22/22 06:14 Labs: Laboratory Results - last 24 hr 12/21/22 17:43: POC Glucose 93 12/21/22 23:25: POC Glucose 95 12/22/22 05:11: POC Glucose 99 12/22/22 06:14: WBC 6.7, RBC 3.19 L, Hgb 8.6 L, Hct 27.8 L, MCV 87.1, MCH 27.0, MCHC 30.9 L, RDW Std Deviation 55.2 H, RDW Coeff of Heriberto 17.3 H, Plt Count 296, MPV 10.4, Immature Gran % (Auto) 0.300, Neut % (Auto) 72.5 H, Lymph % (Auto) 17.4 L, [place] % (Auto) 6.4, Eos % (Auto) 2.8, Baso % (Auto) 0.6, Absolute Neuts (auto) 4.9, Absolute Lymphs (auto) 1.17, Nucleated RBC % 0 12/22/22 06:14: Sodium 141, Potassium 3.8, Chloride 114 H, Carbon Dioxide 24.0, Anion Gap 3 L, BUN 16, Creatinine 0.58, Estim Creat Clear Calc 38.75, Est GFR (MDRD) Af Amer 129, Est GFR (MDRD) Non-Af 106, BUN/Creatinine Ratio 27.6 H, Glucose 98, Calcium 8.1 L 12/22/22 11:24: POC Glucose 86 Micro: Microbiology 12/20/22 05:05 Stool Stool Occult Blood (LACY) - Final Occult Blood Positive Physical Exam Narrative General: Resting comfortably HEENT: Atraumatic Eyes: Spontaneous eye movements Neck: Supple Respiratory: normal respiratory effort Cardiovascular: no edema appreciated GI: nondistended Extremities: Moving all extremities Neuro: Has right-sided hemiparesis Psych: Pleasant Assessment & Plan Assessment/Plan (1) PEG tube malfunction: (2) Anemia: PLAN: Plan #Malfunctioning PEG tube * PEG tube accidentally fell out * was replaced today * general surgery on board * per general sugery, PEG tube to be replaced on Wednesday as patient was on eliqu is up till yesterday * Dobhoff feeding tube inserted yesterday. for patient to be commenced on tube f eeds- Jevity, per dietitian. * Dobhoff not functioning properly since inserted yesterday; general surgery to evaluate today * #History of CVA with expressive aphasia * also has hemiplegia. Was diagnosed in October 2022 #History of DVT: Eliquis held and Lovenox held. #Anemia- Plan for colonoscopy on 12/23 Charges/Coding Visit Charges Inpatient E&M: 64682 Subs Hosp L3
[2022-12-22 17:30] VITALS: BP 135/45; PULSE 56; RESP 18; TEMP 36.6; O2SAT 93
[2022-12-22 18:30] LABS: Bedside Glucose 178 mg/dL (74-106)
[2022-12-22] MEDS: Polyethylene Glycol 3350 BOWEL PREP PO (18:37)
[2022-12-22] MEDS: Bisacodyl 5 MG Tablet 20 MG PO (18:37)
[2022-12-22] MEDS: Atorvastatin Calcium 80 MG Tablet GT (22:23)
[2022-12-23] VITALS (12 sets, daily range): BP systolic 94–151; BP diastolic 38–78; PULSE 60–77; RESP 12–18; TEMP 36.1–36.7; O2SAT 96–100; BMI 28.3
--- NOTE | 2022-12-23 | IMM_PTH ---
PATIENT: AWA PALOMARES LOC: MS3 U#:[id number] AGE/SX: 82/F ROOM: ND313 RE12/18/[address]: Dr. Melonie Cardoso MD : 1940 BED: 1 DIS: 12/24/2022 SPEC #: [id number] RECD: 12/25/22 13:58 STATUS: SOUPool REQ #: [id number] TA: 12/23/22 00:[address]: Theodore Gallegos DEPT: IMMUNOHISTOCHEMISTRY RECD BY: Virginia Bhatt ENTERED: 12/25/22 14:00 SP TYPE: IMMUNO OTHR DR: MD Dr. Nicole Ng MD Dr. Efewongbe Oleghe, MD Dr. Nana Yaa Koram, MD Dr. Paige Pierce, MD Tissues: Cecum, NOS Procedures: MSH2 (add) MLH-1 (add) MSH6 (add) Anti-PMS2 (add) MANNING-2 (add) HER2 BRYCE (add) P53 (add) KI-67 (initial) PHYSICIAN & [address] [address] SPECIMEN INFORMATION: Tissue Source: Cecal mass Clinical Info: Anemia, cecal mass Specimen Number: [id number] CPT code: 74050, 86056 x7 METHODOLOGY: Deparaffinized sections of prefer/formalin-fixed tissue or PAP/DQ stained slides are incubated with monoclonal/polyclonal antibodies/oligonucleotide probes. Localization is made via biotin free immunoperoxidase method. Appropriate controls are performed and reacted as expected. Results on target cell population are indicated in the following table: RESULTS: ANTIBODY / CLONE RESULT Her-2neu (CB11) negative (0) MANNING-2 (SP21) positive MLH-1 (M1) positive MSH2 (25D12) positive MSH6 (44) positive PMS2 (CYW9850) positive Ki-67 (30-9) positive, high P53 (DO-7) positive (Missense mutation pattern) These tests were developed and their performance characteristics determined by [facility]. They may not have been cleared or approved by the U.S. Food and Drug Administration. The FDA has determined that such clearance or approval is not necessary. The above immunohistochemical/dualISH markers are ordered and reviewed by the Pathologist. INTERPRETATION: Cecal mass, biopsy: Adenocarcinoma. Result of Microsatellite Instability Study: Negative (no loss of mismatch protein; no microsatellite instability detected). SJ:kanwal 12/28/2022
[2022-12-23 00:30] LABS: Bedside Glucose 112 mg/dL (74-106)
[2022-12-23 06:40] LABS: Bedside Glucose 117 mg/dL (74-106)
[2022-12-23 06:44] LABS: Absolute Lymphocyte Count 1.26 X10^3/uL (0.83-4.51); Absolute Neutrophil Count 6.7 X10^3/uL (2.0-7.7); Basophil# 0.03 X10^3/uL; Basophil% 0.3 % (0-1); Eosinophil# 0.25 X10^3/uL; Eosinophils% 2.8 % (0-5); Hematocrit 29.4 % (37-47); Hemoglobin 9.1 g/dL (12.0-15.0); Lymphocyte # 1.26 X10^3/ul (0.83-4.51); Mean Corpuscular Volume 87.2 fL (81-99); Mean Platelet Vol. 10.3 fl (6.2-12.0); Monocyte# 0.71 X10^3/uL; Monocyte% 7.9 % (0-10); NRBC Flagged by Analyzer 0 % (0-5); Neutrophil # 6.69 X10^3/uL (2.7-7.7); Neutrophil % 74.6 % (47-70); Platelet Count 341 K/mm3 (150-450); RBC Distribution Width CV 17.4 % (11.6-14.6); RBC Distribution Width SD 55.3 fl (35.1-43.9); Red Blood Count 3.37 M/mm3 (4.2-5.4)
[2022-12-23 07:04] LABS: Anion Gap 3 (5-15); BUN 14 mg/dL (7-18); BUN/Creat Ratio 19.7 RATIO (10-20); Calcium,Total 8.8 mg/dL (8.5-10.1); Chloride 111 mmol/L (98-107); Creatinine, Serum 0.71 mg/dL (0.55-1.02); EST Glomerular Filtration Rate 84 mL/min (>60); Est Glom Filt Rate - Afr Amer 102 mL/min (>60); Estimated Creatinine Clearance 38.75 ml/min; Glucose 128 mg/dL (74-106); Potassium 3.2 mmol/L (3.5-5.1); Sodium Level 141 mmol/L (136-145)
[2022-12-23] MEDS: Polyethylene Glycol 3350 BOWEL PREP PO (07:54)
[2022-12-23] MEDS: Bisacodyl 5 MG Tablet 20 MG PO (07:54)
[2022-12-23] MEDS: Menthol/Lanolin/Calamine/Znox 113 GM Tube 1 APPLIC TOPICAL ×3 (08:04→23:07)
--- NOTE | 2022-12-23 09:06 | PCM.PN.HOSP ---
Reason for Visit Reason for Visit: Diagnoses Anemia, unspecified (12/18/22) Cerebral infarction, unspecified (12/18/22) Gastrostomy malfunction (12/18/22) Presence of other vascular implants and grafts (12/18/22) Subjective Subjective Resting comfortably in bed, easily woken and alert Objective Data Objective Data Vital Signs: Vital Signs Temp Pulse Resp BP Pulse Ox O2 Del Method O2 Flow Rate 97.7 F L 74 16 141/69 H 96 Room Air 6 12/23/22 04:30 12/23/22 04:30 12/23/22 04:30 12/23/22 04:30 12/23/22 04:30 12/23/22 08:08 12/21/22 10:37 Oxygen Flow Rate (L/min) 6 Oxygen Delivery Method Room Air Weight: 75.2 kg Body Mass Index (BMI) 28.3 Intake & Output: Intake and Output for Last 24 Hours 12/21/22 12/22/22 12/23/22 23:59 23:59 23:59 Intake Total 1470 / 1470 1825.75 / 1825.75 690 / 690 Output Total 1750 / 1750 1650 / 1650 850 / 850 Balance -280 / -280 175.75 / 175.75 -160 / -160 Lab / Micro Data Result Diagrams: 12/23/22 06:15 12/23/22 06:15 Labs: Laboratory Results - last 24 hr 12/22/22 11:24: POC Glucose 86 12/22/22 17:34: POC Glucose 178 H 12/23/22 00:04: POC Glucose 112 H 12/23/22 06:15: WBC 9.0, RBC 3.37 L, Hgb 9.1 L, Hct 29.4 L, MCV 87.2, MCH 27.0, MCHC 31.0 L, RDW Std Deviation 55.3 H, RDW Coeff of Heriberto 17.4 H, Plt Count 341, MPV 10.3, Immature Gran % (Auto) 0.400, Neut % (Auto) 74.6 H, Lymph % (Auto) 14.0 L, [place] % (Auto) 7.9, Eos % (Auto) 2.8, Baso % (Auto) 0.3, Absolute Neuts (auto) 6.7, Absolute Lymphs (auto) 1.26, Nucleated RBC % 0 03/29/23 06:15: Sodium 141, Potassium 3.2 L, Chloride 111 H, Carbon Dioxide 27.0, Anion Gap 3 L, BUN 14, Creatinine 0.71, Estim Creat Clear Calc 38.75, Est GFR (MDRD) Af Amer 102, Est GFR (MDRD) Non-Af 84, BUN/Creatinine Ratio 19.7, Glucose 128 H, Calcium 8.8 12/23/22 06:20: POC Glucose 117 H Micro: Microbiology 12/20/22 05:05 Stool Stool Occult Blood (LACY) - Final Occult Blood Positive Physical Exam Narrative General: Resting comfortably HEENT: Atraumatic Eyes: Spontaneous eye movements Neck: Supple Respiratory: normal respiratory effort Cardiovascular: no edema appreciated GI: nondistended Extremities: Moves left-sided extremities Neuro: Has right-sided hemiparesis Psych: Pleasant Assessment & Plan Assessment/Plan (1) PEG tube malfunction: (2) CVA (cerebral vascular accident): (3) H/O lgrhv-vcovj-ewpsnmc bypass: PLAN: Plan #Acute on chronic anemia -Hemoglobin 8.4 today down from 11 in October, has been on Eliquis chronically and was transition to Lovenox in preparation for feeding tube -Fecal occult positive -Held blood thinners this a.m. and consulted GI -Continue IV PPI ?12/21/: EGD done at time of PEG placement demonstrated no bleeding. Discussed with surgery and GI. Patient will bowel prep tomorrow and have colonoscopy the following day -12/22: For colon prep today and colonoscopy tomorrow. Lovenox still held -12/23: For colonoscopy today #PEG tube malfunction -Had Dobbhoff placed on presentation but this has been nonfunctional -This is to be discontinued and NG attempted to be placed -Discussed with surgery and if NG tube placement successful can be on tube feeds until midnight and then n.p.o. for PEG placement tomorrow -12/21: Had EGD and PEG tube replaced 12/21/[address] Gonzalez[address] Benito for meds and small water flushes and tube feeds can start tomorrow -12/22: Tube feeds initiated today, will hold at midnight. #CVA Oct 2022 -rectal asa given inability to use peg or Dobbhoff, held this a.m. due to maroon-colored stools and concern for bleed -Resume statin therapy once able to use NG or PEG -12/21: Discussed with GI, can give aspirin dose today given her recent stroke, with Lovenox still on hold #hx VTE -Takes Eliquis chronically, was transition to Lovenox -Lovenox held with maroon-colored stool and positive FOBT #hx hypothyroidism w/ hx of grave's dz -Lovenox resumed #hx PAD s/p aortoiliac femoral bypass -Rectal aspirin, restart statin as soon as possible -12/23: On aspirin and statin through peg tube #History of COPD Gold stage I, mild -Not in exacerbation #Hx Lung CA non-small cell left upper lobe -Patient with history of left upper lobe non-small cell lung cancer, initially had followed with [facility] oncology eventually transition to [facility] given extensive underlying history and comorbidities, from report potentially in remission, encourage continued outpatient follow-up as previously arranged #DVT ppx: SCDs Melonie Cardoso MD Time spent in the patient's overall evaluation,decision-making process, review of diagnostic data, adjustment of management, discussion with other providers, nursing nursing and ancillary staff involved in patient's care documentation, 30 Minutes Charges/Coding Visit Charges Inpatient E&M: 76198 Subs Hosp L2
[2022-12-23] MEDS: 0.9% Saline Lock 10 ML Syringe IV (10:08)
[2022-12-23] MEDS: Potassium Chloride 10mEq/100mL 10 MEQ/100 ML IV.SOLN. 100 MEQ IV BOLUS ×2 (10:37→11:42)
[2022-12-23 12:01] LABS: Bedside Glucose 98 mg/dL (74-106)
--- NOTE | 2022-12-23 12:01 | CASEMGMT ---
Social Work MD Cardoso shared pt will be ready for d/c at the end of the week. SW asked Steven Savage to begin precert at this time. PLAN: Steven Savage, pending precert LYNETTE Blanco
--- NOTE | 2022-12-23 13:00 | COLBX_PTH ---
PATIENT: AWA PALOMARES LOC: MS3 U#:[id number] AGE/SX: 82/F ROOM: [facility] [place] RE12/18/[address]: Dr. Melonie Cardoso MD : 1940 BED: 1 DIS: 12/24/2022 SPEC #: [id number] RECD: 12/23/22 13:48 STATUS: SANDRA REMarcus #: [id number] TA: 12/23/22 13:[address]: Theodore Gallegos DEPT: SURGICAL PATHOLOGY RECD BY: Renea Pham ENTERED: 12/24/22 10:43 SP TYPE: COLON BX OTHR DR: MD Dr. Nicole Ng MD Dr. Efewongbe Oleghe, MD Dr. Nana Yaa Koram, MD Dr. Paige Pierce, MD Tissues: Cecum, NOS Procedures: Surgery Specimen Level IV Comments: @ Ordering doctor for SUIV edited from to @ by ANU at 12/24/22 1459 @ Submitting doctor edited from to @ by RGOOD at 12/24/22 1459 HEADER OPERATION: Colonoscopy (MAC) with biopsy PRE-OP DIAGNOSIS: Anemia TISSUE SUBMITTED: Cecal mass biopsy MICROSCOPIC DIAGNOSIS Cecal mass, biopsy: Moderately differentiated adenocarcinoma. See comment. LIVIER:kanwal 12/25/2022 COMMENT Immunohistochemistry ([id number]) for microsatellite instability (mismatch repair of protein) will be performed and the results will be reported separately. Case has been reviewed in consultation with Dr. Steel who concurs with the above diagnosis. IDC:AM MICROSCOPIC DESCRIPTION Slides are reviewed. GROSS DESCRIPTION Received in fixative is one container labeled with the patient's name and designated cecal mass biopsy. The specimen consists of multiple irregular fragments of light segura soft tissue that in aggregate measure 2.0 x 0.5 x 0.1 cm. The specimen is totally submitted in one cassette. / AM:kanwal 12/24/2022 TC:0 CPT: 88400
--- NOTE | 2022-12-23 13:39 | OP.COLON_ITS ---
Patient Name: Yvonne Humphries Procedure Date: 12/23/2022 1:00 PM Date of : 1940 Age: 82 Procedure: Colonoscopy Indications: Iron deficiency anemia Providers: Theodore Gallegos DO Medicines: Monitored Anesthesia Care Patient Profile: This is an 82 year old female. Refer to note in patient chart for documentation of history and physical. Last Colonoscopy: date unknown. Unable to locate last colonoscopy report. Complications: No immediate complications. Procedure: Pre-Anesthesia Assessment: - Prior to the procedure, a History and Physical was performed, and patient medications and allergies were reviewed. The patient is competent. The risks and benefits of the procedure and the sedation options and risks were discussed with the patient. All questions were answered and informed consent was obtained. Patient identification and proposed procedure were verified by the physician. Mental Status Examination: normal. Prophylactic Antibiotics: The patient does not require prophylactic antibiotics. Prior Anticoagulants: The patient has taken no previous anticoagulant or antiplatelet agents. ASA Grade Assessment: III - A patient with severe systemic disease. After reviewing the risks and benefits, the patient was deemed in satisfactory condition to undergo the procedure. The anesthesia plan was to use monitored anesthesia care (MAC). Immediately prior to administration of medications, the patient was re-assessed for adequacy to receive sedatives. The heart rate, respiratory rate, oxygen saturations, blood pressure, adequacy of pulmonary ventilation, and response to care were monitored throughout the procedure. The physical status of the patient was re-assessed after the procedure. After I obtained informed consent, the scope was passed under direct vision. Throughout the procedure, the patient's blood pressure, pulse, and oxygen saturations were monitored continuously. The pediatric colonoscope was introduced through the anus and advanced to the cecum, identified by appendiceal orifice and ileocecal valve. The colonoscopy was performed without difficulty. The patient tolerated the procedure well. The quality of the bowel preparation was fair. Scope In: 1:15:43 PM Scope Withdrawal Time 0 hours 4 minutes 45 seconds Scope Out: 1:26:29 PM Total Procedure Duration Time 0 hours 10 minutes 46 seconds Findings: The perianal and digital rectal examinations were normal. Multiple small and large-mouthed diverticula were found in the recto-sigmoid colon, sigmoid colon and descending colon. An ulcerated partially obstructing large mass was found in the cecum. The mass was non-circumferential. The mass measured five cm in length. In addition, its diameter measured five mm. No bleeding was present. This was biopsied with a cold forceps for histology. Verification of patient identification for the specimen was done. Estimated blood loss was minimal. Area was successfully injected with 5 mL Spot (carbon black) for drug delivery. Estimated blood loss was minimal. Stool was found in the rectum, in the recto-sigmoid colon and in the sigmoid colon. A 5 mm polyp was found in the hepatic flexure. The polyp was sessile. Impression: - Preparation of the colon was fair. - Diverticulosis in the recto-sigmoid colon, in the sigmoid colon and in the descending colon. - Likely malignant partially obstructing tumor in the cecum. Biopsied. Injected. - Stool in the rectum, in the recto-sigmoid colon and in the sigmoid colon. - One 5 mm polyp at the hepatic flexure. Recommendation: - Repeat colonoscopy for surveillance. - Continue present medications. Procedure Code(s): --- Professional --- 21832, Colonoscopy, flexible; with directed submucosal injection(s), any substance 47873, Colonoscopy, flexible; with biopsy, single or multiple CPT copyright 2017 [employer]. All rights reserved. The codes documented in this report are preliminary and upon remote medical coder review may be revised to meet current compliance requirements. Theodore Gallegos DO 12/23/2022 1:38:45 PM This report has been signed electronically. Number of Addenda: 0 Note Initiated On: 12/23/2022 1:00 PM
--- NOTE | 2022-12-23 13:40 | OP.CCLET_ITS ---
12/23/2022 Benjamin Lind MD [address] [place] [address] [place] [address] Re : Colonoscopy procedure for Yvonne Humphries Dear Dr. Lind This procedure was performed on Friday, December 23, 2022. My impressions and recommendations are as follows: Impressions : - Preparation of the colon was fair. - Diverticulosis in the recto-sigmoid colon, in the sigmoid colon and in the descending colon. - Likely malignant partially obstructing tumor in the cecum. Biopsied. Injected. - Stool in the rectum, in the recto-sigmoid colon and in the sigmoid colon. - One 5 mm polyp at the hepatic flexure. Recommendations : - Repeat colonoscopy for surveillance. - Continue present medications. My findings are described in the full procedure note, which is enclosed. If I can be of further assistance, please feel free to contact me at . Sincerely, Theodore Gallegos, 12/23/2022 1:38:45 PM This report has been signed electronically.
[2022-12-23] MEDS: NYSTATIN 500,000 UNIT/5 ML UDC 500000 UNIT PO ×2 (17:13→23:08)
[2022-12-23] MEDS: Jevity 1.5. 1,000 ML Bottle 240 ML GT ×2 (17:14→23:02)
[2022-12-23 17:35] LABS: Bedside Glucose 100 mg/dL (74-106)
--- NOTE | 2022-12-23 18:21 | CT_ITS ---
STUDY: CT CHEST, ABDOMEN T PELVIS WITH CONTRAST REASON FOR EXAM: Female, 82 years old. Colorectal cancer- staging RADIATION DOSAGE (If Supplied By Facility): CTDIvol = ( 24.25 ) mGy, DLP = ( 1774.27 ) mGycm TECHNIQUE: Transaxial imaging was performed following intravenous administration of IV 100mL Isovue-370. Multiplanar coronal and sagittal images were reformatted. Individualized dose optimization techniques were used for this CT. COMPARISON: Comparison is made with prior study dated September 11, 2019. FINDINGS: CHEST There is a 3.3 cm x 3.5 cm x 4 cm mass in the posterior aspect of the left upper lobe abutting the left major fissure. This has increased in size as compared to prior examination. Mild increased markings at the lung bases suggestive of bibasilar scarring. There is no demonstrated pleural abnormality. There are calcifications of the coronary arteries. Normal mediastinum. Normal hilar regions. Normal unenhanced pulmonary arteries. There is atherosclerotic calcification of the aortic arch with tortuosity and elongation of the aortic arch and descending thoracic aorta. There are multi-level degenerative changes of the thoracic spine. Loss of height and sclerosis of the T2 vertebrae. Small gallstones. ABDOMEN Normal liver. Small gallstones. Mild thickening of the gallbladder wall. Normal spleen. Normal pancreas. Normal bilateral adrenal glands. Normal right kidney. Nonobstructive calculi in the lower pole calyx of the left kidney. A PEG tube is seen within the stomach. Normal small intestine. There are multiple colonic diverticula consistent with diverticulosis. There are surgical clips in the region of the appendix consistent with a prior appendectomy. There is diffuse atherosclerotic calcification of the abdominal aorta and its major visceral branches, without a demonstrated aneurysm. Normal inferior vena cava. Normal retroperitoneum. Normal abdominal wall. There are diffuse degenerative changes of the visualized lumbar spine. Loss of height of the superior endplates of the L1 and L2 vertebrae. PELVIS A Cristina catheter is seen within a decompressed urinary bladder. The patient is status post hysterectomy. There is no pelvic fluid. There is no pelvic lymphadenopathy or mass lesion. There is diffuse atherosclerotic calcification of the pelvic arteries. CT/CT Chest, Abd, Pel w/Contrast IMPRESSION: 3.3 cm x 3.5 cm x 4 cm mass in the posterior aspect of the left upper lobe abutting the left major fissure. This has increased in size as compared to prior study. Electronically Signed: Tab Marks MD at 8:59 EDT ,
[2022-12-23] MEDS: Atorvastatin Calcium 80 MG Tablet GT (23:08)
[2022-12-23 23:55] LABS: Bedside Glucose 139 mg/dL (74-106)
--- NOTE | 2022-12-24 02:47 | NURSING ---
The family is requesting that a family member is with the pt when she is notified about the results of the colonoscopy. Please contact [facility] [phone].
[2022-12-24 06:00] VITALS: BMI 28.7
[2022-12-24 06:14] VITALS: BP 133/65; PULSE 73; RESP 16; TEMP 36.7; O2SAT 96
[2022-12-24 06:38] LABS: Absolute Lymphocyte Count 1.11 X10^3/uL (0.83-4.51); Absolute Neutrophil Count 6.3 X10^3/uL (2.0-7.7); Basophil# 0.03 X10^3/uL; Basophil% 0.4 % (0-1); Eosinophil# 0.31 X10^3/uL; Eosinophils% 3.7 % (0-5); Hematocrit 28.7 % (37-47); Hemoglobin 8.8 g/dL (12.0-15.0); Lymphocyte # 1.11 X10^3/ul (0.83-4.51); Lymphocyte % 13.4 % (19-41); Mean Corp Hgb Conc 30.7 g/dL (32-36); Mean Corpuscular Hgb 26.7 pg (27.0-32.0); Mean Corpuscular Volume 87.2 fL (81-99); Mean Platelet Vol. 10.3 fl (6.2-12.0); Monocyte# 0.54 X10^3/uL; Monocyte% 6.5 % (0-10); NRBC Flagged by Analyzer 0 % (0-5); Neutrophil # 6.28 X10^3/uL (2.7-7.7); Neutrophil % 75.6 % (47-70); Platelet Count 333 K/mm3 (150-450); RBC Distribution Width CV 17.4 % (11.6-14.6); RBC Distribution Width SD 55.3 fl (35.1-43.9); Red Blood Count 3.29 M/mm3 (4.2-5.4); White Blood Count 8.3 K/mm3 (4.4-11.0)
[2022-12-24 07:16] LABS: Anion Gap 2 (5-15); BUN 15 mg/dL (7-18); BUN/Creat Ratio 23.9 RATIO (10-20); Calcium,Total 8.9 mg/dL (8.5-10.1); Chloride 113 mmol/L (98-107); Creatinine, Serum 0.63 mg/dL (0.55-1.02); EST Glomerular Filtration Rate 97 mL/min (>60); Est Glom Filt Rate - Afr Amer 117 mL/min (>60); Estimated Creatinine Clearance 38.75 ml/min; Glucose 91 mg/dL (74-106); Potassium 4.2 mmol/L (3.5-5.1); Sodium Level 140 mmol/L (136-145)
[2022-12-24 07:25] LABS: Bedside Glucose 87 mg/dL (74-106)
--- NOTE | 2022-12-24 08:00 | PN_ITS ---
Subjective Subjective Patient was discovered to have a colonic malignancy as the site of her GI blood loss. Objective Data Objective Data Vital Signs: Vital Signs Temp Pulse Resp BP Pulse Ox O2 Del Method O2 Flow Rate 98.7 F 82 18 121/57 H 98 Room Air 6 12/24/22 14:41 12/24/22 14:41 12/24/22 14:41 12/24/22 14:41 12/24/22 14:41 12/24/22 14:41 12/21/22 10:37 Oxygen Flow Rate (L/min) 6 Oxygen Delivery Method Room Air Weight: 168 lb 3.403 oz Body Mass Index (BMI) 28.7 Intake & Output: Intake and Output for Last 24 Hours 12/22/22 12/23/22 12/24/22 23:59 23:59 23:59 Intake Total 1825.75 / 1825.75 1610 / 1610 430 / 430 Output Total 1650 / 1650 2125 / 2125 800 / 800 Balance 175.75 / 175.75 -515 / -515 -370 / -370 Lab / Micro Data Result Diagrams: 12/24/22 06:30 12/24/22 06:30 Labs: Laboratory Results - last 24 hr 12/23/22 23:23: POC Glucose 139 H 12/24/22 06:11: POC Glucose 87 12/24/22 06:30: WBC 8.3, RBC 3.29 L, Hgb 8.8 L, Hct 28.7 L, MCV 87.2, MCH 26.7 L , MCHC 30.7 L, RDW Std Deviation 55.3 H, RDW Coeff of Heriberto 17.4 H, Plt Count 333, MPV 10.3, Immature Gran % (Auto) 0.400, Neut % (Auto) 75.6 H, Lymph % (Auto) 13.4 L, [place] % (Auto) 6.5, Eos % (Auto) 3.7, Baso % (Auto) 0.4, Absolute Neuts (auto) 6.3, Absolute Lymphs (auto) 1.11, Nucleated RBC % 0 12/24/22 06:30: Sodium 140, Potassium 4.2, Chloride 113 H, Carbon Dioxide 25.0, Anion Gap 2 L, BUN 15, Creatinine 0.63, Estim Creat Clear Calc 38.75, Est GFR (MDRD) Af Amer 117, Est GFR (MDRD) Non-Af 97, BUN/Creatinine Ratio 23.9 H, Glucose 91, Calcium 8.9 12/24/22 11:46: POC Glucose 178 H Micro: Microbiology 12/24/22 14:30 Nasal Secretion SARS-CoV-2 Antigen (Rapid) - Final 12/20/22 05:05 Stool Stool Occult Blood (LACY) - Final Occult Blood Positive Radiography Diagnostic Testing: Radiology Impression Chest/Abdomen/Pelvis CT 12/23/22 18:21 IMPRESSION: 3.3 cm x 3.5 cm x 4 cm mass in the posterior aspect of the left upper lobe abutting the left major fissure. This has increased in size as compared to prior study. Electronically Signed: Tab Marks MD at 8:59 EDT , Physical Exam Narrative General: Resting comfortably HEENT: Atraumatic Eyes: Spontaneous eye movements Neck: Supple Respiratory: normal respiratory effort, no wheezes or rhonchi Cardiovascular: no edema appreciated GI: nondistended Extremities: Moves left-sided extremities Neuro: Has right-sided hemiparesis Psych: Pleasant Assessment & Plan Assessment/Plan (1) PEG tube malfunction: (2) CVA (cerebral vascular accident): (3) H/O cyito-gyblz-palepko bypass: PLAN: Plan #Acute on chronic anemia 2/2 likely colonic malignancy -Hemoglobin 8.4 today down from 11 in October, has been on Eliquis chronically and was transition to Lovenox in preparation for feeding tube -Fecal occult positive -Continue IV PPI ?12/21/: EGD done at time of PEG placement demonstrated no bleeding. Patient will bowel prep tomorrow and have colonoscopy the following day -12/22: For colon prep today and colonoscopy tomorrow. Lovenox still held -12/23: For colonoscopy today -12/24: Colonoscopy yesterday with a likely malignant partially obstructing tumor in the cecum which was biopsied. Additionally 5 mm polyp in the hepatic flexure . Surgery consulted and will discuss with family. Hemoglobin stable today. CT chest abdomen and pelvis obtained for staging purposes but read not available yet #PEG tube malfunction?resolved -Had Dobbhoff placed on presentation but this has been nonfunctional -This is to be discontinued and NG attempted to be placed -Discussed with surgery and if NG tube placement successful can be on tube feeds until midnight and then n.p.o. for PEG placement tomorrow -12/21: Had EGD and PEG tube replaced 12/21/[address] Gonzalez. Okay for meds and small water flushes and tube feeds can start tomorrow -12/22: Tube feeds initiated today, will hold at midnight. -12/23: PEG tube working without difficulty, colonoscopy today #CVA Oct 2022 -rectal asa given inability to use peg or Dobbhoff, held this a.m. due to maroon-colored stools and concern for bleed -Resume statin therapy once able to use NG or PEG -12/21: can give aspirin dose today given her recent stroke, with Lovenox still on hold Charges/Coding Visit Charges Inpatient E&M: 07200 Subs Hosp L3
--- NOTE | 2022-12-24 08:38 | PN.HOSP_ITS ---
Reason for Visit Reason for Visit: Diagnoses Anemia, unspecified (12/18/22) Cerebral infarction, unspecified (12/18/22) Gastrostomy malfunction (12/18/22) Presence of other vascular implants and grafts (12/18/22) Subjective Subjective Status post colonoscopy yesterday that had concern for malignancy. Ms. Humphries's family to discuss further plan of care with surgery today Objective Data Objective Data Vital Signs: Vital Signs Temp Pulse Resp BP Pulse Ox O2 Del Method O2 Flow Rate 98.1 F 73 16 133/65 H 96 Room Air 6 12/24/22 06:14 12/24/22 06:14 12/24/22 06:14 12/24/22 06:14 12/24/22 06:14 12/24/22 06:15 12/21/22 10:37 Oxygen Flow Rate (L/min) 6 Oxygen Delivery Method Room Air Weight: 76.3 kg Body Mass Index (BMI) 28.7 Intake & Output: Intake and Output for Last 24 Hours 12/22/22 12/23/22 12/24/22 23:59 23:59 23:59 Intake Total 1825.75 / 1825.75 1610 / 1610 Output Total 1650 / 1650 2125 / 2125 400 / 400 Balance 175.75 / 175.75 -515 / -515 -400 / -400 Lab / Micro Data Result Diagrams: 12/24/22 06:30 12/24/22 06:30 Labs: Laboratory Results - last 24 hr 12/23/22 11:40: POC Glucose 98 12/23/22 17:11: POC Glucose 100 12/23/22 23:23: POC Glucose 139 H 12/24/22 06:11: POC Glucose 87 12/24/22 06:30: WBC 8.3, RBC 3.29 L, Hgb 8.8 L, Hct 28.7 L, MCV 87.2, MCH 26.7 L , MCHC 30.7 L, RDW Std Deviation 55.3 H, RDW Coeff of Heriberto 17.4 H, Plt Count 333, MPV 10.3, Immature Gran % (Auto) 0.400, Neut % (Auto) 75.6 H, Lymph % (Auto) 13.4 L, [place] % (Auto) 6.5, Eos % (Auto) 3.7, Baso % (Auto) 0.4, Absolute Neuts (auto) 6.3, Absolute Lymphs (auto) 1.11, Nucleated RBC % 0 12/24/22 06:30: Sodium 140, Potassium 4.2, Chloride 113 H, Carbon Dioxide 25.0, Anion Gap 2 L, BUN 15, Creatinine 0.63, Estim Creat Clear Calc 38.75, Est GFR (MDRD) Af Amer 117, Est GFR (MDRD) Non-Af 97, BUN/Creatinine Ratio 23.9 H, Glucose 91, Calcium 8.9 Micro: Microbiology 12/20/22 05:05 Stool Stool Occult Blood (LACY) - Final Occult Blood Positive Physical Exam Narrative General: Resting comfortably HEENT: Atraumatic Eyes: Spontaneous eye movements Neck: Supple Respiratory: normal respiratory effort, no wheezes or rhonchi Cardiovascular: no edema appreciated GI: nondistended Extremities: Moves left-sided extremities Neuro: Has right-sided hemiparesis Psych: Pleasant Assessment & Plan Assessment/Plan (1) PEG tube malfunction: (2) CVA (cerebral vascular accident): (3) H/O nfdox-escbv-cykbptj bypass: PLAN: Plan #Acute on chronic anemia 2/2 likely colonic malignancy -Hemoglobin 8.4 today down from 11 in October, has been on Eliquis chronically and was transition to Lovenox in preparation for feeding tube -Fecal occult positive -Held blood thinners this a.m. and consulted GI -Continue IV PPI ?12/21/: EGD done at time of PEG placement demonstrated no bleeding. Discussed with surgery and GI. Patient will bowel prep tomorrow and have colonoscopy the following day -12/22: For colon prep today and colonoscopy tomorrow. Lovenox still held -12/23: For colonoscopy today -12/24: Colonoscopy yesterday with a likely malignant partially obstructing tumor in the cecum which was biopsied. Additionally 5 mm polyp in the hepatic flexu re. Surgery consulted and will discuss with family. Hemoglobin stable today. CT chest abdomen and pelvis obtained for staging purposes but read not available yet #PEG tube malfunction?resolved -Had Dobbhoff placed on presentation but this has been nonfunctional -This is to be discontinued and NG attempted to be placed -Discussed with surgery and if NG tube placement successful can be on tube feeds until midnight and then n.p.o. for PEG placement tomorrow -12/21: Had EGD and PEG tube replaced 12/21/[address] Gonzalez. Okay for meds and small water flushes and tube feeds can start tomorrow -12/22: Tube feeds initiated today, will hold at midnight. -12/23: PEG tube working without difficulty, colonoscopy today #CVA Oct 2022 -rectal asa given inability to use peg or Dobbhoff, held this a.m. due to maroon-colored stools and concern for bleed -Resume statin therapy once able to use NG or PEG -12/21: Discussed with GI, can give aspirin dose today given her recent stroke, with Lovenox still on hold #hx VTE -Takes Eliquis chronically, was transition to Lovenox -Lovenox held with maroon-colored stool and positive FOBT #hx hypothyroidism w/ hx of grave's dz -Synthroid resumed #hx PAD s/p aortoiliac femoral bypass -Rectal aspirin, restart statin as soon as possible -12/23: On aspirin and statin through peg tube #History of COPD Gold stage I, mild -Not in exacerbation #Hx Lung CA non-small cell left upper lobe -Patient with history of left upper lobe non-small cell lung cancer, initially had followed with [facility]ology eventually transition to [facility] given extensive underlying history and comorbidities, from report potentially in remission, encourage continued outpatient follow-up as previously arranged #DVT ppx: SCDs Melonie Cardoso MD Time spent in the patient's overall evaluation,decision-making process, review of diagnostic data, adjustment of management, discussion with other providers, nursing nursing and ancillary staff involved in patient's care documentation, 30 Minutes Charges/Coding Visit Charges Inpatient E&M: 41291 Subs Hosp L2
--- NOTE | 2022-12-24 09:49 | PCM.PN.SRG ---
Subjective Subjective No changes overnight. Objective Data Objective Data Vital Signs: Vital Signs Temp Pulse Resp BP Pulse Ox O2 Del Method O2 Flow Rate 98.1 F 73 16 133/65 H 96 Room Air 6 12/24/22 06:14 12/24/22 06:14 12/24/22 06:14 12/24/22 06:14 12/24/22 06:14 12/24/22 06:15 12/21/22 10:37 Oxygen Flow Rate (L/min) 6 Oxygen Delivery Method Room Air Weight: 168 lb 3.403 oz Body Mass Index (BMI) 28.7 Intake & Output: Intake and Output for Last 24 Hours 12/22/22 12/23/22 12/24/22 23:59 23:59 23:59 Intake Total 1825.75 / 1825.75 1610 / 1610 Output Total 1650 / 1650 2125 / 2125 400 / 400 Balance 175.75 / 175.75 -515 / -515 -400 / -400 Lab / Micro Data Result Diagrams: 12/24/22 06:30 12/24/22 06:30 Labs: Laboratory Results - last 24 hr 12/23/22 11:40: POC Glucose 98 12/23/22 17:11: POC Glucose 100 12/23/22 23:23: POC Glucose 139 H 12/24/22 06:11: POC Glucose 87 12/24/22 06:30: WBC 8.3, RBC 3.29 L, Hgb 8.8 L, Hct 28.7 L, MCV 87.2, MCH 26.7 L, MCHC 30.7 L, RDW Std Deviation 55.3 H, RDW Coeff of Heriberto 17.4 H, Plt Count 333, MPV 10.3, Immature Gran % (Auto) 0.400, Neut % (Auto) 75.6 H, Lymph % (Auto) 13.4 L, [place] % (Auto) 6.5, Eos % (Auto) 3.7, Baso % (Auto) 0.4, Absolute Neuts (auto) 6.3, Absolute Lymphs (auto) 1.11, Nucleated RBC % 0 12/24/22 06:30: Sodium 140, Potassium 4.2, Chloride 113 H, Carbon Dioxide 25.0, Anion Gap 2 L, BUN 15, Creatinine 0.63, Estim Creat Clear Calc 38.75, Est GFR (MDRD) Af Amer 117, Est GFR (MDRD) Non-Af 97, BUN/Creatinine Ratio 23.9 H, Glucose 91, Calcium 8.9 Micro: Microbiology 12/20/22 05:05 Stool Stool Occult Blood (LACY) - Final Occult Blood Positive Radiography Diagnostic Testing: Radiology Impression Chest/Abdomen/Pelvis CT 12/23/22 18:21 IMPRESSION: 3.3 cm x 3.5 cm x 4 cm mass in the posterior aspect of the left upper lobe abutting the left major fissure. This has increased in size as compared to prior study. Electronically Signed: Tab Marks MD at 8:59 EDT , Physical Exam Const no apparent distress Resp normal respiratory effort GI soft to palpation and non-tender Assessment & Plan Assessment/Plan (1) Colonic mass: PLAN: The patient had colonoscopy yesterday and was found to have a colon mass in the cecum. I discussed this with extensively with the patient's family and with the patient. Patient is nonverbal at this time but she was able to express that she did not want surgery. The patient's son and daughter were in agreement as well. I discussed performing a right hemicolectomy and the increased risk of stroke or heart attack with surgery. I also discussed leaving the mass and consulting palliative care and stopping her anticoagulation. This would put her at increased risk of further stroke but this may elongate her life more than surgery would. At this time the patient can resume tube feeds and return to her shelter and continue post stroke rehab. If her nutritional status improves and the mass proves to be more of a problem in the future there is also possibility of returning in the future for surgery but she would be high risk for stroke during any procedure. Carlos Gonzalez MD Pager: [facility] [address] [place] [address], [address] [place] [address] Office:
[2022-12-24] MEDS: NYSTATIN 500,000 UNIT/5 ML UDC 500000 UNIT PO ×2 (10:31→14:00)
[2022-12-24] MEDS: Aspirin 81 MG TAB.CHEW GT (10:31)
[2022-12-24] MEDS: Menthol/Lanolin/Calamine/Znox 113 GM Tube 1 APPLIC TOPICAL ×2 (10:31→14:00)
[2022-12-24] MEDS: Paroxetine 20 MG Tablet GT (10:31)
[2022-12-24] MEDS: Jevity 1.5. 1,000 ML Bottle 240 ML GT ×2 (10:32→14:01)
[2022-12-24 11:16] VITALS: O2SAT 94
[2022-12-24 11:48] VITALS: BP 125/60; PULSE 77; RESP 18; TEMP 36.7; O2SAT 95
--- NOTE | 2022-12-24 12:20 | CASEMGMT ---
Addendum entered by Mali Walls 12/24/22 15:51: Social Work Precert obtained. Physician updated and pt ready for discharge today to [facility]. Discharge orders and covid results sent to [facility] via [facility]. Transportation arranged for 5:00 pick out hand via [facility]. SW spoke with pt son updating on discharge and SW spoke with Juancho again regarding palliative medicine and he is agreeable to referral. Physician and RNCM updated and RNCM to make referral. Pt updated on discharge plan. Bedside nurse and [facility] updated on discharge time. Discharge summary faxed to Erin Howard, direction nursing home director. Plan: [facility], skilled level of care LYNETTE Rodriguez Original Note: Social Work SW met with pt, pt son and pt dgt. Pt sleeping throughout conversation. Pt's family with questions regarding group home placement including skilled stay for continued rehabilitation, hospice at SNF and palliative medicine. SW explained each of the levels of care and insurance coverage/cost of each. Pt family requesting that pt return to [facility] under skilled level of care as they would like to continue with rehabilitation at this time. Pt understanding that they can transition to Hospice if they would like when skilled stay is complete. SW presented palliative care information and family did not elect this option at this time. Precert was started 12/23, SW will await determination. Family aware. Plan: [facility], skilled level of care, pending precert LYNETTE Rodriguez
[2022-12-24 12:21] LABS: Bedside Glucose 178 mg/dL (74-106)
--- NOTE | 2022-12-24 13:50 | PCM.TXEXTCAR ---
Diet Diet Order/Speech Therapy: 12/24/22 10:27 NPO [Diet: Nothing Per Oral] Is pt able to select menu?: No Diet Comments: jevity 1.5, 5x/day w/ 80ml H2O flush before&after, ice chips if fully alert Routine Orders/Code Status Suppository Type: Dulcolax 10mg Suppository Frequency: Daily PRN Routine Lab Work: CBC (3 to 5 days) Code Status: Full Code Wound(s) abd: Wound Type: peg tube inseration site LEFT UPPER QUADRANT ABDOMEN: Wound Type: Surgical Incision Therapies Physical Therapy: Eval and Treat Occupational Therapy: Eval and Treat Speech Therapy: Eval and Treat Problem/Diagnosis (1) Colonic mass: Status: Acute Code(s): K63.89 - Other specified diseases of intestine Plan The patient is an 82 y/o F w/ PMHx: Former tobacco use, Hx Lung CA non-small cell left upper lobe, Anxiety and Depression, Prediabetes, Obesity, COPD, Hx DVT, PAD s/p aortoiliac femoral bypass, HTN, HLD, Hypothyroidism with history of Graves' disease, recent admission 11/11/22-11/13/22 secondary to Acute CVA with right-sided weakness and altered speech with low NIH score considered not a tPA candidate, admitted, MRI of the brain with new small acute infarct in mid to posterior medial aspect of the left temporal lobe and in the medial and posterior aspects of the left occipital lobe consistent with 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 Surgery evaluated and agreed the PEG tube was dislodged and recommended EGD with placement of PEG tube. Eliquis was held and she was changed to Lovenox. While awaiting PEG tube she had episode of maroon-colored stools and had FOBT ordered. Lovenox held and GI consulted. She was taken 12/21 and had upper endoscopy with no evidence of source of bleeding and PEG tube replaced. The following day tube feeds were initiated without difficulty and she had colonic prep for colonoscopy. She successfully completed colonic prep and had colonoscopy 12/23 with likely malignant partially obstructing tumor in the cecum which was biopsied. Surgery was renotified and discussed surgical option with the family versus no surgery. Family opted for no surgery but did not want hospice and wanted her to go back to rehab and continue therapy for the CVA. She did have CT of the chest, abdomen, pelvis for staging purposes prior to family deciding against surgery and this showed 3.3 cm x 3.5 cm x 4 cm mass in the posterior aspect of the left upper lobe abutting the left major fissure which had increased in size compared to prior study. Discussed with surgery and GI and patient okay to resume tube feeds and [facility]. Discussed with Dr. Gallegos and will hold Lovenox but continue aspirin. She has any further bleeding or obstruction may need surgery or a colonic stent. Discharge instructions as followed: -You were found to have cancer in your colon which caused bleeding. Because of this you will no longer take your Eliquis. ?Would recommend repeat CBC in 3 to 5 days to verify blood counts stable -You can however continue to take your aspirin and statin for stroke -You will resume your tube feeds through your PEG tube and will continue Jevity 1.5, 5 times a day with 60 mL water flushes before and after bolus feeds.. -If in the future you would like to pursue surgery you can follow-up with Dr. Gonzalez. Follow up information below -Please resume other home medications -Please call your primary care provider's office upon discharge to schedule a hospital follow up within 1 week. -For any concerning signs or symptoms please call 911 or proceed to the nearest emergency department #Acute on chronic anemia 2/2 likely colonic malignancy #PEG tube malfunction?resolved #CVA Oct 2022 #hx VTE #hx hypothyroidism w/ hx of grave's dz #hx PAD s/p aortoiliac femoral bypass #History of COPD Gold stage I, mild #Hx Lung CA non-small cell left upper lobe Allergies/Procedures Done in Hospital Allergies No Known Allergies Allergy (Verified 12/17/22 22:35) Procedures: - (EGD, colonoscopy, modified barium swallow) Type of Care/Length of Stay Estimated LOS: Convalescent Care Less Than 30 days Type of Care Needed: Skilled Rehab Potential: Fair Prognosis: Fair Additional Orders/Day of Discharge Day of Discharge: 12/24/22 Dietary and Speech Recommendations Dietitian Recommendations/Changes: Enteral nutrition- Jevity 1.5 240mL bolus 5x/day w/ 80mL H2O flush before and after each bolus to provide 1800 calories, 76 g protein, and 1712mL total fluid/day. HOME HEALTH CARE WORKER consulted- will adjust EN if PO diet ordered. Daily wts. Discharge Plan Admission Admit Date/Time: 12/18/22 13:43 Primary Reason for Your Visit: Dislodged PEG tube Attending Provider: Melonie Cardoso Primary Care Provider: Benjamin Lind Consulting Providers: Nicole Hall ; Carlos Gonzalez ; Lydia Carlisle Instructions Patient Instructions: ED Fall Prevention Additional Instructions / Restrictions: DISCHARGE INSTRUCTIONS PLEASE READ *Please take this with you to your next doctors appointment* -You were found to have cancer in your colon which caused bleeding. Because of this you will no longer take your Eliquis. ?Would recommend repeat CBC in 3 to 5 days to verify blood counts stable -You can however continue to take your aspirin and statin for stroke -You will resume your tube feeds through your PEG tube and will continue Jevity 1.5, 5 times a day with 60 mL water flushes before and after bolus feeds.. -If in the future you would like to pursue surgery you can follow-up with Dr. Gonzalez. Follow up information below -Please resume other home medications -Please call your primary care provider's office upon discharge to schedule a hospital follow up within 1 week. -For any concerning signs or symptoms please call 911 or proceed to the nearest emergency department Discharge Orders/Prescriptions Prescriptions: Continued atorvastatin 80 mg tablet 80 mg feeding tube QHS acetaminophen 500 mg Tablet 1,000 mg feeding tube Q6H PRN (Reason: Pain) levothyroxine 100 mcg tablet 100 mcg feeding tube DAILY Label Comments: Take 1 tab by mouth onceRdailyI carvedilol 6.25 mg Tablet 6.25 mg feeding tube BID Rx Instructions: must administer with a meal/food paroxetine HCl 10 mg/5 mL Suspension 20 mg feeding tube DAILY polyethylene glycol 3350 [Miralax] 17 gram/dose Powder 17 g feeding tube DAILY PRN PRN (Reason: Constipation) esomeprazole magnesium [Nexium Packet] 40 mg Granules For Susp In Packet 40 mg feeding tube DAILY Jevity 1.5 Shekhar 0.06 gram-1.5 kcal/mL Liquid 240 ml feeding tube 5X/DAY Rx Instructions: flush with 60ml water before and after bolus feeds aspirin 81 mg Capsule 81 mg feeding tube DAILY Discontinued nystatin 100,000 unit/mL Suspension 100,000 unit feeding tube 4X/DAY Rx Instructions: administer 1/2 of dose in each side of the mouth, stop date 12/18/22 Eliquis 2.5 mg Tablet 2.5 mg feeding tube BID Referrals / Follow Up: Carlos Gonzalez MD [Med Staff - Active Staff] - See Referral Note (If in the future you would like to pursue surgery you can follow-up with Dr. Gonzalez.) Benjamin Lind MD [Primary Care Provider] - Within 1 Week Disposition Disposition (needs filled in before D/C Order can be placed): Longterm Facility
--- NOTE | 2022-12-24 14:02 | DS.PCM_ITS ---
Providers Date of Admission: 12/18/22 Date of Discharge: 12/24/22 Primary Care Physician: Dr. Benjamin Lind MD Consultations 12/18/22 14:55 Consult: General Surgery Routine Consulting Provider: Carlos Gonzalez Reason for Consult: PEG - pulled out needs replaced EMERGENT Consult: No Notified: Yes Date Notified: 12/18/22 Time Notified: 00:45 Method of Notification: spoke with ER 12/20/22 07:41 Consult: Gastroenterology Routine Consulting Provider: [facility] Reason for Consult: maroon stools, downtrending hgb, fecal occult + EMERGENT Consult: No Notified: Yes Date Notified: 12/20/22 Time Notified: 08:00 Method of Notification: Text Reason For Visit: PEG TUBE MALFX Diagnosis Discharge Diagnosis (1) Colonic mass: Status: Acute Code(s): K63.89 - Other specified diseases of intestine Plan #Acute on chronic anemia 2/2 likely colonic malignancy #PEG tube malfunction?resolved #CVA Oct 2022 #hx VTE #hx hypothyroidism w/ hx of grave's dz #hx PAD s/p aortoiliac femoral bypass #History of COPD Gold stage I, mild #Hx Lung CA non-small cell left upper lobe Medications at Discharge Home Medications acetaminophen 500 mg tablet 1,000 mg feeding tube Q6H PRN Pain 11/10/22 atorvastatin 80 mg tablet 80 mg feeding tube QHS CHOLESTEROL 11/10/22 levothyroxine 100 mcg tablet 100 mcg feeding tube DAILY THYROID 11/10/22 aspirin 81 mg capsule 81 mg feeding tube DAILY 12/17/22 carvedilol 6.25 mg tablet 6.25 mg feeding tube BID 12/17/22 esomeprazole magnesium 40 mg granules delayed release for susp (Nexium Packet) 40 mg feeding tube DAILY 12/17/22 lactose-reduced food with fiber 0.06 gram-1.5 kcal/mL oral liquid (Jevity 1.5 Shekhar) 240 ml feeding tube 5X/DAY 12/17/22 paroxetine HCl 10 mg/5 mL oral suspension 20 mg feeding tube DAILY 12/17/22 polyethylene glycol 3350 17 gram/dose oral powder (Miralax) 17 g feeding tube DAILY PRN PRN Constipation 12/17/22 Hospital Course Procedures - (EGD, PEG replacement, colonoscopy) Summary of Care Provided Minutes Spent on Discharge: 32 Hospital Course: The patient is an 82 y/o F w/ PMHx: Former tobacco use, Hx Lung CA non-small cell left upper lobe, Anxiety and Depression, Prediabetes, Obesity, COPD, Hx DVT, PAD s/p aortoiliac femoral bypass, HTN, HLD, Hypothyroidism with history of Graves' disease, recent admission 11/11/22-11/13/22 secondary to Acute CVA with right-sided weakness and altered speech with low NIH score considered not a tPA candidate, admitted, MRI of the brain with new small acute infarct in mid to posterior medial aspect of the left temporal lobe and in the medial and posterior aspects of the left occipital lobe consistent with left [employer] territory process unfortunately acutely worsening with onset of right hemineglect with repeat CTA with mid to distal left M1 occlusion with collateral reconstitution distal MCA branches with acute stroke alert with [facility] acceptance and transfer of patient to their intensive care unit at that time eventually discharged to SNF s/p PEG tube placement who now re-presents to the [facility] ED on 12/17/22 with history of unfortunately having her PEG tube, which was placed 11/19 at [facility], accidentally pulled out on evening of presentation. Surgery evaluated and agreed the PEG tube was dislodged and recommended EGD with placement of PEG tube. Eliquis was held and she was changed to Lovenox. While awaiting PEG tube she had episode of maroon-colored stools and had FOBT ordered. Lovenox held and GI consulted. She was taken 12/21 and had upper endoscopy with no evidence of source of bleeding and PEG tube replaced. The following day tube feeds were initiated without difficulty and she had colonic prep for colonoscopy. She successfully completed colonic prep and had colonoscopy 12/23 with likely malignant partially obstructing tumor in the cecum which was biopsied. Surgery was renotified and discussed surgical option with the family versus no surgery. Family opted for no surgery but did not want hospice and wanted her to go back to rehab and continue therapy for the CVA. She did have CT of the chest, abdomen, pelvis for staging purposes prior to family deciding against surgery and this showed 3.3 cm x 3.5 cm x 4 cm mass in the posterior aspect of the left upper lobe abutting the left major fissure which had increased in size compared to prior study. Discussed with surgery and GI and patient okay to resume tube feeds and for DC back to long term facility for rehab. Discussed with Dr. Gallegos and will hold Lovenox but continue aspirin. She has any further bleeding or obstruction may need surgery or a colonic stent. Discharge instructions as followed: -You were found to have cancer in your colon which caused bleeding. Because of this you will no longer take your Eliquis. ?Would recommend repeat CBC in 3 to 5 days to verify blood counts stable -You can however continue to take your aspirin and statin for stroke -You will resume your tube feeds through your PEG tube and will continue Jevity 1.5, 5 times a day with 60 mL water flushes before and after bolus feeds.. -If in the future you would like to pursue surgery you can follow-up with Dr. Gonzalez. Follow up information below -Please resume other home medications -Please call your primary care provider's office upon discharge to schedule a hospital follow up within 1 week. -For any concerning signs or symptoms please call 911 or proceed to the nearest emergency department Physical Exam Narrative General: Resting comfortably HEENT: Atraumatic Eyes: Spontaneous eye movements Neck: Supple Respiratory: normal respiratory effort, no wheezes or rhonchi Cardiovascular: no edema appreciated GI: nondistended Extremities: Moves left-sided extremities Neuro: Has right-sided hemiparesis Psych: Pleasant Weight / BMI Weight Weight: 76.3 kg Body Mass Index (BMI) 28.7 ABG / Lab / Microbiology Data Result Diagrams: 12/24/22 06:30 12/24/22 06:30 Laboratory: Laboratory Results - last 24 hr 12/23/22 17:11: POC Glucose 100 12/23/22 23:23: POC Glucose 139 H 12/24/22 06:11: POC Glucose 87 12/24/22 06:30: WBC 8.3, RBC 3.29 L, Hgb 8.8 L, Hct 28.7 L, MCV 87.2, MCH 26.7 L , MCHC 30.7 L, RDW Std Deviation 55.3 H, RDW Coeff of Heriberto 17.4 H, Plt Count 333, MPV 10.3, Immature Gran % (Auto) 0.400, Neut % (Auto) 75.6 H, Lymph % (Auto) 13.4 L, [place] % (Auto) 6.5, Eos % (Auto) 3.7, Baso % (Auto) 0.4, Absolute Neuts (auto) 6.3, Absolute Lymphs (auto) 1.11, Nucleated RBC % 0 12/24/22 06:30: Sodium 140, Potassium 4.2, Chloride 113 H, Carbon Dioxide 25.0, Anion Gap 2 L, BUN 15, Creatinine 0.63, Estim Creat Clear Calc 38.75, Est GFR (MDRD) Af Amer 117, Est GFR (MDRD) Non-Af 97, BUN/Creatinine Ratio 23.9 H, Glucose 91, Calcium 8.9 12/24/22 11:46: POC Glucose 178 H Microbiology: Microbiology 12/20/22 05:05 Stool Stool Occult Blood (LACY) - Final Occult Blood Positive Radiography Diagnostic Testing: Radiology Impression Chest/Abdomen/Pelvis CT 12/23/22 18:21 IMPRESSION: 3.3 cm x 3.5 cm x 4 cm mass in the posterior aspect of the left upper lobe abutting the left major fissure. This has increased in size as compared to prior study. Electronically Signed: Tab Marks MD at 8:59 EDT , Meaningful Use Info Meaningful Use Diagnoses (Choose all that apply): None applicable Discharge Plan Admission Admit Date/Time: 12/18/22 13:43 Primary Reason for Your Visit: Dislodged PEG tube Attending Provider: Melonie Cardoso Primary Care Provider: Benjamin Lind Consulting Providers: Nicole Hall ; Carlos Gonzalez ; Lydia Carlisle Instructions Patient Instructions: ED Fall Prevention Additional Instructions / Restrictions: DISCHARGE INSTRUCTIONS PLEASE READ *Please take this with you to your next doctors appointment* -You were found to have cancer in your colon which caused bleeding. Because of this you will no longer take your Eliquis. ?Would recommend repeat CBC in 3 to 5 days to verify blood counts stable -You can however continue to take your aspirin and statin for stroke -You will resume your tube feeds through your PEG tube and will continue Jevity 1.5, 5 times a day with 60 mL water flushes before and after bolus feeds.. -If in the future you would like to pursue surgery you can follow-up with Dr. Gonzalez. Follow up information below -Please resume other home medications -Please call your primary care provider's office upon discharge to schedule a hospital follow up within 1 week. -For any concerning signs or symptoms please call 911 or proceed to the nearest emergency department Discharge Orders/Prescriptions Prescriptions: Continued atorvastatin 80 mg tablet 80 mg feeding tube QHS acetaminophen 500 mg Tablet 1,000 mg feeding tube Q6H PRN (Reason: Pain) levothyroxine 100 mcg tablet 100 mcg feeding tube DAILY Label Comments: Take 1 tab by mouth onceRdailyI carvedilol 6.25 mg Tablet 6.25 mg feeding tube BID Rx Instructions: must administer with a meal/food paroxetine HCl 10 mg/5 mL Suspension 20 mg feeding tube DAILY polyethylene glycol 3350 [Miralax] 17 gram/dose Powder 17 g feeding tube DAILY PRN PRN (Reason: Constipation) esomeprazole magnesium [Nexium Packet] [address] Burton Susp In Packet 40 mg feeding tube DAILY Jevity 1.5 Shekhar 0.06 gram-1.5 kcal/mL Liquid 240 ml feeding tube 5X/DAY Rx Instructions: flush with 60ml water before and after bolus feeds aspirin 81 mg Capsule 81 mg feeding tube DAILY Discontinued nystatin 100,000 unit/mL Suspension 100,000 unit feeding tube 4X/DAY Rx Instructions: administer 1/2 of dose in each side of the mouth, stop date 12/18/22 Eliquis 2.5 mg Tablet 2.5 mg feeding tube BID Referrals / Follow Up: Carlos Gonzalez MD [Med Staff - Active Staff] - See Referral Note (If in the future you would like to pursue surgery you can follow-up with Dr. Gonzalez.) Benjamin Lind MD [Primary Care Provider] - Within 1 Week Disposition Disposition (needs filled in before D/C Order can be placed): [facility] Facility Charges/Coding Visit Charges Inpatient E&M: 09423 Disch Hosp >30min
--- NOTE | 2022-12-24 14:25 | CASEMGMT ---
ABILIO HERNANDEZ NOTE: Order received for Palliative referral. Referral sent to [facility] via e-mail. Call placed to Evette @ [facility] and notified of referral. She was made aware pt will be discharging to [facility] and pt's son/Juancho is HCPOA. Abby MACKAY RN CM
[2022-12-24 14:41] VITALS: BP 121/57; PULSE 82; RESP 18; TEMP 37.1; O2SAT 98
--- NOTE | 2022-12-24 15:49 | NURSING ---
Report called to [facility] nurse Aisha at [phone]. phlebotomist supervisor/instructor time will be at 5pm this evening.
== END 2022-12-24 17:25 | disposition skilled nursing facility (03) | DRG 394 ==
LOC: ED 23:28 → MS3 23:37
PROVIDERS: Internal Medicine Gastroenterology; Student in an Organized Health Care Education/Training Program; Surgery; Admitting Provider Family Medicine; Emergency Provider Emergency Medicine; PCP Internal Medicine; Visit Provider Internal Medicine
PROC: 0DJ08ZZ Inspection of Upper Intestinal Tract, Via Natural or Artificial Opening Endoscopic (ICD-10-PCS; CPT 43235; principal; 2022-12-21 10:10)
PROC: 0DJD8ZZ Inspection of Lower Intestinal Tract, Via Natural or Artificial Opening Endoscopic (ICD-10-PCS; CPT 45378; principal; 2022-12-23 12:55)
DX: K94.23 Gastrostomy malfunction (principal); C18.0 Malignant neoplasm of cecum; I69.351 Hemiplegia and hemiparesis following cerebral infarction affecting right dominant side; D63.0 Anemia in neoplastic disease; E03.9 Hypothyroidism, unspecified; E05.00 Thyrotoxicosis with diffuse goiter without thyrotoxic crisis or storm; I73.9 Peripheral vascular disease, unspecified; J44.9 Chronic obstructive pulmonary disease, unspecified; I10 Essential (primary) hypertension; E78.5 Hyperlipidemia, unspecified; K21.9 Gastro-esophageal reflux disease without esophagitis; K57.30 Diverticulosis of large intestine without perforation or abscess without bleeding; K63.5 Polyp of colon; F41.9 Anxiety disorder, unspecified; I69.321 Dysphasia following cerebral infarction; I69.320 Aphasia following cerebral infarction; F32.A Depression, unspecified; E66.9 Obesity, unspecified; R73.03 Prediabetes; Z68.31 Body mass index [BMI] 31.0-31.9, adult; Z90.49 Acquired absence of other specified parts of digestive tract; Z79.01 Long term (current) use of anticoagulants; Z79.82 Long term (current) use of aspirin; Z79.899 Other long term (current) drug therapy; Z85.118 Personal history of other malignant neoplasm of bronchus and lung; Z86.718 Personal history of other venous thrombosis and embolism; Z87.891 Personal history of nicotine dependence
CPT/HCPCS: 36415; 71260; 74018; 74177; 74230; 80048; 80053; 82274; 82962; 85025; 85610; 85730; 87426; 88305; 88341; 88342; 92526; 92610; 92611; 93005; 97110; 97162; 97166; 97530; 97535; 97802; 97803; 99285; J7030; J7120; Q9967; A4216; A4648; J2405

== ENCOUNTER → 2023-01-11 | Outpatient (REF) | payer MEDICARE, MEDICAID, SELFPAY ==
[2023-01-11 07:55] LABS: Absolute Lymphocyte Count 2.13 X10^3/uL (0.83-4.51); Absolute Neutrophil Count 5.7 X10^3/uL (2.0-7.7); Basophil# 0.07 X10^3/uL; Basophil% 0.8 % (0-1); Eosinophils% 3.4 % (0-5); Hematocrit 29.3 % (37-47); Hemoglobin 8.6 g/dL (12.0-15.0); Lymphocyte # 2.13 X10^3/ul (0.83-4.51); Lymphocyte % 23.8 % (19-41); Mean Corp Hgb Conc 29.4 g/dL (32-36); Mean Corpuscular Hgb 25.9 pg (27.0-32.0); Mean Corpuscular Volume 88.3 fL (81-99); Mean Platelet Vol. 11.6 fl (6.2-12.0); Monocyte# 0.73 X10^3/uL; Monocyte% 8.2 % (0-10); NRBC Flagged by Analyzer 0 % (0-5); Neutrophil # 5.69 X10^3/uL (2.7-7.7); Neutrophil % 63.5 % (47-70); Platelet Count 346 K/mm3 (150-450); RBC Distribution Width CV 16.7 % (11.6-14.6); RBC Distribution Width SD 53.9 fl (35.1-43.9); Red Blood Count 3.32 M/mm3 (4.2-5.4)
== END ==
LOC: OLS.WHLTCC 05:00
PROVIDERS: PCP Internal Medicine; Visit Provider Internal Medicine
DX: C18.0 Malignant neoplasm of cecum (principal); I69.351 Hemiplegia and hemiparesis following cerebral infarction affecting right dominant side; K94.23 Gastrostomy malfunction; R13.10 Dysphagia, unspecified; M62.81 Muscle weakness (generalized); R26.2 Difficulty in walking, not elsewhere classified
CPT/HCPCS: 36415; 85025

== ENCOUNTER → 2023-01-14 | Outpatient (REF) | payer MEDICARE, MEDICAID, SELFPAY ==
[2023-01-14 07:29] LABS: Absolute Lymphocyte Count 2.04 X10^3/uL (0.83-4.51); Absolute Neutrophil Count 6.5 X10^3/uL (2.0-7.7); Basophil# 0.07 X10^3/uL; Basophil% 0.7 % (0-1); Eosinophil# 0.29 X10^3/uL; Hematocrit 30.2 % (37-47); Hemoglobin 8.8 g/dL (12.0-15.0); Lymphocyte # 2.04 X10^3/ul (0.83-4.51); Lymphocyte % 21.3 % (19-41); Mean Corp Hgb Conc 29.1 g/dL (32-36); Mean Corpuscular Hgb 25.9 pg (27.0-32.0); Mean Corpuscular Volume 88.8 fL (81-99); Mean Platelet Vol. 10.9 fl (6.2-12.0); Monocyte# 0.67 X10^3/uL; NRBC Flagged by Analyzer 0 % (0-5); Neutrophil # 6.46 X10^3/uL (2.7-7.7); Neutrophil % 67.6 % (47-70); Platelet Count 343 K/mm3 (150-450); RBC Distribution Width CV 16.9 % (11.6-14.6); RBC Distribution Width SD 54.1 fl (35.1-43.9); White Blood Count 9.6 K/mm3 (4.4-11.0)
[2023-01-14 07:40] LABS: Anion Gap 4 (5-15); BUN 31 mg/dL (7-18); BUN/Creat Ratio 37.1 RATIO (10-20); Calcium,Total 9.1 mg/dL (8.5-10.1); Chloride 106 mmol/L (98-107); Creatinine, Serum 0.84 mg/dL (0.55-1.02); EST Glomerular Filtration Rate 70 mL/min (>60); Est Glom Filt Rate - Afr Amer 84 mL/min (>60); Glucose 154 mg/dL (74-106); Potassium 4.1 mmol/L (3.5-5.1); Sodium Level 137 mmol/L (136-145)
== END ==
LOC: OLS.WHLTCC 05:00
PROVIDERS: PCP Internal Medicine; Visit Provider Internal Medicine
DX: R53.82 Chronic fatigue, unspecified (principal); I69.351 Hemiplegia and hemiparesis following cerebral infarction affecting right dominant side; K94.23 Gastrostomy malfunction; R13.10 Dysphagia, unspecified; M62.81 Muscle weakness (generalized); R26.2 Difficulty in walking, not elsewhere classified; C18.0 Malignant neoplasm of cecum
CPT/HCPCS: 36415; 80048; 85025

== ENCOUNTER → 2023-01-18 | Outpatient (REF) | payer MEDICARE, MEDICAID, SELFPAY ==
[2023-01-18 08:47] LABS: Absolute Neutrophil Count 5.2 X10^3/uL (2.0-7.7); Basophil# 0.08 X10^3/uL; Eosinophil# 0.29 X10^3/uL; Eosinophils% 3.5 % (0-5); Hemoglobin 8.8 g/dL (12.0-15.0); Lymphocyte % 25.1 % (19-41); Mean Corp Hgb Conc 29.3 g/dL (32-36); Mean Corpuscular Hgb 25.7 pg (27.0-32.0); Mean Corpuscular Volume 87.7 fL (81-99); Mean Platelet Vol. 11.2 fl (6.2-12.0); Monocyte% 8.4 % (0-10); NRBC Flagged by Analyzer 0 % (0-5); Neutrophil # 5.16 X10^3/uL (2.7-7.7); Neutrophil % 61.8 % (47-70); Platelet Count 340 K/mm3 (150-450); RBC Distribution Width SD 54.1 fl (35.1-43.9); Red Blood Count 3.42 M/mm3 (4.2-5.4); White Blood Count 8.4 K/mm3 (4.4-11.0)
[2023-01-18 09:02] LABS: ALB/GLOB Ratio 0.8 RATIO (0.9-2.4); AST(SGOT) 13 U/L (15-37); Alanine Aminotransfer ALT/SGPT 22 U/L (13-56); Albumin, Serum 2.8 g/dL (3.2-5.0); Alkaline Phosphatase 44 U/L (45-117); Anion Gap 1 (5-15); BUN 26 mg/dL (7-18); BUN/Creat Ratio 36.1 RATIO (10-20); Calcium,Total 8.9 mg/dL (8.5-10.1); Chloride 105 mmol/L (98-107); Creatinine, Serum 0.72 mg/dL (0.55-1.02); EST Glomerular Filtration Rate 83 mL/min (>60); Est Glom Filt Rate - Afr Amer 100 mL/min (>60); Globulin 3.3 g/dL (2.2-4.2); Glucose 113 mg/dL (74-106); Potassium 4.5 mmol/L (3.5-5.1); Protein, Total 6.1 g/dL (6.4-8.2); Sodium Level 136 mmol/L (136-145)
== END ==
LOC: OLS.WHLTCC 05:00
PROVIDERS: PCP Internal Medicine; Visit Provider Internal Medicine
DX: C18.0 Malignant neoplasm of cecum (principal); I69.351 Hemiplegia and hemiparesis following cerebral infarction affecting right dominant side; K94.23 Gastrostomy malfunction; R13.10 Dysphagia, unspecified; M62.81 Muscle weakness (generalized); R26.2 Difficulty in walking, not elsewhere classified
CPT/HCPCS: 36415; 80053; 85025

== ENCOUNTER → 2023-01-21 | Outpatient (REF) | payer MEDICARE, MEDICAID, SELFPAY ==
[2023-01-21 07:09] LABS: Absolute Lymphocyte Count 2.04 X10^3/uL (0.83-4.51); Absolute Neutrophil Count 5.1 X10^3/uL (2.0-7.7); Basophil# 0.06 X10^3/uL; Basophil% 0.7 % (0-1); Eosinophil# 0.29 X10^3/uL; Eosinophils% 3.5 % (0-5); Hematocrit 30.4 % (37-47); Hemoglobin 9.1 g/dL (12.0-15.0); Lymphocyte # 2.04 X10^3/ul (0.83-4.51); Lymphocyte % 24.9 % (19-41); Mean Corp Hgb Conc 29.9 g/dL (32-36); Mean Corpuscular Hgb 25.9 pg (27.0-32.0); Mean Corpuscular Volume 86.6 fL (81-99); Mean Platelet Vol. 10.5 fl (6.2-12.0); Monocyte# 0.72 X10^3/uL; Monocyte% 8.8 % (0-10); NRBC Flagged by Analyzer 0 % (0-5); Neutrophil # 5.07 X10^3/uL (2.7-7.7); Neutrophil % 61.9 % (47-70); Platelet Count 340 K/mm3 (150-450); RBC Distribution Width CV 16.9 % (11.6-14.6); Red Blood Count 3.51 M/mm3 (4.2-5.4); White Blood Count 8.2 K/mm3 (4.4-11.0)
[2023-01-21 07:27] LABS: Anion Gap 3 (5-15); BUN 34 mg/dL (7-18); BUN/Creat Ratio 43.2 RATIO (10-20); Calcium,Total 9.2 mg/dL (8.5-10.1); Chloride 106 mmol/L (98-107); Creatinine, Serum 0.79 mg/dL (0.55-1.02); EST Glomerular Filtration Rate 75 mL/min (>60); Est Glom Filt Rate - Afr Amer 90 mL/min (>60); Glucose 106 mg/dL (74-106); Potassium 4.2 mmol/L (3.5-5.1); Sodium Level 137 mmol/L (136-145)
== END ==
LOC: OLS.WHLEAS 05:00
PROVIDERS: PCP Internal Medicine; Visit Provider Internal Medicine
DX: C18.0 Malignant neoplasm of cecum (principal); I69.351 Hemiplegia and hemiparesis following cerebral infarction affecting right dominant side; K94.23 Gastrostomy malfunction; R13.10 Dysphagia, unspecified; M62.81 Muscle weakness (generalized); R26.2 Difficulty in walking, not elsewhere classified
CPT/HCPCS: 36415; 80048; 85025

== ENCOUNTER → 2023-01-25 | Outpatient (REF) | payer MEDICARE, MEDICAID, SELFPAY ==
[2023-01-25 07:40] LABS: Absolute Lymphocyte Count 2.16 X10^3/uL (0.83-4.51); Basophil# 0.06 X10^3/uL; Basophil% 0.6 % (0-1); Eosinophil# 0.22 X10^3/uL; Eosinophils% 2.4 % (0-5); Hematocrit 31.9 % (37-47); Hemoglobin 9.4 g/dL (12.0-15.0); Lymphocyte # 2.16 X10^3/ul (0.83-4.51); Lymphocyte % 23.2 % (19-41); Mean Corp Hgb Conc 29.5 g/dL (32-36); Mean Corpuscular Volume 88.1 fL (81-99); Mean Platelet Vol. 10.8 fl (6.2-12.0); Monocyte# 0.82 X10^3/uL; Monocyte% 8.8 % (0-10); NRBC Flagged by Analyzer 0 % (0-5); Neutrophil # 6.01 X10^3/uL (2.7-7.7); Neutrophil % 64.7 % (47-70); Platelet Count 347 K/mm3 (150-450); RBC Distribution Width CV 16.5 % (11.6-14.6); RBC Distribution Width SD 53.4 fl (35.1-43.9); Red Blood Count 3.62 M/mm3 (4.2-5.4); White Blood Count 9.3 K/mm3 (4.4-11.0)
== END ==
LOC: OLS.WHLEAS 05:00
PROVIDERS: PCP Internal Medicine; Visit Provider Internal Medicine
DX: C18.0 Malignant neoplasm of cecum (principal); I69.351 Hemiplegia and hemiparesis following cerebral infarction affecting right dominant side; K94.33 Esophagostomy malfunction; R13.10 Dysphagia, unspecified; M62.81 Muscle weakness (generalized); R26.2 Difficulty in walking, not elsewhere classified
CPT/HCPCS: 36415; 85025

== ENCOUNTER → 2023-01-28 | Outpatient (REF) | payer MEDICARE, MEDICAID, SELFPAY ==
[2023-01-28 07:00] LABS: Absolute Lymphocyte Count 2.21 X10^3/uL (0.83-4.51); Absolute Neutrophil Count 5.3 X10^3/uL (2.0-7.7); Basophil# 0.07 X10^3/uL; Basophil% 0.8 % (0-1); Eosinophil# 0.27 X10^3/uL; Eosinophils% 3.1 % (0-5); Hemoglobin 8.9 g/dL (12.0-15.0); Lymphocyte # 2.21 X10^3/ul (0.83-4.51); Lymphocyte % 25.6 % (19-41); Mean Corp Hgb Conc 29.7 g/dL (32-36); Mean Corpuscular Volume 87.7 fL (81-99); Mean Platelet Vol. 10.7 fl (6.2-12.0); Monocyte# 0.77 X10^3/uL; Monocyte% 8.9 % (0-10); NRBC Flagged by Analyzer 0 % (0-5); Neutrophil # 5.28 X10^3/uL (2.7-7.7); Neutrophil % 61.4 % (47-70); Platelet Count 316 K/mm3 (150-450); RBC Distribution Width CV 16.5 % (11.6-14.6); RBC Distribution Width SD 53.3 fl (35.1-43.9); Red Blood Count 3.42 M/mm3 (4.2-5.4); White Blood Count 8.6 K/mm3 (4.4-11.0)
[2023-01-28 07:10] LABS: Anion Gap 7 (5-15); BUN 26 mg/dL (7-18); BUN/Creat Ratio 31.6 RATIO (10-20); Chloride 104 mmol/L (98-107); Creatinine, Serum 0.82 mg/dL (0.55-1.02); EST Glomerular Filtration Rate 71 mL/min (>60); Est Glom Filt Rate - Afr Amer 86 mL/min (>60); Glucose 177 mg/dL (74-106); Potassium 3.9 mmol/L (3.5-5.1); Sodium Level 140 mmol/L (136-145)
== END ==
LOC: OLS.WHLEAS 05:00
PROVIDERS: PCP Internal Medicine; Visit Provider Internal Medicine
DX: R53.82 Chronic fatigue, unspecified (principal); I69.351 Hemiplegia and hemiparesis following cerebral infarction affecting right dominant side; K94.23 Gastrostomy malfunction; R13.10 Dysphagia, unspecified; M62.81 Muscle weakness (generalized); R26.2 Difficulty in walking, not elsewhere classified; C18.0 Malignant neoplasm of cecum
CPT/HCPCS: 36415; 80048; 85025

== ENCOUNTER → 2023-02-01 | Outpatient (REF) | payer MEDICARE, MEDICAID, SELFPAY ==
[2023-02-01 09:53] LABS: Absolute Lymphocyte Count 1.98 X10^3/uL (0.83-4.51); Absolute Neutrophil Count 6.3 X10^3/uL (2.0-7.7); Basophil# 0.06 X10^3/uL; Basophil% 0.6 % (0-1); Eosinophil# 0.25 X10^3/uL; Eosinophils% 2.6 % (0-5); Hematocrit 27.9 % (37-47); Hemoglobin 8.3 g/dL (12.0-15.0); Lymphocyte # 1.98 X10^3/ul (0.83-4.51); Lymphocyte % 20.6 % (19-41); Mean Corp Hgb Conc 29.7 g/dL (32-36); Mean Corpuscular Hgb 25.7 pg (27.0-32.0); Mean Corpuscular Volume 86.4 fL (81-99); Mean Platelet Vol. 10.7 fl (6.2-12.0); Monocyte# 1.04 X10^3/uL; Monocyte% 10.8 % (0-10); NRBC Flagged by Analyzer 0 % (0-5); Neutrophil # 6.26 X10^3/uL (2.7-7.7); Neutrophil % 65.1 % (47-70); Platelet Count 321 K/mm3 (150-450); RBC Distribution Width CV 16.6 % (11.6-14.6); RBC Distribution Width SD 51.8 fl (35.1-43.9); Red Blood Count 3.23 M/mm3 (4.2-5.4); White Blood Count 9.6 K/mm3 (4.4-11.0)
[2023-02-01 10:13] LABS: Anion Gap 7 (5-15); BUN 26 mg/dL (7-18); BUN/Creat Ratio 40.6 RATIO (10-20); Calcium,Total 8.8 mg/dL (8.5-10.1); Chloride 105 mmol/L (98-107); Creatinine, Serum 0.64 mg/dL (0.55-1.02); EST Glomerular Filtration Rate 95 mL/min (>60); Est Glom Filt Rate - Afr Amer 115 mL/min (>60); Glucose 95 mg/dL (74-106); Potassium 3.8 mmol/L (3.5-5.1); Sodium Level 139 mmol/L (136-145)
== END ==
LOC: OLS.WHLEAS 04:00
PROVIDERS: PCP Internal Medicine; Referring Provider Internal Medicine; Visit Provider Internal Medicine
DX: I69.351 Hemiplegia and hemiparesis following cerebral infarction affecting right dominant side (principal); K94.23 Gastrostomy malfunction; R13.10 Dysphagia, unspecified; M62.81 Muscle weakness (generalized); R26.2 Difficulty in walking, not elsewhere classified
CPT/HCPCS: 36415; 80048; 85025

== ENCOUNTER → 2023-02-15 | Outpatient (REF) | payer MEDICARE, MEDICAID, SELFPAY ==
[2023-02-15 08:54] LABS: Absolute Lymphocyte Count 1.54 X10^3/uL (0.83-4.51); Absolute Neutrophil Count 5.9 X10^3/uL (2.0-7.7); Basophil# 0.05 X10^3/uL; Basophil% 0.6 % (0-1); Eosinophil# 0.25 X10^3/uL; Hematocrit 28.1 % (37-47); Lymphocyte # 1.54 X10^3/ul (0.83-4.51); Lymphocyte % 18.2 % (19-41); Mean Corp Hgb Conc 28.5 g/dL (32-36); Mean Corpuscular Hgb 25.3 pg (27.0-32.0); Mean Corpuscular Volume 88.9 fL (81-99); Mean Platelet Vol. 10.7 fl (6.2-12.0); Monocyte# 0.74 X10^3/uL; Monocyte% 8.7 % (0-10); NRBC Flagged by Analyzer 0 % (0-5); Neutrophil # 5.86 X10^3/uL (2.7-7.7); Neutrophil % 69.1 % (47-70); Platelet Count 370 K/mm3 (150-450); RBC Distribution Width CV 16.7 % (11.6-14.6); RBC Distribution Width SD 54.3 fl (35.1-43.9); Red Blood Count 3.16 M/mm3 (4.2-5.4); White Blood Count 8.5 K/mm3 (4.4-11.0)
[2023-02-15 09:08] LABS: Anion Gap 6 (5-15); BUN 27 mg/dL (7-18); BUN/Creat Ratio 51.2 RATIO (10-20); Calcium,Total 8.8 mg/dL (8.5-10.1); Chloride 105 mmol/L (98-107); Creatinine, Serum 0.53 mg/dL (0.55-1.02); EST Glomerular Filtration Rate 119 mL/min (>60); Est Glom Filt Rate - Afr Amer 143 mL/min (>60); Glucose 157 mg/dL (74-106); Potassium 4.2 mmol/L (3.5-5.1); Sodium Level 140 mmol/L (136-145)
== END ==
LOC: OLS.WHLEAS 04:00
PROVIDERS: PCP Internal Medicine; Referring Provider Internal Medicine; Visit Provider Internal Medicine
DX: I69.351 Hemiplegia and hemiparesis following cerebral infarction affecting right dominant side (principal); K94.23 Gastrostomy malfunction; R13.10 Dysphagia, unspecified; M62.81 Muscle weakness (generalized); R26.2 Difficulty in walking, not elsewhere classified
CPT/HCPCS: 36415; 80048; 85025

== ENCOUNTER → 2023-03-01 | Outpatient (REF) | payer MEDICARE, MEDICAID, SELFPAY ==
[2023-03-01 08:48] LABS: Absolute Neutrophil Count 6.4 X10^3/uL (2.0-7.7); Basophil# 0.07 X10^3/uL; Basophil% 0.7 % (0-1); Eosinophil# 0.47 X10^3/uL; Hematocrit 28.5 % (37-47); Hemoglobin 8.3 g/dL (12.0-15.0); Lymphocyte % 17.1 % (19-41); Mean Corp Hgb Conc 29.1 g/dL (32-36); Mean Corpuscular Hgb 25.5 pg (27.0-32.0); Mean Corpuscular Volume 87.4 fL (81-99); Mean Platelet Vol. 11.1 fl (6.2-12.0); Monocyte% 8.6 % (0-10); NRBC Flagged by Analyzer 0 % (0-5); Neutrophil # 6.38 X10^3/uL (2.7-7.7); Neutrophil % 68.3 % (47-70); Platelet Count 314 K/mm3 (150-450); RBC Distribution Width CV 16.4 % (11.6-14.6); RBC Distribution Width SD 52.3 fl (35.1-43.9); Red Blood Count 3.26 M/mm3 (4.2-5.4); White Blood Count 9.4 K/mm3 (4.4-11.0)
[2023-03-01 09:03] LABS: Anion Gap 3 (5-15); BUN 36 mg/dL (7-18); BUN/Creat Ratio 68.2 RATIO (10-20); Calcium,Total 8.7 mg/dL (8.5-10.1); Chloride 108 mmol/L (98-107); Creatinine, Serum 0.53 mg/dL (0.55-1.02); EST Glomerular Filtration Rate 118 mL/min (>60); Est Glom Filt Rate - Afr Amer 143 mL/min (>60); Glucose 108 mg/dL (74-106); Potassium 4.8 mmol/L (3.5-5.1); Sodium Level 137 mmol/L (136-145)
== END ==
LOC: OLS.WHLEAS 05:00
PROVIDERS: PCP Internal Medicine; Visit Provider Internal Medicine
DX: I69.351 Hemiplegia and hemiparesis following cerebral infarction affecting right dominant side (principal); K94.23 Gastrostomy malfunction; R13.10 Dysphagia, unspecified; M62.81 Muscle weakness (generalized)
CPT/HCPCS: 36415; 80048; 85025

== ENCOUNTER → 2023-03-15 05:00 | Outpatient (REF) | payer MEDICARE, MEDICAID, SELFPAY ==
[2023-03-15 09:33] LABS: Basophil# 0.05 X10^3/uL; Basophil% 0.5 % (0-1); Eosinophil# 0.36 X10^3/uL; Eosinophils% 3.8 % (0-5); Hematocrit 28.1 % (37-47); Hemoglobin 8.2 g/dL (12.0-15.0); Lymphocyte % 23.3 % (19-41); Mean Corp Hgb Conc 29.2 g/dL (32-36); Mean Corpuscular Hgb 25.5 pg (27.0-32.0); Mean Corpuscular Volume 87.5 fL (81-99); Mean Platelet Vol. 11.1 fl (6.2-12.0); Monocyte# 0.84 X10^3/uL; Monocyte% 8.9 % (0-10); NRBC Flagged by Analyzer 0 % (0-5); Neutrophil # 5.97 X10^3/uL (2.7-7.7); Neutrophil % 63.2 % (47-70); Platelet Count 372 K/mm3 (150-450); RBC Distribution Width SD 51.4 fl (35.1-43.9); Red Blood Count 3.21 M/mm3 (4.2-5.4); White Blood Count 9.5 K/mm3 (4.4-11.0)
[2023-03-15 09:41] LABS: Anion Gap 5 (5-15); BUN 29 mg/dL (7-18); BUN/Creat Ratio 47.5 RATIO (10-20); Chloride 107 mmol/L (98-107); Creatinine, Serum 0.61 mg/dL (0.55-1.02); EST Glomerular Filtration Rate 100 mL/min (>60); Est Glom Filt Rate - Afr Amer 121 mL/min (>60); Glucose 130 mg/dL (74-106); Potassium 4.1 mmol/L (3.5-5.1); Sodium Level 139 mmol/L (136-145)
== END ==
LOC: OLS.WHL 05:00
PROVIDERS: PCP Internal Medicine; Visit Provider Internal Medicine
DX: I69.351 Hemiplegia and hemiparesis following cerebral infarction affecting right dominant side (principal)
CPT/HCPCS: 36415; 80048; 85025

== ENCOUNTER → 2023-03-29 | Outpatient (REF) | payer MEDICARE, MEDICAID, SELFPAY ==
[2023-03-29 08:45] LABS: Absolute Lymphocyte Count 1.65 X10^3/uL (0.83-4.51); Absolute Neutrophil Count 5.6 X10^3/uL (2.0-7.7); Basophil# 0.07 X10^3/uL; Basophil% 0.8 % (0-1); Eosinophils% 3.6 % (0-5); Hematocrit 27.3 % (37-47); Hemoglobin 7.8 g/dL (12.0-15.0); Lymphocyte # 1.65 X10^3/ul (0.83-4.51); Lymphocyte % 19.6 % (19-41); Mean Corp Hgb Conc 28.6 g/dL (32-36); Mean Corpuscular Hgb 25.1 pg (27.0-32.0); Mean Corpuscular Volume 87.8 fL (81-99); Mean Platelet Vol. 11.1 fl (6.2-12.0); Monocyte# 0.81 X10^3/uL; Monocyte% 9.6 % (0-10); NRBC Flagged by Analyzer 0 % (0-5); Neutrophil # 5.58 X10^3/uL (2.7-7.7); Neutrophil % 66.2 % (47-70); Platelet Count 356 K/mm3 (150-450); RBC Distribution Width CV 16.3 % (11.6-14.6); RBC Distribution Width SD 52.2 fl (35.1-43.9); Red Blood Count 3.11 M/mm3 (4.2-5.4); White Blood Count 8.4 K/mm3 (4.4-11.0)
[2023-03-29 09:04] LABS: Anion Gap 3 (5-15); BUN 33 mg/dL (7-18); BUN/Creat Ratio 70.2 RATIO (10-20); Calcium,Total 8.6 mg/dL (8.5-10.1); Chloride 110 mmol/L (98-107); Creatinine, Serum 0.47 mg/dL (0.55-1.02); EST Glomerular Filtration Rate 135 mL/min (>60); Est Glom Filt Rate - Afr Amer 164 mL/min (>60); Glucose 125 mg/dL (74-106); Potassium 4.4 mmol/L (3.5-5.1); Sodium Level 141 mmol/L (136-145)
== END ==
LOC: OLS.WHLEAS 05:00
PROVIDERS: PCP Internal Medicine; Visit Provider Internal Medicine
DX: I69.351 Hemiplegia and hemiparesis following cerebral infarction affecting right dominant side (principal); K94.23 Gastrostomy malfunction; R13.10 Dysphagia, unspecified; M62.81 Muscle weakness (generalized)
CPT/HCPCS: 36415; 80048; 85025

== ENCOUNTER → 2023-04-08 | Outpatient (REF) | payer MEDICARE, MEDICAID, SELFPAY ==
[2023-04-08 10:58] LABS: AST(SGOT) 14 U/L (15-37); Alanine Aminotransfer ALT/SGPT 20 U/L (13-56); Albumin, Serum 2.6 g/dL (3.2-5.0); Alkaline Phosphatase 52 U/L (45-117); Bilirubin, Direct 0.06 mg/dL (0.00-0.30); Globulin 3.8 g/dL (2.2-4.2); Protein, Total 6.4 g/dL (6.4-8.2)
== END ==
LOC: OLS.WHLEAS 05:00
PROVIDERS: PCP Internal Medicine; Visit Provider Internal Medicine
DX: R53.82 Chronic fatigue, unspecified (principal); I69.351 Hemiplegia and hemiparesis following cerebral infarction affecting right dominant side; K94.23 Gastrostomy malfunction; R13.10 Dysphagia, unspecified; M62.81 Muscle weakness (generalized)
CPT/HCPCS: 36415; 80076; 84443

== ENCOUNTER → 2023-04-12 | Outpatient (REF) | payer MEDICARE, MEDICAID, SELFPAY ==
[2023-04-12 08:47] LABS: Absolute Neutrophil Count 7.3 X10^3/uL (2.0-7.7); Basophil# 0.07 X10^3/uL; Basophil% 0.7 % (0-1); Eosinophil# 0.37 X10^3/uL; Eosinophils% 3.6 % (0-5); Hematocrit 26.7 % (37-47); Hemoglobin 7.5 g/dL (12.0-15.0); Lymphocyte % 16.6 % (19-41); Mean Corp Hgb Conc 28.1 g/dL (32-36); Mean Corpuscular Hgb 24.8 pg (27.0-32.0); Mean Corpuscular Volume 88.4 fL (81-99); Mean Platelet Vol. 11.2 fl (6.2-12.0); Monocyte# 0.75 X10^3/uL; Monocyte% 7.3 % (0-10); NRBC Flagged by Analyzer 0 % (0-5); Neutrophil # 7.31 X10^3/uL (2.7-7.7); Neutrophil % 71.5 % (47-70); Platelet Count 379 K/mm3 (150-450); RBC Distribution Width SD 51.5 fl (35.1-43.9); Red Blood Count 3.02 M/mm3 (4.2-5.4); White Blood Count 10.2 K/mm3 (4.4-11.0)
[2023-04-12 09:11] LABS: Anion Gap 5 (5-15); BUN 27 mg/dL (7-18); BUN/Creat Ratio 43.8 RATIO (10-20); Calcium,Total 9.2 mg/dL (8.5-10.1); Chloride 108 mmol/L (98-107); Creatinine, Serum 0.62 mg/dL (0.55-1.02); EST Glomerular Filtration Rate 99 mL/min (>60); Est Glom Filt Rate - Afr Amer 120 mL/min (>60); Glucose 140 mg/dL (74-106); Sodium Level 140 mmol/L (136-145)
== END ==
LOC: OLS.WHLEAS 05:00
PROVIDERS: PCP Internal Medicine; Visit Provider Internal Medicine
DX: I69.351 Hemiplegia and hemiparesis following cerebral infarction affecting right dominant side (principal); K94.23 Gastrostomy malfunction; R13.10 Dysphagia, unspecified; M62.81 Muscle weakness (generalized)
CPT/HCPCS: 36415; 80048; 85025

== ENCOUNTER 2023-04-13 11:04 | Outpatient (CLI) | payer MEDICARE, MEDICAID, SELFPAY ==
[2023-04-13 12:04] VITALS: BP 97/48; PULSE 80; RESP 16; TEMP 36.2; O2SAT 96; BMI 42.9
[2023-04-13 12:35] VITALS: BP 115/55; PULSE 80; RESP 18; TEMP 36.5; O2SAT 95
[2023-04-13 13:35] VITALS: BP 117/55; PULSE 77; RESP 16; TEMP 36.3
[2023-04-13 14:11] VITALS: BP 124/58; PULSE 75; RESP 18; TEMP 36.6; O2SAT 97
== END 2023-04-13 11:05 | disposition home or self-care (01) ==
LOC: MEDOUTP 11:06
PROVIDERS: PCP Internal Medicine; Referring Provider Nurse Practitioner Adult Health; Visit Provider Nurse Practitioner Adult Health
DX: D64.9 Anemia, unspecified (principal)
CPT/HCPCS: 36415; 36430; 86850; 86900; 86901; 86902; 86920; 86922; J7040; P9016

== ENCOUNTER → 2023-04-14 | Outpatient (REF) | payer MEDICARE, MEDICAID, SELFPAY ==
[2023-04-14 09:57] LABS: Absolute Lymphocyte Count 1.42 X10^3/uL (0.83-4.51); Basophil# 0.07 X10^3/uL; Basophil% 0.7 % (0-1); Eosinophil# 0.22 X10^3/uL; Hematocrit 30.4 % (37-47); Hemoglobin 8.7 g/dL (12.0-15.0); Lymphocyte # 1.42 X10^3/ul (0.83-4.51); Lymphocyte % 13.2 % (19-41); Mean Corp Hgb Conc 28.6 g/dL (32-36); Mean Corpuscular Hgb 25.8 pg (27.0-32.0); Mean Corpuscular Volume 90.2 fL (81-99); Mean Platelet Vol. 10.8 fl (6.2-12.0); Monocyte# 0.96 X10^3/uL; Monocyte% 8.9 % (0-10); NRBC Flagged by Analyzer 0 % (0-5); Neutrophil # 8.02 X10^3/uL (2.7-7.7); Neutrophil % 74.7 % (47-70); Platelet Count 344 K/mm3 (150-450); RBC Distribution Width CV 15.6 % (11.6-14.6); RBC Distribution Width SD 51.2 fl (35.1-43.9); Red Blood Count 3.37 M/mm3 (4.2-5.4); White Blood Count 10.7 K/mm3 (4.4-11.0)
== END ==
LOC: OLS.WHLEAS 08:05
PROVIDERS: PCP Internal Medicine; Visit Provider Internal Medicine
DX: E11.9 Type 2 diabetes mellitus without complications (principal); I69.351 Hemiplegia and hemiparesis following cerebral infarction affecting right dominant side; K94.23 Gastrostomy malfunction; R13.10 Dysphagia, unspecified; M62.81 Muscle weakness (generalized); D50.8 Other iron deficiency anemias
CPT/HCPCS: 36415; 85025

== ENCOUNTER → 2023-04-19 | Outpatient (REF) | payer MEDICARE, MEDICAID, SELFPAY ==
[2023-04-19 08:44] LABS: AST(SGOT) 15 U/L (15-37); Alanine Aminotransfer ALT/SGPT 20 U/L (13-56); Albumin, Serum 2.7 g/dL (3.2-5.0); Alkaline Phosphatase 53 U/L (45-117); Cholesterol 150 mg/dL (200); Globulin 3.6 g/dL (2.2-4.2); High Density Lipoprotein 55 mg/dL; Protein, Total 6.3 g/dL (6.4-8.2); Triglycerides 203 mg/dL; Very Low Density Lipoprotein 41 mg/dL (5-40)
[2023-04-19 08:47] LABS: Hemoglobin A1c 5.7 % (3.8-5.6)
== END ==
LOC: OLS.WHLEAS 05:30
PROVIDERS: PCP Internal Medicine; Visit Provider Internal Medicine
DX: E11.9 Type 2 diabetes mellitus without complications (principal); I69.351 Hemiplegia and hemiparesis following cerebral infarction affecting right dominant side; R13.10 Dysphagia, unspecified; M62.81 Muscle weakness (generalized)
CPT/HCPCS: 36415; 80061; 80076; 83036

== ENCOUNTER → 2023-04-26 | Outpatient (REF) | payer MEDICARE, MEDICAID, SELFPAY ==
[2023-04-26 08:42] LABS: Absolute Lymphocyte Count 1.42 X10^3/uL (0.83-4.51); Absolute Neutrophil Count 8.3 X10^3/uL (2.0-7.7); Basophil# 0.05 X10^3/uL; Basophil% 0.5 % (0-1); Eosinophil# 0.29 X10^3/uL; Eosinophils% 2.7 % (0-5); Hematocrit 30.6 % (37-47); Hemoglobin 9.2 g/dL (12.0-15.0); Lymphocyte # 1.42 X10^3/ul (0.83-4.51); Mean Corp Hgb Conc 30.1 g/dL (32-36); Mean Corpuscular Hgb 25.7 pg (27.0-32.0); Mean Corpuscular Volume 85.5 fL (81-99); Mean Platelet Vol. 10.7 fl (6.2-12.0); Monocyte# 0.88 X10^3/uL; Monocyte% 8.1 % (0-10); NRBC Flagged by Analyzer 0 % (0-5); Neutrophil # 8.25 X10^3/uL (2.7-7.7); Neutrophil % 75.4 % (47-70); Platelet Count 404 K/mm3 (150-450); RBC Distribution Width CV 15.9 % (11.6-14.6); RBC Distribution Width SD 50.2 fl (35.1-43.9); Red Blood Count 3.58 M/mm3 (4.2-5.4); White Blood Count 10.9 K/mm3 (4.4-11.0)
[2023-04-26 08:49] LABS: Anion Gap 3 (5-15); BUN 22 mg/dL (7-18); BUN/Creat Ratio 36.1 RATIO (10-20); Chloride 105 mmol/L (98-107); Creatinine, Serum 0.61 mg/dL (0.55-1.02); EST Glomerular Filtration Rate 100 mL/min (>60); Est Glom Filt Rate - Afr Amer 121 mL/min (>60); Glucose 128 mg/dL (74-106); Sodium Level 138 mmol/L (136-145)
== END ==
LOC: OLS.WHLEAS 05:00
PROVIDERS: PCP Internal Medicine; Visit Provider Internal Medicine
DX: I69.351 Hemiplegia and hemiparesis following cerebral infarction affecting right dominant side (principal); K94.23 Gastrostomy malfunction; R13.10 Dysphagia, unspecified; M62.81 Muscle weakness (generalized)
CPT/HCPCS: 36415; 80048; 85025

== ENCOUNTER → 2023-05-10 | Outpatient (REF) | payer MEDICARE, MEDICAID, SELFPAY ==
[2023-05-10 09:04] LABS: Absolute Lymphocyte Count 1.25 X10^3/uL (0.83-4.51); Absolute Neutrophil Count 5.3 X10^3/uL (2.0-7.7); Basophil# 0.06 X10^3/uL; Basophil% 0.8 % (0-1); Eosinophil# 0.28 X10^3/uL; Eosinophils% 3.7 % (0-5); Hematocrit 26.5 % (37-47); Hemoglobin 7.5 g/dL (12.0-15.0); Lymphocyte # 1.25 X10^3/ul (0.83-4.51); Lymphocyte % 16.7 % (19-41); Mean Corp Hgb Conc 28.3 g/dL (32-36); Mean Corpuscular Hgb 24.9 pg (27.0-32.0); Mean Platelet Vol. 10.8 fl (6.2-12.0); Monocyte# 0.55 X10^3/uL; Monocyte% 7.3 % (0-10); NRBC Flagged by Analyzer 0 % (0-5); Neutrophil # 5.33 X10^3/uL (2.7-7.7); Neutrophil % 71.2 % (47-70); Platelet Count 405 K/mm3 (150-450); RBC Distribution Width CV 16.9 % (11.6-14.6); RBC Distribution Width SD 53.7 fl (35.1-43.9); Red Blood Count 3.01 M/mm3 (4.2-5.4); White Blood Count 7.5 K/mm3 (4.4-11.0)
[2023-05-10 09:28] LABS: Anion Gap 6 (5-15); BUN 23 mg/dL (7-18); BUN/Creat Ratio 38.7 RATIO (10-20); Chloride 105 mmol/L (98-107); Creatinine, Serum 0.59 mg/dL (0.55-1.02); EST Glomerular Filtration Rate 103 mL/min (>60); Est Glom Filt Rate - Afr Amer 125 mL/min (>60); Glucose 176 mg/dL (74-106); Sodium Level 139 mmol/L (136-145)
== END ==
LOC: OLS.WHLEAS 04:00
PROVIDERS: PCP Internal Medicine; Referring Provider Internal Medicine; Visit Provider Internal Medicine
DX: I69.351 Hemiplegia and hemiparesis following cerebral infarction affecting right dominant side (principal); K94.23 Gastrostomy malfunction; R13.10 Dysphagia, unspecified
CPT/HCPCS: 36415; 80048; 85025